=== PATIENT | male | born 1945 | race Caucasian/White ===

== ENCOUNTER 2017-09-18 13:28 | Emergency (ER) | payer BC ==
[2017-09-18] MEDS ORDERED: NS 0.9% 1000 ML* 1,000 ML IV ONE (13:30)
[2017-09-18] MEDS ORDERED: Propofol* 1,000 MG/100 ML BTL ONE (13:48)
[2017-09-18] MEDS ORDERED: Iodixanol* (CONTRAST) 320 MG/ML 100 ML SDV IV ONE (13:48)
[2017-09-18] MEDS ORDERED: Succinylcholine* 20 MG/ML 10 ML VIAL ONE (13:48)
[2017-09-18] MEDS ORDERED: Alteplase* 100 MG VIAL IV ONE ×2 (13:50)
[2017-09-18] MEDS ORDERED: Succinylcholine* 20 MG/ML 10 ML VIAL IV ONE (13:52)
[2017-09-18] MEDS ORDERED: Propofol* 10 MG/ML 20 ML BTL IV PUSH ONE (13:52)
[2017-09-18] MEDS ORDERED: niCARdipine 0.1MG/ML IVPREMIX* 20 MG/200 ML BAG IV ONE (13:53)
[2017-09-18] MEDS ORDERED: niCARdipine 0.1MG/ML IVPREMIX* 20 MG/200 ML BAG ONE (13:55)
--- NOTE | 2017-09-18 13:59 | RAD ---
INDICATION: Weakness, code ramos. COMPARISON: Comparison is made with a prior CT of the brain from October 15, 2015. TECHNIQUE: Contiguous axial sections of the brain were obtained from the skull base to the vertex without contrast. FINDINGS: The ventricles, cisterns and sulci are enlarged consistent with diffuse atrophy. There are multiple focal areas of decreased density in the subcortical and periventricular white matter suggestive of moderate chronic small vessel ischemic changes. No mass effect is seen. There is no evidence for hemorrhage. No significant focal osseous abnormality is seen. There is mucosal thickening within the ethmoid air cells. The paranasal sinuses and mastoid air cells otherwise appear clear. The results of this exam were called to Dr. Busby at 1351 hours. IMPRESSION: 1. NO EVIDENCE FOR GROSS ACUTE INFARCT, MASS EFFECT OR HEMORRHAGE. 2. ATROPHY AND MODERATE CHRONIC SMALL VESSEL ISCHEMIC CHANGES.
[2017-09-18] MEDS ORDERED: Propofol* 100 ML IV SCH (14:00)
[2017-09-18 14:06] LABS: ABS Basophils 0.1 10^3/ul (0-0.2); ABS Eosinophils 0.4 10^3/ul (0-0.6); ABS Lymphocytes 1.4 10^3/ul (1.0-4.8); ABS Monocytes 0.7 10^3/ul (0-0.8); ABS Neutrophils 4.8 10^3/ul (1.5-7.7); ABS Nucleated RBC 0 10^3/ul; Eosinophil % 5.7 % (0-6); Hematocrit 40 % (42-52); Hemoglobin 13.6 g/dl (14.0-18.0); Lymphocyte % 19.2 % (25-47); Mean Corpuscular HGB Conc 34 g/dl (31-36); Mean Corpuscular Hemoglobin 31 pg (27-31); Mean Corpuscular Volume 91 fL (80-94); Mean Platelet Volume 6.2 um3 (7.4-10.4); Nucleated Red Blood Cells % 0; Platelet Count 259 10^3/ul (150-450); Red Blood Count 4.39 10^6/ul (4.0-5.4); Red Cell Distribution Width 14 % (10.5-15); White Blood Count 7.4 10^3/ul (3.5-10.8)
[2017-09-18 14:17] LABS: Urine Appearance Clear; Urine Blood Negative (Negative); Urine Color Yellow; Urine Ketones Negative (Negative); Urine Protein Negative (Negative); Urine Specific Gravity 1.023 (1.010-1.030); Urine Urobilinogen Negative (Negative)
[2017-09-18 14:20] LABS: INR 0.99 (0.77-1.02)
[2017-09-18 14:24] LABS: EGFR Non-African American 81.1 (>60)
--- NOTE | 2017-09-18 14:25 | RAD ---
HISTORY: R/O MCA BLOCK VS CAROTID OCC, neurological changes COMPARISONS: Head CT dated October 31, 2017 TECHNIQUE: Multiple contiguous axial CT scans were obtained of the head and neck after the administration of nonionic intravenous contrast timed to the systemic arterial phase of contrast enhancement. Coronal and sagittal multiplanar reformations are submitted for review. Multiple 3-D maximum intensity projection reconstructions are also submitted for review. FINDINGS: CTA NECK: AORTIC ARCH: There is a normal three-vessel branching pattern of the aortic arch. There is no ostial or proximal stenosis of the cephalic great vessels. RIGHT VERTEBRAL ARTERY: The right vertebral artery is patent along its course, without stenosis. LEFT VERTEBRAL ARTERY: The left vertebral artery is patent along its course, without stenosis. DOMINANCE: The vertebral arteries are codominant. RIGHT COMMON CAROTID ARTERY: The right common carotid artery is patent. The right carotid bifurcation occurs at C2-C3 RIGHT INTERNAL CAROTID ARTERY: There is atheromatous disease of the right carotid bifurcation, without right internal carotid artery stenosis by NASCET criteria. RIGHT EXTERNAL CAROTID ARTERY: The right external carotid artery is unremarkable. LEFT COMMON CAROTID ARTERY: The left common carotid artery is patent. The left carotid bifurcation occurs at C3 LEFT INTERNAL CAROTID ARTERY: There is atheromatous disease of the left carotid bifurcation, without left internal carotid artery stenosis by NASCET criteria. LEFT EXTERNAL CAROTID ARTERY: The left external carotid artery is unremarkable. VENOUS CIRCULATION: The venous system is unremarkable. SALIVARY GLANDS: The parotid glands, submandibular glands, sublingual glands are normal. NASAL CAVITY/NASOPHARYNX: The nasal cavity and nasopharynx are normal. ORAL CAVITY/OROPHARYNX: The oral cavity and oropharynx are unremarkable. LARYNGEAL APPARATUS/HYPOPHARYNX: The laryngeal apparatus and hypopharynx are normal. UPPER AIRWAY/UPPER ESOPHAGUS: The visualized upper airway and esophagus are normal. LUNG APICES: The lung apices are clear. THYROID GLAND: The thyroid gland is normal. LYMPH NODES: There is no lymphadenopathy by size criteria. BONES AND SOFT TISSUES: Degenerative changes noted. 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 CTA HEAD: INTRACRANIAL CIRCULATION: There is occlusion of the left MCA at the level of the distal M1 segment just proximal to the trifurcation, best seen on axial image 219. There is density noted within an M2 branch on the noncontrast CT suggestive of a calcified thrombus. There is reconstitution of the M2 branches distally, with collateral flow symmetric to the contralateral side. (Collateral score 3) The anterior communicating artery complex is clear. There is a origin of the right posterior cerebral artery. VENOUS CIRCULATION: The venous system is unremarkable. PERFUSION: There is no obvious parenchymal perfusion deficit. HEMORRHAGE/INFARCT: There is no hemorrhage or acute infarct. MASSES/SHIFT: There is no mass or shift. EXTRA-AXIAL SPACES: There are no extra-axial fluid collections. SULCI AND VENTRICLES: The sulci and ventricles are normal in size and position for the patient's stated age. CEREBRUM: There is hypoattenuation of the periventricular and subcortical white matter. There is more focal and septal malacia of the left occipital lobe. There is loss of ramos-white differentiation along the insula. BRAINSTEM: There are no focal parenchymal abnormalities. CEREBELLUM: There are no focal parenchymal abnormalities. PARANASAL SINUSES: The paranasal sinuses are clear. ORBITS: The orbits are unremarkable. BONES AND SOFT TISSUE: Unremarkable OTHER: ASPECTS Score: Caudate: Normal -- 1 Lentiform Nuclei: Normal -- 1 Internal Capsule: Loss of lara-white definition -- 0 Insula: Normal -- 1 M1 -- Frontal Operculum: Normal -- 1 M2 -- Anterior Temporal Lobe: Normal -- 1 M3 -- Posterior Temporal Lobe: Normal -- 1 M4 -- Anterior MCA Territory: Normal -- 1 M5 -- Lateral MCA Territory: Normal -- 1 M6 -- Posterior MCA Territory: Normal -- 1 TOTAL: 9 IMPRESSION: 1. OCCLUSION OF LEFT MCA AT THE M1 SEGMENT WITH DISTAL RECONSTITUTION. THERE IS DENSITY ON NONCONTRAST CT SUGGESTIVE OF CALCIFIED THROMBOEMBOLIC CLOT. 2. CHRONIC SMALL VESSEL ISCHEMIC CHANGES. 3. 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 4. ASPECTS SCORE 9, COLLATERAL SCORE OF 3. PRELIMINARY FINDINGS WERE DISCUSSED WITH DR. RUGGIERO IN THE EMERGENCY DEPARTMENT AT APPROXIMATELY 2:14 PM ON SEPTEMBER 18, 2017. CPT II Codes: 3100F
--- NOTE | 2017-09-18 14:29 | RAD ---
HISTORY: post intubation COMPARISONS: November 13, 2014 VIEWS: 1: frontal portable view of the chest at 2:11 PM FINDINGS: LINES AND TUBES: An endotracheal tube is noted with the tip overlying the trachea between the clavicles and the rama. A gastric tube is noted. The tip is below the [id number] of the current examination, but is below the diaphragm. CARDIOMEDIASTINAL SILHOUETTE: The cardiomediastinal silhouette is normal for portable technique. PLEURA: The costophrenic angles are sharp. No pleural abnormalities are noted. LUNG PARENCHYMA: The lungs are clear. ABDOMEN: The upper abdomen is clear. There is no subphrenic gas. BONES AND SOFT TISSUES: No bone or soft tissue abnormalities are noted. IMPRESSION: LINES AND TUBES ABOVE. NO ACTIVE CARDIOPULMONARY DISEASE.
--- NOTE | 2017-09-18 14:56 | ED ---
Jimbo Reese Stephanie, scribed for Navin Del Valle MD on 09/18/17 at 1339 . Neurological HPI - HPI Summary HPI Summary: The pt is a 71 y/o M BIBA to the ED with c/o neurological deficit that began at approximately 13:00. Pt was found slumped over while in library, witnessed by bystanders. Pt unresponsive at arrival of EMS. Blood glucose of 103. EMS noted him to have paralysis of the right side. HPI otherwise limited due to the pts unresponsive state. No family present. Patient had no medications on his person. Arrival blood pressure is elevated to 190. Patient went directly to CT scanner where he was evaluated there by myself and the neurologist. - History of Current Complaint Stated Complaint: CODE DE LUNA Time Seen by Provider: 09/18/17 13:30 Hx Obtained From: EMS Onset/Duration: Started minutes ago, Still Present Timing: Constant Current Severity: Severe Character: Responsiveness Aggravating: Nothing Alleviating: Nothing TPA Considered: Yes - Allergy/Home Medications Allergies/Adverse Reactions: Allergies Allergy/AdvReac Type Severity Reaction Status Date / Time No Known Allergies Allergy Verified 10/15/15 10:48 Home Medications: Home Medications Alfuzosin ER (NF) [Uroxatral (NF)] 10 mg PO DAILY 09/18/17 [History Confirmed ] Ascorbic Acid TAB* [Vitamin C TAB*] 1,000 mg PO DAILY 09/18/17 [History Confirmed 09/18/17] Aspirin EC TAB* [Ecotrin EC Low Dose 81 MG*] 81 mg PO DAILY 09/18/17 [History Confirmed 09/18/17] Cholecalciferol (Vitamin D3) [Vitamin D3] 400 unit PO DAILY 09/18/17 [History Confirmed 09/18/17] Docusate Sodium [Dok] 250 mg PO DAILY 09/18/17 [History Confirmed 09/18/17] Escitalopram (NF) [Lexapro 10 mg (NF)] 15 mg PO DAILY 09/18/17 [History Confirmed 09/18/17] Esomeprazole(NF) [NexIUM(NF)] 40 mg PO DAILY 09/18/17 [History Confirmed ] Mirtazapine TAB* [Remeron TAB*] 30 mg PO BEDTIME 09/18/17 [History Confirmed 10/29] Opti-Zinc 1 tab PO DAILY 09/18/17 [History Confirmed 09/18/17] Pyridoxal 1 tab PO DAILY 09/18/17 [History Confirmed 09/18/17] Selenium 50 mcg PO DAILY 09/18/17 [History Confirmed 09/18/17] traZODone TAB* [Desyrel TAB*] 100 mg PO BEDTIME 09/18/17 [History Confirmed 10/29] PMH/Surg Hx/FS Hx/Imm Hx Endocrine/Hematology History: Denies: Hx Anticoagulant Therapy, Hx Diabetes, Hx Thyroid Disease Cardiovascular History: Reports: Hx Hypertension Denies: Hx Congestive Heart Failure, Hx Pacemaker/ICD Respiratory History: Denies: Hx Asthma, Hx Chronic Obstructive Pulmonary Disease (COPD) GI History: Denies: Hx Ulcer History: Reports: Other Problems/Disorders - enlarged prostrate Denies: Hx Renal Disease Musculoskeletal History: Denies: Hx Rheumatoid Arthritis, Hx Osteoporosis Sensory History: Denies: Hx Hearing Aid Neurological History: Reports: Other Neuro Impairments/Disorders - Hx COMPRESSION Fx'S 2009 Psychiatric History: Denies: Hx Panic Disorder - Surgical History Surgery Procedure, Year, and Place: HERNIA REPAIRS Infectious Disease History: Reports: Hx Shingles Denies: Hx Clostridium Difficile, Hx Hepatitis, Hx Human Immunodeficiency Virus (HIV), Hx of Known/Suspected MRSA, Hx Tuberculosis, Hx Known/Suspected VRE , Hx Known/Suspected VRSA, History Other Infectious Disease - Family History Known Family History: Positive: Unknown Negative: Renal Disease - Social History Occupation: Retired Lives: With Family Alcohol Use: Daily Alcohol Amount: 1 beer/day Hx Substance Use: No Substance Use Type: Reports: None Hx Tobacco Use: No Smoking Status (MU): Never Smoked Tobacco Have You Smoked in the Last Year: No Review of Systems - ROS Summary Review of Systems Summary: ROS limited due to the unresponsive state of the pt. Negative: Fever All Other Systems Reviewed And Are Negative: No Physical Exam - Summary Physical Exam Summary: Appearance: Well appearing, no pain distress Skin: warm, dry, reflects adequate perfusion Head/face: normal Eyes:Eyes forcibly deviated to the R ENT: normal Neck: supple, non-tender Respiratory: Course breath sounds on the L greater than R, gurgling respirations. Cardiovascular: RRR, pulses symmetrical Abdomen: non-tender, soft Bowel Sounds: present Musculoskeletal: normal, strength/ROM intact Neuro: non-verbal, mute, moves left side to stimuli, reaches for intubation tube , flaccid paralysis of R upper extremity. Reflexive movement only of R LE. Remainder limited by alteration of consciousness. GCS: 9 Triage Information Reviewed: Yes Vital Signs On Initial Exam: Initial Vitals Temp Pulse Resp BP Pulse Ox 0 F 88 22 196/116 91 09/18/17 13:38 09/18/17 13:38 09/18/17 13:38 09/18/17 13:38 09/18/17 13:38 Vital Signs Reviewed: Yes Procedures - Intubation Time of Intubation: 14:03 - 24 cm at the lip with Glidescope 4 Intubation Method: orotracheal - Orogastric tube placed Tube Size (cm): 8.0 Medications: Succinylcholine - and propofol Breath Sounds after Intubation: equal Intubation Complications: no complications Post Intubation Xray: Yes Progress/Xray Impression: postintubation chest x-ray shows appropriate placement of tubes. An [facility] - Vital Signs Vital Signs Temp Pulse Resp BP Pulse Ox 09/18/17 14:24 78 16 166/98 95 09/18/17 14:22 82 12 137/83 100 09/18/17 14:20 70 14 147/84 99 09/18/17 14:18 70 18 147/85 100 09/18/17 14:16 76 22 153/87 99 09/18/17 14:15 69 19 139/82 99 09/18/17 14:11 77 23 99 09/18/17 14:10 65 12 149/86 98 09/18/17 14:05 70 16 236/115 100 09/18/17 13:38 0 F 88 22 196/116 91 - Laboratory Lab Results: Lab Results 09/18/17 09/18/17 09/18/17 Range/Units 13:59 13:59 13:59 WBC 7.4 (3.5-10.8) 10^3/ul RBC 4.39 (4.0-5.4) 10^6/ul Hgb 13.6 L (14.0-18.0) g/dl Hct 40 L (42-52) % MCV 91 (80-94) fL MCH 31 (27-31) pg MCHC 34 (31-36) g/dl RDW 14 (10.5-15) % Plt Count 259 (150-450) 10^3/ul MPV 6.2 L (7.4-10.4) um3 Neut % (Auto) 65.4 (38-83) % Lymph % (Auto) 19.2 L (25-47) % Gilliam % (Auto) 9.0 H (0-7) % Eos % (Auto) 5.7 (0-6) % Baso % (Auto) 0.7 (0-2) % Absolute Neuts (auto) 4.8 (1.5-7.7) 10^3/ul Absolute Lymphs (auto) 1.4 (1.0-4.8) 10^3/ul Absolute Monos (auto) 0.7 (0-0.8) 10^3/ul Absolute Eos (auto) 0.4 (0-0.6) 10^3/ul Absolute Basos (auto) 0.1 (0-0.2) 10^3/ul Absolute Nucleated RBC 0 10^3/ul Nucleated RBC % 0 INR (Anticoag Therapy) 0.99 (0.77-1.02) APTT 33.2 (26.0-36.3) seconds Sodium (139-145) mmol/L Potassium (3.5-5.0) mmol/L Chloride (101-111) mmol/L Carbon Dioxide (22-32) mmol/L Anion Gap (2-11) mmol/L BUN (6-24) mg/dL Creatinine (0.67-1.17) mg/dL Est GFR ( Amer) (>60) Est GFR (Non-Af Amer) (>60) BUN/Creatinine Ratio (8-20) Glucose (70-100) mg/dL Lactic Acid (0.5-2.0) mmol/L Calcium (8.6-10.3) mg/dL Total Bilirubin (0.2-1.0) mg/dL AST (13-39) U/L ALT (7-52) U/L Alkaline Phosphatase (34-104) U/L Troponin I (<0.04) ng/mL Total Protein (6.4-8.9) g/dL Albumin (3.2-5.2) g/dL Globulin (2-4) g/dL Albumin/Globulin Ratio (1-3) Triglycerides mg/dL Cholesterol mg/dL LDL Cholesterol mg/dL HDL Cholesterol mg/dL Urine Color Yellow Urine Appearance Clear Urine pH 7.0 (5-9) Ur Specific Erskine 1.023 (1.010-1.030) Urine Protein Negative (Negative) Urine Ketones Negative (Negative) Urine Blood Negative (Negative) Urine Nitrate Negative (Negative) Urine Bilirubin Negative (Negative) Urine Urobilinogen Negative (Negative) Ur Leukocyte Esterase Negative (Negative) Urine Glucose Negative (Negative) Blood Type Antibody Screen 09/18/17 09/18/17 09/18/17 Range/Units 13:59 14:00 14:00 WBC (3.5-10.8) 10^3/ul RBC (4.0-5.4) 10^6/ul Hgb (14.0-18.0) g/dl Hct (42-52) % MCV (80-94) fL MCH (27-31) pg MCHC (31-36) g/dl RDW (10.5-15) % Plt Count (150-450) 10^3/ul MPV (7.4-10.4) um3 Neut % (Auto) (38-83) % Lymph % (Auto) (25-47) % Gilliam % (Auto) (0-7) % Eos % (Auto) (0-6) % Baso % (Auto) (0-2) % Absolute Neuts (auto) (1.5-7.7) 10^3/ul Absolute Lymphs (auto) (1.0-4.8) 10^3/ul Absolute Monos (auto) (0-0.8) 10^3/ul Absolute Eos (auto) (0-0.6) 10^3/ul Absolute Basos (auto) (0-0.2) 10^3/ul Absolute Nucleated RBC 10^3/ul Nucleated RBC % INR (Anticoag Therapy) (0.77-1.02) APTT (26.0-36.3) seconds Sodium 137 L (139-145) mmol/L Potassium 4.1 (3.5-5.0) mmol/L Chloride 104 (101-111) mmol/L Carbon Dioxide 27 (22-32) mmol/L Anion Gap 6 (2-11) mmol/L BUN 12 (6-24) mg/dL Creatinine 0.92 (0.67-1.17) mg/dL Est GFR ( Amer) 104.3 (>60) Est GFR (Non-Af Amer) 81.1 (>60) BUN/Creatinine Ratio 13.0 (8-20) Glucose 107 H (70-100) mg/dL Lactic Acid 1.1 (0.5-2.0) mmol/L Calcium 9.1 (8.6-10.3) mg/dL Total Bilirubin 0.50 (0.2-1.0) mg/dL AST 15 (13-39) U/L ALT 13 (7-52) U/L Alkaline Phosphatase 94 (34-104) U/L Troponin I 0.01 (<0.04) ng/mL Total Protein 6.5 (6.4-8.9) g/dL Albumin 3.7 (3.2-5.2) g/dL Globulin 2.8 (2-4) g/dL Albumin/Globulin Ratio 1.3 (1-3) Triglycerides 112 mg/dL Cholesterol 130 mg/dL LDL Cholesterol 62 mg/dL HDL Cholesterol 45.6 mg/dL Urine Color Urine Appearance Urine pH (5-9) Ur Specific Erskine (1.010-1.030) Urine Protein (Negative) Urine Ketones (Negative) Urine Blood (Negative) Urine Nitrate (Negative) Urine Bilirubin (Negative) Urine Urobilinogen (Negative) Ur Leukocyte Esterase (Negative) Urine Glucose (Negative) Blood Type O Positive Antibody Screen Pending Result Diagrams: 09/18/17 13:59 09/18/17 13:59 Lab Statement: Any lab studies that have been ordered have been reviewed, and results considered in the medical decision making process. - Radiology CXR Xray Interpretation: No Acute Changes Radiology Interpretation Completed By: Radiologist - LINES AND TUBES ABOVE. NO ACTIVE CARDIOPULMONARY DISEASE. ED physician has reviewed this report. - CT Brain CT Interpretation: No Acute Changes CT Interpretation Completed By: Radiologist - 1. NO EVIDENCE FOR GROSS ACUTE INFARCT, MASS EFFECT OR HEMORRHAGE. 2. ATROPHY AND MODERATE CHRONIC SMALL VESSEL ISCHEMIC CHANGES. ED physician has reviewed this report. CTA Head CT Interpretation: Positive (See Comments) CT Interpretation Completed By: Radiologist - 1. OCCLUSION OF LEFT MCA AT THE M1 SEGMENT WITH DISTAL RECONSTITUTION. THERE IS DENSITY ON NONCONTRAST CT SUGGESTIVE OF CALCIFIED THROMBOEMBOLIC CLOT. 2. CHRONIC SMALL VESSEL ISCHEMIC CHANGES. 3. 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 4. ASPECTS SCORE 9, COLLATERAL SCORE OF 3. PRELIMINARY FINDINGS WERE DISCUSSED WITH DR. DEL VALLE IN THE EMERGENCY DEPARTMENT AT APPROXIMATELY 2: 14 PM ON SEPTEMBER 18, 2017. CPT II Codes: 3100F ED physician has reviewed this report. 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 Cook Helper/Release Non-Paretic Hand: Neither Correctly Best Gaze (Only Horizontal Eye Movement): Forced Deviation Visual Field Testing: No Visual Loss Facial Paresis-Pt to Smile & Close Eyes or Grimace Symmetry: Normal/Symmetrical Motor Function - Right Arm: No Effort Against Erskine Motor Function - Left Arm: No Drift-Holds 10 Seconds Motor Function - Right Leg: Effort Against Erskine Motor Function - Left Leg: No Drift-Holds 10 Seconds Limb Ataxia-Must be out of Proportion to Weakness Present: Absent Sensory (Use Pinprick to Test Arms/Legs/Trunk/Face): Normal Best Language (Describe Picture, Name Items): Mute/Global Aphasia Dysarthria (Read Several Words): Unintelligible or Mute Extinction and Inattention: Inattention Total Score: 20 Re-Evaluation - Re-Evaluation First Eval Re-Evaluation Time: 14:20 Change: Unchanged - BP is 150 systolic. Second Eval Change: Improved - Patient reaching for the tube and trying to mouth words. Course/Dx - Course Course Of Treatment: Patient presents critically ill after abrupt onset of slumping over at the library at 1305. This will be uses the time of onset. He was noted by EMS to have flaccid paralysis of the right side. Blood sugar was within normal range. Patient went directly to CT scan where no hemorrhages found. The neurologist accompanied him. CTA was obtained which showed large vessel occlusion. His blood pressure was elevated so is managed with IV Cardene. He was not maintaining his airway with gargling respirations so he was intubated by RSI. Blood pressure was adequately managed and TPA was started. There is no contraindications found in the chart. No family was available for history. Given the large vessel occlusion transfer arrangements were entertained. The stroke neurologist at [facility] was contacted. They accept the patient for transfer for rescue intervention. [facility] was contacted and will transport the patient. He is maintained on propofol, IV Cardene, IV TPA is going. His NIH stroke score is 20+. Patient was accepted to [facility] ER. Blood pressure is within target range running [address] Barnes accepts the pt into the ED at [facility]. 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 - Differential Dx Differential Diagnoses Neuro: Positive: Other - Acute CVA hemorrhagic versus ischemic, hypoglycemia, acute respiratory failure, aspiration pneumonitis - Diagnoses Provider Diagnoses: Acute CVA (cerebrovascular accident), Aspiration into airway, Hypertensive emergency - Physician Notifications Discussed Care Of Patient With: uCrt Grigsby - present throughout the resuscitation Time Discussed With Above Provider: 13:50 Instructed by Provider To: MD Will See In ED - Critical Care Time Critical Care Time: 75-104 min - 75 min. care time is exclusive of separately billable procedures. Discharge - Sign-Out/Discharge Documenting (check all that apply): Discharge/Admit/Transfer - Transfer - Discharge Plan Condition: Critical Disposition: TRANS HIGHER LVL OF CARE FAC Referrals: Keke Chapman MD [Primary Care Provider] - - Billing Disposition and Condition Condition: CRITICAL Disposition: Trans Higher Lvl of Care Fac The documentation as recorded by the Jimbo solo Stephanie accurately reflects the service I personally performed and the decisions made by me, Navin Del Valle MD.
[2017-09-18] MEDS ORDERED: Propofol* 100 ML ONE (15:12)
[2017-09-18] MEDS ORDERED: Propofol* 500 MG/50 ML BTL IV SCH (16:00)
[2017-09-18 16:55] VITALS: BP 169/89
--- NOTE | 2017-09-19 00:29 | CONS ---
CC: Dr. Chapman.* NEUROLOGY CONSULTATION: DATE OF CONSULT: 09/18/17 LOCATION: He is in the emergency room. REFERRING PROVIDER: Dr. Del Valle. CHIEF COMPLAINT: Stroke. HISTORY OF PRESENT ILLNESS: Pino Chamorro is a 71-year-old man of unknown handedness who was in the [facility] today when he slumped and was unresponsive. The history is from the bag end sewer who brought him in. Bystanders confirmed that at 1305 he seemed to slump and the ambulance was summoned. He was brought in to the emergency room and had a flaccid right hemiparesis with left gaze deviation in the CT scanner room. CT scan was performed and was unremarkable. CT angiogram was performed and he has a left middle cerebral artery M1 occlusion. PAST MEDICAL HISTORY: From computer records as he is unaccompanied. He was in the emergency room in 2015, was been getting physical therapy and there is an office note from his primary care provider Dr. Chapman in June 2016 in the record. He has a history of depression, a possible parkinsonism, osteoarthritis , constipation, remote history of alcohol abuse, cataracts. He had a compression fracture of L1 in the past. MEDICATIONS: At that point in time consisted of: 1. Colace 100 mg p.o. q. day. 2. Nexium. 3. Pramipexole 0.25 mg 2 tablets q. day. 4. Pyridoxine 1 tablet q. day. 5. Aspirin 81 mg p.o. q. day. 6. Vitamin D3. 7. Venlafaxine 150 mg p.o. q. day. 8. Mirtazapine 30 mg p.o. q. day. 9. Trazodone 100 mg q.h.s. ALLERGIES: He is listed as being allergic to HALDOL. REVIEW OF SYSTEMS: Not currently possible. PHYSICAL EXAM: On examination, both in the CAT scanner room and then subsequently in the emergency room is notable for a flaccid right hemiparesis, which did not improve over serial assessments. He would move his left arm at times to reach up his face before he was sedated and paralyzed for intubation. He would grimace on the left side of his face to pain stimulation to his left arm and leg but not to pain stimulation to his right arm and leg. He did not show any facial movement on the right side. His gaze was deviated to the left with occasional traverse into the midline, but mainly off to the left. His pupils responded equally from about 2.5 to 2 mm. I could not get a response to visual threat. At times in the CT scanner before he was put into the gantry, I could get him to look at me and at one point he seemed to try to mouth a word, but other than that he was mute. His NIH Stroke Score by my estimate is 23. DIAGNOSTIC STUDIES/LAB DATA: Includes a CT of the brain, which I reviewed and which looks normal other than involutional changes. CT angiogram of the brain was performed as well. I do not see any significant carotid stenosis. His left middle cerebral artery seems cut off in the [id number] M1 segment. There is no evidence of hemorrhaging on his brain CT. His blood tests are not back yet. IMPRESSION: His blood pressure was elevated as high as 220/100 at various points. Prior to giving TPA, he was given some Cardene, propofol, and intubated. His blood pressure came down to 150 over 80 to 90 and TPA was administered. The bolus was instituted at 1420. I spoke with Dr. Barnes of the stroke service at the [facility]. He agreed and accepted Mr. Chamorro in transfer by air for possible endovascular therapy. TPA will be continued to be infused on the trip there. Until he was sedated and given propofol, his neurologic exam did not change, but of course became difficult to assess once that was carried out. Over 60 minutes of emergency room care was carried out continuously in the care of Mr. Chamorro. [id number]/[facility] #: [id number] RADHA
== END 2017-09-18 15:30 | disposition short-term general hospital (02) ==
LOC: ED 13:28
DX: I63.9 Cerebral infarction, unspecified (principal); R29.818 Other symptoms and signs involving the nervous system; J98.8 Other specified respiratory disorders; I10 Essential (primary) hypertension; Z79.82 Long term (current) use of aspirin; Z79.899 Other long term (current) drug therapy
CPT/HCPCS: 36415; 70450; 70496; 70498; 71045; 80053; 80061; 81003; 83605; 84484; 85025; 85610; 85730; 86850; 86900; 86901; 93005; 96374; 96375; 96376; 99285; J0330; J2704; J2997; Q9967

== ENCOUNTER 2017-09-23 08:03 | Inpatient (IN) | payer BC, MEDICARE ==
[2017-09-23] MEDS: Atorvastatin* 40 MG TAB PO SCH (17:27)
[2017-09-23] MEDS: Docusate CAP* 100 MG PO SCH (21:16)
[2017-09-23] MEDS: traZODone TAB* 100 MG PO SCH (21:16)
[2017-09-23] MEDS: Metoprolol Tartrate TAB* 50 mg PO SCH (21:16)
[2017-09-23] MEDS: Heparin VIAL(*) 5000 UNITS/ML VIAL (FIVE THOUSAND) SUBCUT SCH (21:17)
--- NOTE | 2017-09-24 03:45 | HP ---
ADMISSION HISTORY AND PHYSICAL: DATE OF ADMISSION: 09/23/17 CHIEF COMPLAINT: Pino is here for a left-sided stroke with right hemiplegia and dysarthria and aphasia. HISTORY OF PRESENT ILLNESS: Pino Chamorro is a 71-year-old male. He has a medical history significant for benign prostatic hypertrophy. He was at the [facility] on 09/18/17 when he slumped and was unresponsive. He was brought in by EMT technicians. A CAT scan of his brain was done in the emergency room. He had a flaccid right hemiparesis with a left gaze deviation on presentation. CAT scan was done of his brain, was unremarkable. CT angiogram was done and he had left middle cerebral artery M1 occlusion. He had a NIH stroke score of 23. He was felt to be a candidate for TPA. Prior to TPA, he was given some Cardene and propofol to lower his blood pressure as it was high. TPA was administered. The patient was sent up to the [facility] for possible endovascular therapy. TPA was continued on the trip up to [place]. He was intubated for the transfer. He had an left MCA embolectomy with a TICI 2b recanalization. Following that procedure, he extubated himself. Postprocedure CAT scan of his head showed an evolving infarct of the left pre and post central gyri of the left parietal lobe. MRI showed a large left hemispheric infarct. He had an echocardiogram which was negative. Telemetry did not show any atrial fibrillation. He had a brief run of SVT in the ICU which did not recur. Neurology recommended a loop recorder to be done as an outpatient. He was felt to have physical therapy, occupational therapy, and speech therapy needs. He is now being admitted for inpatient rehab, so that he might return to an independent living. PAST MEDICAL HISTORY: Significant for the aforementioned benign prostatic hypertrophy. He has a history of depression and was seeing a psychiatrist with us. He also has a history of osteoporosis and early dementia. CURRENT MEDICATIONS: Include: 1. Lopressor. 2. Aspirin. 3. Lipitor. 4. Lexapro. 5. Heparin for DVT prophylaxis. 6. Prilosec. 7. Trazodone. ALLERGIES: No known drug allergies. SOCIAL HISTORY: He is a nonsmoker. He has a beer every night. He lives with his in a two-rajiv house with a bed and bath on the second level. There are 4 steps to enter and then another 4 steps to get to the kitchen level. REVIEW OF SYSTEMS: The patient reports no current shortness of breath. Does report difficulty speaking. PHYSICAL EXAMINATION VITAL SIGNS: The patient's temperature is 98.8, blood pressure is 150/90, pulse is 80, respirations 16. HEENT: He appears to have a right facial droop. NECK: His neck was supple. LUNGS: Sounded clear to auscultation bilaterally. HEART: Sounds are regular. S1 and S2 are audible. ABDOMEN: Soft and nontender. EXTREMITIES: His extremities showed slightly increased muscle tone on the right side. Peripheral pulses were intact. NEUROLOGIC: The patient was alert and oriented. He had dysarthria and also what appeared to be an expressive aphasia, although given his memory difficulties, I was not sure. He did not show any voluntary movement on the right arm or in the right leg. FUNCTIONAL: He transfers with max assist. 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 PLAN: We are going to integrate him into a comprehensive and therapeutic rehab program with the following goals: 1. Physical Therapy will work with the patient. They are going to work on functional transfer training and ambulation training with a walker. 2. Occupational Therapy will see the patient and work on his activities of daily living including toileting and toilet transfers. 3. Speech Therapy will see the patient. They are going to examine his swallowing and also work on his speech. 4. For secondary stroke prevention, we are going to continue a baby aspirin every day. 5. Heparin for DVT prophylaxis. 6. He is already on SSRI, Celexa. 7. Consider stimulants if indicated. 8. For his blood pressure, we are going to continue Lopressor. 9. For benign prostatic hypertrophy, we will continue Uroxatral. 10. academic services professional will be closely involved to make sure that any services and equipment that the patient requires are in place prior to discharge. 11. Family training as appropriate. 12. Home with appropriate services. ESTIMATED LENGTH OF STAY: 21 to 24 days. [id number]/[facility] #: [id number] MTDD
[2017-09-24 05:05] LABS: ABS Basophils 0 10^3/ul (0-0.2); ABS Eosinophils 0.4 10^3/ul (0-0.6); ABS Lymphocytes 1.7 10^3/ul (1.0-4.8); ABS Neutrophils 6.7 10^3/ul (1.5-7.7); ABS Nucleated RBC 0 10^3/ul; Eosinophil % 3.7 % (0-6); Hematocrit 41 % (42-52); Hemoglobin 13.8 g/dl (14.0-18.0); Lymphocyte % 17.1 % (25-47); Mean Corpuscular HGB Conc 34 g/dl (31-36); Mean Corpuscular Hemoglobin 31 pg (27-31); Mean Corpuscular Volume 91 fL (80-94); Mean Platelet Volume 6.1 um3 (7.4-10.4); Nucleated Red Blood Cells % 0; Platelet Count 281 10^3/ul (150-450); Red Blood Count 4.45 10^6/ul (4.00-5.40); Red Cell Distribution Width 13 % (10.5-15); White Blood Count 9.8 10^3/ul (3.5-10.8)
[2017-09-24] MEDS: Omeprazole CAP* 20 MG PO SCH (05:19)
[2017-09-24] MEDS: Heparin VIAL(*) 5000 UNITS/ML VIAL (FIVE THOUSAND) SUBCUT SCH ×3 (05:19→21:33)
[2017-09-24 05:33] LABS: EGFR Non-African American 90.1 (>60)
[2017-09-24] MEDS: ALFUZOSIN 10 MG PO SCH (10:26)
[2017-09-24] MEDS: Aspirin EC TAB* 81 MG TAB.EC PO SCH (10:26)
[2017-09-24] MEDS: CMCS Escitalopram (NF) 5 MG TAB PO SCH (10:26)
[2017-09-24] MEDS: Metoprolol Tartrate TAB* 50 mg PO SCH ×2 (10:27→21:31)
[2017-09-24] MEDS: Docusate CAP* 100 MG PO SCH ×2 (10:27→21:31)
[2017-09-24] MEDS: Atorvastatin* 40 MG TAB PO SCH (17:07)
--- NOTE | 2017-09-24 18:24 | PN ---
Progress Note Date of Service: 09/24/17 Note: DANIELE HOWARD was visited. Therapy notes read and reviewed. He remains with an aphasia and a dysarthria and a right hemiplegia. Tired after therapy. Current Medications: Active Medications Generic Name Dose Route Start Last Admin Trade Name Fregutierrez PRN Reason Stop Dose Admin Acetaminophen 650 mg 09/23/17 16:29 Tylenol Tab* PO Q6H PRN HEADACHE/PAIN Alfuzosin HCl 10 mg 09/24/17 09:00 09/24/17 10:26 Uroxatral (Nf) PO 10 mg DAILY FLORESITA Administration Aspirin 81 mg 09/24/17 09:00 09/24/17 10:26 Aspirin Ec Tab* PO 81 mg DAILY FLORESITA Administration Atorvastatin Calcium 40 mg 09/23/17 17:00 09/24/17 17:07 Lipitor* PO 40 mg 1700 FLORESITA Administration Docusate Sodium 100 mg 09/23/17 21:00 09/24/17 10:27 Colace Cap* PO 100 mg BID FLORESITA Administration Escitalopram Oxalate 15 mg 09/24/17 09:00 09/24/17 10:26 Lexapro (Nf) PO 15 mg DAILY FLORESITA Administration Heparin Sodium (Porcine) 5,000 units 09/23/17 22:00 09/24/17 15:30 Heparin Vial(*) SUBCUT 5,000 units Q8HR FLORESITA Administration Metoprolol Tartrate 50 mg 09/23/17 21:00 09/24/17 10:27 Lopressor Tab* PO 50 mg Q12HR FLORESITA Administration Omeprazole 20 mg 09/24/17 06:00 09/24/17 05:19 Prilosec Cap* PO 20 mg 0600 FLORESITA Administration Senna 2 tab 09/23/17 16:29 Senokot Tab* PO BEDTIME PRN CONSTIPATION Trazodone HCl 100 mg 09/23/17 21:00 09/23/17 21:16 Desyrel Tab* PO 100 mg BEDTIME FLORESITA Administration Vital Signs: Vital Signs Temp Pulse Resp BP Pulse Ox 99.0 F 63 20 114/52 94 09/24/17 16:38 09/24/17 16:38 09/24/17 16:38 09/24/17 16:38 09/24/17 16:38 Lab Results: Laboratory Results - last 24 hr 09/24/17 09/24/17 04:48 04:48 WBC 9.8 RBC 4.45 Hgb 13.8 L Hct 41 L MCV 91 MCH 31 MCHC 34 RDW 13 Plt Count 281 MPV 6.1 L Neut % (Auto) 68.3 Lymph % (Auto) 17.1 L [place] % (Auto) 10.5 H Eos % (Auto) 3.7 Baso % (Auto) 0.4 Absolute Neuts (auto) 6.7 Absolute Lymphs (auto) 1.7 Absolute Monos (auto) 1.0 H Absolute Eos (auto) 0.4 Absolute Basos (auto) 0 Absolute Nucleated RBC 0 Nucleated RBC % 0 Sodium 139 Potassium 3.7 Chloride 107 Carbon Dioxide 26 Anion Gap 6 BUN 24 Creatinine 0.84 Est GFR ( Amer) 115.8 Est GFR (Non-Af Amer) 90.1 BUN/Creatinine Ratio 28.6 H Glucose 105 H Calcium 9.2 Total Bilirubin 1.30 H AST 23 ALT 28 Alkaline Phosphatase 86 Total Protein 6.6 Albumin 3.7 Globulin 2.9 Albumin/Globulin Ratio 1.3 Exam: HEENT: Mild right facial LUNGS: Clear HEART: Reg rhythm ABDOMEN: Soft, +BS EXTREMITIES: flaccid RUE NEUROLOGIC: Dysarthric and aphasic. No movement on right side Assessment/Plan: 1. Right MCA CVA with tPA administration and S/P embolectomy: PT/OT/JEWEL SAWYER. ASA/ Lipitor 2. Dysphagia: Pureed solids, nectar thickened liquids 3. Depression: Lexapro/Trazodone 4. BPH: Uroxatral 5. HTN: Lopressor 6. DVT Prophylaxis: Heparin S/Q 7. Advanced Directives: Full Code 09/24/17 18:25
[2017-09-24] MEDS: traZODone TAB* 100 MG PO SCH (21:31)
[2017-09-25] MEDS: Heparin VIAL(*) 5000 UNITS/ML VIAL (FIVE THOUSAND) SUBCUT SCH ×3 (05:38→21:37)
[2017-09-25] MEDS: Omeprazole CAP* 20 MG PO SCH (05:40)
[2017-09-25] MEDS: Docusate CAP* 100 MG PO SCH ×2 (09:36→21:38)
[2017-09-25] MEDS: Metoprolol Tartrate TAB* 50 mg PO SCH ×2 (09:36→21:38)
[2017-09-25] MEDS: ALFUZOSIN 10 MG PO SCH (09:36)
[2017-09-25] MEDS: Aspirin EC TAB* 81 MG TAB.EC PO SCH (09:36)
[2017-09-25] MEDS: CMCS Escitalopram (NF) 5 MG TAB PO SCH (09:36)
[2017-09-25] MEDS: Atorvastatin* 40 MG TAB PO SCH (17:15)
--- NOTE | 2017-09-25 19:09 | PN ---
Progress Note Date of Service: 09/25/17 Note: DANIELE HOWARD was visited. Therapy notes read and reviewed. Quite fatigued after therapies. Remains flaccid on right side. No voluntary movement on right seen by me. Current Medications: Active Medications Generic Name Dose Route Start Last Admin Trade Name Freq PRN Reason Stop Dose Admin Acetaminophen 650 mg 09/23/17 16:29 Tylenol Tab* PO Q6H PRN HEADACHE/PAIN Alfuzosin HCl 10 mg 09/24/17 09:00 09/25/17 09:36 Uroxatral (Nf) PO 10 mg DAILY FLORESITA Administration Aspirin 81 mg 09/24/17 09:00 09/25/17 09:36 Aspirin Ec Tab* PO 81 mg DAILY FLORESITA Administration Atorvastatin Calcium 40 mg 09/23/17 17:00 09/25/17 17:15 Lipitor* PO 40 mg 1700 FLORESITA Administration Docusate Sodium 100 mg 09/23/17 21:00 09/25/17 09:36 Colace Cap* PO 100 mg BID FLORESITA Administration Escitalopram Oxalate 15 mg 09/24/17 09:00 09/25/17 09:36 Lexapro (Nf) PO 15 mg DAILY FLORESITA Administration Heparin Sodium (Porcine) 5,000 units 09/23/17 22:00 09/25/17 14:05 Heparin Vial(*) SUBCUT 5,000 units Q8HR FLORESITA Administration Metoprolol Tartrate 50 mg 09/23/17 21:00 09/25/17 09:36 Lopressor Tab* PO 50 mg Q12HR FLORESITA Administration Omeprazole 20 mg 09/24/17 06:00 09/25/17 05:40 Prilosec Cap* PO 20 mg 0600 FLORESITA Administration Senna 2 tab 09/23/17 16:29 Senokot Tab* PO BEDTIME PRN CONSTIPATION Trazodone HCl 100 mg 09/23/17 21:00 09/24/17 21:31 Desyrel Tab* PO 100 mg BEDTIME FLORESITA Administration Vital Signs: Vital Signs Temp Pulse Resp BP Pulse Ox 98.5 F 62 18 113/55 97 09/25/17 16:20 09/25/17 16:20 09/25/17 16:20 09/25/17 16:20 09/25/17 16:20 Exam: HEENT: Mild right facial LUNGS: Clear HEART: Reg rhythm ABDOMEN: Soft, +BS EXTREMITIES: flaccid RUE and RLE NEUROLOGIC: Dysarthric and aphasic. No movement on right side Assessment/Plan: 1. 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 ASA/ Lipitor 2. Dysphagia: Pureed solids, nectar thickened liquids 3. Depression: Lexapro/Trazodone 4. BPH: Uroxatral 5. HTN: Lopressor 6. DVT Prophylaxis: Heparin S/Q 7. Advanced Directives: Full Code 09/25/17 19:09
[2017-09-25] MEDS: traZODone TAB* 100 MG PO SCH (21:38)
[2017-09-26] MEDS: Heparin VIAL(*) 5000 UNITS/ML VIAL (FIVE THOUSAND) SUBCUT SCH ×3 (05:20→21:13)
[2017-09-26] MEDS: Omeprazole CAP* 20 MG PO SCH (05:20)
[2017-09-26] MEDS: Docusate CAP* 100 MG PO SCH ×2 (09:25→20:30)
[2017-09-26] MEDS: Aspirin EC TAB* 81 MG TAB.EC PO SCH (09:25)
[2017-09-26] MEDS: Metoprolol Tartrate TAB* 50 mg PO SCH ×2 (09:25→20:30)
[2017-09-26] MEDS: CMCS Escitalopram (NF) 5 MG TAB PO SCH (09:25)
[2017-09-26] MEDS: ALFUZOSIN 10 MG PO SCH (09:25)
--- NOTE | 2017-09-26 11:24 | PN ---
Progress Note Date of Service: 09/26/17 Note: DANEILE HOWARD was visited. Nursing and therapy notes read and reviewed. No chest pain, shortness of breath or abdominal pain. He has no complaints. Current Medications: Active Medications Generic Name Dose Route Start Last Admin Trade Name Freq PRN Reason Stop Dose Admin Acetaminophen 650 mg 09/23/17 16:29 Tylenol Tab* PO Q6H PRN HEADACHE/PAIN Alfuzosin HCl 10 mg 09/24/17 09:00 09/26/17 09:25 Uroxatral (Nf) PO 10 mg DAILY FLORESITA Administration Aspirin 81 mg 09/24/17 09:00 09/26/17 09:25 Aspirin Ec Tab* PO 81 mg DAILY FLORESITA Administration Atorvastatin Calcium 40 mg 09/23/17 17:00 09/25/17 17:15 Lipitor* PO 40 mg 1700 FLORESITA Administration Docusate Sodium 100 mg 09/23/17 21:00 09/26/17 09:25 Colace Cap* PO 100 mg BID FLORESITA Administration Escitalopram Oxalate 15 mg 09/24/17 09:00 09/26/17 09:25 Lexapro (Nf) PO 15 mg DAILY FLORESITA Administration Heparin Sodium (Porcine) 5,000 units 09/23/17 22:00 09/26/17 05:20 Heparin Vial(*) SUBCUT 5,000 units Q8HR FLORESITA Administration Metoprolol Tartrate 50 mg 09/23/17 21:00 09/26/17 09:25 Lopressor Tab* PO 50 mg Q12HR FLORESITA Administration Omeprazole 20 mg 09/24/17 06:00 09/26/17 05:20 Prilosec Cap* PO 20 mg 0600 FLORESITA Administration Senna 2 tab 09/23/17 16:29 Senokot Tab* PO BEDTIME PRN CONSTIPATION Trazodone HCl 100 mg 09/23/17 21:00 09/25/17 21:38 Desyrel Tab* PO 100 mg BEDTIME FLORESITA Administration Vital Signs: Vital Signs Temp Pulse Resp BP Pulse Ox 98.3 F 73 16 143/78 95 09/26/17 05:22 09/26/17 05:22 09/26/17 05:22 09/26/17 05:22 09/26/17 05:22 Exam: GEN: no acute distress. alert and appropriate LUNGS: Clear to auscultation bilaterally HEART: Regular rate and rhythm ABDOMEN: Soft, +BS, non-tender, non-distended EXTREMITIES: no edema NEUROLOGIC: CN II-XII intact except for right CN VII palsy, but it seems mild. Dysarthria and aphasia. Right flaccid hemiplegia and sensation also impaired on right side. Has difficulty following commands for motor exam of left side, which is 5/5 strength and normal sensation. He may have some perseveration vs he does not understand due to receptive aphasia. Assessment/Plan: 71yo man 1. 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 ASA/ Lipitor 2. Dysphagia: Pureed solids, nectar thickened liquids 3. Depression: Lexapro/Trazodone 4. BPH: Uroxatral 5. HTN: Lopressor 6. DVT Prophylaxis: Heparin S/Q 7. Advanced Directives: Full Code 8. Estimated LOS: will discuss today with team at IPOC. 09/26/17 11:24
--- NOTE | 2017-09-26 12:37 | PMRUTEAM ---
PMRU: Team Meeting Current Status: Nursing: Current Status Skin Deviations [rt lower leg, Bruise torey UE] Skin Deviations [Bilateral Other Groin] Skin Deviations [Left Knee] Other Skin Deviations [Right Groin] Previous Access Point Skin Deviation Description [rt scattered lower leg, torey UE] Skin Deviation Description [ slightly pink Bilateral Groin] Skin Deviation Description [ scab,healing Left Knee] Skin Deviation Description [ PHILIPPE Right Groin] Physical Therapy: Current Status Bed Mobility Assistance Max Assist Transfer Moblility Assistance Max Assist,Total Assist Transfer/Bed Mobility EZ Stand or saba Recommended Devices Ambulation Assistance unable Wheelchair Distance (ft) 50 Objective Comments poor motor planning/ inconsistent command following (20% accurate), poor R sided awareness, easily fatiguable Occupational Therapy: Current Status Upper Body Dressing Max Asst Lower Body Dressing Total Assist Bathing Max Asst,2 Person Assist Toileting Total Assist Shower Transfer not tested Eating Supervision SPEECH THERAPY: assessment in progress. Pureed diet and nectar thick liquids. Rec Therapy: Current Status Summary of Assessment and Information above taken in combination from pt. Clinical Impression and his family members d/t his speech difficulties . Pt. was active in leisure interests prior to admission. Pt. has leisure activities in his room and was open to continued leisure visits. Treatment Goals Pt. will engage in leisure activities while on the unit. Treatment Plan Provide RT services and encourage involvement. Social Work: Current Status Discharge Plan return home with home care svs and family support Potential for Family Training pt's family are involved and supportive Anticipated Discharge Home Destination Discharge With home care svs and family support Goals: Physical Therapy: Initial Goals Bed Mobility Assistance Independent Transfer Mobility Assistance Independent Transfer/Bed Mobility Large Base Quad Cane Recommended Devices Wheelchair Propulsion Ability Independent Occupational Therapy: Initial Goals Goals to be Completed in (Days 4-6 weeks ) Upper Body Bathing Routine Modified Independent with Lower Body Bathing Routine Minimal Contact Assist Upper Body Dressing Routine Minimal Contact Assist Lower Body Dressing Routine Minimal Contact Assist Toilet Hygeine and Clothing Supervision/Set Up Management Routine Toilet Transfer Routine Supervision/Set Up Step-In Shower Transfer Minimal Contact Assist Routine Functional Transfers for ADL Supervision/Set Up Grooming Routine Independent Feeding Routine Independent SPEECH THERAPY: least restrictive diet. Effective communication. Social Work: Goals Discharge Plan return home with home care svs and family support Potential for Family Training pt's family are involved and supportive Anticipated Discharge Home Destination Discharge With home care svs and family support Care Plan: Care Plan Communication-Improve/Maintain Start: 09/23/17 17:33 Freq: QSHIFT Status: Active Target: Protocol: Activity Type Activity Date Activity User E-Sign Co-Sign Detail Recorded Client Recorded Date Recorded By Document 09/25/17 21:00 [id number] 09/25/17 21:04 [id number] 09/25/17 21:00 Outcome: Communication Outcome/Goals Demonstrate Knowledge and Use of Communication Tools/Devices Demonstrate Ability to Make Needs Known Progression Toward Outcome/Goals Progressing Discharge Planning Start: 09/23/17 17:33 Freq: QSHIFT Status: Active Target: Protocol: Activity Type Activity Date Activity User E-Sign Co-Sign Detail Recorded Client Recorded Date Recorded By Document 09/26/17 01:56 [id number] 09/26/17 01:56 [id number] 09/26/17 01:56 Outcome: Discharge Planning Outcome/Goals Demonstrates Understanding of Discharge Plan Progression Toward Outcome/Goals Progressing Education-Improve/Maintain Start: 09/25/17 00:33 Freq: QSHIFT Status: Active Target: Protocol: Activity Type Activity Date Activity User E-Sign Co-Sign Detail Recorded Client Recorded Date Recorded By Document 09/26/17 00:49 [id number] 09/26/17 00:52 [id number] 09/26/17 00:49 PMRU Outcome: Education Outcome/Goals Demonstrate/ Verbalize Understanding of Written Discharge Instructions Demonstrates Skills Encourage Questions Progression Toward Outcome/Goals Progressing Mobility-Improve/Maintain Start: 09/23/17 17:33 Freq: QSHIFT Status: Active Target: Protocol: Activity Type Activity Date Activity User E-Sign Co-Sign Detail Recorded Client Recorded Date Recorded By Document 09/25/17 21:00 [id number] 09/25/17 21:04 [id number] 09/25/17 21:00 Outcome: Mobility Outcome/Goals Maintain/ Achieve Baseline Mobility Status Progression Toward Outcome/Goals Progressing Neurological-Improve/Maintain Start: 09/23/17 17:33 Freq: QSHIFT Status: Active Target: Protocol: Activity Type Activity Date Activity User E-Sign Co-Sign Detail Recorded Client Recorded Date Recorded By Document 09/25/17 21:00 [id number] 09/25/17 21:04 [id number] 06/14/18 21:00 Outcome: Neurological Outcome/Goals Improve Neurological Status Maintain/ Improve Strength/ROM Progression Toward Outcome/Goals Progressing Pain/Comfort- Improve/Maintain Start: 09/25/17 00:33 Freq: QSHIFT Status: Complete Target: Protocol: Activity Type Activity Date Activity User E-Sign Co-Sign Detail Recorded Client Recorded Date Recorded By Document 09/25/17 20:00 [id number] 09/25/17 21:03 [id number] 09/25/17 20:00 PMRU Outcome: Pain/Comfort Outcome/Goals Demonstrates Knowledge and Use of Available Comfort Measures Achieves Acceptable Comfort/Pain Level as Determined by Patient/Condit Maintain Comfort Level Allowing Patient to Fully Participate in Rehab Outcome/Goals Met Demonstrates Knowledge and Use of Available Comfort Measures Achieves Acceptable Comfort/Pain Level as Determined by Patient/Condit Safety- Improve/Maintain Start: 09/25/17 00:33 Freq: QSHIFT Status: Active Target: Protocol: Activity Type Activity Date Activity User E-Sign Co-Sign Detail Recorded Client Recorded Date Recorded By Document 09/26/17 00:49 [id number] 09/26/17 00:52 [id number] 09/26/17 00:49 PMRU Outcome: Safety Outcome/Goals Remain Free of Injury or Harm Cooperates with Safety Measures for Least Restrictive Environment Prevent Falls/ Injury Progression Toward Outcome/Goals Progressing Medicine Note: Length of Stay: [6 week] Anticipated Discharge Destination: Home Tentative Discharge Date: [November 07, 2016] Discharged to: [home with family support]
[2017-09-26] MEDS: Atorvastatin* 40 MG TAB PO SCH (16:54)
[2017-09-26] MEDS: traZODone TAB* 100 MG PO SCH (20:30)
[2017-09-27] MEDS: Heparin VIAL(*) 5000 UNITS/ML VIAL (FIVE THOUSAND) SUBCUT SCH ×3 (05:23→21:09)
[2017-09-27] MEDS: Omeprazole CAP* 20 MG PO SCH (05:24)
[2017-09-27] MEDS: Aspirin EC TAB* 81 MG TAB.EC PO SCH (08:07)
[2017-09-27] MEDS: Docusate CAP* 100 MG PO SCH ×2 (08:07→21:01)
[2017-09-27] MEDS: CMCS Escitalopram (NF) 5 MG TAB PO SCH (08:08)
[2017-09-27] MEDS: ALFUZOSIN 10 MG PO SCH (08:08)
[2017-09-27] MEDS: Metoprolol Tartrate TAB* 50 mg PO SCH ×2 (08:08→21:00)
[2017-09-27 10:49] LABS: ABS Basophils 0 10^3/ul (0-0.2); ABS Eosinophils 0.3 10^3/ul (0-0.6); ABS Lymphocytes 1.4 10^3/ul (1.0-4.8); ABS Monocytes 0.8 10^3/ul (0-0.8); ABS Neutrophils 6.5 10^3/ul (1.5-7.7); ABS Nucleated RBC 0 10^3/ul; Eosinophil % 3.8 % (0-6); Hematocrit 39 % (42-52); Hemoglobin 13.3 g/dl (14.0-18.0); Lymphocyte % 15.4 % (25-47); Mean Corpuscular HGB Conc 34 g/dl (31-36); Mean Corpuscular Hemoglobin 31 pg (27-31); Mean Corpuscular Volume 91 fL (80-94); Mean Platelet Volume 6.2 um3 (7.4-10.4); Nucleated Red Blood Cells % 0.1; Platelet Count 307 10^3/ul (150-450); Red Cell Distribution Width 13 % (10.5-15)
--- NOTE | 2017-09-27 11:21 | PN ---
Progress Note Date of Service: 09/27/17 Note: DANIELE HOWARD was visited. Nursing and therapy notes read and reviewed. This morning he had a medium formed bowel movement with scant blood. He acknowledges having hemorrhoids for years but not bleeding. His last colonoscopy was about 3 -4 years ago. No chest pain, shortness of breath or abdominal pain. Current Medications: Active Medications Generic Name Dose Route Start Last Admin Trade Name Freq PRN Reason Stop Dose Admin Acetaminophen 650 mg 09/23/17 16:29 Tylenol Tab* PO Q6H PRN HEADACHE/PAIN Alfuzosin HCl 10 mg 09/24/17 09:00 09/27/17 08:08 Uroxatral (Nf) PO 10 mg DAILY FLORESITA Administration Aspirin 81 mg 09/24/17 09:00 09/27/17 08:07 Aspirin Ec Tab* PO 81 mg DAILY FLORESITA Administration Atorvastatin Calcium 40 mg 09/23/17 17:00 09/26/17 16:54 Lipitor* PO 40 mg 1700 FLORESITA Administration Docusate Sodium 100 mg 09/23/17 21:00 09/27/17 08:07 Colace Cap* PO 100 mg BID FLORESITA Administration Escitalopram Oxalate 15 mg 09/24/17 09:00 09/27/17 08:08 Lexapro (Nf) PO 15 mg DAILY FLORESITA Administration Heparin Sodium (Porcine) 5,000 units 09/23/17 22:00 09/27/17 05:23 Heparin Vial(*) SUBCUT 5,000 units Q8HR FLORESITA Administration Metoprolol Tartrate 50 mg 09/23/17 21:00 09/27/17 08:08 Lopressor Tab* PO 50 mg Q12HR FLORESITA Administration Omeprazole 20 mg 09/24/17 06:00 09/27/17 05:24 Prilosec Cap* PO 20 mg 0600 FLORESITA Administration Senna 2 tab 09/23/17 16:29 Senokot Tab* PO BEDTIME PRN CONSTIPATION Trazodone HCl 100 mg 09/23/17 21:00 09/26/17 20:30 Desyrel Tab* PO 100 mg BEDTIME FLORESITA Administration Vital Signs: Vital Signs Temp Pulse Resp BP Pulse Ox 99.4 F 59 18 117/60 97 09/27/17 05:22 09/27/17 05:22 09/27/17 08:00 09/27/17 05:22 09/27/17 08:00 Lab Results: Laboratory Results - last 24 hr 09/27/17 10:27 WBC 9.0 RBC 4.30 Hgb 13.3 L Hct 39 L MCV 91 MCH 31 MCHC 34 RDW 13 Plt Count 307 MPV 6.2 L Neut % (Auto) 72.1 Lymph % (Auto) 15.4 L [place] % (Auto) 8.5 H Eos % (Auto) 3.8 Baso % (Auto) 0.2 Absolute Neuts (auto) 6.5 Absolute Lymphs (auto) 1.4 Absolute Monos (auto) 0.8 Absolute Eos (auto) 0.3 Absolute Basos (auto) 0 Absolute Nucleated RBC 0 Nucleated RBC % 0.1 Exam: GEN: no acute distress. alert and appropriate LUNGS: Clear to auscultation bilaterally HEART: Regular rate and rhythm ABDOMEN: Soft, +BS, non-tender, non-distended EXTREMITIES: no edema NEUROLOGIC: CN II-XII intact except for right CN VII palsy, but it seems mild. Dysarthria and aphasia both lessning. Today while supine and arm on pillow able to demostrate 2/5 shoulder abduction, shoulder adduction, elbow flexion and hip flexion/extension. Sensation impaired right side. Assessment/Plan: 71yo man s/p right MCA CVA 1. Right MCA CVA with tPA administration and S/P embolectomy: Starting to show some motor recovery. 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 ASA/Lipitor 2. Dysphagia: Pureed solids, nectar thickened liquids 3. Depression: Lexapro/Trazodone 4. BPH: Uroxatral 5. HTN: Lopressor 6. DVT Prophylaxis: Heparin S/Q 7. Blood in stool: check hemeoccult with next bowel movement. H/H is stable. Likely from hemorrhoids, but if this is a persistent issue it may need more evaluation either as in or out patient. 8. Advanced Directives: Full Code 9. Estimated LOS: 6 weeks per IPOC on 09/26. 09/27/17 11:18
[2017-09-27] MEDS: Atorvastatin* 40 MG TAB PO SCH (17:27)
[2017-09-27] MEDS: Mirtazapine TAB* 15 MG PO SCH (21:01)
[2017-09-27] MEDS: traZODone TAB* 100 MG PO SCH (21:02)
[2017-09-28] MEDS: Omeprazole CAP* 20 MG PO SCH (05:08)
[2017-09-28] MEDS: Heparin VIAL(*) 5000 UNITS/ML VIAL (FIVE THOUSAND) SUBCUT SCH ×3 (05:08→21:29)
[2017-09-28] MEDS: Metoprolol Tartrate TAB* 50 mg PO SCH ×2 (08:08→21:15)
[2017-09-28] MEDS: CMCS Escitalopram (NF) 5 MG TAB PO SCH (08:08)
[2017-09-28] MEDS: Docusate CAP* 100 MG PO SCH ×2 (08:09→21:15)
[2017-09-28] MEDS: Aspirin EC TAB* 81 MG TAB.EC PO SCH (08:09)
[2017-09-28] MEDS: ALFUZOSIN 10 MG PO SCH (08:09)
--- NOTE | 2017-09-28 10:48 | PN ---
Progress Note Date of Service: 09/28/17 Note: DANIELE HOWARD was visited. Nursing and therapy notes read and reviewed. Yesterday evening while was here he was very depressed and saying he wanted to . He has a long history of depression and per also used mirtazepine 30mg qhs. Last night restarted at 15mg qhs. This morning he says he is feeling better. No chest pain, shortness of breath or abdominal pain. Current Medications: Active Medications Generic Name Dose Route Start Last Admin Trade Name Freq PRN Reason Stop Dose Admin Acetaminophen 650 mg 09/23/17 16:29 Tylenol Tab* PO Q6H PRN HEADACHE/PAIN Alfuzosin HCl 10 mg 09/24/17 09:00 09/28/17 08:09 Uroxatral (Nf) PO 10 mg DAILY FLORESITA Administration Aspirin 81 mg 09/24/17 09:00 09/28/17 08:09 Aspirin Ec Tab* PO 81 mg DAILY FLORESITA Administration Atorvastatin Calcium 40 mg 09/23/17 17:00 09/27/17 17:27 Lipitor* PO 40 mg 1700 FLORESITA Administration Docusate Sodium 100 mg 09/23/17 21:00 09/28/17 08:09 Colace Cap* PO 100 mg BID FLORESITA Administration Escitalopram Oxalate 15 mg 09/24/17 09:00 09/28/17 08:08 Lexapro (Nf) PO 15 mg DAILY FLORESITA Administration Heparin Sodium (Porcine) 5,000 units 09/23/17 22:00 09/28/17 05:08 Heparin Vial(*) SUBCUT 5,000 units Q8HR FLORESITA Administration Metoprolol Tartrate 50 mg 09/23/17 21:00 09/28/17 08:08 Lopressor Tab* PO 50 mg Q12HR FLORESITA Administration Mirtazapine 15 mg 09/27/17 21:00 09/27/17 21:01 Remeron Tab* PO 15 mg BEDTIME FLORESITA Administration Omeprazole 20 mg 09/24/17 06:00 09/28/17 05:08 Prilosec Cap* PO 20 mg 0600 FLORESITA Administration Senna 2 tab 09/23/17 16:29 Senokot Tab* PO BEDTIME PRN CONSTIPATION Trazodone HCl 100 mg 09/23/17 21:00 09/27/17 21:02 Desyrel Tab* PO 100 mg BEDTIME FLORESITA Administration Vital Signs: Vital Signs Temp Pulse Resp BP Pulse Ox 97.9 F 71 16 147/70 97 09/28/17 04:58 09/28/17 04:58 09/28/17 04:58 09/28/17 04:58 09/28/17 04:58 Lab Results: Laboratory Results - last 24 hr 09/27/17 10:27 WBC 9.0 RBC 4.30 Hgb 13.3 L Hct 39 L MCV 91 MCH 31 MCHC 34 RDW 13 Plt Count 307 MPV 6.2 L Neut % (Auto) 72.1 Lymph % (Auto) 15.4 L [place] % (Auto) 8.5 H Eos % (Auto) 3.8 Baso % (Auto) 0.2 Absolute Neuts (auto) 6.5 Absolute Lymphs (auto) 1.4 Absolute Monos (auto) 0.8 Absolute Eos (auto) 0.3 Absolute Basos (auto) 0 Absolute Nucleated RBC 0 Nucleated RBC % 0.1 Hemeoccult stool negative 09/27/17. Exam: GEN: no acute distress. alert and appropriate LUNGS: Clear to auscultation bilaterally HEART: Regular rate and rhythm ABDOMEN: Soft, +BS, non-tender, non-distended EXTREMITIES: no edema NEUROLOGIC: CN II-XII intact except for right CN VII palsy, but it seems mild. Dysarthria and aphasia. Today sitting in chair unable to do more than a right shoulder shrug. Sensation impaired right side. Assessment/Plan: 71yo man s/p right MCA CVA 1. Right MCA CVA with tPA administration and S/P embolectomy: Starting to show some motor recovery when supine. 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 ASA/Lipitor 2. Dysphagia: Pureed solids, nectar thickened liquids 3. Depression: I spoke to his . He sees a therapist, Mattie, at [facility] as well as Dr. Selby as psychiatrist, who has managed his medications. He has dealth with depression over 30yrs. Lexapro recently increased from 10mg to 15mg since in the 2 weeks leading up to this he had been more depressed and has had SI. His managed his medications at home and confirmed that he was taking Trazodone 100mg and Mirtazepine 30mg qhs. Since [facility] an [facility] I restarted mirtazepine at 15mg qhs on 09/27. Continue Lexapro/Trazodone/Mirtazepine. If depression becomes a consistent issue may need psychiatry consult during this stay. 4. BPH: Uroxatral 5. HTN: Lopressor 6. DVT Prophylaxis: Heparin S/Q 7. Blood in stool: hemeoccult negative 09/27. H/H is stable. Likely from hemorrhoids. 8. Advanced Directives: Full Code 9. Estimated LOS: 6 weeks per IPOC on 09/26. 09/28/17 10:55
[2017-09-28] MEDS: Atorvastatin* 40 MG TAB PO SCH (16:50)
[2017-09-28] MEDS: Mirtazapine TAB* 15 MG PO SCH (21:15)
[2017-09-28] MEDS: traZODone TAB* 100 MG PO SCH (21:15)
[2017-09-29] MEDS: Heparin VIAL(*) 5000 UNITS/ML VIAL (FIVE THOUSAND) SUBCUT SCH ×3 (05:39→21:38)
[2017-09-29] MEDS: Omeprazole CAP* 20 MG PO SCH (05:39)
[2017-09-29] MEDS: Aspirin EC TAB* 81 MG TAB.EC PO SCH (09:32)
[2017-09-29] MEDS: Metoprolol Tartrate TAB* 50 mg PO SCH ×2 (09:32→20:41)
[2017-09-29] MEDS: ALFUZOSIN 10 MG PO SCH (09:32)
[2017-09-29] MEDS: CMCS Escitalopram (NF) 5 MG TAB PO SCH (09:32)
[2017-09-29] MEDS: Docusate CAP* 100 MG PO SCH ×2 (09:32→20:42)
[2017-09-29] MEDS: Atorvastatin* 40 MG TAB PO SCH (16:32)
--- NOTE | 2017-09-29 19:45 | PN ---
Progress Note Date of Service: 09/29/17 Note: DANIELE HOWARD was visited. Therapy notes read and reviewed. Feels a little off tonight, but his voice is cole than last week. [facility]/ pureed veg Current Medications: Active Medications Generic Name Dose Route Start Last Admin Trade Name Freq PRN Reason Stop Dose Admin Acetaminophen 650 mg 09/23/17 16:29 Tylenol Tab* PO Q6H PRN HEADACHE/PAIN Alfuzosin HCl 10 mg 09/24/17 09:00 09/29/17 09:32 Uroxatral (Nf) PO 10 mg DAILY FLORESITA Administration Aspirin 81 mg 09/24/17 09:00 09/29/17 09:32 Aspirin Ec Tab* PO 81 mg DAILY FLORESITA Administration Atorvastatin Calcium 40 mg 09/23/17 17:00 09/29/17 16:32 Lipitor* PO 40 mg 1700 FLORESITA Administration Docusate Sodium 100 mg 09/23/17 21:00 09/29/17 09:32 Colace Cap* PO 100 mg BID FLORESITA Administration Escitalopram Oxalate 15 mg 09/24/17 09:00 09/29/17 09:32 Lexapro (Nf) PO 15 mg DAILY FLORESITA Administration Heparin Sodium (Porcine) 5,000 units 09/23/17 22:00 09/29/17 14:41 Heparin Vial(*) SUBCUT 5,000 units Q8HR FLORESITA Administration Metoprolol Tartrate 50 mg 09/23/17 21:00 09/29/17 09:32 Lopressor Tab* PO 50 mg Q12HR FLORESITA Administration Mirtazapine 15 mg 09/27/17 21:00 09/28/17 21:15 Remeron Tab* PO 15 mg BEDTIME FLORESITA Administration Omeprazole 20 mg 09/24/17 06:00 09/29/17 05:39 Prilosec Cap* PO 20 mg 0600 FLORESITA Administration Senna 2 tab 09/23/17 16:29 Senokot Tab* PO BEDTIME PRN CONSTIPATION Trazodone HCl 100 mg 09/23/17 21:00 09/28/17 21:15 Desyrel Tab* PO 100 mg BEDTIME FLORESITA Administration Vital Signs: Vital Signs Temp Pulse Resp BP Pulse Ox 98.3 F 72 20 104/73 97 09/29/17 17:13 09/29/17 17:13 09/29/17 17:13 09/29/17 17:13 09/29/17 17:13 Exam: GEN: no acute distress. alert and appropriate LUNGS: Clear to auscultation bilaterally HEART: Regular rate and rhythm ABDOMEN: Soft, +BS, non-tender, non-distended EXTREMITIES: no edema NEUROLOGIC: right CN VII palsy, but it seems mild. Dysarthria and aphasia. Little movement on right. Sensation impaired right side. Assessment/Plan: 71yo man s/p right MCA CVA 1. Right MCA CVA with tPA administration and S/P embolectomy: Starting to show some motor recovery when supine. 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 Dysphagia: Pureed solids, nectar thickened liquids 3. Depression: Continue Lexapro/Trazodone/Mirtazepine. If depression becomes a consistent issue may need psychiatry consult during this stay. 4. BPH: Uroxatral 5. HTN: Lopressor 6. DVT Prophylaxis: Heparin S/Q 7. Blood in stool: H/H is stable. Likely from hemorrhoids. 8. Advanced Directives: Full Code 9. Estimated LOS: 6 weeks per IPOC on 09/26. 09/29/17 19:46
[2017-09-29] MEDS: Mirtazapine TAB* 15 MG PO SCH (20:41)
[2017-09-29] MEDS: traZODone TAB* 100 MG PO SCH (20:41)
[2017-09-30] MEDS: Omeprazole CAP* 20 MG PO SCH (05:31)
[2017-09-30] MEDS: Heparin VIAL(*) 5000 UNITS/ML VIAL (FIVE THOUSAND) SUBCUT SCH ×3 (05:31→21:20)
[2017-09-30] MEDS: Aspirin EC TAB* 81 MG TAB.EC PO SCH (09:15)
[2017-09-30] MEDS: ALFUZOSIN 10 MG PO SCH (09:15)
[2017-09-30] MEDS: Metoprolol Tartrate TAB* 50 mg PO SCH ×2 (09:15→20:04)
[2017-09-30] MEDS: CMCS Escitalopram (NF) 5 MG TAB PO SCH (09:15)
[2017-09-30] MEDS: Docusate CAP* 100 MG PO SCH ×2 (09:15→20:05)
--- NOTE | 2017-09-30 12:45 | PMRUTEAM ---
PMRU: Team Meeting Current Status: Nursing: Current Status Skin Deviations [rt lower leg, Bruise torey UE] Skin Deviations [Bilateral Other Groin] Skin Deviations [Left Knee] Other Skin Deviations [Right Groin] Previous Access Point Skin Deviation Description [rt multiple bruises lower leg, torey UE] Skin Deviation Description [ pink Bilateral Groin] Skin Deviation Description [ scabbed area Left Knee] Skin Deviation Description [ PHILIPPE Right Groin] Bladder Current Status incontinent and also using urinal Bowel Current Status last bm 09/29 Nutrition Current Status appetite good Medication Current Status able to take meds whole with applesauce Physical Therapy: Current Status Bed Mobility Assistance Max Assist Transfer Moblility Assistance Total Assist Transfer/Bed Mobility Simeon Lift Recommended Devices Ambulation Assistance Independent Wheelchair Distance (ft) 50 Objective Comments sitting balance with mod A overall, poor corrective postural response Occupational Therapy: Current Status Upper Body Dressing Mod Assist Upper Body Dressing Progress while up in chair with cues Lower Body Dressing Total Assist,2 Person Assist Bathing Max Asst,2 Person Assist Toileting Total Assist,2 Person Assist Toilet Transfer Total Assist,2 Person Assist Toilet Transfer Progress SIMEON Shower Transfer Total Assist,2 Person Assist Shower Transfer Progress SIMEON Eating Supervision Rec Therapy: Current Status Summary of Assessment and RT assessment complete and pt. is aware of RT Clinical Impression services. Pt. has leisure material in his room and has been open and engaged in leisure visits. Treatment Goals Pt. will engage in leisure activities while on the unit. Treatment Plan Provide RT services and encourage involvement. Social Work: Current Status Discharge Plan return home with home care svs and family support Potential for Family Training pt's is invovled and supportive Anticipated Discharge Home Destination Discharge With home care svs and family support Nutrition: Current Status Monitoring po intake remains variable w/texture and liquid modifications. However, hope to see some improvement w/planned upgrade today (per TREE PRUNER) to [facility] soft textures, although pt will need to cont pureed fruits/vegetables only and nectar-thick liquids. Pt denies N/V/D and constipation (last BM 09/29). He does not like to wear his dentures, but claims he can chew fine without them. He is left hand dominant and able to feed self. Pt is newly on Lipitor; will educate pt on statin/ grapefruit interaction. Speech: Current Status Assessment Progressing nicely towards goals. Patient status / progress towards goals this date: Motor speech: Patient edentulous this date. Ending /s/ blends; models with imitation: 41/45 single words pronounced intelligibly; 25/28 phrases pronounced intelligibly; 17/20 sentences pronounced intelligibly. Patient utilizing self- repair strategies nicely, no cueing. Overall speech intelligibility at the conversational level with this unfamiliar listener throughout the session: 85%. Expression/Reasoning: *stating opposites: 100% accuracy, no cues. * general orientation, stating holidays associated with given month: 40% accuracy, no cues; improved to 100% accuracy with maximum verbal cues. Sequential Thought; unscrambling 3 word sentences: 60% accuracy, no cues. Recall of the words verbally presented appeared to be patient's greatest barrier to success. Auditory comprehension: *Body part i.d.: 100% accuracy, no cues. Speech Current Status Goal 1 Moderate impairment Speech Goal 2 Current Status Moderate impairment Speech Goal 3 Current Status Moderate impairment Speech Goal 4 Current Status Moderate impairment Goals: Physical Therapy: Initial Goals Bed Mobility Assistance Independent Transfer Mobility Assistance Independent Transfer/Bed Mobility Large Base Quad Cane Recommended Devices Wheelchair Propulsion Ability Independent Physical Therapy: Updated Goals Transfer/Bed Mobility Simeon Lift Recommended Devices Occupational Therapy: Initial Goals Goals to be Completed in (Days 4-6 weeks ) Upper Body Bathing Routine Modified Independent with Lower Body Bathing Routine Minimal Contact Assist Upper Body Dressing Routine Minimal Contact Assist Lower Body Dressing Routine Minimal Contact Assist Toilet Hygeine and Clothing Supervision/Set Up Management Routine Toilet Transfer Routine Supervision/Set Up Step-In Shower Transfer Minimal Contact Assist Routine Functional Transfers for ADL Supervision/Set Up Grooming Routine Independent Feeding Routine Independent Nursing: Goals Bladder Goal independent with urinal Bowel Goal independent Nutrition Goal 100% of all meals eaten Medication Goal supervision Nutrition: Goals Intervention Goals 1) Adequate po intake to support lean body mass and hydration w/o undesired wt loss/gain 2) Textures will be tolerated and progress as appropriate per TREE PRUNER eval 3) Achieve bowel regularity w/ adequate po intake w/o adverse diarrhea/constipation 4) Nutritionally pertinent labs will remain unremarkable 5) Statin/grapefruit interaction education will be provided prior to d/c Speech: Goals Speech Goal 1 Comprehension Speech Evaluation Status Goal Moderate impairment 1 Speech Current Status Goal 1 Moderate impairment Goal 1 Comments Comprehension Long-Term Goal: Pt will use compensatory strategies to demonstrate comprehension of verbal and written information of moderate complexity (3 parts or 3 steps), 100% accuracy, given minimal extra time, Independently. 1) Short-Term Goal: Pt will use compensatory strategies to demonstrate comprehension of verbal and written information of simple complexity (1 detail or direction), 80% accuracy, given moderate extra time, and Moderate skilled instruction and cueing. Status: Progressing as expected. 2) Short-Term Goal: Pt will use compensatory strategies to demonstrate comprehension of verbal and written information of moderate complexity (2 simultaneous parts or sequential 2-step directions ), 80% accuracy, given moderate extra time, and Moderate skilled instruction and cueing. Status: Progressing as expected. Speech Goal 2 Expression Speech Goal 2 Evaluation Moderate impairment Status Speech Goal 2 Current Status Moderate impairment Speech Goal 2 Comments Long-Term Goal: Pt will use conversational repair strategies to cooperatively find words in structured conversation, 90% accuracy, given extra time, Independently. 1) Short-Term Goal: Pt will use conversational repair strategies to cooperatively find words in structured language activities, 75% accuracy, given Maximum skilled instruction and cueing. Status: Progressing as expected. Speech Goal 3 Motor-speech Speech Goal 3 Evaluation Moderate impairment Status Speech Goal 3 Current Status Moderate impairment Speech Goal 3 Comments Long-Term Goal: Pt speak with 95% intelligibility I'ly Short-Term Goal 1: Pt will use compensatory articulation strategies to increase speech to intelligibility to 95% in spontaneous conversational speech, given minimal cueing. Status: Progressing as expected. Short-Term Goal 2: Pt will use compensatory articulation strategies to increase speech to intelligibility to 90% in structured speech activities, given moderate cueing. Status: Progressing as expected. Speech Goal 4 Problem Solving Speech Goal 4 Evaluation Moderate impairment Status Speech Goal 4 Current Status Moderate impairment Speech Goal 4 Comments Long-Term Goal: Pt will use compensatory strategies to solve moderately complex routine problems, with 100% accuracy, Independently, for ADLs such as shopping, time and money management. Short-Term Goal: Pt will use compensatory strategies to solve simple routine problems, with 80% accuracy, given Moderate skilled instruction and cueing. Status: Progressing as expected. Social Work: Goals Discharge Plan return home with home care svs and family support Potential for Family Training pt's is invovled and supportive Anticipated Discharge Home Destination Discharge With home care svs and family support Care Plan: Care Plan ADL's - Improve/Maintain Start: 09/25/17 00:33 Freq: DAILY Status: Active Target: Protocol: Activity Type Activity Date Activity User E-Sign Co-Sign Detail Recorded Client Recorded Date Recorded By Document 09/27/17 08:21 [id number] 09/27/17 08:21 [id number] 09/27/17 08:21 PMRU Outcome: ADL's/ADL Transfers Orders/Interventions Occupational Therapy Evaluation & Treatment Patient to receive OT 5x/wk for 60-120 Therex min/day Self Care Management Group Therapy UE/LE ADL's with Assist Yes: min A ADL Transfers with Assist Yes: S Toileting: Transfers,Clothing Management Yes: S ,Hygeine w/Assist Progression Toward Outcome/Goals Progressing Outcome/Goals Met Trunk control continues to improve daily. Pt rolls onto R side with slightly less assist today and was able to use his LUE effectively to assist. Pt also beginning to bridge in bed to assist with LB dressing. Pt shows better motor planning and follows commands more consistently with LUE this morning compared to the last few days. His positive attitude is making a good impact on his recovery. Communication-Improve/Maintain Start: 09/23/17 17:33 Freq: DAILY Status: Active Target: Protocol: Activity Type Activity Date Activity User E-Sign Co-Sign Detail Recorded Client Recorded Date Recorded By Document 09/29/17 23:46 [id number] 09/29/17 23:46 [id number] 09/29/17 23:46 Outcome: Communication Outcome/Goals Demonstrate Knowledge and Use of Communication Tools/Devices Demonstrate Ability to Make Needs Known Progression Toward Outcome/Goals Progressing Outcome/Goals Met Comment pt communicating better Discharge Planning Start: 09/23/17 17:33 Freq: DAILY Status: Active Target: Protocol: Activity Type Activity Date Activity User E-Sign Co-Sign Detail Recorded Client Recorded Date Recorded By Document 09/29/17 23:46 [id number] 09/29/17 23:46 [id number] 09/29/17 23:46 Outcome: Discharge Planning Outcome/Goals Demonstrates Understanding of Discharge Plan Progression Toward Outcome/Goals Progressing Education-Improve/Maintain Start: 09/25/17 00:33 Freq: DAILY Status: Active Target: Protocol: Activity Type Activity Date Activity User E-Sign Co-Sign Detail Recorded Client Recorded Date Recorded By Document 09/29/17 23:46 [id number] 09/29/17 23:46 [id number] 09/29/17 23:46 PMRU Outcome: Education Outcome/Goals Demonstrate/ Verbalize Understanding of Written Discharge Instructions Demonstrates Skills Encourage Questions Progression Toward Outcome/Goals Progressing Mobility- Improve/Maintain Start: 09/27/17 15:07 Freq: DAILY Status: Active Target: Protocol: Activity Type Activity Date Activity User E-Sign Co-Sign Detail Recorded Client Recorded Date Recorded By Document 09/24/17 18:00 [id number] 09/27/17 15:10 [id number] 09/24/17 18:00 PMRU Outcome: Mobility Physical Therapy Evaluation and Yes Treatment Activity OOB with Assistance Yes Device Yes Assistance Yes Patient to be seen 5x/wk for 60-120 min/ Therex day for: Mobility Training Gait Training W/C Mobility Balance Outcome/Goals Maintain/ Achieve Baseline Mobility Status Improve Mobility Status Demonstrates Proper Use of Assistive Devices Free from Complications of Immobility Bed Mobility Yes: independent Transfers Yes: independent with large based quad cane W/C Mobility x ft Yes: independent with STEPHANE/LE to 150' Mobility-Improve/Maintain Start: 09/23/17 17:33 Freq: DAILY Status: Active Target: Protocol: Activity Type Activity Date Activity User E-Sign Co-Sign Detail Recorded Client Recorded Date Recorded By Document 09/29/17 23:46 [id number] 09/29/17 23:46 [id number] 09/29/17 23:46 Outcome: Mobility Outcome/Goals Maintain/ Achieve Baseline Mobility Status Improve Mobility Status Demonstrates Proper Use of Assistive Devices Progression Toward Outcome/Goals Progressing Neurological-Improve/Maintain Start: 09/23/17 17:33 Freq: DAILY Status: Active Target: Protocol: Activity Type Activity Date Activity User E-Sign Co-Sign Detail Recorded Client Recorded Date Recorded By Document 09/30/17 10:23 [id number] 09/30/17 10:23 [id number] 09/30/17 10:23 Outcome: Neurological Outcome/Goals Improve Neurological Status Prevent Avoidable Neurological Decline Maintain/ Improve Strength/ROM Progression Toward Outcome/Goals Progressing Pain/Comfort- Improve/Maintain Start: 09/25/17 00:33 Freq: DAILY Status: Complete Target: Protocol: Activity Type Activity Date Activity User E-Sign Co-Sign Detail Recorded Client Recorded Date Recorded By Document 09/30/17 10:23 [id number] 09/30/17 10:23 [id number] 09/30/17 10:23 PMRU Outcome: Pain/Comfort Outcome/Goals Demonstrates Knowledge and Use of Available Comfort Measures Achieves Acceptable Comfort/Pain Level as Determined by Patient/Condit Maintain Comfort Level Allowing Patient to Fully Participate in Rehab Progression Toward Outcome/Goals Progressing Safety- Improve/Maintain Start: 09/25/17 00:33 Freq: DAILY Status: Active Target: Protocol: Activity Type Activity Date Activity User E-Sign Co-Sign Detail Recorded Client Recorded Date Recorded By Document 09/30/17 10:23 [id number] 09/30/17 10:23 [id number] 09/30/17 10:23 PMRU Outcome: Safety Outcome/Goals Remain Free of Injury or Harm Cooperates with Safety Measures for Least Restrictive Environment Prevent Falls/ Injury Progression Toward Outcome/Goals Progressing Outcome/Goals Met Comment PA in place. no attempts to transfer independently Medicine Note: Length of Stay: 5 1/2 weeks Anticipated Discharge Destination: Home Tentative Discharge Date: 11/07/17 Discharged to: Home
[2017-09-30] MEDS: Atorvastatin* 40 MG TAB PO SCH (17:26)
--- NOTE | 2017-09-30 18:21 | PN ---
Progress Note Date of Service: 09/30/17 Note: DANIELE HOWARD was visited. Therapy notes read and reviewed. He was discussed in interdisciplinary team rounds. His sitting balance remains poor but seems to be improving. In an attempt to promote neuronal recovery and treat depression, I will add Ritalin Current Medications: Active Medications Generic Name Dose Route Start Last Admin Trade Name Freq PRN Reason Stop Dose Admin Acetaminophen 650 mg 09/23/17 16:29 Tylenol Tab* PO Q6H PRN HEADACHE/PAIN Alfuzosin HCl 10 mg 09/24/17 09:00 09/30/17 09:15 Uroxatral (Nf) PO 10 mg DAILY FLORESITA Administration Aspirin 81 mg 09/24/17 09:00 09/30/17 09:15 Aspirin Ec Tab* PO 81 mg DAILY FLORESITA Administration Atorvastatin Calcium 40 mg 09/23/17 17:00 09/30/17 17:26 Lipitor* PO 40 mg 1700 FLORESITA Administration Docusate Sodium 100 mg 09/23/17 21:00 09/30/17 09:15 Colace Cap* PO 100 mg BID FLORESITA Administration Escitalopram Oxalate 15 mg 09/24/17 09:00 09/30/17 09:15 Lexapro (Nf) PO 15 mg DAILY FLORESITA Administration Heparin Sodium (Porcine) 5,000 units 09/23/17 22:00 09/30/17 13:58 Heparin Vial(*) SUBCUT 5,000 units Q8HR FLORESITA Administration Methylphenidate HCl 2.5 mg 10/01/17 07:00 Ritalin Tab* PO 0700 FLORESITA Metoprolol Tartrate 50 mg 09/23/17 21:00 09/30/17 09:15 Lopressor Tab* PO 50 mg Q12HR FLORESITA Administration Mirtazapine 15 mg 09/27/17 21:00 09/29/17 20:41 Remeron Tab* PO 15 mg BEDTIME FLORESTIA Administration Omeprazole 20 mg 09/24/17 06:00 09/30/17 05:31 Prilosec Cap* PO 20 mg 0600 FLORESITA Administration Senna 2 tab 09/23/17 16:29 Senokot Tab* PO BEDTIME PRN CONSTIPATION Trazodone HCl 100 mg 09/23/17 21:00 09/29/17 20:41 Desyrel Tab* PO 100 mg BEDTIME FLORESITA Administration Vital Signs: Vital Signs Temp Pulse Resp BP Pulse Ox 98.6 F 71 20 122/66 94 09/30/17 15:59 09/30/17 15:59 09/30/17 15:59 09/30/17 15:59 09/30/17 15:59 Exam: GEN: no acute distress. alert and appropriate LUNGS: Clear to auscultation bilaterally HEART: Regular rate and rhythm ABDOMEN: Soft, +BS, non-tender, non-distended EXTREMITIES: no edema NEUROLOGIC: right CN VII palsy, but it seems mild. Dysarthria and aphasia. Little movement on right. Sensation impaired right side. Assessment/Plan: 71yo man s/p right MCA CVA 1. 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 Voice is clearer. 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 Dysphagia: Mechanical soft solids with pureed vegetables, nectar thickened liquids 3. Depression: Continue Lexapro/Trazodone/Mirtazepine. Will add Ritalin. If depression becomes a consistent issue, may need psychiatry consult. 4. BPH: Uroxatral 5. HTN: Lopressor 6. DVT Prophylaxis: Heparin S/Q 7. Advanced Directives: Full Code 09/30/17 18:21
[2017-09-30] MEDS: Mirtazapine TAB* 15 MG PO SCH (20:04)
[2017-09-30] MEDS: traZODone TAB* 100 MG PO SCH (20:05)
[2017-10-01] MEDS: Acetaminophen TAB* 325 MG PO PRN (01:39)
[2017-10-01] MEDS: Omeprazole CAP* 20 MG PO SCH (05:38)
[2017-10-01] MEDS: Methylphenidate TAB* 5 MG PO SCH (05:38)
[2017-10-01] MEDS: Heparin VIAL(*) 5000 UNITS/ML VIAL (FIVE THOUSAND) SUBCUT SCH ×3 (05:40→21:49)
[2017-10-01 06:59] LABS: Hematocrit 41 % (42-52); Hemoglobin 14.6 g/dl (14.0-18.0); Mean Corpuscular HGB Conc 36 g/dl (31-36); Mean Corpuscular Hemoglobin 32 pg (27-31); Mean Corpuscular Volume 91 fL (80-94); Mean Platelet Volume 5.9 um3 (7.4-10.4); Platelet Count 335 10^3/ul (150-450); Red Blood Count 4.51 10^6/ul (4.00-5.40); Red Cell Distribution Width 13 % (10.5-15); White Blood Count 9.4 10^3/ul (3.5-10.8)
[2017-10-01 07:18] LABS: EGFR Non-African American 77.2 (>60)
[2017-10-01 07:26] LABS: ABS Basophils 0 10^3/ul (0-0.2); ABS Eosinophils 0.5 10^3/ul (0-0.6); ABS Lymphocytes 1.7 10^3/ul (1.0-4.8); ABS Monocytes 0.8 10^3/ul (0-0.8); ABS Neutrophils 6.3 10^3/ul (1.5-7.7); ABS Nucleated RBC 0 10^3/ul; Eosinophil % 5.7 % (0-6); Lymphocyte % 17.9 % (25-47); Nucleated Red Blood Cells % 0
[2017-10-01] MEDS: ALFUZOSIN 10 MG PO SCH (08:19)
[2017-10-01] MEDS: Docusate CAP* 100 MG PO SCH ×2 (08:20→20:44)
[2017-10-01] MEDS: CMCS Escitalopram (NF) 5 MG TAB PO SCH (08:20)
[2017-10-01] MEDS: Metoprolol Tartrate TAB* 50 mg PO SCH ×2 (08:20→20:44)
[2017-10-01] MEDS: Aspirin EC TAB* 81 MG TAB.EC PO SCH (08:20)
[2017-10-01] MEDS: Atorvastatin* 40 MG TAB PO SCH (17:37)
--- NOTE | 2017-10-01 19:38 | PN ---
Progress Note Date of Service: 10/01/17 Note: DANIELE HOWARD was visited. Therapy notes read and reviewed. Started Ritalin today. He seems in better spirits. He does note that he saw a psychiatrist on the outside, may need to see one here. Current Medications: Active Medications Generic Name Dose Route Start Last Admin Trade Name Freq PRN Reason Stop Dose Admin Acetaminophen 650 mg 09/23/17 16:29 10/01/17 01:39 Tylenol Tab* PO 650 mg Q6H PRN Administration HEADACHE/PAIN Alfuzosin HCl 10 mg 09/24/17 09:00 10/01/17 08:19 Uroxatral (Nf) PO 10 mg DAILY FLORESITA Administration Aspirin 81 mg 09/24/17 09:00 10/01/17 08:20 Aspirin Ec Tab* PO 81 mg DAILY FLORESITA Administration Atorvastatin Calcium 40 mg 09/23/17 17:00 10/01/17 17:37 Lipitor* PO 40 mg 1700 FLORESITA Administration Docusate Sodium 100 mg 09/23/17 21:00 10/01/17 08:20 Colace Cap* PO 100 mg BID FLORESITA Administration Escitalopram Oxalate 15 mg 09/24/17 09:00 10/01/17 08:20 Lexapro (Nf) PO 15 mg DAILY FLORESITA Administration Heparin Sodium (Porcine) 5,000 units 09/23/17 22:00 10/01/17 14:54 Heparin Vial(*) SUBCUT 5,000 units Q8HR FLORESITA Administration Methylphenidate HCl 2.5 mg 10/01/17 07:00 10/01/17 05:38 Ritalin Tab* PO 2.5 mg 0700 FLORESITA Administration Metoprolol Tartrate 50 mg 09/23/17 21:00 10/01/17 08:20 Lopressor Tab* PO 50 mg Q12HR FLORESITA Administration Mirtazapine 15 mg 09/27/17 21:00 09/30/17 20:04 Remeron Tab* PO 15 mg BEDTIME FLORESITA Administration Omeprazole 20 mg 09/24/17 06:00 10/01/17 05:38 Prilosec Cap* PO 20 mg 0600 FLORESITA Administration Senna 2 tab 09/23/17 16:29 Senokot Tab* PO BEDTIME PRN CONSTIPATION Trazodone HCl 100 mg 09/23/17 21:00 09/30/17 20:05 Desyrel Tab* PO 100 mg BEDTIME FLORESITA Administration Vital Signs: Vital Signs Temp Pulse Resp BP Pulse Ox 98.6 F 68 16 88/58 96 10/01/17 15:52 10/01/17 15:52 10/01/17 15:52 10/01/17 15:52 10/01/17 15:52 Lab Results: Laboratory Results - last 24 hr 10/01/17 10/01/17 06:47 06:47 WBC 9.4 RBC 4.51 Hgb 14.6 Hct 41 L MCV 91 MCH 32 H MCHC 36 RDW 13 Plt Count 335 MPV 5.9 L Neut % (Auto) 67.4 Lymph % (Auto) 17.9 L [place] % (Auto) 8.6 H Eos % (Auto) 5.7 Baso % (Auto) 0.4 Absolute Neuts (auto) 6.3 Absolute Lymphs (auto) 1.7 Absolute Monos (auto) 0.8 Absolute Eos (auto) 0.5 Absolute Basos (auto) 0 Absolute Nucleated RBC 0 Nucleated RBC % 0 Sodium 139 Potassium 4.0 Chloride 104 Carbon Dioxide 29 Anion Gap 6 BUN 14 Creatinine 0.96 Est GFR ( Amer) 99.3 Est GFR (Non-Af Amer) 77.2 BUN/Creatinine Ratio 14.6 Glucose 108 H Calcium 9.5 Total Bilirubin 0.70 AST 29 ALT 71 H Alkaline Phosphatase 98 Total Protein 6.5 Albumin 3.6 Globulin 2.9 Albumin/Globulin Ratio 1.2 Exam: GEN: no acute distress. alert and appropriate LUNGS: Clear to auscultation bilaterally HEART: Regular rate and rhythm ABDOMEN: Soft, +BS, non-tender, non-distended EXTREMITIES: no edema NEUROLOGIC: right CN VII palsy, but it seems mild. Dysarthria and aphasia. Little movement on right. Sensation impaired right side. Assessment/Plan: 1. 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 Voice is clearer. 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 Dysphagia: Mechanical soft solids with pureed vegetables, nectar thickened liquids 3. Depression: Continue Lexapro/Trazodone/Mirtazepine. Added Ritalin. If depression becomes a consistent issue, may need psychiatry consult. 4. BPH: Uroxatral 5. HTN: Lopressor 6. DVT Prophylaxis: Heparin S/Q 7. Advanced Directives: Full Code 10/01/17 19:38
[2017-10-01] MEDS: Mirtazapine TAB* 15 MG PO SCH (20:45)
[2017-10-01] MEDS: traZODone TAB* 100 MG PO SCH (22:38)
[2017-10-02] MEDS: Omeprazole CAP* 20 MG PO SCH (05:54)
[2017-10-02] MEDS: Methylphenidate TAB* 5 MG PO SCH (05:54)
[2017-10-02] MEDS: Heparin VIAL(*) 5000 UNITS/ML VIAL (FIVE THOUSAND) SUBCUT SCH ×3 (05:56→21:48)
[2017-10-02] MEDS: Metoprolol Tartrate TAB* 50 mg PO SCH ×2 (09:41→21:45)
[2017-10-02] MEDS: Acetaminophen TAB* 325 MG PO PRN (09:41)
[2017-10-02] MEDS: Aspirin EC TAB* 81 MG TAB.EC PO SCH (09:41)
[2017-10-02] MEDS: Docusate CAP* 100 MG PO SCH ×2 (09:41→21:48)
[2017-10-02] MEDS: ALFUZOSIN 10 MG PO SCH (09:41)
[2017-10-02] MEDS: CMCS Escitalopram (NF) 5 MG TAB PO SCH (09:41)
--- NOTE | 2017-10-02 16:36 | PN ---
Progress Note Date of Service: 10/02/17 Note: DANIELE HOWARD was visited. Therapy notes read and reviewed. He is tolerating Ritalin and tells me he was on it before for depression. Was able to get in [employer] today Current Medications: Active Medications Generic Name Dose Route Start Last Admin Trade Name Freq PRN Reason Stop Dose Admin Acetaminophen 650 mg 09/23/17 16:29 10/02/17 09:41 Tylenol Tab* PO 650 mg Q6H PRN Administration HEADACHE/PAIN Alfuzosin HCl 10 mg 09/24/17 09:00 10/02/17 09:41 Uroxatral (Nf) PO 10 mg DAILY FLORESITA Administration Aspirin 81 mg 09/24/17 09:00 10/02/17 09:41 Aspirin Ec Tab* PO 81 mg DAILY FLORESITA Administration Atorvastatin Calcium 40 mg 09/23/17 17:00 10/01/17 17:37 Lipitor* PO 40 mg 1700 FLORESITA Administration Docusate Sodium 100 mg 09/23/17 21:00 10/02/17 09:41 Colace Cap* PO 100 mg BID FLORESITA Administration Escitalopram Oxalate 15 mg 09/24/17 09:00 10/02/17 09:41 Lexapro (Nf) PO 15 mg DAILY FLORESITA Administration Heparin Sodium (Porcine) 5,000 units 09/23/17 22:00 10/02/17 13:18 Heparin Vial(*) SUBCUT 5,000 units Q8HR FLORESITA Administration Methylphenidate HCl 2.5 mg 10/03/17 07:00 Ritalin Tab* PO 0700,1100 FLORESITA Metoprolol Tartrate 50 mg 09/23/17 21:00 10/02/17 09:41 Lopressor Tab* PO 50 mg Q12HR FLORESITA Administration Mirtazapine 15 mg 09/27/17 21:00 10/01/17 20:45 Remeron Tab* PO 15 mg BEDTIME FLORESITA Administration Omeprazole 20 mg 09/24/17 06:00 10/02/17 05:54 Prilosec Cap* PO 20 mg 0600 FLORESITA Administration Senna 2 tab 09/23/17 16:29 Senokot Tab* PO BEDTIME PRN CONSTIPATION Trazodone HCl 100 mg 09/23/17 21:00 10/01/17 22:38 Desyrel Tab* PO 100 mg BEDTIME FLORESITA Administration Vital Signs: Vital Signs Temp Pulse Resp BP Pulse Ox 98.3 F 70 20 128/70 100 10/02/17 05:42 10/02/17 05:42 10/02/17 05:42 10/02/17 05:42 10/02/17 05:42 Exam: GEN: no acute distress. alert and appropriate LUNGS: Clear to auscultation bilaterally HEART: Regular rate and rhythm ABDOMEN: Soft, +BS, non-tender, non-distended EXTREMITIES: no edema. Tone in right arm NEUROLOGIC: right CN VII palsy, but it seems mild. Dysarthria and aphasia. Little movement on right. Sensation impaired right side. Assessment/Plan: 1. 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 Voice is clearer. 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 Dysphagia: Mechanical soft solids with pureed vegetables, nectar thickened liquids 3. Depression: Continue Lexapro/Trazodone/Mirtazepine. Added Ritalin. If depression becomes a consistent issue, may need psychiatry consult. 4. BPH: Uroxatral 5. HTN: Lopressor 6. DVT Prophylaxis: Heparin S/Q 7. Advanced Directives: Full Code 10/02/17 16:36
[2017-10-02] MEDS: Atorvastatin* 40 MG TAB PO SCH (16:54)
[2017-10-02] MEDS: traZODone TAB* 100 MG PO SCH (21:44)
[2017-10-02] MEDS: Mirtazapine TAB* 15 MG PO SCH (21:44)
[2017-10-03] MEDS: Heparin VIAL(*) 5000 UNITS/ML VIAL (FIVE THOUSAND) SUBCUT SCH ×3 (06:27→21:06)
[2017-10-03] MEDS: Omeprazole CAP* 20 MG PO SCH (06:28)
[2017-10-03] MEDS: Methylphenidate TAB* 5 MG PO SCH ×2 (06:29→10:43)
[2017-10-03] MEDS: Docusate CAP* 100 MG PO SCH ×2 (09:20→20:50)
[2017-10-03] MEDS: Metoprolol Tartrate TAB* 50 mg PO SCH ×2 (09:20→20:50)
[2017-10-03] MEDS: Aspirin EC TAB* 81 MG TAB.EC PO SCH (09:20)
[2017-10-03] MEDS: ALFUZOSIN 10 MG PO SCH (09:21)
[2017-10-03] MEDS: CMCS Escitalopram (NF) 5 MG TAB PO SCH (09:21)
[2017-10-03] MEDS: Acetaminophen TAB* 325 MG PO PRN ×2 (15:59→21:06)
--- NOTE | 2017-10-03 17:11 | PN ---
Progress Note Date of Service: 10/03/17 Note: DANIELE HOWARD was visited. Therapy notes read and reviewed. Some improvements noted. He has better balance sitting Current Medications: Active Medications Generic Name Dose Route Start Last Admin Trade Name Freq PRN Reason Stop Dose Admin Acetaminophen 650 mg 09/23/17 16:29 10/03/17 15:59 Tylenol Tab* PO 650 mg Q6H PRN Administration HEADACHE/PAIN Alfuzosin HCl 10 mg 09/24/17 09:00 10/03/17 09:21 Uroxatral (Nf) PO 10 mg DAILY FLORESITA Administration Aspirin 81 mg 09/24/17 09:00 10/03/17 09:20 Aspirin Ec Tab* PO 81 mg DAILY FLORESITA Administration Atorvastatin Calcium 40 mg 09/23/17 17:00 10/02/17 16:54 Lipitor* PO 40 mg 1700 FLORESITA Administration Docusate Sodium 100 mg 09/23/17 21:00 10/03/17 09:20 Colace Cap* PO 100 mg BID FLORESITA Administration Escitalopram Oxalate 15 mg 09/24/17 09:00 10/03/17 09:21 Lexapro (Nf) PO 15 mg DAILY FLORESITA Administration Heparin Sodium (Porcine) 5,000 units 09/23/17 22:00 10/03/17 14:38 Heparin Vial(*) SUBCUT 5,000 units Q8HR FLORESITA Administration Methylphenidate HCl 2.5 mg 10/03/17 07:00 10/03/17 10:43 Ritalin Tab* PO 2.5 mg 0700,1100 FLORESITA Administration Metoprolol Tartrate 50 mg 09/23/17 21:00 10/03/17 09:20 Lopressor Tab* PO 50 mg Q12HR FLORESITA Administration Mirtazapine 15 mg 09/27/17 21:00 10/02/17 21:44 Remeron Tab* PO 15 mg BEDTIME FLORESITA Administration Omeprazole 20 mg 09/24/17 06:00 10/03/17 06:28 Prilosec Cap* PO 20 mg 0600 FLORESITA Administration Senna 2 tab 09/23/17 16:29 Senokot Tab* PO BEDTIME PRN CONSTIPATION Trazodone HCl 100 mg 09/23/17 21:00 10/02/17 21:44 Desyrel Tab* PO 100 mg BEDTIME FLORESITA Administration Vital Signs: Vital Signs Temp Pulse Resp BP Pulse Ox 98.5 F 69 18 132/64 98 10/03/17 16:07 10/03/17 16:07 10/03/17 16:07 10/03/17 16:07 10/03/17 16:07 Exam: GEN: no acute distress. alert and appropriate LUNGS: Clear to auscultation bilaterally HEART: Regular rate and rhythm ABDOMEN: Soft, +BS, non-tender, non-distended EXTREMITIES: no edema. Tone in right arm NEUROLOGIC: right CN VII palsy, but it seems mild. Dysarthria and aphasia. Little movement on right. Sensation impaired right side. Assessment/Plan: 1. 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 Voice is clearer. 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 Dysphagia: Mechanical soft solids with pureed vegetables, nectar thickened liquids 3. Depression: Continue Lexapro/Trazodone/Mirtazepine. Added Ritalin. If depression becomes a consistent issue, may need psychiatry consult. 4. BPH: Uroxatral 5. HTN: Lopressor 6. DVT Prophylaxis: Heparin S/Q 7. Advanced Directives: Full Code 10/03/17 17:12
[2017-10-03] MEDS: Atorvastatin* 40 MG TAB PO SCH (17:41)
[2017-10-03] MEDS: traZODone TAB* 100 MG PO SCH (20:50)
[2017-10-03] MEDS: Mirtazapine TAB* 15 MG PO SCH (20:50)
[2017-10-04] MEDS: Omeprazole CAP* 20 MG PO SCH (05:18)
[2017-10-04] MEDS: Heparin VIAL(*) 5000 UNITS/ML VIAL (FIVE THOUSAND) SUBCUT SCH ×3 (05:18→22:50)
[2017-10-04] MEDS: Methylphenidate TAB* 5 MG PO SCH ×2 (10:42→10:43)
[2017-10-04] MEDS: ALFUZOSIN 10 MG PO SCH (10:44)
[2017-10-04] MEDS: Aspirin EC TAB* 81 MG TAB.EC PO SCH (10:44)
[2017-10-04] MEDS: Docusate CAP* 100 MG PO SCH ×2 (10:44→22:48)
[2017-10-04] MEDS: CMCS Escitalopram (NF) 5 MG TAB PO SCH (10:44)
[2017-10-04] MEDS: Metoprolol Tartrate TAB* 50 mg PO SCH ×2 (10:45→22:48)
--- NOTE | 2017-10-04 16:22 | PN ---
Progress Note Date of Service: 10/04/17 Note: DANIELE HOWARD was visited. Therapy notes read and reviewed. He feels okay overall. Tolerating Ritalin. Otherwise, no complaints Current Medications: Active Medications Generic Name Dose Route Start Last Admin Trade Name Freq PRN Reason Stop Dose Admin Acetaminophen 650 mg 09/23/17 16:29 10/03/17 21:06 Tylenol Tab* PO 650 mg Q6H PRN Administration HEADACHE/PAIN Alfuzosin HCl 10 mg 09/24/17 09:00 10/04/17 10:44 Uroxatral (Nf) PO 10 mg DAILY FLORESITA Administration Aspirin 81 mg 09/24/17 09:00 10/04/17 10:44 Aspirin Ec Tab* PO 81 mg DAILY FLORESITA Administration Atorvastatin Calcium 40 mg 09/23/17 17:00 10/03/17 17:41 Lipitor* PO 40 mg 1700 FLORESITA Administration Docusate Sodium 100 mg 09/23/17 21:00 10/04/17 10:44 Colace Cap* PO 100 mg BID FLORESITA Administration Escitalopram Oxalate 15 mg 09/24/17 09:00 10/04/17 10:44 Lexapro (Nf) PO 15 mg DAILY FLORESITA Administration Heparin Sodium (Porcine) 5,000 units 09/23/17 22:00 10/04/17 15:37 Heparin Vial(*) SUBCUT 5,000 units Q8HR FLORESITA Administration Methylphenidate HCl 2.5 mg 10/03/17 07:00 10/04/17 10:43 Ritalin Tab* PO 2.5 mg 0700,1100 FLORESITA Administration Metoprolol Tartrate 50 mg 09/23/17 21:00 10/04/17 10:45 Lopressor Tab* PO 50 mg Q12HR FLORESITA Administration Mirtazapine 15 mg 09/27/17 21:00 10/03/17 20:50 Remeron Tab* PO 15 mg BEDTIME FLORESITA Administration Omeprazole 20 mg 09/24/17 06:00 10/04/17 05:18 Prilosec Cap* PO 20 mg 0600 FLORESITA Administration Senna 2 tab 09/23/17 16:29 Senokot Tab* PO BEDTIME PRN CONSTIPATION Trazodone HCl 100 mg 09/23/17 21:00 10/03/17 20:50 Desyrel Tab* PO 100 mg BEDTIME FLORESITA Administration Vital Signs: Vital Signs Temp Pulse Resp BP Pulse Ox 98.1 F 61 16 106/61 96 10/04/17 15:31 10/04/17 15:31 10/04/17 15:31 10/04/17 15:31 10/04/17 15:31 Exam: GEN: no acute distress. alert and appropriate LUNGS: Clear to auscultation bilaterally HEART: Regular rate and rhythm ABDOMEN: Soft, +BS, non-tender, non-distended EXTREMITIES: no edema. Tone in right arm NEUROLOGIC: right CN VII palsy, but it seems mild. Speech clearer with aphasia. Little movement on right. Sensation impaired right side. Assessment/Plan: 1. 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 Voice is clearer. 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 Dysphagia: Mechanical soft solids with pureed vegetables, nectar thickened liquids 3. Depression: Continue Lexapro/Trazodone/Mirtazepine. Added Ritalin. If depression becomes a consistent issue, may need psychiatry consult. 4. BPH: Uroxatral 5. HTN: Lopressor 6. DVT Prophylaxis: Heparin S/Q 7. Advanced Directives: Full Code 10/04/17 16:23
[2017-10-04] MEDS: Atorvastatin* 40 MG TAB PO SCH (17:12)
[2017-10-04] MEDS: Senna TAB PO PRN (22:45)
[2017-10-04] MEDS: traZODone TAB* 100 MG PO SCH (22:48)
[2017-10-04] MEDS: Mirtazapine TAB* 15 MG PO SCH (22:48)
[2017-10-05] MEDS: Omeprazole CAP* 20 MG PO SCH (05:47)
[2017-10-05] MEDS: Methylphenidate TAB* 5 MG PO SCH ×2 (05:47→14:22)
[2017-10-05] MEDS: Heparin VIAL(*) 5000 UNITS/ML VIAL (FIVE THOUSAND) SUBCUT SCH ×3 (05:49→22:48)
[2017-10-05] MEDS: CMCS Escitalopram (NF) 5 MG TAB PO SCH (08:45)
[2017-10-05] MEDS: Metoprolol Tartrate TAB* 50 mg PO SCH ×2 (08:45→20:21)
[2017-10-05] MEDS: Aspirin EC TAB* 81 MG TAB.EC PO SCH (08:45)
[2017-10-05] MEDS: Docusate CAP* 100 MG PO SCH ×2 (08:45→20:22)
[2017-10-05] MEDS: ALFUZOSIN 10 MG PO SCH (08:45)
[2017-10-05] MEDS ORDERED: Polyethylene Glycol 3350* 17 GM PACKET PO PRN (14:09)
--- NOTE | 2017-10-05 17:14 | PN ---
Progress Note Date of Service: 10/05/17 Note: DANIELE OHWARD was visited. Nursing notes read and reviewed. He has complaints of constipation. Was given Miralax. Current Medications: Active Medications Generic Name Dose Route Start Last Admin Trade Name Freq PRN Reason Stop Dose Admin Acetaminophen 650 mg 09/23/17 16:29 10/03/17 21:06 Tylenol Tab* PO 650 mg Q6H PRN Administration HEADACHE/PAIN Alfuzosin HCl 10 mg 09/24/17 09:00 10/05/17 08:45 Uroxatral (Nf) PO 10 mg DAILY FLORESITA Administration Aspirin 81 mg 09/24/17 09:00 10/05/17 08:45 Aspirin Ec Tab* PO 81 mg DAILY FLORESITA Administration Atorvastatin Calcium 40 mg 09/23/17 17:00 10/04/17 17:12 Lipitor* PO 40 mg 1700 FLORESITA Administration Docusate Sodium 100 mg 09/23/17 21:00 10/05/17 08:45 Colace Cap* PO 100 mg BID FLORESITA Administration Escitalopram Oxalate 15 mg 09/24/17 09:00 10/05/17 08:45 Lexapro (Nf) PO 15 mg DAILY FLORESITA Administration Heparin Sodium (Porcine) 5,000 units 09/23/17 22:00 10/05/17 14:56 Heparin Vial(*) SUBCUT 5,000 units Q8HR FLORESITA Administration Methylphenidate HCl 2.5 mg 10/03/17 07:00 10/05/17 14:22 Ritalin Tab* PO Not Given 0700,1100 FLORESITA Metoprolol Tartrate 50 mg 09/23/17 21:00 10/05/17 08:45 Lopressor Tab* PO 50 mg Q12HR FLORESITA Administration Mirtazapine 15 mg 09/27/17 21:00 10/04/17 22:48 Remeron Tab* PO 15 mg BEDTIME FLORESITA Administration Omeprazole 20 mg 09/24/17 06:00 10/05/17 05:47 Prilosec Cap* PO 20 mg 0600 FLORESITA Administration Polyethylene Glycol/Electrolytes 17 gm 10/05/17 14:09 10/05/17 14:56 Miralax* PO 17 gm DAILY PRN Administration CONSTIPATION Senna 2 tab 09/23/17 16:29 10/04/17 22:45 Senokot Tab* PO 2 tab BEDTIME PRN Administration CONSTIPATION Trazodone HCl 100 mg 09/23/17 21:00 10/04/17 22:48 Desyrel Tab* PO 100 mg BEDTIME FLORESITA Administration Vital Signs: Vital Signs Temp Pulse Resp BP Pulse Ox 98.6 F 65 16 108/50 95 10/05/17 15:56 10/05/17 15:56 10/05/17 15:56 10/05/17 15:56 10/05/17 15:56 Exam: GEN: no acute distress. alert and appropriate LUNGS: Clear to auscultation bilaterally HEART: Regular rate and rhythm ABDOMEN: Soft, +BS, non-tender, non-distended EXTREMITIES: no edema. Tone in right arm NEUROLOGIC: right CN VII palsy. Speech clearer with aphasia. Little movement on right. Sensation impaired right side. Assessment/Plan: 1. 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 Voice is clearer. 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 Dysphagia: Mechanical soft solids with pureed vegetables, nectar thickened liquids 3. Depression: Continue Lexapro/Trazodone/Mirtazepine. Added Ritalin. If depression becomes a consistent issue, may need psychiatry consult. 4. BPH: Uroxatral 5. HTN: Lopressor 6. DVT Prophylaxis: Heparin S/Q 7. Advanced Directives: Full Code 10/05/17 17:14
[2017-10-05] MEDS: Atorvastatin* 40 MG TAB PO SCH (17:21)
[2017-10-05] MEDS: Senna TAB PO PRN (20:21)
[2017-10-05] MEDS: Mirtazapine TAB* 15 MG PO SCH (20:22)
[2017-10-05] MEDS: traZODone TAB* 100 MG PO SCH (22:46)
[2017-10-06] MEDS: Methylphenidate TAB* 5 MG PO SCH ×2 (05:54→10:57)
[2017-10-06] MEDS: Omeprazole CAP* 20 MG PO SCH (05:54)
[2017-10-06] MEDS: Heparin VIAL(*) 5000 UNITS/ML VIAL (FIVE THOUSAND) SUBCUT SCH ×3 (05:56→21:34)
[2017-10-06] MEDS: Metoprolol Tartrate TAB* 50 mg PO SCH ×2 (07:58→21:34)
[2017-10-06] MEDS: CMCS Escitalopram (NF) 5 MG TAB PO SCH (07:58)
[2017-10-06] MEDS: ALFUZOSIN 10 MG PO SCH (07:58)
[2017-10-06] MEDS: Aspirin EC TAB* 81 MG TAB.EC PO SCH (07:58)
[2017-10-06] MEDS: Docusate CAP* 100 MG PO SCH ×2 (07:58→21:34)
[2017-10-06] MEDS: Atorvastatin* 40 MG TAB PO SCH (17:14)
--- NOTE | 2017-10-06 17:27 | PN ---
Progress Note Date of Service: 10/06/17 Note: DANIELE HOWARD was visited. Therapy notes read and reviewed. Doing ok. Spirits are good. He still has little movement on right Current Medications: Active Medications Generic Name Dose Route Start Last Admin Trade Name Freq PRN Reason Stop Dose Admin Acetaminophen 650 mg 09/23/17 16:29 10/03/17 21:06 Tylenol Tab* PO 650 mg Q6H PRN Administration HEADACHE/PAIN Alfuzosin HCl 10 mg 09/24/17 09:00 10/06/17 07:58 Uroxatral (Nf) PO 10 mg DAILY FLORESITA Administration Aspirin 81 mg 09/24/17 09:00 10/06/17 07:58 Aspirin Ec Tab* PO 81 mg DAILY FLORESITA Administration Atorvastatin Calcium 40 mg 09/23/17 17:00 10/06/17 17:14 Lipitor* PO 40 mg 1700 FLORESITA Administration Docusate Sodium 100 mg 09/23/17 21:00 10/06/17 07:58 Colace Cap* PO 100 mg BID FLORESITA Administration Escitalopram Oxalate 15 mg 09/24/17 09:00 10/06/17 07:58 Lexapro (Nf) PO 15 mg DAILY FLORESITA Administration Heparin Sodium (Porcine) 5,000 units 09/23/17 22:00 10/06/17 13:21 Heparin Vial(*) SUBCUT 5,000 units Q8HR FLORESITA Administration Methylphenidate HCl 2.5 mg 10/03/17 07:00 10/06/17 10:57 Ritalin Tab* PO 2.5 mg 0700,1100 FLORESITA Administration Metoprolol Tartrate 50 mg 09/23/17 21:00 10/06/17 07:58 Lopressor Tab* PO 50 mg Q12HR FLORESITA Administration Mirtazapine 15 mg 09/27/17 21:00 10/05/17 20:22 Remeron Tab* PO 15 mg BEDTIME FLORESITA Administration Omeprazole 20 mg 09/24/17 06:00 10/06/17 05:54 Prilosec Cap* PO 20 mg 0600 FLORESITA Administration Polyethylene Glycol/Electrolytes 17 gm 10/05/17 14:09 10/05/17 14:56 Miralax* PO 17 gm DAILY PRN Administration CONSTIPATION Senna 2 tab 09/23/17 16:29 10/05/17 20:21 Senokot Tab* PO 2 tab BEDTIME PRN Administration CONSTIPATION Trazodone HCl 100 mg 09/23/17 21:00 10/05/17 22:46 Desyrel Tab* PO 100 mg BEDTIME FLORESITA Administration Vital Signs: Vital Signs Temp Pulse Resp BP Pulse Ox 99.5 F 67 20 126/62 99 10/06/17 05:54 10/06/17 05:54 10/06/17 15:58 10/06/17 05:54 10/06/17 05:54 Exam: GEN: no acute distress. alert and appropriate LUNGS: Clear to auscultation bilaterally HEART: Regular rate and rhythm ABDOMEN: Soft, +BS, non-tender, non-distended EXTREMITIES: no edema. Tone in right arm NEUROLOGIC: right CN VII palsy. Speech clearer with aphasia. Little movement on right. Sensation impaired right side. Assessment/Plan: 1. 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 Voice is clearer. 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 Dysphagia: Mechanical soft solids with pureed vegetables, nectar thickened liquids 3. Depression: Continue Lexapro/Trazodone/Mirtazepine. Added Ritalin. If depression becomes a consistent issue, may need psychiatry consult. 4. BPH: Uroxatral 5. HTN: Lopressor 6. DVT Prophylaxis: Heparin S/Q 7. Advanced Directives: Full Code 10/06/17 17:28
[2017-10-06] MEDS: traZODone TAB* 100 MG PO SCH (21:34)
[2017-10-06] MEDS: Mirtazapine TAB* 15 MG PO SCH (21:34)
[2017-10-07] MEDS: Heparin VIAL(*) 5000 UNITS/ML VIAL (FIVE THOUSAND) SUBCUT SCH ×3 (05:42→22:52)
[2017-10-07] MEDS: Omeprazole CAP* 20 MG PO SCH (05:42)
[2017-10-07] MEDS: Aspirin EC TAB* 81 MG TAB.EC PO SCH (08:16)
[2017-10-07] MEDS: Metoprolol Tartrate TAB* 50 mg PO SCH ×2 (08:16→19:53)
[2017-10-07] MEDS: ALFUZOSIN 10 MG PO SCH (08:16)
[2017-10-07] MEDS: Methylphenidate TAB* 5 MG PO SCH ×2 (08:17→12:19)
[2017-10-07] MEDS: Docusate CAP* 100 MG PO SCH ×2 (08:17→19:53)
[2017-10-07] MEDS: CMCS Escitalopram (NF) 5 MG TAB PO SCH (08:17)
[2017-10-07] MEDS: Acetaminophen TAB* 325 MG PO PRN ×2 (09:12→19:52)
--- NOTE | 2017-10-07 12:43 | PMRUTEAM ---
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] Bladder Current Status incontinent and also using urinal Bowel Current Status last bm 10/06/17 Nutrition Current Status appetite good Medication Current Status able to take meds whole with applesauce or pudding Physical Therapy: Current Status Bed Mobility Assistance Mod Assist Transfer Moblility Assistance Max Assist Transfer/Bed Mobility Simeon Lift Recommended Devices Ambulation Assistance Total Assist,2 or More Person Assist Number of Feet Patient 20 Ambulated Wheelchair Distance (ft) 50 Objective Comments sit to stand and stand pivot max A with decreased LE awareness noted and limited ability to extend at hips/ knees despite maximal cues and practice throughout session in body-weight support system Occupational Therapy: Current Status Upper Body Dressing Mod Assist Upper Body Dressing Progress while up in chair with cues Lower Body Dressing Total Assist,2 Person Assist Bathing Max Asst Toileting Total Assist Toilet Transfer Total Assist,2 Person Assist Toilet Transfer Progress swap out at bedrail Shower Transfer Total Assist,2 Person Assist Shower Transfer Progress simeon Eating Supervision Rec Therapy: Current Status Summary of Assessment and RT assessment complete and pt. is aware of RT Clinical Impression services. Pt. has leisure material in his room and has been open and engaged in leisure visits. Treatment Goals Pt. will engage in leisure activities while on the unit. Treatment Plan Provide RT services and encourage involvement. Social Work: Current Status Discharge Plan return home with home care svs and family support Potential for Family Training pt's is invovled and supportive Anticipated Discharge Home Destination Discharge With home care svs and family support Nutrition: Current Status Monitoring po intake remains variable w/texture and liquid modifications. However, hope to see some improvement w/[facility] (need to cont pureed fruits/vegetables only + nectar-thick liquids). Taking pills in applesauce without coughing. Pt denies N/V/D and constipation (last BM 09/29). He does not like to wear his dentures, but still claims he can chew fine without them. He is left hand dominant and able to feed self. Pt is newly on Lipitor, so received education today re: statin/grapefruit interaction. He does not like grapefruit anyway. Will cont to follow. Speech: Current Status Assessment Progressing as expected Speech Current Status Goal 1 Moderate impairment Speech Goal 2 Current Status Moderate impairment Speech Goal 3 Current Status Moderate impairment Speech Goal 4 Current Status Moderate impairment Goals: Physical Therapy: Initial Goals Bed Mobility Assistance Independent Transfer Mobility Assistance Independent Transfer/Bed Mobility Large Base Quad Cane Recommended Devices Wheelchair Propulsion Ability Independent Physical Therapy: Updated Goals Transfer/Bed Mobility Simeon Lift Recommended Devices Occupational Therapy: Initial Goals Goals to be Completed in (Days 4-6 weeks ) Upper Body Bathing Routine Modified Independent with Lower Body Bathing Routine Minimal Contact Assist Upper Body Dressing Routine Minimal Contact Assist Lower Body Dressing Routine Minimal Contact Assist Toilet Hygeine and Clothing Supervision/Set Up Management Routine Toilet Transfer Routine Supervision/Set Up Step-In Shower Transfer Minimal Contact Assist Routine Functional Transfers for ADL Supervision/Set Up Grooming Routine Independent Feeding Routine Independent Nursing: Goals Bladder Goal independent with urinal Bowel Goal independent Nutrition Goal 100% of all meals eaten Medication Goal supervision Nutrition: Goals Intervention Goals 1) Adequate po intake to support lean body mass and hydration w/o undesired wt loss/gain 2) Textures will be tolerated and progress as appropriate per ARCHITECTURAL INSPECTOR eval 3) Achieve bowel regularity w/ adequate po intake w/o adverse diarrhea/constipation 4) Nutritionally pertinent labs will remain unremarkable 5) Statin/grapefruit interaction education will be provided prior to d/c Speech: Goals Speech Goal 1 Comprehension Speech Evaluation Status Goal Moderate impairment 1 Speech Current Status Goal 1 Moderate impairment Goal 1 Comments Comprehension Long-Term Goal: Pt will use compensatory strategies to demonstrate comprehension of verbal and written information of moderate complexity (3 parts or 3 steps), 100% accuracy, given minimal extra time, Independently. 1) Short-Term Goal: Pt will use compensatory strategies to demonstrate comprehension of verbal and written information of simple complexity (1 detail or direction), 80% accuracy, given moderate extra time, and Moderate skilled instruction and cueing. Status: Progressing as expected. 2) Short-Term Goal: Pt will use compensatory strategies to demonstrate comprehension of verbal and written information of moderate complexity (2 simultaneous parts or sequential 2-step directions ), 80% accuracy, given moderate extra time, and Moderate skilled instruction and cueing. Status: Progressing as expected. ARCHITECTURAL INSPECTOR presented printed pictures and text to match describe. For previously instructed naming and matching, patient demonstrated 95% accuracy. For description of spatial relations, patient was 85% accurate for Above and Below, but 60% accurate for Left and Right. Patient appeared to neglect the word Right and most often said Left. Speech Goal 2 Expression Speech Goal 2 Evaluation Moderate impairment Status Speech Goal 2 Current Status Moderate impairment Speech Goal 2 Comments Long-Term Goal: Pt will use conversational repair strategies to cooperatively find words in structured conversation, 90% accuracy, given extra time, Independently. 1) Short-Term Goal: Pt will use conversational repair strategies to cooperatively find words in structured language activities, 75% accuracy, given Maximum skilled instruction and cueing. Status: Progressing as expected. For decription of [id number] pictures, patient described one as to the left of the other with 605 accuracy. ARCHITECTURAL INSPECTOR modified activity to simplify expresion to "(one) on the Right (or Left)" but patient continued to favor the word Left. Speech Goal 3 Motor-speech Speech Goal 3 Evaluation Moderate impairment Status Speech Goal 3 Current Status Moderate impairment Speech Goal 3 Comments Long-Term Goal: Pt speak with 95% intelligibility I'ly Short-Term Goal 1: Pt will use compensatory articulation strategies to increase speech to intelligibility to 95% in spontaneous conversational speech, given minimal cueing. Status: Progressing as expected. Short-Term Goal 2: Pt will use compensatory articulation strategies to increase speech to intelligibility to 90% in structured speech activities, given moderate cueing. Status: Progressing as expected ARCHITECTURAL INSPECTOR instructed patient to increase speaking loudness and clarity when reading aloud; patient was 90% intelligible at moderate conversational loudness. Speech Goal 4 Problem Solving Speech Goal 4 Evaluation Moderate impairment Status Speech Goal 4 Current Status Moderate impairment Speech Goal 4 Comments Long-Term Goal: Pt will use compensatory strategies to solve moderately complex routine problems, with 100% accuracy, Independently, for ADLs such as shopping, time and money management. Short-Term Goal: Pt will use compensatory strategies to solve simple routine problems, with 80% accuracy, given Moderate skilled instruction and cueing. Status: Progressing as expected. Givne maximum skilled instruction, patient used Ada's ARCS method to read and summarize a short news article. Social Work: Goals Discharge Plan return home with home care svs and family support Potential for Family Training pt's is invovled and supportive Anticipated Discharge Home Destination Discharge With home care svs and family support Care Plan: Care Plan ADL's - Improve/Maintain Start: 09/25/17 00:33 Freq: DAILY Status: Active Target: Protocol: Activity Type Activity Date Activity User E-Sign Co-Sign Detail Recorded Client Recorded Date Recorded By Document 10/02/17 13:00 [id number] [id number] 10/02/17 13:00 [id number] 10/02/17 13:00 PMRU Outcome: ADL's/ADL Transfers Orders/Interventions Occupational Therapy Evaluation & Treatment Patient to receive OT 5x/wk for 60-120 Therex min/day Self Care Management Group Therapy UE/LE ADL's with Assist Yes: min A ADL Transfers with Assist Yes: S Toileting: Transfers,Clothing Management Yes: S ,Hygeine w/Assist Progression Toward Outcome/Goals Progressing Outcome/Goals Met Pt has progressed to being able to complete swap out transfers at the bedrail with the staff for toileting and switching from recliner to w/c. STS and static standing improvements noted. Communication-Improve/Maintain Start: 09/23/17 17:33 Freq: Q12HR Status: Active Target: Protocol: Activity Type Activity Date Activity User E-Sign Co-Sign Detail Recorded Client Recorded Date Recorded By Document 10/06/17 00:25 [id number] [id number] 10/06/17 00:25 [id number] 00:25 Outcome: Communication Outcome/Goals Demonstrate Knowledge and Use of Communication Tools/Devices Demonstrate Ability to Make Needs Known Progression Toward Outcome/Goals Progressing Outcome/Goals Met Comment more understandable Discharge Planning Start: 09/23/17 17:33 Freq: DAILY@1200 Status: Active Target: Protocol: Activity Type Activity Date Activity User E-Sign Co-Sign Detail Recorded Client Recorded Date Recorded By Document 10/06/17 00:25 [id number] [id number] 10/06/17 00:25 [id number] 10/06/17 00:25 Outcome: Discharge Planning Outcome/Goals Demonstrates Understanding of Discharge Plan Necessary Services Arranged for Post Discharge Care Progression Toward Outcome/Goals Progressing Education-Improve/Maintain Start: 09/25/17 00:33 Freq: QSHIFT Status: Active Target: Protocol: Activity Type Activity Date Activity User E-Sign Co-Sign Detail Recorded Client Recorded Date Recorded By Document 10/07/17 11:48 [id number] [email or web address] 10/07/17 11:48 [id number] 10/07/17 11:48 PMRU Outcome: Education Outcome/Goals Encourage Questions Progression Toward Outcome/Goals Progressing Mobility- Improve/Maintain Start: 09/27/17 15:07 Freq: DAILY Status: Active Target: Protocol: Activity Type Activity Date Activity User E-Sign Co-Sign Detail Recorded Client Recorded Date Recorded By Document 09/24/17 18:00 [id number] [id number] 09/27/17 15:10 [id number] 09/24/17 18:00 PMRU Outcome: Mobility Physical Therapy Evaluation and Yes Treatment Activity OOB with Assistance Yes Device Yes Assistance Yes Patient to be seen 5x/wk for 60-120 min/ Therex day for: Mobility Training Gait Training W/C Mobility Balance Outcome/Goals Maintain/ Achieve Baseline Mobility Status Improve Mobility Status Demonstrates Proper Use of Assistive Devices Free from Complications of Immobility Bed Mobility Yes: independent Transfers Yes: independent with large based quad cane W/C Mobility x ft Yes: independent with STEPHANE/LE to 150' Mobility-Improve/Maintain Start: 09/23/17 17:33 Freq: Q12HR Status: Active Target: Protocol: Activity Type Activity Date Activity User E-Sign Co-Sign Detail Recorded Client Recorded Date Recorded By Document 10/06/17 00:25 [id number] 10/06/17 00:25 [id number] 10/06/17 00:25 Outcome: Mobility Outcome/Goals Maintain/ Achieve Baseline Mobility Status Demonstrates Proper Use of Assistive Devices Progression Toward Outcome/Goals Progressing Neurological-Improve/Maintain Start: 09/23/17 17:33 Freq: Q12HR Status: Active Target: Protocol: Activity Type Activity Date Activity User E-Sign Co-Sign Detail Recorded Client Recorded Date Recorded By Document 10/07/17 11:48 [id number] [id number] 10/07/17 11:48 [id number] 10/07/17 11:48 Outcome: Neurological Outcome/Goals Improve Neurological Status Prevent Avoidable Neurological Decline Maintain/ Improve Strength/ROM Progression Toward Outcome/Goals Progressing Pain/Comfort- Improve/Maintain Start: 09/25/17 00:33 Freq: QSHIFT Status: Complete Target: Protocol: Activity Type Activity Date Activity User E-Sign Co-Sign Detail Recorded Client Recorded Date Recorded By Document 10/07/17 11:48 [id number] [id number] 10/07/17 11:48 [id number] 10/07/17 11:48 PMRU Outcome: Pain/Comfort Outcome/Goals Demonstrates Knowledge and Use of Available Comfort Measures Achieves Acceptable Comfort/Pain Level as Determined by Patient/Condit Maintain Comfort Level Allowing Patient to Fully Participate in Rehab Progression Toward Outcome/Goals Progressing Safety- Improve/Maintain Start: 09/25/17 00:33 Freq: QSHIFT Status: Active Target: Protocol: Activity Type Activity Date Activity User E-Sign Co-Sign Detail Recorded Client Recorded Date Recorded By Document 10/07/17 11:48 [id number] 10/07/17 11:48 [id number] 10/07/17 11:48 PMRU Outcome: Safety Outcome/Goals Remain Free of Injury or Harm Cooperates with Safety Measures for Least Restrictive Environment Prevent Falls/ Injury Progression Toward Outcome/Goals Progressing Outcome/Goals Met Comment PA in place Medicine Note: Length of Stay: 4 1/2 weeks Anticipated Discharge Destination: Home Tentative Discharge Date: 11/07/17 Discharged to: Home vs SNF
[2017-10-07] MEDS: Atorvastatin* 40 MG TAB PO SCH (16:02)
--- NOTE | 2017-10-07 18:43 | PN ---
Progress Note Date of Service: 10/07/17 Note: DANIELE HOWARD was visited. Therapy notes read and reviewed. Discussed in interdisciplinary team rounds. Not making a lot of progress and it is anticipated he will need a lot of care when he leaves. Will discuss with about BLANK Current Medications: Active Medications Generic Name Dose Route Start Last Admin Trade Name Freq PRN Reason Stop Dose Admin Acetaminophen 650 mg 09/23/17 16:29 10/07/17 09:12 Tylenol Tab* PO 650 mg Q6H PRN Administration HEADACHE/PAIN Alfuzosin HCl 10 mg 09/24/17 09:00 10/07/17 08:16 Uroxatral (Nf) PO 10 mg DAILY FLORESITA Administration Aspirin 81 mg 09/24/17 09:00 10/07/17 08:16 Aspirin Ec Tab* PO 81 mg DAILY FLORESITA Administration Atorvastatin Calcium 40 mg 09/23/17 17:00 10/07/17 16:02 Lipitor* PO 40 mg 1700 FLORESITA Administration Docusate Sodium 100 mg 09/23/17 21:00 10/07/17 08:17 Colace Cap* PO 100 mg BID FLORESITA Administration Escitalopram Oxalate 15 mg 09/24/17 09:00 10/07/17 08:17 Lexapro (Nf) PO 15 mg DAILY FLORESITA Administration Heparin Sodium (Porcine) 5,000 units 09/23/17 22:00 10/07/17 14:43 Heparin Vial(*) SUBCUT 5,000 units Q8HR FLORESITA Administration Methylphenidate HCl 2.5 mg 10/03/17 07:00 10/07/17 12:19 Ritalin Tab* PO 2.5 mg 0700,1100 FLORESITA Administration Metoprolol Tartrate 50 mg 09/23/17 21:00 10/07/17 08:16 Lopressor Tab* PO 50 mg Q12HR FLORESITA Administration Mirtazapine 15 mg 09/27/17 21:00 10/06/17 21:34 Remeron Tab* PO 15 mg BEDTIME FLORESITA Administration Omeprazole 20 mg 09/24/17 06:00 10/07/17 05:42 Prilosec Cap* PO 20 mg 0600 FLORESITA Administration Polyethylene Glycol/Electrolytes 17 gm 10/05/17 14:09 10/05/17 14:56 Miralax* PO 17 gm DAILY PRN Administration CONSTIPATION Senna 2 tab 09/23/17 16:29 10/05/17 20:21 Senokot Tab* PO 2 tab BEDTIME PRN Administration CONSTIPATION Trazodone HCl 100 mg 09/23/17 21:00 10/06/17 21:34 Desyrel Tab* PO 100 mg BEDTIME FLORESITA Administration Vital Signs: Vital Signs Temp Pulse Resp BP Pulse Ox 98.1 F 68 16 123/68 97 10/07/17 05:48 10/07/17 05:48 10/07/17 18:36 10/07/17 05:48 10/07/17 05:48 Exam: GEN: no acute distress. alert and appropriate LUNGS: Clear to auscultation bilaterally HEART: Regular rate and rhythm ABDOMEN: Soft, +BS, non-tender, non-distended EXTREMITIES: no edema. Tone in right arm NEUROLOGIC: right CN VII palsy. Speech clearer with aphasia. Little movement on right. Sensation impaired right side. Assessment/Plan: 1. 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 Voice is clearer. 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 Dysphagia: Mechanical soft solids with pureed vegetables, nectar thickened liquids 3. Depression: Continue Lexapro/Trazodone/Mirtazepine. Added Ritalin. If depression becomes a consistent issue, may need psychiatry consult. 4. BPH: Uroxatral 5. HTN: Lopressor 6. DVT Prophylaxis: Heparin S/Q 7. Advanced Directives: Full Code 10/07/17 18:43
[2017-10-07] MEDS: traZODone TAB* 100 MG PO SCH (19:53)
[2017-10-07] MEDS: Mirtazapine TAB* 15 MG PO SCH (19:53)
[2017-10-08] MEDS: Omeprazole CAP* 20 MG PO SCH (05:23)
[2017-10-08] MEDS: Heparin VIAL(*) 5000 UNITS/ML VIAL (FIVE THOUSAND) SUBCUT SCH ×3 (05:23→21:54)
[2017-10-08 05:46] LABS: ABS Basophils 0 10^3/ul (0-0.2); ABS Eosinophils 0.4 10^3/ul (0-0.6); ABS Lymphocytes 1.7 10^3/ul (1.0-4.8); ABS Monocytes 0.9 10^3/ul (0-0.8); ABS Neutrophils 4.7 10^3/ul (1.5-7.7); ABS Nucleated RBC 0 10^3/ul; Hematocrit 39 % (42-52); Hemoglobin 13.6 g/dl (14.0-18.0); Lymphocyte % 21.9 % (25-47); Mean Corpuscular HGB Conc 35 g/dl (31-36); Mean Corpuscular Hemoglobin 32 pg (27-31); Mean Corpuscular Volume 92 fL (80-94); Mean Platelet Volume 6.5 um3 (7.4-10.4); Nucleated Red Blood Cells % 0.1; Platelet Count 251 10^3/ul (150-450); Red Blood Count 4.25 10^6/ul (4.00-5.40); Red Cell Distribution Width 14 % (10.5-15); White Blood Count 7.7 10^3/ul (3.5-10.8)
[2017-10-08 05:56] LABS: EGFR Non-African American 77.2 (>60)
[2017-10-08] MEDS: Methylphenidate TAB* 5 MG PO SCH ×2 (06:30→11:20)
[2017-10-08] MEDS: Docusate CAP* 100 MG PO SCH ×2 (08:00→21:54)
[2017-10-08] MEDS: Aspirin EC TAB* 81 MG TAB.EC PO SCH (08:00)
[2017-10-08] MEDS: Metoprolol Tartrate TAB* 50 mg PO SCH ×2 (08:00→21:54)
[2017-10-08] MEDS: ALFUZOSIN 10 MG PO SCH (08:01)
[2017-10-08] MEDS: CMCS Escitalopram (NF) 5 MG TAB PO SCH (08:01)
[2017-10-08] MEDS: Atorvastatin* 40 MG TAB PO SCH (16:47)
--- NOTE | 2017-10-08 18:15 | PN ---
Progress Note Date of Service: 10/08/17 Note: DANIELE HOWARD was visited. Therapy notes read and reviewed. I met with Daniele and his sister. He will likely need placement in a [facility] for extended rehab. He dealt with the news ok. Current Medications: Active Medications Generic Name Dose Route Start Last Admin Trade Name Freq PRN Reason Stop Dose Admin Acetaminophen 650 mg 09/23/17 16:29 10/07/17 19:52 Tylenol Tab* PO 650 mg Q6H PRN Administration HEADACHE/PAIN Alfuzosin HCl 10 mg 09/24/17 09:00 10/08/17 08:01 Uroxatral (Nf) PO 10 mg DAILY FLORESITA Administration Aspirin 81 mg 09/24/17 09:00 10/08/17 08:00 Aspirin Ec Tab* PO 81 mg DAILY FLORESITA Administration Atorvastatin Calcium 40 mg 09/23/17 17:00 10/08/17 16:47 Lipitor* PO 40 mg 1700 FLORESITA Administration Docusate Sodium 100 mg 09/23/17 21:00 10/08/17 08:00 Colace Cap* PO 100 mg BID FLORESITA Administration Escitalopram Oxalate 15 mg 09/24/17 09:00 10/08/17 08:01 Lexapro (Nf) PO 15 mg DAILY FLORESITA Administration Heparin Sodium (Porcine) 5,000 units 09/23/17 22:00 10/08/17 15:41 Heparin Vial(*) SUBCUT 5,000 units Q8HR FLORESITA Administration Methylphenidate HCl 5 mg 10/08/17 07:00 10/08/17 11:20 Ritalin Tab* PO 5 mg 0700,1100 FLORESITA Administration Metoprolol Tartrate 50 mg 09/23/17 21:00 10/08/17 08:00 Lopressor Tab* PO 50 mg Q12HR FLORESITA Administration Mirtazapine 15 mg 09/27/17 21:00 10/07/17 19:53 Remeron Tab* PO 15 mg BEDTIME FLORESITA Administration Omeprazole 20 mg 09/24/17 06:00 10/08/17 05:23 Prilosec Cap* PO 20 mg 0600 FLORESITA Administration Polyethylene Glycol/Electrolytes 17 gm 10/05/17 14:09 10/05/17 14:56 Miralax* PO 17 gm DAILY PRN Administration CONSTIPATION Senna 2 tab 09/23/17 16:29 10/05/17 20:21 Senokot Tab* PO 2 tab BEDTIME PRN Administration CONSTIPATION Trazodone HCl 100 mg 09/23/17 21:00 10/07/17 19:53 Desyrel Tab* PO 100 mg BEDTIME FLORESITA Administration Vital Signs: Vital Signs Temp Pulse Resp BP Pulse Ox 98.3 F 64 22 109/61 97 10/08/17 15:56 10/08/17 15:56 10/08/17 15:56 10/08/17 15:56 10/08/17 16:15 Lab Results: Laboratory Results - last 24 hr 10/08/17 10/08/17 05:12 05:12 WBC 7.7 RBC 4.25 Hgb 13.6 L Hct 39 L MCV 92 MCH 32 H MCHC 35 RDW 14 Plt Count 251 MPV 6.5 L Neut % (Auto) 61.6 Lymph % (Auto) 21.9 L [place] % (Auto) 11.1 H Eos % (Auto) 5.0 Baso % (Auto) 0.4 Absolute Neuts (auto) 4.7 Absolute Lymphs (auto) 1.7 Absolute Monos (auto) 0.9 H Absolute Eos (auto) 0.4 Absolute Basos (auto) 0 Absolute Nucleated RBC 0 Nucleated RBC % 0.1 Sodium 139 Potassium 3.9 Chloride 105 Carbon Dioxide 28 Anion Gap 6 BUN 13 Creatinine 0.96 Est GFR ( Amer) 93.4 Est GFR (Non-Af Amer) 77.2 BUN/Creatinine Ratio 13.5 Glucose 105 H Calcium 9.5 Total Bilirubin 0.90 AST 17 ALT 39 Alkaline Phosphatase 94 Total Protein 6.6 Albumin 3.5 Globulin 3.1 Albumin/Globulin Ratio 1.1 Exam: GEN: no acute distress. alert and appropriate LUNGS: Clear to auscultation bilaterally HEART: Regular rate and rhythm ABDOMEN: Soft, +BS, non-tender, non-distended EXTREMITIES: no edema. Tone in right arm NEUROLOGIC: right CN VII palsy. Speech clearer with aphasia. Little movement on right. Sensation impaired right side. Assessment/Plan: 1. 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 Voice is clearer. 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 Dysphagia: Mechanical soft solids with pureed vegetables, nectar thickened liquids 3. Depression: Continue Lexapro/Trazodone/Mirtazepine. Added Ritalin. If depression becomes a consistent issue, may need psychiatry consult. 4. BPH: Uroxatral 5. HTN: Lopressor 6. DVT Prophylaxis: Heparin S/Q 7. Advanced Directives: Full Code 10/08/17 18:15
[2017-10-08] MEDS: Mirtazapine TAB* 15 MG PO SCH (21:54)
[2017-10-08] MEDS: traZODone TAB* 100 MG PO SCH (21:54)
[2017-10-09] MEDS: Omeprazole CAP* 20 MG PO SCH (04:54)
[2017-10-09] MEDS: Heparin VIAL(*) 5000 UNITS/ML VIAL (FIVE THOUSAND) SUBCUT SCH ×3 (04:56→20:12)
[2017-10-09] MEDS: Methylphenidate TAB* 5 MG PO SCH ×2 (05:03→11:02)
[2017-10-09] MEDS: Docusate CAP* 100 MG PO SCH ×2 (08:46→20:10)
[2017-10-09] MEDS: ALFUZOSIN 10 MG PO SCH (08:46)
[2017-10-09] MEDS: Metoprolol Tartrate TAB* 50 mg PO SCH ×2 (08:46→20:10)
[2017-10-09] MEDS: Aspirin EC TAB* 81 MG TAB.EC PO SCH (08:46)
[2017-10-09] MEDS ORDERED: Ondansetron ODT TAB* 4 MG PO ONE (09:00)
[2017-10-09] MEDS: CMCS Escitalopram (NF) 5 MG TAB PO SCH (09:49)
[2017-10-09] MEDS: Calcium Carbonate CHEW TAB* 500 MG (TUMS) PO PRN ×2 (14:50→18:51)
[2017-10-09] MEDS: Atorvastatin* 40 MG TAB PO SCH (17:07)
[2017-10-09] MEDS: Mirtazapine TAB* 15 MG PO SCH (20:10)
[2017-10-09] MEDS: traZODone TAB* 100 MG PO SCH (20:12)
--- NOTE | 2017-10-09 21:37 | PN ---
Progress Note Date of Service: 10/09/17 Note: DANIELE HOWARD was visited. Therapy notes read and reviewed. Some stomach upset. Will order TUMS. He will go to [facility] tomorrow for BLANK Current Medications: Active Medications Generic Name Dose Route Start Last Admin Trade Name Freq PRN Reason Stop Dose Admin Acetaminophen 650 mg 09/23/17 16:29 10/07/17 19:52 Tylenol Tab* PO 650 mg Q6H PRN Administration HEADACHE/PAIN Alfuzosin HCl 10 mg 09/24/17 09:00 10/09/17 08:46 Uroxatral (Nf) PO 10 mg DAILY FLORESITA Administration Aspirin 81 mg 09/24/17 09:00 10/09/17 08:46 Aspirin Ec Tab* PO 81 mg DAILY FLORESITA Administration Atorvastatin Calcium 40 mg 09/23/17 17:00 10/09/17 17:07 Lipitor* PO 40 mg 1700 FLORESITA Administration Calcium Carbonate 500 mg 10/09/17 13:36 10/09/17 18:51 Tums* PO 500 mg Q4H PRN Administration DYSPEPSIA Docusate Sodium 100 mg 09/23/17 21:00 10/09/17 20:10 Colace Cap* PO 100 mg BID FLORESITA Administration Escitalopram Oxalate 15 mg 09/24/17 09:00 10/09/17 09:49 Lexapro (Nf) PO 15 mg DAILY FLORESITA Administration Heparin Sodium (Porcine) 5,000 units 09/23/17 22:00 10/09/17 20:12 Heparin Vial(*) SUBCUT 5,000 units Q8HR FLORESITA Administration Methylphenidate HCl 5 mg 10/08/17 07:00 10/09/17 11:02 Ritalin Tab* PO 5 mg 0700,1100 FLORESITA Administration Metoprolol Tartrate 50 mg 09/23/17 21:00 10/09/17 20:10 Lopressor Tab* PO 50 mg Q12HR FLORESITA Administration Mirtazapine 15 mg 09/27/17 21:00 10/09/17 20:10 Remeron Tab* PO 15 mg BEDTIME FLORESITA Administration Omeprazole 20 mg 09/24/17 06:00 10/09/17 04:54 Prilosec Cap* PO 20 mg 0600 FLORESITA Administration Polyethylene Glycol/Electrolytes 17 gm 10/05/17 14:09 10/05/17 14:56 Miralax* PO 17 gm DAILY PRN Administration CONSTIPATION Senna 2 tab 09/23/17 16:29 10/05/17 20:21 Senokot Tab* PO 2 tab BEDTIME PRN Administration CONSTIPATION Trazodone HCl 100 mg 09/23/17 21:00 10/09/17 20:12 Desyrel Tab* PO 100 mg BEDTIME FLORESITA Administration Vital Signs: Vital Signs Temp Pulse Resp BP Pulse Ox 98.6 F 61 24 115/58 97 10/09/17 15:42 10/09/17 15:42 10/09/17 15:42 10/09/17 15:42 10/09/17 16:33 Exam: GEN: no acute distress. alert and appropriate LUNGS: Clear to auscultation bilaterally HEART: Regular rate and rhythm ABDOMEN: Soft, +BS, non-tender, non-distended EXTREMITIES: no edema. Tone in right arm NEUROLOGIC: right CN VII palsy. Speech clearer with aphasia. Little movement on right. Sensation impaired right side. Assessment/Plan: 1. 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 Voice is clearer. 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 Dysphagia: Mechanical soft solids with pureed vegetables, nectar thickened liquids 3. Depression: Continue Lexapro/Trazodone/Mirtazepine. Added Ritalin. If depression becomes a consistent issue, may need psychiatry consult. 4. BPH: Uroxatral 5. HTN: Lopressor 6. DVT Prophylaxis: Heparin S/Q 7. Advanced Directives: Full Code 8. Disposition: To [facility] tomorrow 10/09/17 21:38
[2017-10-10] MEDS: Omeprazole CAP* 20 MG PO SCH (05:03)
[2017-10-10] MEDS: Methylphenidate TAB* 5 MG PO SCH (05:04)
[2017-10-10] MEDS: Acetaminophen TAB* 325 MG PO PRN (05:05)
[2017-10-10 05:06] VITALS: BP 123/65
[2017-10-10] MEDS: Heparin VIAL(*) 5000 UNITS/ML VIAL (FIVE THOUSAND) SUBCUT SCH (05:06)
[2017-10-10] MEDS: Docusate CAP* 100 MG PO SCH (08:55)
[2017-10-10] MEDS: CMCS Escitalopram (NF) 5 MG TAB PO SCH (08:55)
[2017-10-10] MEDS: ALFUZOSIN 10 MG PO SCH (08:55)
[2017-10-10] MEDS: Aspirin EC TAB* 81 MG TAB.EC PO SCH (08:55)
[2017-10-10] MEDS: Metoprolol Tartrate TAB* 50 mg PO SCH (08:57)
--- NOTE | 2017-10-10 10:48 | TRS ---
CC: [facility] * TRANSFER SUMMARY: DATE OF ADMISSION: 09/23/17 DATE OF DISCHARGE: 10/10/17 DISCHARGE DIAGNOSES: 1. 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 2. Depression. 3. Benign prosthetic hypertrophy. 4. Status post TPA administration and embolectomy. HISTORY OF ILLNESS AND HOSPITAL COURSE: For complete history of the events leading up to his rehab stay, please see the history and physical dictated by me on 09/23/17. While on the rehab unit, the patient remained medically stable for the most part. His diet was upgraded to mechanical ground with nectar- thick liquids. He was maintained on aspirin and Lipitor for secondary stroke prevention. For his depression, he was treated with his usual Lexapro and Remeron and trazodone. He was maintained on heparin for DVT prophylaxis. He was seen by both physical and occupational therapy, and made some gains with both disciplines. With physical therapy at the time of admission, the patient was dependant for transfers and unable to ambulate. With occupational therapy, he was dependant for toilet transfers and total assistance for upper and lower body dressing. By the time of discharge, the patient was mod assist for upper body dressing, total assist for lower body dressing, max assist for bathing, max assist for toilet transfers. He was mod to max assist for transfers depending on fatigue, and unable to ambulate. The patient's was unable to provide any assistance upon discharge. It was recommended the patient go to subacute rehab to get continued rehab so that he might return to independent living. He is going to be transferred to [facility] in order to undergo continued rehabilitation so that he might return to independent living. DISCHARGE DIET: Mechanical ground with nectar-thick liquids. DISCHARGE MEDICATIONS: 1. Uroxatral 10 mg daily. 2. Aspirin 81 mg daily. 3. Lipitor 40 mg daily. 4. Tums 500 mg every 4 hours as needed. 5. Lexapro 15 mg daily. 6. Heparin 5000 units subcutaneously every 8 hours. 7. He is also on Tylenol 650 mg every 6 hours as needed. SERVICES AFTER DISCHARGE: He should have restorative physical therapy, occupational therapy, and speech therapy. Followup with neurologist in 6 weeks. He will also followup with Neurosurgery at the [facility]. [id number]/[facility] #: [id number] [facility]
== END 2017-10-10 11:30 | DRG 58 ==
LOC: SSU 15:59 → PMRU 16:08
PROVIDERS: ADMIT Physical Medicine & Rehabilitation; ATTEND Physical Medicine & Rehabilitation
PROC: F07Z5ZZ Bed Mobility Treatment (ICD-10-PCS; principal; 2017-09-23)
PROC: F07Z9ZZ Gait Training/Functional Ambulation Treatment (ICD-10-PCS; 2017-09-23)
PROC: F07Z8ZZ Transfer Training Treatment (ICD-10-PCS; 2017-09-23)
PROC: F07Z4ZZ Wheelchair Mobility Treatment (ICD-10-PCS; 2017-09-23)
PROC: F08Z0ZZ Bathing/Showering Techniques Treatment (ICD-10-PCS; 2017-09-23)
PROC: F08Z1ZZ Dressing Techniques Treatment (ICD-10-PCS; 2017-09-23)
PROC: F08Z3ZZ Feeding/Eating Treatment (ICD-10-PCS; 2017-09-23)
PROC: F06Z3ZZ Aphasia Treatment (ICD-10-PCS; 2017-09-23)
PROC: F06Z8ZZ Motor Speech Treatment (ICD-10-PCS; 2017-09-23)
DX: 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 following cerebral infarction affecting right dominant side (principal); I69.320 Aphasia following cerebral infarction; I69.322 Dysarthria following cerebral infarction; I69.391 Dysphagia following cerebral infarction; R13.10 Dysphagia, unspecified; I10 Essential (primary) hypertension; F03.90 Unspecified dementia, unspecified severity, without behavioral disturbance, psychotic disturbance, mood disturbance, and anxiety; K59.00 Constipation, unspecified; F32.9 Major depressive disorder, single episode, unspecified; M81.0 Age-related osteoporosis without current pathological fracture; N40.0 Benign prostatic hyperplasia without lower urinary tract symptoms; Z79.82 Long term (current) use of aspirin; Z79.899 Other long term (current) drug therapy
CPT/HCPCS: 36415; 80053; 82272; 85025; A9270-GY; G0515-GO; J1644

== ENCOUNTER 2017-10-16 16:33 | Emergency (ER) | payer BC, MEDICARE ==
[2017-10-16 17:30] LABS: ABS Basophils 0 10^3/ul (0-0.2); ABS Eosinophils 0.4 10^3/ul (0-0.6); ABS Lymphocytes 1.6 10^3/ul (1.0-4.8); ABS Monocytes 0.8 10^3/ul (0-0.8); ABS Neutrophils 5.2 10^3/ul (1.5-7.7); ABS Nucleated RBC 0 10^3/ul; Eosinophil % 4.7 % (0-6); Hematocrit 42 % (42-52); Hemoglobin 14.2 g/dl (14.0-18.0); Lymphocyte % 19.8 % (25-47); Mean Corpuscular HGB Conc 34 g/dl (31-36); Mean Corpuscular Hemoglobin 31 pg (27-31); Mean Corpuscular Volume 92 fL (80-94); Mean Platelet Volume 6.2 um3 (7.4-10.4); Nucleated Red Blood Cells % 0; Platelet Count 250 10^3/ul (150-450); Red Blood Count 4.52 10^6/ul (4.00-5.40); Red Cell Distribution Width 14 % (10.5-15)
[2017-10-16 17:38] LABS: INR 1.17 (0.77-1.02)
[2017-10-16 17:52] LABS: EGFR Non-African American 81.1 (>60)
[2017-10-16 18:47] LABS: Urine Appearance Clear; Urine Blood Negative (Negative); Urine Color Yellow; Urine Ketones Negative (Negative); Urine Protein Negative (Negative); Urine Specific Gravity 1.012 (1.010-1.030); Urine Urobilinogen Negative (Negative)
--- NOTE | 2017-10-16 21:50 | ED ---
Joceline Reese Edward, scribed for Salvador Zavaleta MD on 10/16/17 at 1644 . Psychiatric Complaint - HPI Summary HPI Summary: 71 y/o male presents to the ED c/o acute on chronic depression for the past month. Pt had been "doing well", but depression recently aggravated after recent CVA. PMHx CVA 09/18/17 - R side weak. PMHx depression (over 30 years ago) . Pt is on antidepressants. Pt lives with his . - History Of Current Complaint Time Seen by Provider: 10/16/17 16:38 Hx Obtained From: Patient Onset/Duration: Lasting Weeks, Still Present Timing: Intermittent Episode Lasting Aggravating Factor(s): Other - recent CVA Alleviating Factor(s): Nothing Associated Signs And Symptoms: Positive: Negative - Allergies/Home Medications Allergies/Adverse Reactions: Allergies Allergy/AdvReac Type Severity Reaction Status Date / Time No Known Allergies Allergy Verified 10/15/15 10:48 Home Medications: Home Medications Ketoconazole 2 % CREAM (NF) [Nizoral 2% CREAM (NF)] 1 applic TOPICAL DAILY 10/16 [History Confirmed 10/16/17] Omeprazole CAP* [Prilosec CAP* 20 MG] 20 mg PO QAM 10/16/17 [History Confirmed 10/16/17] PMH/Surg Hx/FS Hx/Imm Hx Previously Healthy: No Endocrine/Hematology History: Denies: Hx Anticoagulant Therapy, Hx Diabetes, Hx Thyroid Disease Cardiovascular History: Reports: Hx Hypertension Denies: Hx Congestive Heart Failure, Hx Pacemaker/ICD Respiratory History: Denies: Hx Asthma, Hx Chronic Obstructive Pulmonary Disease (COPD) GI History: Denies: Hx Ulcer History: Reports: Other Problems/Disorders - enlarged prostrate Denies: Hx Renal Disease Musculoskeletal History: Denies: Hx Rheumatoid Arthritis, Hx Osteoporosis Sensory History: Reports: Hx Contacts or Glasses Denies: Hx Hearing Aid Opthamlomology History: Reports: Hx Contacts or Glasses Neurological History: Reports: Hx CVA - 09/18/17, Hx Dementia, Other Neuro Impairments/Disorders - Hx COMPRESSION Fx'S 2009 Psychiatric History: Reports: Hx Depression Denies: Hx Panic Disorder - Surgical History Surgery Procedure, Year, and Place: HERNIA REPAIRS Infectious Disease History: Reports: Hx Shingles Denies: Hx Clostridium Difficile, Hx Hepatitis, Hx Human Immunodeficiency Virus (HIV), Hx of Known/Suspected MRSA, Hx Tuberculosis, Hx Known/Suspected VRE , Hx Known/Suspected VRSA, History Other Infectious Disease - Family History Known Family History: Positive: Unknown Negative: Renal Disease - Social History Alcohol Use: Daily Alcohol Amount: 1 beer/day Hx Substance Use: No Substance Use Type: Reports: None Hx Tobacco Use: No Smoking Status (MU): Never Smoked Tobacco Have You Smoked in the Last Year: No Review of Systems Constitutional: Negative Eyes: Negative ENT: Negative Cardiovascular: Negative Respiratory: Negative Gastrointestinal: Negative Genitourinary: Negative Musculoskeletal: Negative Skin: Negative Positive: Weakness - R side s/p CVA, chronic Positive: Depressed All Other Systems Reviewed And Are Negative: Yes Physical Exam Triage Information Reviewed: Yes Vital Signs On Initial Exam: Initial Vitals Temp Pulse Resp BP Pulse Ox 98.8 F 70 14 136/83 98 10/16/17 16:35 10/16/17 16:35 10/16/17 16:35 10/16/17 16:35 10/16/17 16:35 Vital Signs Reviewed: Yes Appearance: Positive: Well-Appearing, No Pain Distress Skin: Positive: Warm, Skin Color Reflects Adequate Perfusion, Dry Head/Face: Positive: Normal Head/Face Inspection Eyes: Positive: EOMI, DOLORES ENT: Positive: Normal ENT inspection Neck: Positive: Supple, Nontender Respiratory/Lung Sounds: Positive: Clear to Auscultation, Breath Sounds Present Cardiovascular: Positive: RRR Abdomen Description: Positive: Nontender, Soft Bowel Sounds: Positive: Present Musculoskeletal: Positive: Normal, Strength/ROM Intact Neurological: Positive: Sensory/Motor Intact, Alert, Oriented to Person Place, Time Psychiatric: Positive: Affect/Mood Appropriate Diagnostics - Vital Signs Vital Signs Temp Pulse Resp BP Pulse Ox 10/16/17 19:44 99.7 F 80 16 95/73 97 10/16/17 16:35 98.8 F 70 14 136/83 98 - Laboratory Lab Results: Lab Results 10/16/17 10/16/17 10/16/17 Range/Units 17:19 17:19 17:19 WBC 8.0 (3.5-10.8) 10^3/ul RBC 4.52 (4.00-5.40) 10^6/ul Hgb 14.2 (14.0-18.0) g/dl Hct 42 (42-52) % MCV 92 (80-94) fL MCH 31 (27-31) pg MCHC 34 (31-36) g/dl RDW 14 (10.5-15) % Plt Count 250 (150-450) 10^3/ul MPV 6.2 L (7.4-10.4) um3 Neut % (Auto) 65.2 (38-83) % Lymph % (Auto) 19.8 L (25-47) % Chaves % (Auto) 9.9 H (0-7) % Eos % (Auto) 4.7 (0-6) % Baso % (Auto) 0.4 (0-2) % Absolute Neuts (auto) 5.2 (1.5-7.7) 10^3/ul Absolute Lymphs (auto) 1.6 (1.0-4.8) 10^3/ul Absolute Monos (auto) 0.8 (0-0.8) 10^3/ul Absolute Eos (auto) 0.4 (0-0.6) 10^3/ul Absolute Basos (auto) 0 (0-0.2) 10^3/ul Absolute Nucleated RBC 0 10^3/ul Nucleated RBC % 0 INR (Anticoag Therapy) 1.17 H (0.77-1.02) APTT 32.4 (26.0-36.3) seconds Sodium 134 L (135-145) mmol/L Potassium 4.2 (3.5-5.0) mmol/L Chloride 98 L (101-111) mmol/L Carbon Dioxide 29 (22-32) mmol/L Anion Gap 7 (2-11) mmol/L BUN 15 (6-24) mg/dL Creatinine 0.92 (0.67-1.17) mg/dL Est GFR ( Amer) 98.1 (>60) Est GFR (Non-Af Amer) 81.1 (>60) BUN/Creatinine Ratio 16.3 (8-20) Glucose 104 H (70-100) mg/dL Calcium 9.4 (8.6-10.3) mg/dL Total Bilirubin 1.20 H (0.2-1.0) mg/dL AST 13 (13-39) U/L ALT 19 (7-52) U/L Alkaline Phosphatase 98 (34-104) U/L Total Protein 6.8 (6.4-8.9) g/dL Albumin 3.7 (3.2-5.2) g/dL Globulin 3.1 (2-4) g/dL Albumin/Globulin Ratio 1.2 (1-3) TSH 1.58 (0.34-5.60) mcIU/mL Urine Color Urine Appearance Urine pH (5-9) Ur Specific Basin (1.010-1.030) Urine Protein (Negative) Urine Ketones (Negative) Urine Blood (Negative) Urine Nitrate (Negative) Urine Bilirubin (Negative) Urine Urobilinogen (Negative) Ur Leukocyte Esterase (Negative) Urine Glucose (Negative) Salicylates < 2.50 (<30) mg/dL Urine Opiates Screen (None Detect) Acetaminophen < 15 mcg/mL Ur Barbiturates Screen (None Detect) Ur Phencyclidine Scrn (None Detect) Ur Amphetamines Screen (None Detect) U Benzodiazepines Scrn (None Detect) Urine Cocaine Screen (None Detect) U Cannabinoids Screen (None Detect) Serum Alcohol < 10 (<10) mg/dL 10/16/17 10/16/17 Range/Units 18:16 18:16 WBC (3.5-10.8) 10^3/ul RBC (4.00-5.40) 10^6/ul Hgb (14.0-18.0) g/dl Hct (42-52) % MCV (80-94) fL MCH (27-31) pg MCHC (31-36) g/dl RDW (10.5-15) % Plt Count (150-450) 10^3/ul MPV (7.4-10.4) um3 Neut % (Auto) (38-83) % Lymph % (Auto) (25-47) % Chaves % (Auto) (0-7) % Eos % (Auto) (0-6) % Baso % (Auto) (0-2) % Absolute Neuts (auto) (1.5-7.7) 10^3/ul Absolute Lymphs (auto) (1.0-4.8) 10^3/ul Absolute Monos (auto) (0-0.8) 10^3/ul Absolute Eos (auto) (0-0.6) 10^3/ul Absolute Basos (auto) (0-0.2) 10^3/ul Absolute Nucleated RBC 10^3/ul Nucleated RBC % INR (Anticoag Therapy) (0.77-1.02) APTT (26.0-36.3) seconds Sodium (135-145) mmol/L Potassium (3.5-5.0) mmol/L Chloride (101-111) mmol/L Carbon Dioxide (22-32) mmol/L Anion Gap (2-11) mmol/L BUN (6-24) mg/dL Creatinine (0.67-1.17) mg/dL Est GFR ( Amer) (>60) Est GFR (Non-Af Amer) (>60) BUN/Creatinine Ratio (8-20) Glucose (70-100) mg/dL Calcium (8.6-10.3) mg/dL Total Bilirubin (0.2-1.0) mg/dL AST (13-39) U/L ALT (7-52) U/L Alkaline Phosphatase (34-104) U/L Total Protein (6.4-8.9) g/dL Albumin (3.2-5.2) g/dL Globulin (2-4) g/dL Albumin/Globulin Ratio (1-3) TSH (0.34-5.60) mcIU/mL Urine Color Yellow Urine Appearance Clear Urine pH 6.0 (5-9) Ur Specific Basin 1.012 (1.010-1.030) Urine Protein Negative (Negative) Urine Ketones Negative (Negative) Urine Blood Negative (Negative) Urine Nitrate Negative (Negative) Urine Bilirubin Negative (Negative) Urine Urobilinogen Negative (Negative) Ur Leukocyte Esterase Negative (Negative) Urine Glucose Negative (Negative) Salicylates (<30) mg/dL Urine Opiates Screen None detected (None Detect) Acetaminophen mcg/mL Ur Barbiturates Screen None detected (None Detect) Ur Phencyclidine Scrn None detected (None Detect) Ur Amphetamines Screen None detected (None Detect) U Benzodiazepines Scrn None detected (None Detect) Urine Cocaine Screen None detected (None Detect) U Cannabinoids Screen None detected (None Detect) Serum Alcohol (<10) mg/dL Result Diagrams: 10/16/17 17:19 10/16/17 17:19 Lab Statement: Any lab studies that have been ordered have been reviewed, and results considered in the medical decision making process. Course/Dx - Course Course Of Treatment: MHE clear @ 17:48. Discharge home stable after MHE. - Differential Dx/Clinical Impression Provider Diagnosis: Mental health problem Discharge - Sign-Out/Discharge Documenting (check all that apply): Discharge/Admit/Transfer - Discharge Plan Condition: Stable Disposition: HOME Referrals: Keke Chapman MD [Primary Care Provider] - - Billing Disposition and Condition Condition: STABLE Disposition: Home The documentation as recorded by the Joceline solo Edward accurately reflects the service I personally performed and the decisions made by me, Salvador Zavaleta MD.
[2017-10-16 22:10] VITALS: BP 116/78
== END 2017-10-17 00:30 | disposition home or self-care (01) ==
LOC: ED 16:33
DX: F48.9 Nonpsychotic mental disorder, unspecified (principal); 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 following cerebral infarction affecting right dominant side; I10 Essential (primary) hypertension
CPT/HCPCS: 36415; 80053; 80307; 80320; 80329; 81003; 84443; 85025; 85610; 85730; 99285; G0480

== ENCOUNTER 2017-11-04 19:36 | Emergency (ER) | payer BC, MEDICARE ==
--- NOTE | 2017-11-04 21:12 | ED ---
Head Injury - HPI Summary HPI Summary: 71-year-old male presents with head injury today. He states he was reaching for something and fell out of bed. He struck his head on the floor. He denies any loss consciousness. He states fall was mechanical. He denies any chest pain or shortness of breath. Denies any headache. He denies any new neuro deficit. He had Previous stroke a month ago on the left side with occlusion of MCA. He has a residual deficit on the right of his right arm and leg. No difficulties with speech. No difficulty swallowing. He believes his immunizations are up-to-date. He is on a daily aspirin. No active bleeding from laceration. no other injury. - History Of Current Complaint Chief Complaint: EDHeadInjury Stated Complaint: FALL/HEADA LAC Time Seen by Provider: 11/04/17 19:51 Pain Intensity: 0 - Allergies/Home Medications Allergies/Adverse Reactions: Allergies Allergy/AdvReac Type Severity Reaction Status Date / Time No Known Allergies Allergy Verified 10/15/15 10:48 PMH/Surg Hx/FS Hx/Imm Hx Endocrine/Hematology History: Denies: Hx Anticoagulant Therapy, Hx Diabetes, Hx Thyroid Disease Cardiovascular History: Reports: Hx Hypertension Denies: Hx Congestive Heart Failure, Hx Pacemaker/ICD Respiratory History: Denies: Hx Asthma, Hx Chronic Obstructive Pulmonary Disease (COPD) GI History: Denies: Hx Ulcer History: Reports: Other Problems/Disorders - enlarged prostrate Denies: Hx Renal Disease Musculoskeletal History: Denies: Hx Rheumatoid Arthritis, Hx Osteoporosis Sensory History: Reports: Hx Contacts or Glasses Denies: Hx Hearing Aid Opthamlomology History: Reports: Hx Contacts or Glasses Neurological History: Reports: Hx CVA - 09/18/17, Hx Dementia, Other Neuro Impairments/Disorders - Hx COMPRESSION Fx'S 2009 Psychiatric History: Reports: Hx Depression Denies: Hx Eating Disorder, Hx Panic Disorder, Hx of Violent Episodes Against Others - Surgical History Surgery Procedure, Year, and Place: HERNIA REPAIRS Infectious Disease History: No Infectious Disease History: Reports: Hx Shingles Denies: Hx Clostridium Difficile, Hx Hepatitis, Hx Human Immunodeficiency Virus (HIV), Hx of Known/Suspected MRSA, Hx Tuberculosis, Hx Known/Suspected VRE , Hx Known/Suspected VRSA, History Other Infectious Disease, Traveled Outside the [place] in Last 30 Days - Family History Known Family History: Positive: Unknown Negative: Renal Disease - Social History Alcohol Use: Daily Alcohol Amount: 1 beer/day Hx Substance Use: No Substance Use Type: Reports: None Hx Tobacco Use: No Smoking Status (MU): Never Smoked Tobacco Have You Smoked in the Last Year: No Review of Systems Negative: Fever Negative: Chest Pain Negative: Shortness Of Breath Negative: Vomiting Positive: Other - facial laceration Negative: Headache All Other Systems Reviewed And Are Negative: Yes Physical Exam Triage Information Reviewed: Yes Vital Signs On Initial Exam: Initial Vitals Temp Pulse Resp BP Pulse Ox 98.2 F 76 16 114/65 94 11/04/17 19:38 11/04/17 19:38 11/04/17 19:38 11/04/17 19:38 11/04/17 19:38 Vital Signs Reviewed: Yes Appearance: Positive: Well-Appearing Skin: Positive: Warm, Dry, Other - 2cm supeficial laceration right side head Head/Face: Positive: Normal Head/Face Inspection, Other - No step off, raccoon eyes, grant sign Eyes: Positive: Normal, EOMI, DOLORES, Conjunctiva Clear ENT: Positive: Pharynx normal Neck: Positive: Other: - Nontender neck, full range of motion neck Respiratory/Lung Sounds: Positive: Clear to Auscultation, Breath Sounds Present Cardiovascular: Positive: Normal, RRR Musculoskeletal: Positive: Limited @ - right arm and leg can not hold up for long period of time which is baseline, Other - good pulses Neurological: Positive: Sensory/Motor Intact, Alert, Oriented to Person Place, Time, CN Intact II-III Psychiatric: Positive: Normal Procedures - Laceration/Wound Repair 1 Location: head Description: Linear Length, Depth and Shape: 2cm superficial Irrigated w/ Saline (ccs): 100 Closure: Skin Adhesive, SteriStrips Diagnostics - Vital Signs Vital Signs Temp Pulse Resp BP Pulse Ox 11/04/17 19:38 98.2 F 76 16 114/65 94 - Laboratory Lab Statement: Any lab studies that have been ordered have been reviewed, and results considered in the medical decision making process. - CT brain CT Interpretation: Positive (See Comments) - No acute intracranial abnormality. 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 chronic small vessel ischemic changes CT Interpretation Completed By: Radiologist Head Injury Course/Dx Course Of Treatment: 71-year-old male presents with head injury today. He states he was reaching for something and fell out of bed. He struck his head on the floor. He denies any loss consciousness. He states fall was mechanical. He denies any chest pain or shortness of breath. Denies any headache. He denies any new neuro deficit. He had Previous stroke a month ago on the left side with occlusion of MCA. He has a residual deficit on the right of his right arm and leg. No difficulties with speech. No difficulty swallowing. He believes his immunizations are up-to-date. He is on a daily aspirin. No active bleeding from laceration. On exam normal neuro exam. Has residual deficit on right side is unchanged from baseline per patient. Has 2 cm superficial laceration clean and Place glue. 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 spoke with Dr frederick as has not new deficit can go home as likely from old CVA. patient understand and agrees with plan. - Diagnoses Differential Diagnosis/HQI/PQRI: Concussion Without LOC, Contusion, Laceration Provider Diagnoses: Head injury, Facial laceration - Physician Notifications Time Discussed With Above Provider: 21:22 Discharge - Sign-Out/Discharge Documenting (check all that apply): Patient Departure - Discharge Plan Condition: Good Disposition: HOME Patient Education Materials: Head Injury (ED), Skin Adhesive Care (ED) Referrals: Keke Chapman MD [Primary Care Provider] - Additional Instructions: Place ice on area Take Tylenol for pain as needed every 6 hours Keep dry for 24 hours Glue will fall off on own Avoid scrubbing area Follow up with primary about head injury Return to ED if develop any signs of infection or any new or worsening symptoms - Billing Disposition and Condition Condition: GOOD Disposition: Home
[2017-11-04 22:00] VITALS: BP 130/77
--- NOTE | 2017-11-05 07:57 | RAD ---
HISTORY: head injury COMPARISONS: September 18, 2017 TECHNIQUE: Multiple contiguous axial CT scans were obtained of the head without intravenous contrast. FINDINGS: HEMORRHAGE/INFARCT: There is no hemorrhage or acute infarct. MASSES/SHIFT: There is no mass or shift. EXTRA-AXIAL SPACES: There are no extra-axial fluid collections. SULCI AND VENTRICLES: The sulci and ventricles are normal in size and position for the patient's stated age. CEREBRUM: There is been interval development of hypoattenuation involving the left posterior frontal lobe consistent with subacute chronic left MCA infarct. There is mild hypoattenuation of the periventricular and subcortical white matter consistent with chronic small vessel ischemic change. BRAINSTEM: There are no focal parenchymal abnormalities. CEREBELLUM: There are no focal parenchymal abnormalities. VESSELS: The vessels are grossly normal. PARANASAL SINUSES: The paranasal sinuses are clear. ORBITS: The orbits are unremarkable. BONES AND SOFT TISSUE: No bone or soft tissue abnormalities are noted. OTHER: None IMPRESSION: SUBACUTE TO CHRONIC LEFT MCA INFARCT. NO ACUTE INTRACRANIAL PATHOLOGY. R0
== END 2017-11-04 21:59 | disposition home or self-care (01) ==
LOC: ED 19:36
DX: S09.90XA Unspecified injury of head, initial encounter (principal); S01.81XA Laceration without foreign body of other part of head, initial encounter; W06.XXXA Fall from bed, initial encounter; Y93.89 Activity, other specified; Y92.003 Bedroom of unspecified non-institutional (private) residence as the place of occurrence of the external cause; I63.519 Cerebral infarction due to unspecified occlusion or stenosis of unspecified middle cerebral artery; I10 Essential (primary) hypertension; Z79.82 Long term (current) use of aspirin
CPT/HCPCS: 12011; 70450; 99282

== ENCOUNTER 2018-04-03 13:04 | Observation (INO) | payer BC ==
[2018-04-03 13:47] LABS: ABS Basophils 0 10^3/ul (0-0.2); ABS Eosinophils 0.3 10^3/ul (0-0.6); ABS Lymphocytes 1.4 10^3/ul (1.0-4.8); ABS Monocytes 1.1 10^3/ul (0-0.8); ABS Neutrophils 4.2 10^3/ul (1.5-7.7); ABS Nucleated RBC 0 10^3/ul; Eosinophil % 4.2 %; Hematocrit 40 % (42-52); Hemoglobin 13.5 g/dl (14.0-18.0); Lymphocyte % 19.6 %; Mean Corpuscular HGB Conc 34 g/dl (31-36); Mean Corpuscular Hemoglobin 31 pg (27-31); Mean Corpuscular Volume 93 fL (80-94); Mean Platelet Volume 6.4 fL (7.4-10.4); Nucleated Red Blood Cells % 0; Platelet Count 227 10^3/ul (150-450); Red Blood Count 4.28 10^6/ul (4.00-5.40); Red Cell Distribution Width 14 % (10.5-15); White Blood Count 6.9 10^3/ul (3.5-10.8)
--- NOTE | 2018-04-03 13:48 | ED ---
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 Patient has Hx of stroke and resulting right-sided weakness. The patient is non-ambulatory and uses a wheel chair but has been working on walking. Per EMS, he went to his speech therapist yesterday and the therapist noted worsening speech, as well as right-sided facial droop and confusion. These symptoms resolved yesterday then returned this morning along with a headache but resolved again upon arrival. Pt denies any symptoms at this time. - History Of Current Complaint Chief Complaint: EDAltMentalStatus Stated Complaint: STROKE LIKE SYMPTOMS Time Seen by Provider: 04/03/18 13:07 Hx Obtained From: Patient, EMS Onset/Duration: Resolved Severity Initially: Mild Severity Currently: Mild Character: Confusion Associated Signs And Symptoms: Positive: Headache, Weakness - Right-sided from previous stroke. Related History: Other: - Previous stroke - Allergies/Home Medications Allergies/Adverse Reactions: Allergies Allergy/AdvReac Type Severity Reaction Status Date / Time No Known Allergies Allergy Verified 10/15/15 10:48 Home Medications: Home Medications Acetaminophen TAB* [Tylenol TAB*] 650 mg PO Q4HR PRN 04/03/18 [History Confirmed 04/03/18] Atorvastatin* [Lipitor 40 MG*] 40 mg PO BEDTIME 04/03/18 [History Confirmed ] Docusate CAP* [Colace Cap*] 100 mg PO BID 04/03/18 [History Confirmed 04/03/18] Escitalopram (NF) [Lexapro 20 mg (NF)] 20 mg PO QAM 04/03/18 [History Confirmed 04/03/18] Magnesium Hydroxide LIQ* [Milk of Magnesia LIQ*] 30 ml PO Q72H PRN 04/03/18 [ History Confirmed 04/03/18] Methylphenidate TAB* [Ritalin TAB*] 5 mg PO DAILY 04/03/18 [History Confirmed ] Metoprolol Tartrate TAB* [Lopressor TAB*] 50 mg PO BID 04/03/18 [History Confirmed 04/03/18] Multivitamins/Minerals TAB* [Theragran/minerals TAB*] 1 tab PO DAILY 04/03/18 [ History Confirmed 04/03/18] Polyethylene Glycol 3350* [Miralax*] 17 gm PO DAILY 04/03/18 [History Confirmed 04/03/18] Sodium Phosphate,Jefferson-Dibasic [Enema Ready To Use] 133 ml [place] DAILY PRN 04/03/18 [History Confirmed 04/03/18] PMH/Surg Hx/FS Hx/Imm Hx Endocrine/Hematology History: Denies: Hx Anticoagulant Therapy, Hx Diabetes, Hx Thyroid Disease Cardiovascular History: Reports: Hx Hypertension Denies: Hx Congestive Heart Failure, Hx Pacemaker/ICD Respiratory History: Denies: Hx Asthma, Hx Chronic Obstructive Pulmonary Disease (COPD) GI History: Denies: Hx Ulcer History: Reports: Other Problems/Disorders - enlarged prostrate Denies: Hx Renal Disease Musculoskeletal History: Denies: Hx Rheumatoid Arthritis, Hx Osteoporosis Sensory History: Reports: Hx Contacts or Glasses Denies: Hx Hearing Aid Opthamlomology History: Reports: Hx Contacts or Glasses Neurological History: Reports: Hx CVA - 09/18/17, Hx Dementia, Other Neuro Impairments/Disorders - Hx COMPRESSION Fx'S 2009 Psychiatric History: Reports: Hx Depression Denies: Hx Eating Disorder, Hx Panic Disorder, Hx of Violent Episodes Against Others - Surgical History Surgery Procedure, Year, and Place: HERNIA REPAIRS Infectious Disease History: No Infectious Disease History: Reports: Hx Shingles Denies: Hx Clostridium Difficile, Hx Hepatitis, Hx Human Immunodeficiency Virus (HIV), Hx of Known/Suspected MRSA, Hx Tuberculosis, Hx Known/Suspected VRE , Hx Known/Suspected VRSA, History Other Infectious Disease, Traveled Outside the [place] in Last 30 Days - Family History Known Family History: Negative: Renal Disease - Social History Alcohol Use: Daily Alcohol Amount: 1 beer/day Hx Substance Use: No Substance Use Type: Reports: None Hx Tobacco Use: No Smoking Status (MU): Never Smoked Tobacco Have You Smoked in the Last Year: No Review of Systems Negative: Fever, Chills Negative: Erythema Negative: Sore Throat Negative: Chest Pain Negative: Shortness Of Breath, Cough Negative: Abdominal Pain, Vomiting Negative: dysuria, hematuria Negative: Myalgia, Edema Negative: Rash Neurological: Other - Neg: Dizziness Pos: Facial droop which has resolved. Confusion which has resolved. Positive: Headache - Has resolved, Slurred Speech - Has resolved All Other Systems Reviewed And Are Negative: No Physical Exam - Summary Physical Exam Summary: Constitutional: Well-developed, Well-nourished, Alert. (-) Distressed Skin: Warm, Dry HENT: Normocephalic; Atraumatic Eyes: Conjunctiva normal Neck: Musculoskeletal ROM normal neck. (-) JVD, (-) Stridor, (-) Tracheal deviation Cardio: Rhythm regular, rate normal, Heart sounds normal; Intact distal pulses; The pedal pulses are 2+ and symmetric. Radial pulses are 2+ and symmetric. (-) Murmur Pulmonary/Chest wall: Effort normal. (-) Respiratory distress, (-) Wheezes, (-) Rales Abd: Soft. (-) Tenderness, (-) Distension, (-) Guarding, (-) Rebound Musculoskeletal: (-) Edema Lymph: (-) Cervical adenopathy Neuro: Alert, Oriented x3, Strength normal, Cranial nerves II-XII are grossly intact. (-) Dysmetria, (-) Nystagmus, (-) Ataxia by finger to nose testing. Right-sided hemiparesis. Speech is clear and fluent. Psych: Mood and affect Normal Triage Information Reviewed: Yes Vital Signs On Initial Exam: Initial Vitals Pulse Resp Pulse Ox 62 18 97 04/03/18 13:08 04/03/18 13:08 04/03/18 13:08 Vital Signs Reviewed: Yes Diagnostics - Vital Signs Vital Signs Temp Pulse Resp BP Pulse Ox 04/03/18 13:10 97.6 F 67 23 129/60 97 04/03/18 13:08 62 18 97 - Laboratory Result Diagrams: 04/03/18 13:30 04/03/18 13:30 Lab Statement: Any lab studies that have been ordered have been reviewed, and results considered in the medical decision making process. - CT Brain CT CT Interpretation Completed By: Radiologist Summary of CT Findings: No acute intracranial pathology. Chronic small vessel ischemic change with chronic left MCA infarct. ED Provider has reviewed this report. Head CTA CT Interpretation Completed By: Radiologist Summary of CT Findings: 1. No internal carotid artery stenosis by nascet criteria. 2. No aneurysm, vascular malformation, occlusion, or stenosis of the visualized intracranial circulation. ED Provider has reviewed this report. 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 Brain CT showed chronic small vessel ischemic change with chronic left MCA infarct. Spoke with Dr. Grigsby and he recommended aspirin and plavix as well as a TIA Dx. He accepted the patient to be admitted. This plan was discussed with the patient and he was agreeable with this plan. - Diagnoses Provider Diagnoses: TIA (transient ischemic attack) - Provider Notifications Discussed Care Of Patient With: Curt Grigsby - Neurology Time Discussed With Above Provider: 17:13 Instructed by Provider To: Admit As Inpatient Discharge - Sign-Out/Discharge Documenting (check all that apply): Patient Departure - Admit - Discharge Plan Condition: Stable Disposition: ADMITTED TO [facility] Referrals: Keke Chapman MD [Primary Care Provider] - - Attestation Statements Document Initiated by Scribe: Yes Documenting Scribe: Michele Barraza Provider For Whom Scribe is Documenting (Include Credential): Ariel Allen MD Scribe Attestation: Michele Reese, scribed for Ariel Allen MD on 04/03/18 at 1712. Status of Scribe Document: Ready
[2018-04-03 14:08] LABS: Albumin 3.8 g/dL (3.2-5.2); Albumin/Globulin Ratio 1.5 (1-3); Calcium 9.2 mg/dL (8.6-10.3); EGFR Non-African American 85.1 (>60); Globulin 2.6 g/dL (2-4); Potassium 4.1 mmol/L (3.5-5.0); Total Bilirubin 0.8 mg/dL (0.2-1.0); Total Protein 6.4 g/dL (6.4-8.9)
[2018-04-03] MEDS ORDERED: Iohexol 350* (CONTRAST) 500 ML MDV IV ONE (14:31)
[2018-04-03 14:58] LABS: Urine Appearance Clear; Urine Bilirubin Negative (Negative); Urine Blood Negative (Negative); Urine Color Yellow; Urine Glucose Negative (Negative); Urine Ketones Negative (Negative); Urine Nitrite Negative (Negative); Urine Protein Negative (Negative); Urine Specific Gravity 1.015 (1.010-1.030); Urine Urobilinogen Negative (Negative)
[2018-04-03] MEDS ORDERED: Clopidogrel TAB* 300 MG PO ONE (16:33)
[2018-04-03] MEDS ORDERED: Aspirin TAB* 325 MG PO ONE (16:33)
[2018-04-03] MEDS ORDERED: Ondansetron INJ* 2 MG/ML VIAL IV PRN (17:58)
[2018-04-03] MEDS ORDERED: Acetaminophen TAB* 325 MG PO PRN (17:58)
[2018-04-03] MEDS ORDERED: Calcium Carbonate CHEW TAB* 500 MG (TUMS) PO PRN (18:01)
--- NOTE | 2018-04-03 21:02 | CONS ---
NEUROLOGY CONSULTATION: DATE OF CONSULTATION: 04/03/18 LOCATION: He is in the emergency room, to be admitted. REFERRING PROVIDER: Dr. Allen. CHIEF COMPLAINT: Transient worsening of dysarthria and right-sided weakness. HISTORY OF PRESENT ILLNESS: Pino Chamorro is a 72-year-old left-handed man, known to me from initial evaluation here in the emergency room on 09/18/17, when he presented with a dense right hemiparesis and mutism. He was found to have a left middle cerebral artery M1 occlusion and was given IV TPA. He was air-evaced to [place] where he had a thrombectomy performed. He ended up with a left middle cerebral artery stroke, but was able to go to rehab here in the hospital and then onto [facility] and ultimately to [place]. He is still getting rehabilitation. He is recovered to where he can ambulate with the assist of one with a walker and a gait belt. He was having the speech therapy earlier today. His daughter, Keila, called and spoke with the [facility] the [facility]. His speech suddenly became much worse. He was assessed by the nursing staff and it was found that his right hand was much weaker than it had been. He was brought in to the emergency room. On the way in, his symptoms resolved. When I examined him, he felt that his speech was back to what it was and that his right-sided weakness was back to what it was. His agreed. He does not remember the details of what happened earlier today. He does not know if he lost consciousness or not. He has not had any falls. There is no history of seizures. He was apparently discharged from [facility] on aspirin therapy. Sometimes along the course of his rehab stay, his aspirin was stopped. He had an echocardiogram in [place], which did not reveal any abnormalities and telemetry here and there did not reveal atrial fibrillation. PAST MEDICAL HISTORY: Notable for depression and the prior stroke. MEDICATIONS: Currently seem to be: 1. Mirtazapine 15 mg p.o. nightly. 2. Lexapro 20 mg p.o. q.a.m. 3. Atorvastatin 40 mg p.o. daily. 4. Multivitamins. 5. Lopressor 50 mg p.o. b.i.d. 6. Trazodone 100 mg p.o. nightly. 7. Colace. ALLERGIES: According to the computer records, he does not have any drug allergies. REVIEW OF SYSTEMS: Notable for headache that the patient noted this morning after the symptoms started. Currently, he states he has a dull mild bifrontal headache. He has not noticed any change in the vision. No history of heart disease or diabetes. No history of seizures. PHYSICAL EXAMINATION: He is well-nourished and well-hydrated. Temperature 97.6 temporally, blood pressure 126/73, heart rate in the 60s and regular. Respiratory rate is 14 and oxygen saturations 95% on room air. Heart is in a regular rhythm without murmurs. There are no cervical bruits. Oral mucosa is moist and head is atraumatic. Neck is supple. Neurological Exam: Pupils react equally from 3.5 down to 2 mm. Eye movements and visual orellana are normal. Funduscopic exam is normal bilaterally. Facial musculature is notable for central pattern right facial weakness. Facial sensation is diminished to pin and light touch in the right face relative to the left. Tongue protrudes in the midline and palate rises symmetrically. He has a [id number] buccal dysarthria. Motor exam reveals a spastic right hemiparesis affecting the arm more than the leg. He has antigravity and some resistive strength in the right leg. The right arm is not fully antigravity and there is flexion posturing in the elbow and wrist. He has good strength in the left arm and leg. Sensory exam is notable for diminished light touch and pin in the right arm and leg relative to the left. He is alert and oriented, and able to give a pretty good history, but does not recall details of earlier today and also tends to repeat himself. DIAGNOSTIC STUDIES/LAB DATA: Includes a CT of the brain, which I reviewed and shows a old left middle cerebral artery infarction. CT angiogram of the head and neck today did not show any significant stenosis. The left middle cerebral artery is open. Other laboratory data notable for normal CBC other than a hemoglobin of 13.5, platelet count 220,000. Chemistries today are unremarkable other than alkaline phosphatase 152. Urinalysis is negative. IMPRESSION AND PLAN: Possible left hemispheric transient ischemic attack. A focal seizure is another possibility. I think he should be admitted and put on Plavix plus aspirin. He should be admitted to telemetry and have an MRI scan of his brain without contrast. I will load him with Plavix 300 mg and aspirin 325 and would recommend 75 mg of Plavix and aspirin 81 mg for the next several weeks barring complications. EEG has been ordered. He should have fasting lipids checked in the morning. I do not think he needs a repeat echocardiogram. His blood pressure currently is adequately controlled and I would keep him well hydrated. Dr. Noland will be coming on service tomorrow and I will ask him to follow up. [id number]/[facility] #: [id number] RADHA
--- NOTE | 2018-04-03 21:20 | HP ---
AMENDED REPORT NOW INCLUDES DESIGNATED COSIGNER CC: Dr. Keke Chapman; [facility]; Dr. Grigsby * HISTORY AND PHYSICAL: DATE OF ADMISSION: 04/03/18 PRIMARY CARE PROVIDER: Dr. Keke Chapman. ATTENDING PHYSICIAN: Dr. Jennifer Ochoa * (dictated by Indy Tierney NP). CHIEF COMPLAINT: 1. Slurred speech. 2. Confusion. HISTORY OF PRESENT ILLNESS: Mr. Chamorro is a 72-year-old male with past medical history of a left MCA infarct in September of 2017 where he received tPA and had an embolectomy at [place]; depression; hypertension; BPH; who presents to the emergency room today after an episode of slurred speech and confusion at the assisted. Reportedly the patient was working with Speech Therapy around 11 or 12 a.m. when his speech became suddenly slurred and he had an episode of confusion. The patient remembers this episode and does feel as though he was confused. He reports having a headache early this morning and feeling like he was "losing thoughts." The patient's visited him on Friday, she noted at that point that he had general malaise and appeared to be more forgetful than usual. I will note that since his CVA in September, the patient has had right hemiplegia and dysarthria. He was admitted to [facility] here at [facility] after his stroke and then was transferred to [facility] for rehab. Within the last month, he was transferred from [facility] to [facility] for rehab. He and his report that he has been doing well at [place] and has been receiving daily physical therapy. He has been able to ambulate with 2 assists and has been working regularly with Speech Therapy. The patient denies any difficulty chewing or swallowing. He does state that he occasionally coughs after eating or drinking. He denies any neuro deficits different from his baseline other than the episode today. The patient was brought in by EMS who reportedly noted a right facial droop though his symptoms were resolved when he arrived here at the emergency room. In the emergency room, the patient was seen by Dr. Grigsby. He had a brain CT, which did not show any acute pathology and a head CTA, which was unremarkable for carotid artery stenosis or any vascular malformations. There was concern for a TIA given the history of present illness and the history of CVA, and the hospitalist service was asked to evaluate for admission. PAST MEDICAL HISTORY: 1. CVA, left MCA infarct in September 2017, status post tPA and embolectomy with residual right hemiplegia and dysarthria. 2. Depression. 3. Hypertension. 4. BPH. PAST SURGICAL HISTORY: 1. Embolectomy. 2. Hernia repair. 3. Cataract removal. HOME MEDICATIONS: 1. Acetaminophen 650 mg p.o. q.4 hours p.r.n. 2. Alfuzosin 10 mg p.o. daily. 3. Aspirin 81 mg p.o. daily. 4. Atorvastatin 40 mg p.o. at bedtime. 5. Calcium carbonate chew 500 mg p.o. q.4 hours p.r.n. 6. Docusate 100 mg p.o. b.i.d. 7. Escitalopram 20 mg p.o. daily. 8. Milk of magnesia 30 mL p.o. q.72 hours p.r.n. 9. Methylphenidate 5 mg p.o. daily. 10. Metoprolol tartrate 50 mg p.o. b.i.d. 11. Mirtazapine 15 mg p.o. bedtime. 12. Multivitamin 1 tab p.o. daily. 13. Omeprazole 20 mg p.o. daily. 14. MiraLAX 17 g p.o. daily. 14. Sodium phosphate enema 133 mL p.r. daily p.r.n. 15. Trazodone 100 mg p.o. at bedtime. ALLERGIES: No known drug allergies. FAMILY HISTORY: The patient reports that his father had an CT and his mother had osteoporosis. SOCIAL HISTORY: The patient denies any tobacco or recreational drug use. He reports drinking 1 beer per day. He is retired, currently living at [facility] for subacute rehab. The patient's , Gini, will be his surrogate decision maker in the event he is unable to make his own decisions. REVIEW OF SYSTEMS: An 11-point review of systems was performed and all the pertinent positive and negative findings are in the HPI. All other systems are negative. PHYSICAL EXAMINATION GENERAL: Mr. Chamorro is a well-developed, well-nourished, elderly white male sitting up in bed in no acute distress. He appears his stated age. VITAL SIGNS: Temp 97.6, heart rate 67, respiratory rate 22, oxygen saturation 96% on room air, blood pressure 128/71. HEENT: Head is atraumatic, normocephalic. Visual orellana are grossly intact. Pupils equal, round, and reactive to light and accommodation. Hearing is grossly intact. Mucous membranes are moist and without lesions. NECK: Full range of motion. Thyroid not palpable. Trachea at midline. No lymphadenopathy. RESPIRATORY: Symmetrical chest expansion. No chest wall deformities. Lungs clear to auscultation throughout. No rhonchi, wheezes, or rubs. CARDIOVASCULAR: Regular rate and rhythm. S1, S2 present. No murmurs, rubs, or gallops. No JVD. ABDOMEN: Soft, nontender to palpation. Bowel sounds normoactive throughout. No bruits appreciated. EXTREMITIES: Skin warm and smooth bilaterally. No edema. No clubbing or cyanosis. Pedal pulses are 1+ bilaterally. MUSCULOSKELETAL: Full range of motion. No pain or deformities. NEUROLOGIC: Awake, alert, and oriented x4. Cranial nerves II through XII are grossly intact. Moves all extremities. Motor strength is 5/5 in left upper extremity and left lower extremity and 3/5 in right upper extremity and right lower extremity. He has mild dysarthria without expressive aphasia. SKIN: Grossly intact without lesions. DIAGNOSTIC STUDIES/LAB DATA: WBC 6.9, RBC 4.28, hemoglobin 13.5, hematocrit 40 , platelets 227. Sodium 136, potassium 4.1, chloride 103, carbon dioxide 27, BUN 15, creatinine 0.88, glucose 99, lactic acid 1.2. Alk phos 152. Troponin 0.01. Urinalysis unremarkable. Brain CT reads as no acute intracranial pathology, chronic small vessel ischemic changes with chronic left MCA infarct. Head CTA reads as no internal carotid artery stenosis by NASCET criteria. No aneurysm, vascular malformation, occlusion, or stenosis of the visualized intracranial circulation. EKG shows sinus bradycardia with a rate of 55, QTc 422. No ischemic changes. ASSESSMENT AND PLAN: Mr. Chamorro is a 72-year-old male with past medical history of left middle cerebral artery infarct in September of this year, depression , hypertension, and benign prostatic hyperplasia, who presented to the ED today after an episode of slurred speech and confusion, which was resolved upon arrival to the emergency room. The patient will be admitted observation for: 1. Transient ischemic attack. It is likely that these symptoms represented a transient ischemic attack, cerebrovascular accident remains in the differential though it is unlikely. I did speak with Dr. Grigsby, who saw the patient in the emergency room. The patient was loaded on aspirin and Plavix. He will be continued on aspirin 81 mg daily and Plavix 75 mg daily starting tomorrow. He will be monitored on telemetry. I will recheck an EKG in the morning. He will also have an EEG per Dr. Grigsby's recommendation and an MRI of the brain. I will check a lipid profile in the morning. I have ordered physical therapy and occupational therapy. We will also order a swallow evaluation by Speech Therapy as the patient notes that he occasionally coughs after eating. 2. Hypertension. The patient is normotensive in the emergency room. At this point, I will hold his metoprolol to allow for permissive hypertension because of the concern for transient ischemic attack/cerebrovascular accident. 3. Depression. I will continue escitalopram and mirtazapine. 4. Benign prostatic hyperplasia. I will continue alfuzosin. 5. Fluids, electrolytes, and nutrition. The patient does not require any fluid resuscitation or electrolyte replacement at this point. I have ordered a heart healthy diet. 6. Code status. The patient will be a full code. 7. DVT prophylaxis. According to the DVT Risk Assessment, the patient scores a 2 putting him at moderate risk. I have placed him on heparin subcu. TIME SPENT: Approximately 60 minutes was spent on this admission, greater than half of that time was spent [id number] with the patient and his family obtaining my history, performing my physical exam, and reviewing the plan of care. The case has been reviewed with my attending, Dr. Ochoa, who is in agreement with the plan of care. INDY TIERNEY, PROPERTY ECONOMIST [id number]/[facility] #: [id number] RADHA
[2018-04-03] MEDS: Atorvastatin* 40 MG TAB PO SCH (21:43)
[2018-04-03] MEDS: Docusate CAP* 100 MG PO SCH (21:43)
[2018-04-03] MEDS: Mirtazapine TAB* 15 MG PO SCH (21:43)
[2018-04-03] MEDS: traZODone TAB* 50 MG TAB PO SCH (21:43)
[2018-04-03] MEDS: Heparin VIAL(*) 5000 UNITS/ML VIAL (FIVE THOUSAND) SUBCUT SCH (21:44)
[2018-04-04] MEDS: Heparin VIAL(*) 5000 UNITS/ML VIAL (FIVE THOUSAND) SUBCUT SCH ×3 (05:44→22:27)
[2018-04-04 06:03] LABS: HDL Cholesterol 42.3 mg/dL
[2018-04-04 09:00] LABS: ABS Basophils 0 10^3/ul (0-0.2); ABS Eosinophils 0.5 10^3/ul (0-0.6); ABS Lymphocytes 1.4 10^3/ul (1.0-4.8); ABS Monocytes 1.1 10^3/ul (0-0.8); ABS Neutrophils 4.4 10^3/ul (1.5-7.7); ABS Nucleated RBC 0 10^3/ul; Eosinophil % 7.3 %; Hematocrit 39 % (42-52); Hemoglobin 12.9 g/dl (14.0-18.0); Lymphocyte % 18.7 %; Mean Corpuscular HGB Conc 33 g/dl (31-36); Mean Corpuscular Hemoglobin 31 pg (27-31); Mean Corpuscular Volume 93 fL (80-94); Mean Platelet Volume 6.9 fL (7.4-10.4); Nucleated Red Blood Cells % 0; Platelet Count 217 10^3/ul (150-450); Red Blood Count 4.15 10^6/ul (4.00-5.40); Red Cell Distribution Width 14 % (10.5-15); White Blood Count 7.4 10^3/ul (3.5-10.8)
[2018-04-04] MEDS ORDERED: Aspirin 81 mg CHEW TAB* 81 MG TAB.CHEW PO SCH (09:00)
[2018-04-04] MEDS: CMCS:Escitalopram (NF) 10 MG TAB PO SCH (09:01)
[2018-04-04] MEDS: Methylphenidate TAB* 5 MG PO SCH (09:01)
[2018-04-04] MEDS: Aspirin EC TAB* 81 MG TAB.EC PO SCH (09:01)
[2018-04-04] MEDS: CMCS:Pantoprazole TAB (NF) 40 MG TAB PO SCH (09:01)
[2018-04-04] MEDS: Multivitamins/Minerals TAB PO SCH (09:01)
[2018-04-04] MEDS: Docusate CAP* 100 MG PO SCH ×2 (09:01→20:06)
[2018-04-04] MEDS: Polyethylene Glycol 3350* 17 GM PACKET PO SCH (09:01)
[2018-04-04] MEDS: CMCS: Alfuzosin ER (NF) 10 MG TAB.ER PO SCH (09:01)
[2018-04-04] MEDS: Clopidogrel TAB* 75 MG PO SCH (09:01)
[2018-04-04 11:34] LABS: Albumin 3.5 g/dL (3.2-5.2); Calcium 8.7 mg/dL (8.6-10.3); Potassium 3.9 mmol/L (3.5-5.0); Total Bilirubin 0.6 mg/dL (0.2-1.0)
[2018-04-04 11:40] LABS: Albumin/Globulin Ratio 1.6 (1-3); BUN/Creatinine Ratio 17.2 (8-20); EGFR Non-African American 74.3 (>60); Globulin 2.2 g/dL (2-4); Total Protein 5.7 g/dL (6.4-8.9)
--- NOTE | 2018-04-04 16:47 | PN ---
Subjective Date of Service: 04/04/18 Interval History: Mr. Chamorro is feeling good today. He slept well overnight. No further episodes of slurred speech or confusion. He is sitting in the chair on my exam. Ate breakfast without difficulty. Denies CP, SOB, N/V. Family History: Unchanged from Admission Social History: Unchanged from Admission Past Medical History: Unchanged from Admission Objective Active Medications: Acetaminophen (Tylenol Tab*) 650 mg PO Q4H PRN FEVER/PAIN Al Hydrox/Mg Hydrox/Simethicone (Maalox Plus*) 30 ml PO Q6H PRN INDIGESTION Alfuzosin HCl (Uroxatral (Nf)) 10 mg PO DAILY [facility] Aspirin (Aspirin Ec Tab*) 81 mg PO DAILY [facility] Atorvastatin Calcium (Lipitor*) 40 mg PO BEDTIME [facility] Calcium Carbonate (Tums*) 500 mg PO Q4H PRN DYSPEPSIA Clopidogrel Bisulfate (Plavix Tab*) 75 mg PO DAILY [facility] Docusate Sodium (Colace Cap*) 100 mg PO BID [facility] Escitalopram Oxalate (Lexapro (Nf)) 20 mg PO QAM [facility] Heparin Sodium (Porcine) (Heparin Vial(*)) 5,000 units SUBCUT Q8HR [facility] Methylphenidate HCl (Ritalin Tab*) 5 mg PO DAILY [facility] Mirtazapine (Remeron Tab*) 15 mg PO BEDTIME [facility] Multivitamins/Minerals (Theragran/Minerals Tab*) 1 tab PO DAILY [facility] Ondansetron HCl (Zofran Inj*) 4 mg IV Q4H PRN NAUSEA/VOMITING Pantoprazole Sodium (Protonix Tab (Nf)) 40 mg PO DAILY [facility] Polyethylene Glycol/Electrolytes (Miralax*) 17 gm PO DAILY [facility] Trazodone HCl (Desyrel Tab*) 100 mg PO BEDTIME [facility] Vital Signs - 8 hr 04/04/18 04/04/18 11:40 15:26 Temperature 98.7 F 98.0 F Pulse Rate 83 76 Respiratory 20 17 Rate Blood Pressure 115/70 121/65 (mmHg) O2 Sat by Pulse 95 97 Oximetry Oxygen Devices in Use Now: None Appearance: Elderly male sitting in chair in NAD Eyes: No Scleral Icterus Ears/Nose/Mouth/Throat: Mucous Membranes Moist Neck: NL Appearance and Movements; NL JVP, Trachea Midline Respiratory: Symmetrical Chest Expansion and Respiratory Effort, Clear to Auscultation Cardiovascular: NL Sounds; No Murmurs; No JVD, RRR Abdominal: NL Sounds; No Tenderness; No Distention Extremities: No Edema Skin: No Rash or Ulcers Neurological: Alert and Oriented x 3, - - Dysarthria Lines/Tubes/Other Access: Clean, Dry and Intact Peripheral IV Nutrition: Taking PO's Result Diagrams: 04/04/18 05:28 04/04/18 05:24 Assess/Plan/Problems-Billing Assessment: Mr. 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 - Patient Problems (1) TIA (transient ischemic attack) Code(s): G45.9 - TRANSIENT CEREBRAL ISCHEMIC ATTACK, UNSPECIFIED Comment: - With worsened dysarthria and confusion, resolved once arriving to the ED - Brain CT shows chronic left MCA infarct, but no acute findings - Head CTA unremarkable for carotid stenosis, aneurysm, vascular malformation, or occlusion - Brain MRI shows old left MCA infacrt with encephalomalacia and chronic small vessel ischemic changes, but no acute findings - Appreciate neurology consult; recommends continuing aspirin and Plavix, f/u in 3 months as an outpt - Continue aspirin and Plavix (2) History of CVA with residual deficit Code(s): I69.30 - UNSPECIFIED SEQUELAE OF CEREBRAL INFARCTION Comment: - Residual right hemipalegia and dysarthria; deficits at baseline - Continue aspirin, Plavix, atorvastatin (3) Hypertension Code(s): I10 - ESSENTIAL (PRIMARY) HYPERTENSION Comment: - Normotensive - Holding metoprolol for permissive hypertension, but will restart at d/c (4) BPH (benign prostatic hyperplasia) Code(s): N40.0 - BENIGN PROSTATIC HYPERPLASIA WITHOUT LOWER URINRY TRACT SYMP Comment: - Continue alfuzosin (5) Depression Code(s): F32.9 - MAJOR DEPRESSIVE DISORDER, SINGLE EPISODE, UNSPECIFIED Comment: - Continue escitalopram and mirtazapine (6) DVT prophylaxis Code(s): PGB0041 - Comment: - Heparin SQ (7) Full code status Code(s): Z78.9 - OTHER SPECIFIED HEALTH STATUS Status and Disposition: Observation. Cleared for d/c by neurology. [facility] will not accept patient until tomorrow morning, so plan for d/c early tomorrow. Attending: Jennifer Ochoa
[2018-04-04] MEDS: Mirtazapine TAB* 15 MG PO SCH (20:06)
[2018-04-04] MEDS: Atorvastatin* 40 MG TAB PO SCH (20:06)
[2018-04-04] MEDS: Al Hydrox/Mg Hydrox/Simet LIQ* 30 ML UDC PO PRN (20:06)
[2018-04-04] MEDS: traZODone TAB* 50 MG TAB PO SCH (20:06)
--- NOTE | 2018-04-04 21:21 | PN ---
NEUROLOGICAL FOLLOWUP NOTE: DATE OF SERVICE: 04/04/18 PATIENT OF: Indy Tierney NP HISTORY: This is a neurological followup on this 72-year-old right-handed man who presented yesterday with transient episode of right-sided weakness and dysarthria. He feels he is back to normal now and feels most likely this is similar to his stroke-like symptoms before but were mild and now back to his baseline. Dr. Grigsby noted he had an M1 occlusion. He received IV tPA and ultimately had a thrombectomy, but has had residual including spastic hemiparesis, using a walker and a gait belt and having some underlying aphasia. MEDICATIONS: His medicines continue to be: 1. Mirtazapine 15 mg nightly. 2. Lexapro 20 mg q.a.m. 3. Atorvastatin 40 mg daily. 4. Lopressor 50 mg b.i.d. 5. Trazodone 100 mg daily. He has now been started on aspirin and Plavix as per Dr. Grigsby and this is reasonable. REVIEW OF SYSTEMS: Negative in all 14 spheres other than HPI. PHYSICAL EXAMINATION: Temperature is 98, pulse 76, respirations 17, blood pressure 121/65. He is alert and oriented. He has dysarthric speech with an aphasic component. He has right facial weakness. Cranial nerves otherwise intact. He has a spastic weak right arm with less weakness in his leg with brisk reflexes on the right and upgoing toe there, but not on the left. Chest: Clear. Cardiovascular: Regular rate. DIAGNOSTIC STUDIES/LAB DATA: His LDL is 30. I reviewed his MRI scan that showed evidence of his old stroke, but no acute stroke and evidence of some mild white matter disease in addition. Dr. Grigsby informed me that his EEG showed some nonspecific slowing. IMPRESSION AND PLAN: Pino most likely had a transient ischemic attack in the distribution of his old stroke and he is now on dual antiplatelet therapy. He should be on this for the next [address] Grigsby will see back in 3 months' time and then make whatever adjustments need be. He is going to remain on his statin as well. Thank you for sharing his case. [id number]/[facility] #: [id number] RADHA
[2018-04-05] MEDS: Heparin VIAL(*) 5000 UNITS/ML VIAL (FIVE THOUSAND) SUBCUT SCH (05:10)
[2018-04-05] MEDS: CMCS:Escitalopram (NF) 10 MG TAB PO SCH (08:23)
[2018-04-05] MEDS: Multivitamins/Minerals TAB PO SCH (08:23)
[2018-04-05] MEDS: Polyethylene Glycol 3350* 17 GM PACKET PO SCH (08:23)
[2018-04-05] MEDS: Clopidogrel TAB* 75 MG PO SCH (08:23)
[2018-04-05] MEDS: CMCS:Pantoprazole TAB (NF) 40 MG TAB PO SCH (08:23)
[2018-04-05] MEDS: Methylphenidate TAB* 5 MG PO SCH (08:23)
[2018-04-05] MEDS: CMCS: Alfuzosin ER (NF) 10 MG TAB.ER PO SCH (08:23)
[2018-04-05] MEDS: Docusate CAP* 100 MG PO SCH (08:23)
[2018-04-05] MEDS: Aspirin EC TAB* 81 MG TAB.EC PO SCH (08:23)
[2018-04-05 08:36] VITALS: BP 125/68
[2018-04-05] MEDS: Al Hydrox/Mg Hydrox/Simet LIQ* 30 ML UDC PO PRN (09:36)
--- NOTE | 2018-04-05 10:22 | DS ---
AMENDED REPORT NOW INCLUDES DESIGNATED COSIGNER CC: Dr. Keke Chapman; Dr. Curt Grigsby * DISCHARGE SUMMARY: DATE OF ADMISSION: 04/03/18. DATE OF DISCHARGE: 04/05/18. PRIMARY CARE PROVIDER: Dr. Keke Chapman. NEUROLOGIST: Dr. Curt Grigsby. ATTENDING PHYSICIAN: Dr. Jennifer Ochoa * (dictated by Indy Tierney NP). PRIMARY DIAGNOSIS: Transient ischemic attack. SECONDARY DIAGNOSES: 1. History of cerebrovascular accident, left middle cerebral artery infarct in September 2017, status post tPA and embolectomy with residual right hemiplegia and dysarthria. 2. Depression. 3. Benign prostatic hyperplasia. STUDIES WHILE IN THE HOSPITAL: 1. Brain CT on 04/03/18, reads as no acute intracranial pathology. 2. Chronic small vessel ischemic change with chronic left middle cerebral artery infarct. 3. EKG on 04/03/18, shows sinus bradycardia with a rate of 55, QTC 422. Q waves in lateral leads, unchanged from previous EKGs dating back to 2007. 4. Head CTA on 04/03/18, reads as no internal carotid artery stenosis by NASCET criteria. No aneurysms, vascular malformation, occlusion, or stenosis of the visualized intracranial circulation. 5. Brain MRI on 04/03/18, reads as old left MCA infarction with encephalomalacia. No hemorrhage, mass, or mass effect. Chronic small vessel ischemic change elsewhere without abnormally restricted diffusion to suggest acute ischemic event. 6. EKG on 04/04/18, shows normal sinus rhythm with a rate of 65, QTC 459. Q waves in lateral leads, unchanged. CONSULTATIONS WHILE IN THE HOSPITAL: 1. The patient was seen in consultation by Dr. Grigsby from Neurology on , for transient worsening of dysarthria and right- sided weakness. HISTORY OF PRESENT ILLNESS AND HOSPITAL COURSE: Mr. Chamorro is a 72-year-old male with past medical history of left MCA infarct in September 2017, depression, hypertension, and BPH, who presented to the emergency room on 04/03/18, after a transient episode of slurred speech and confusion. Please see the history and physical by myself for a complete summary of the events leading up to this hospitalization. In short, the patient has been in subacute rehab and was working with speech therapy when he was noted to have acute worsening of his dysarthria. The patient reported that morning that he had a headache and felt as though feeling like he was "losing thoughts." He was brought to the emergency room by EMS, and en route EMS reportedly noted a right facial droop, though symptoms were resolved when he arrived at the emergency room here at [facility]. In the emergency room, he was seen by Dr. Grigsby from Neurology. He had imaging as noted above, which did not show any acute process or any acute changes. Because of the concern for TIA, the patient was admitted by the hospitalist service. In the emergency room, he was loaded on aspirin and Plavix and he was continued on maintenance dosing of aspirin and Plavix. The following day, he was monitored on telemetry and there were no noted arrhythmias. He did have an EEG. The formal report is not back yet, though per Dr. Noland, there was no seizure activity noted. The patient did have an MRI as noted above, which showed the old infarct and encephalomalacia. A lipid panel was checked, which showed excellent lipid control: triglycerides 55, total cholesterol 83, LDL 30, and HDL 42. The patient did have an echocardiogram earlier this year, and Dr. Grigsby advised that a repeat echocardiogram was not necessary at this point. On his last echocardiogram, he reportedly had a negative bubble study according to his daughter. The patient was evaluated by physical therapy, who noted that he continues to have skilled physical therapy needs. His metoprolol was held for permissive hypertension, though the patient has been normotensive off his metoprolol. The patient has had no further symptoms of slurred speech or confusion. He reports feeling well. He was seen by Dr. Noland from Neurology yesterday evening, who advised that the patient was stable for discharge from a neurology standpoint and then he should continue on daily aspirin and Plavix. He will need to follow up with Dr. Grigsby in 3 months. At which time, he will likely be transitioned to mono antiplatelet therapy. As of today, the patient has continued dysarthria and right-sided hemiplegia, which are at his baseline. He has no other focal neurological deficits. He is anxious to return back to [place] for rehab. His family is aware of the findings and is agreeable for transfer back to rehab. Mr. Chamorro is stable for discharge today. Vital signs are as follows: Temp 98.7, heart rate 91, respiratory rate 16, oxygen saturation 94% on room air, blood pressure 123/72. DISCHARGE MEDICATIONS: New medication: 1. Clopidogrel 75 mg p.o. daily. Change medication: 1. Metoprolol tartrate 12.5 mg p.o. b.i.d. (previously was 25 mg b.i.d.) Continued medications: 1. Alfuzosin 10 mg p.o. daily. 2. Aspirin 81 mg p.o. daily. 3. Atorvastatin 80 mg p.o. at bedtime. 4. Calcium carbonate chew 500 mg p.o. q.4 hours p.r.n. dyspepsia. 5. Docusate 100 mg p.o. b.i.d. 6. Escitalopram 20 mg p.o. daily. 7. Methylphenidate 5 mg p.o. daily. 8. Mirtazapine 15 mg p.o. at bedtime. 9. Multivitamin 1 tab p.o. daily. 10. Omeprazole 20 mg p.o. daily. 11. MiraLAX 17 g p.o. daily. 12. Trazodone 100 mg p.o. at bedtime. 13. Acetaminophen 650 mg p.o. q.4 hours p.r.n. pain. 14. Milk of magnesia 30 mL p.o. q.72 hours p.r.n. constipation. 15. Sodium phosphate enema 133 mL p.r. daily p.r.n. constipation. DISCHARGE PLAN: Mr. Chamorro will be discharged back to subacute rehab at [facility]. ACTIVITY: Activity will be as tolerated. DIET: Diet will be regular as tolerated. DISCHARGE INSTRUCTIONS: Medications are noted above. The patient should be on daily dual antiplatelet therapy of aspirin and Plavix. Additionally, I have changed his metoprolol dosing as he has been normotensive here in the hospital off the medication and it appears that it was making him slightly bradycardic as he had some heart rates in the 50s when he arrived in the emergency room. Otherwise, he can continue his usual home medications. FOLLOW UP: As noted above, he will need to follow up with Dr. Grigsby in 3 months. He will need to follow up with his PCP in 4-7 days. The patient should return to the emergency room or nearest hospital for any worsening of symptoms, shortness of breath, lightheadedness, dizziness, chest discomfort, high fevers, chills, night sweats, loss of consciousness or any other worrisome signs or symptoms. This is a summarized report of a complex medical history and hospital stay. For further details, please see the entire medical record. TIME SPENT: Approximately, 40 minutes was spent on this discharge. About half of that time spent with the patient and his family, discussing discharge plans and instructions. INDY TIERNEY, FACILITY SPECIALIST [id number]/[facility] #: [id number] RADHA
--- NOTE | 2018-04-09 11:59 | EEG ---
ELECTROENCEPHALOGRAPHY: DATE OF STUDY: 04/03/18 He is an inpatient. REFERRING PHYSICIAN: Dr. Grigsby. CLINICAL PROBLEM: Episodes of aphasia in a patient with a history of prior stroke. REPORT: This 16-channel EEG is remarkable for background rhythms consisting of posterior rhythms in the theta range at 67 cycles per second. There is diffuse slowing in the delta range, more prominent from the left hemisphere, but also to a lesser extent from the right frontal hemisphere. The patient is clinically awake. Occasional eye movement artifact is noted. Activation procedure is not attempted. The patient is not clearly drowsy or asleep during the recording. There are no clinical events. CLINICAL IMPRESSION: Abnormal EEG due to diffuse slowing of background rhythms , most prominently from the left hemisphere. There are no epileptiform discharges. This tracing is compatible with diffuse cerebral dysfunction, most prominently from the left hemisphere. [id number]/[facility] #: [id number] MTDD
== END 2018-04-05 11:30 ==
LOC: ED 13:04 → MEDTELE 17:58 → UNDODISOB 04-05 11:40
PROVIDERS: ADMIT Hospitalist; ATTEND Hospitalist
DX: G45.9 Transient cerebral ischemic attack, unspecified (principal); 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 following cerebral infarction affecting right dominant side; I69.322 Dysarthria following cerebral infarction; F32.9 Major depressive disorder, single episode, unspecified; N40.0 Benign prostatic hyperplasia without lower urinary tract symptoms; I10 Essential (primary) hypertension; Z79.82 Long term (current) use of aspirin; Z79.899 Other long term (current) drug therapy
CPT/HCPCS: 36415; 70450; 70496; 70498; 70551; 80053; 80061; 81003; 83605; 84484; 85025; 87641; 93005; 95819; 96372; 96374; 96375; 99283; A9270-GY; G0378; G8978-GP-CM; G8979-GP-CK; J1644; Q9967

== ENCOUNTER 2018-10-19 22:59 | Emergency (ER) | payer MEDICARE, BC, OTHER ==
--- NOTE | 2018-10-19 23:55 | ED ---
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 He states that he is a pt at [facility] due to a previous stroke. He states that he tied to shrimp picker a call durant to call an aid when the durant slipped out of his hand and fell out of bed trying to reach for it. His states that he has had head pain since 10/16/18 and is rated a 2/10 in severity. He denies any LOC or head injury from the fall as well as fevers, CP, SOB, abdominal pain, and diaphoresis. He ambulates with a wheel chair. He has no alleviating or aggravating factors. He has R sided hemiparesis from the stroke. - History Of Current Complaint Chief Complaint: EDFall Stated Complaint: HEAD PAIN PER EMS Time Seen by Provider: 10/19/18 23:18 Hx Obtained From: Patient, Family/[place] Regulator - Mechanism Of Injury: Other - fell out of bed Onset/Duration: Started Days Ago - 10/16/18, Still Present Onset of Pain: Days - 3 Severity Currently: Mild Severity Initially: Mild Pain Intensity: 2 Pain Scale Used: 0-10 Numeric Location of Head Injury: Parietal, Other: - stated that he had been complaining of head pain before the fall Aggravating Factor(s): Other: - none Alleviating Factor(s): Other: - none Associated Signs And Symptoms: Negative - LOC or head injury from the fall as well as fevers, CP, SOB, abdominal pain, and diaphoresis. - Allergies/Home Medications Allergies/Adverse Reactions: Allergies Allergy/AdvReac Type Severity Reaction Status Date / Time No Known Allergies Allergy Verified 10/15/15 10:48 PMH/Surg Hx/FS Hx/Imm Hx Previously Healthy: Yes Endocrine/Hematology History: Denies: Hx Anticoagulant Therapy, Hx Diabetes, Hx Thyroid Disease Cardiovascular History: Reports: Hx Hypertension Denies: Hx Congestive Heart Failure, Hx Pacemaker/ICD Respiratory History: Denies: Hx Asthma, Hx Chronic Obstructive Pulmonary Disease (COPD) GI History: Reports: Hx Gastroesophageal Reflux Disease Denies: Hx Ulcer History: Reports: Other Problems/Disorders - enlarged prostrate Denies: Hx Renal Disease Musculoskeletal History: Reports: Hx Osteoporosis Denies: Hx Rheumatoid Arthritis Sensory History: Reports: Hx Contacts or Glasses Denies: Hx Hearing Aid Opthamlomology History: Reports: Hx Contacts or Glasses Neurological History: Reports: Hx CVA - 09/18/17, Hx Dementia, Other Neuro Impairments/Disorders - Hx COMPRESSION Fx'S 2009 Psychiatric History: Reports: Hx Depression Denies: Hx Eating Disorder, Hx Panic Disorder, Hx of Violent Episodes Against Others - Surgical History Surgery Procedure, Year, and Place: HERNIA REPAIRS; toe amputations; tonsils, appendix, cataracts, loop recorder implanted then removed Hx Anesthesia Reactions: No Infectious Disease History: No Infectious Disease History: Reports: Hx Shingles Denies: Hx Clostridium Difficile, Hx Hepatitis, Hx Human Immunodeficiency Virus (HIV), Hx of Known/Suspected MRSA, Hx Tuberculosis, Hx Known/Suspected VRE , Hx Known/Suspected VRSA, History Other Infectious Disease, Traveled Outside the [place] in Last 30 Days - Family History Known Family History: Negative: Renal Disease - Social History Alcohol Use: None Alcohol Amount: 1 beer/day Hx Substance Use: No Substance Use Type: Reports: None Hx Tobacco Use: No Smoking Status (MU): Never Smoked Tobacco Have You Smoked in the Last Year: No Review of Systems Negative: Fever, Skin Diaphoresis Negative: Chest Pain Negative: Shortness Of Breath Negative: Abdominal Pain Positive: Other - c/o head pain All Other Systems Reviewed And Are Negative: Yes Physical Exam - Summary Physical Exam Summary: Appearance: Appears older than stated age, Well-nourished, lying in bed comfortably Skin: Warm, dry, no obvious rash Eyes: sclera anicteric, no conjunctival pallor ENT: mucous membranes moist, pharynx appears normal Neck: Supple, nontender Respiratory: Clear to auscultation, no signs of respiratory distress Cardiovascular: Normal S1, S2. No murmurs. Normal distal pulses in tibial and radial bilaterally. Abdomen: Soft, nontender, normal active bowel sounds present Musculoskeletal: Normal, Strength/ROM Intact Neurological: A&Ox3, awake and alert, mentation is normal, speech is fluent and appropriate, r sided hemiparesis that is old Psychiatric: affect is normal, does not appear anxious or depressed Triage Information Reviewed: Yes Vital Signs On Initial Exam: Initial Vitals Temp Pulse Resp BP Pulse Ox 98 F 78 18 149/86 97 10/19/18 23:08 10/19/18 23:08 10/19/18 23:08 10/19/18 23:08 10/19/18 23:08 Vital Signs Reviewed: Yes Diagnostics - Vital Signs Vital Signs Temp Pulse Resp BP Pulse Ox 10/19/18 23:08 98 F 78 18 149/86 97 - Laboratory Lab Statement: Any lab studies that have been ordered have been reviewed, and results considered in the medical decision making process. - CT brain CT Interpretation Completed By: Radiologist Summary of CT Findings: 1. Old left parietal infarct. 2. Cerebral atrophy. 3. Mild ethmoid sinusitis. ED physician has reviewed this report Re-Evaluation - Re-Evaluation First Eval Re-Evaluation Time: 01:34 Change: Improved Comment: Pt was informed of the discharge plan and he is agreeable. Head Injury Course/Dx Course Of Treatment: The pt is a 72 y/o M that was brought in by EMS from [facility] to [facility] with his for falling out of his bed tonight. He stated that he was reaching for his call durant when he fell, but denies any LOC. His stated that he has had head pain since Friday10/16/18. His PE found that he Appears older than stated age, Well-nourished, lying in bed comfortably. His brain CT found 1. Old left parietal infarct. 2. Cerebral atrophy. 3. Mild ethmoid sinusitis. Since he had no acute infarct with his brain CT he will be discharged back to [place] with a Dx of a tension headache. - Diagnoses Provider Diagnoses: Tension headache Discharge - Sign-Out/Discharge Documenting (check all that apply): Patient Departure - discharge Patient Received Moderate/Deep Sedation with Procedure: No - Discharge Plan Condition: Good Disposition: HOME Patient Education Materials: Tension Headache (ED), Fall Prevention for Older Adults (ED) Referrals: Henry Patrick MD [Primary Care Provider] - If Needed - Billing Disposition and Condition Condition: GOOD Disposition: Home - Attestation Statements Document Initiated by Lev: Yes Documenting Scribe: Amol Tineo Provider For Whom Lev is Documenting (Include Credential): Reece Giang MD Scribe Attestation: Amol Reese scribed for Reece Giang MD on 10/20/18 at 0209. Scribe Documentation Reviewed: Yes Provider Attestation: The documentation as recorded by the Amol solo accurately reflects the service I personally performed and the decisions made by me, Reece Giang MD Status of Scribe Document: Viewed
[2018-10-20 01:34] VITALS: BP 141/78
== END 2018-10-20 01:33 | disposition home or self-care (01) ==
LOC: ED 22:59
DX: G44.209 Tension-type headache, unspecified, not intractable (principal); I10 Essential (primary) hypertension; K21.9 Gastro-esophageal reflux disease without esophagitis; W06.XXXA Fall from bed, initial encounter; Y92.193 Bedroom in other specified residential institution as the place of occurrence of the external cause; G31.9 Degenerative disease of nervous system, unspecified; J32.2 Chronic ethmoidal sinusitis
CPT/HCPCS: 70450; 99283

== ENCOUNTER 2018-10-23 12:43 | Observation (INO) | payer MEDICARE, BC, OTHER ==
--- NOTE | 2018-10-23 13:06 | ED ---
Headache - HPI Summary HPI Summary: A 72 y/o male brought in by ambulance presents to [facility] with a chief complaint of a headache today. He says that 12-13 years ago he fell down a flight of stairs and had a severe headache afterwards. He says that his headaches went away but for the past 2-3 months he has occasionally had headaches, last time being 10/17/18. He said that he was here 10/19/18 and had a brain CT. He rated his pain as an 8/10 in severity. He claims that his headache is more frontal. He denies any fevers but reports some neck pain that have been intermittent for the past couple months. He has a Hx of CVA that left him with weakness in his right hand. - History Of Current Complaint Chief Complaint: EDHeadache Stated Complaint: HEADACHE PER EMS Time Seen by Provider: 10/23/18 12:53 Hx Obtained From: Patient Onset/Duration: Sudden Onset, Started weeks ago, Still Present Initially Headache Was: Initial Pain Scale(0-10)= - 8 Currently Pain Is: Current Pain Scale(0-10)= - 8 Timing: Intermittent, Lasting: - headaches have been going on intermittently for months Character: Unable To Describe Location of Headache: Frontal Aggravating Factor: Nothing Allevating Factors: Nothing Associated Signs And Symptoms: Neck Pain - Allergies/Home Medications Allergies/Adverse Reactions: Allergies Allergy/AdvReac Type Severity Reaction Status Date / Time No Known Allergies Allergy Verified 10/15/15 10:48 Home Medications: Home Medications Glycerin ADULT SUPP* 1 supp NV Q72HR PRN 10/23/18 [History Confirmed 10/23/18] Pantoprazole TAB (NF) [Protonix TAB (NF)] 20 mg PO DAILY 10/23/18 [History Confirmed 10/23/18] PMH/Surg Hx/FS Hx/Imm Hx Endocrine/Hematology History: Denies: Hx Anticoagulant Therapy, Hx Diabetes, Hx Thyroid Disease Cardiovascular History: Reports: Hx Hypertension Denies: Hx Congestive Heart Failure, Hx Pacemaker/ICD Respiratory History: Denies: Hx Asthma, Hx Chronic Obstructive Pulmonary Disease (COPD) GI History: Reports: Hx Gastroesophageal Reflux Disease Denies: Hx Ulcer History: Reports: Other Problems/Disorders - enlarged prostrate Denies: Hx Renal Disease Musculoskeletal History: Reports: Hx Osteoporosis Denies: Hx Rheumatoid Arthritis Sensory History: Reports: Hx Contacts or Glasses Denies: Hx Hearing Aid Opthamlomology History: Reports: Hx Contacts or Glasses Neurological History: Reports: Hx CVA - 09/18/17, Hx Dementia, Other Neuro Impairments/Disorders - Hx COMPRESSION Fx'S 2009 Psychiatric History: Reports: Hx Depression Denies: Hx Eating Disorder, Hx Panic Disorder, Hx of Violent Episodes Against Others - Surgical History Surgery Procedure, Year, and Place: HERNIA REPAIRS; toe amputations; tonsils, appendix, cataracts, loop recorder implanted then removed Hx Anesthesia Reactions: No Infectious Disease History: No Infectious Disease History: Reports: Hx Shingles Denies: Hx Clostridium Difficile, Hx Hepatitis, Hx Human Immunodeficiency Virus (HIV), Hx of Known/Suspected MRSA, Hx Tuberculosis, Hx Known/Suspected VRE , Hx Known/Suspected VRSA, History Other Infectious Disease, Traveled Outside the [place] in Last 30 Days - Family History Known Family History: Negative: Renal Disease - Social History Alcohol Use: None Alcohol Amount: 1 beer/day Hx Substance Use: No Substance Use Type: Reports: None Hx Tobacco Use: No Smoking Status (MU): Never Smoked Tobacco Have You Smoked in the Last Year: No Review of Systems Negative: Fever Positive: Other - positive: neck pain Positive: Headache, Weakness - right hand from CVA All Other Systems Reviewed And Are Negative: Yes Physical Exam - Summary Physical Exam Summary: VITAL SIGNS: Reviewed. GENERAL: Patient is a well-developed and nourished MALE who is lying comfortable in the stretcher. Patient is not in any acute respiratory distress. HEAD AND FACE: No signs of trauma. No ecchymosis, hematomas or skull depressions. No sinus tenderness. EYES: PERRLA, EOMI x 2, No injected conjunctiva, no nystagmus. EARS: Hearing grossly intact. Ear canals and tympanic membranes are within normal limits. MOUTH: Oropharynx within normal limits. NECK: Supple, trachea is midline, no adenopathy, no JVD, no carotid bruit, no c- spine tenderness, neck with full ROM. CHEST: Symmetric, no tenderness at palpation. LUNGS: Clear to auscultation bilaterally. No wheezing or crackles. CVS: Regular rate and rhythm, S1 and S2 present, no murmurs or gallops appreciated. ABDOMEN: Soft, non-tender. No signs of distention. No rebound, no guarding, and no masses palpated. Bowel sounds are normal. EXTREMITIES: FROM in all major joints, no edema, no cyanosis or clubbing. NEURO: Alert and oriented x 3. No acute neurological deficits. Speech is normal and follows commands. Right hand weakness secondary to stroke. SKIN: Dry and warm. Triage Information Reviewed: Yes Vital Signs On Initial Exam: Initial Vitals Temp Pulse Resp BP Pulse Ox 97.0 F 77 16 127/74 96 10/23/18 12:50 10/23/18 12:50 10/23/18 12:50 10/23/18 12:50 10/23/18 12:50 Vital Signs Reviewed: Yes Diagnostics - Vital Signs Vital Signs Temp Pulse Resp BP Pulse Ox 10/23/18 12:50 97.0 F 77 16 127/74 96 - Laboratory Result Diagrams: 10/23/18 13:53 10/23/18 13:53 Lab Statement: Any lab studies that have been ordered have been reviewed, and results considered in the medical decision making process. - CT Cervical spine CT Interpretation Completed By: Radiologist Summary of CT Findings: C1, C2, and T2 fractures as described. The fractures are new compared with the 2017 exam. ED physician has reviewed this imaging report. thoracic spine CT Interpretation Completed By: Radiologist Summary of CT Findings: There is compression fracture of T2 which appears to BE relatively recent with. surrounding edema. This is new since April 03, 2018. Minimal retropulsion of a small. fragment into the thecal sac is noted however no spinal stenosis is noted. ED physician has reviewed this imaging report. lumbar spine CT Interpretation Completed By: Radiologist Summary of CT Findings: Compression fractures of L1 and L2 with vertebral plana at L2 with a inferior. retropulsed fragment resulting in a moderate spinal stenosis at this level. Approximately. 50% compression of L1 is noted with ankylosis of T12 on L1. Overall appearance appears to. be similar to that identified on July 11, 2015 radiographs. ED physician has reviewed this imaging report. Cervical spine MRI CT Interpretation Completed By: Radiologist Summary of CT Findings: Bone marrow edema in the C2 vertebra. This is consistent with recent fracture. C1 fracture difficult to visualize. No spinal stenosis is noted at C1-C2. Compression fracture of C2 with mild edema. Minimal retropulsion is noted flattening the. thecal sac and abutting the spinal cord without spinal stenosis. Soft tissue edema is noted superficial to the spinous processes of T2 and T3. ED physician has reviewed this imaging report. Lumbar spine MRI CT Interpretation Completed By: Radiologist Summary of CT Findings: Compression fracture of L1 of 50%. Vertebral plana of L2. At L2 there is. retropulsion of the posterior fragment with moderate degree of spinal stenosis at this. level. Minimal retropulsion is noted at the superior aspect of L1. No evidence of bone. marrow edema is noted. ED physician has reviewed this imaging report. Re-Evaluation - Re-Evaluation First Eval Re-Evaluation Time: 15:10 Change: Improved Comment: Pt is comfortably sleeping Second Eval Re-Evaluation Time: 18:53 Change: Improved Comment: Pt is feeling good but is hungry so we'll get him something to eat. Headache Course/Dx - Course Assessment/Plan: A 72 y/o male brought in by ambulance presents to [facility] with a chief complaint of a headache today. He says that 12-13 years ago he fell down a flight of stairs and had a severe headache afterwards. He says that his headaches went away but for the past 2-3 months he has occasionally had headaches, last time being 10/17/18. He said that he was here 10/19/18 and had a brain CT. He rated his pain as an 8/10 in severity. He claims that his headache is more frontal. He denies any fevers but reports some neck pain that have been intermittent for the past couple months. He has a Hx of CVA that left him with weakness in his right hand. In the ED course the patient was given IV fluids, Reglan, Benadryl, fentanyl for the pain. C Spine CT IMPRESSION: #. C1 , C2, and T2 fractures as described. The fractures are new compared with the April 03, 2018 exam. I immediately placed the patient in a [place] J collar. At this point I discussed the case with Dr. Naranjo from neurosurgery and he recommends a T-spine CT, and aspirin CT, MRI of the C-spine, and he agrees with a [place] J collar. He also recommends admission to the hospitalist. CT T spine IMPRESSION: There is a compression fracture of T2 which appears to BE relatively recent with surrounding edema. This is new since April 03, 2018. Minimal retropulsion of a small fragment into the thecal sac is noted however no spinal stenosis is noted. CT L spine IMPRESSION: Compression fractures of L1 and L2 with vertebral plana at L2 with an inferior retropulsed fragment resulting in a moderate spinal stenosis at this level. Approximately 50% compression of L1 is noted with ankylosis of T12 on L1. Overall appearance appears to be similar to that identified on July 11, 2015 radiographs. MRI L spine IMPRESSION: Compression fracture of L1 of 50%. Vertebral plana of L2. At L2 there is retropulsion of the posterior fragment with moderate degree of spinal stenosis at this level. Minimal retropulsion is noted at the superior aspect of L1. No evidence of bone marrow edema is noted. MRI C spine IMPRESSION: Bone marrow edema in the C2 vertebra. This is consistent with recent fracture. C1 fracture difficult to visualize. No spinal stenosis is noted at C1-C2. Compression fracture of C2 with mild edema. Minimal retropulsion is noted flattening the thecal sac and abutting the spinal cord without spinal stenosis. Soft tissue edema is noted superficial to the spinous processes of T2 and T3. After Dr. Naranjo reviewed MRIs he recommends for the patient to be admitted to the hospital for further workup and management. I discussed the case with Dr. Sifuentes from the hospital services who accepted the patient for admission. - Diagnoses Provider Diagnoses: Vertebral fracture, Cervical spine fracture, Fracture of lumbar spine - Physician Notifications Discussed Care Of Patient With: Luis Felipe Naranjo Time Discussed With Above Provider: 15:25 Instructed by Provider To: Other - recommends T-spine and L-spine CT and and MRI of C-spine Discharge - Sign-Out/Discharge Documenting (check all that apply): Patient Departure - admit Patient Received Moderate/Deep Sedation with Procedure: No - Discharge Plan Condition: Fair Disposition: ADMITTED TO [facility] - Billing Disposition and Condition Condition: FAIR Disposition: Admitted to [facility] - Attestation Statements Document Initiated by Scribe: Yes Documenting Scribe: Madhu Jaramillo Provider For Whom Lev is Documenting (Include Credential): Matthieu Busby MD Scribe Attestation: Madhu Reese, scribed for Matthieu Busby MD on 10/24/18 at 1051. Scribe Documentation Reviewed: Yes Provider Attestation: The documentation as recorded by the Madhu solo accurately reflects the service I personally performed and the decisions made by me, Matthieu Busby MD Status of Scribe Document: Viewed Consult Consult: At 15:[address] Vigil, hospitalist, who wanted MRIs first before admission. At 18:[address] Sifuentes, hospitalist, who accepted the patient for admission.
[2018-10-23] MEDS ORDERED: Morphine 4 MG/ML VIAL (1 ml) 4 MG/ML VIAL IV ONE (13:12)
[2018-10-23] MEDS ORDERED: NS 0.9% 1000 ML** 1,000 ML IV ONE (13:12)
[2018-10-23] MEDS ORDERED: Metoclopramide IV* 5 MG/ML 2 ML VIAL IV ONE (13:12)
[2018-10-23 14:22] LABS: ABS Eosinophils 0.4 10^3/ul (0-0.6); ABS Lymphocytes 1.5 10^3/ul (1.0-4.8); ABS Neutrophils 5.1 10^3/ul (1.5-7.7); Eosinophil % 5.3 %; Hematocrit 38 % (42-52); Mean Corpuscular HGB Conc 34 g/dL (31-36); Mean Corpuscular Hemoglobin 31 pg (27-31); Mean Corpuscular Volume 91 fL (80-94); Mean Platelet Volume 6.3 fL (7.4-10.4); Nucleated Red Blood Cells % 0.1; Platelet Count 223 10^3/uL (150-450); Red Blood Count 4.17 10^6 /uL (4.18-5.48); Red Cell Distribution Width 14 % (10-15); White Blood Count 8.1 10^3/uL (3.5-10.8)
[2018-10-23 14:37] LABS: Albumin 3.7 g/dL (3.2-5.2); Albumin/Globulin Ratio 1.2 (1-3); BUN/Creatinine Ratio 19.4 (8-20); Calcium 9.3 mg/dL (8.6-10.3); EGFR African American 129.8 (>60); EGFR Non-African American 107.3 (>60); Potassium 3.8 mmol/L (3.5-5.0); Total Bilirubin 1.6 mg/dL (0.2-1.0); Total Protein 6.7 g/dL (6.4-8.9)
[2018-10-23 17:06] LABS: Erythrocyte Sed Rate 28 mm/Hr (0-19)
[2018-10-23] MEDS ORDERED: Magnesium Hydroxide LIQ* 30 ML UDC PO PRN (19:30)
[2018-10-23] MEDS ORDERED: Acetaminophen TAB* 325 MG PO PRN (19:30)
[2018-10-23] MEDS ORDERED: Calcium Carbonate CHEW TAB* 500 MG (TUMS) PO PRN (19:30)
[2018-10-23] MEDS ORDERED: Morphine INJ* 2 MG/ML 1 ML SYRINGE (TWO MG - NEW SYRINGE VERSION) IV PRN (20:18)
[2018-10-23] MEDS ORDERED: Mirtazapine TAB* 15 MG PO SCH (21:00)
[2018-10-23] MEDS ORDERED: Atorvastatin* 40 MG TAB PO SCH (21:00)
[2018-10-23] MEDS: Metoprolol Tartrate TAB* 25 MG PO SCH (22:19)
--- NOTE | 2018-10-23 22:52 | HP ---
CC: Dr. Chapman * HISTORY AND PHYSICAL: DATE OF ADMISSION: 10/23/18. TIME OF ADMISSION: 8:00 p.m. CHIEF COMPLAINT: "Head pain." HISTORY OF PRESENT ILLNESS: This is a 72-year-old male with a history of CVA, who presents to the emergency department 5 days after a fall at [facility]. He was evaluated in the emergency department on 10/19/18 following the fall and had a CT head which was unremarkable, so he was discharged back to [facility]. He has complained of head pain since that time and so he was sent back to the emergency department for further evaluation today and further imaging including a CT C-spine, L-spine and T-spine; showed C1, C2, and T2 fractures. Dr. Naranjo was consulted and recommended admission for an observation stay. Mr. Chamorro himself has difficulty recalling the events of the past week. His , Gini is in the room and helps him explain the fall. She explains that he was sitting in a chair and had his call durant at his left hand; however, he also had a call durant across the room and he reached across the room and was trying to use the call durant across the room and fell onto the floor from the chair. He does not recall what he fell on or hit his head on. He currently has no pain either in his head or his neck. His reports that this is somewhat unusual for him to not be able to explain the events from 5 days ago and even for him to have tried to reach the call durant across the room when he had one with him was a little unusual for him and she wonders if he is disoriented for another reason. PAST MEDICAL HISTORY: Depression requiring ECT in the past, left MCA infarct in September 2017, status post tPA and embolectomy, tardive dyskinesia, history of spine fractures in 2012, GERD, headache, hypertension, and BPH. HOME MEDICATIONS: 1. Tylenol 650 q.4 p.r.n. pain. 2. Alfuzosin 10 mg daily. 3. Aspirin 81 mg daily. 4. Atorvastatin 40 mg q.h.s. 5. Tums 500 mg q.4 p.r.n. indigestion. 6. Lexapro 40 mg daily. 7. Milk of magnesia 30 mg daily p.r.n. constipation. 8. Ritalin 5 mg daily. 9. Lopressor 12.5 mg b.i.d. 10. Mirtazapine 30 mg q.h.s. 11. Protonix 20 mg daily. 12. MiraLAX 17 g daily. 13. Glycerin suppository q.72 hours p.r.n. constipation. 14. Sodium phosphate enema daily p.r.n. constipation. FAMILY HISTORY: Noncontributory. SOCIAL HISTORY: He currently lives at [facility]. 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 His healthcare proxy is his , Gini. REVIEW OF SYSTEMS: He denies chest pain, shortness of breath, cough, sore throat, runny nose, abdominal pain, nausea, vomiting or diarrhea. He does endorse some constipation. PHYSICAL EXAMINATION GENERAL: Alert, well-appearing elderly man in no distress, visiting with his at the bedside. VITAL SIGNS: Temperature 97.4, heart rate 85, respiratory rate 16, pulse ox 95 % on room air, blood pressure 137/85. HEENT: Pupils are 2 mm bilaterally and reactive to light. No nystagmus. Oral mucosa is moist. No pharyngeal exudates or erythema. NECK: [place] J-collar is in place. CHEST: He is in a regular rate and rhythm. He has an event monitor palpable on the left chest wall. LUNGS: His lungs are clear bilaterally. ABDOMEN: Soft, nontender, and nondistended. No guarding or rebound. Garcia sign is negative. Bowel sounds are normoactive. EXTREMITIES: No edema or rashes. He has a 2 cm superficial healing ulcer on the right posterior heel. NEUROLOGIC: He is oriented to person and place, but not to situation. He cannot remember why he is in the hospital. His strength is 5/5 on his left side and 4/5 on his right side, 3/5 in his right wrist. His sensation is intact. He is able to name objects appropriately. He has an occasional tremor that he is able to resolve when he relaxes. DIAGNOSTIC STUDIES/LAB DATA: White blood cell 8.1, hemoglobin 13.0, platelets 223,000. Sodium 135, potassium 3.8, chloride 102, bicarb 25, creatinine 0.72, glucose 100, calcium 9.3, total bilirubin 1.6, alk phos 150. Imaging: A lumbar spine MRI shows compression fracture at L1 of 50%, vertebral plane of L2; at L2, there is retropulsion of the posterior fragment with moderate degree of spinal stenosis at this level, minimal retropulsion is noted at the superior aspect of L1, no evidence of bone marrow edema is noted. Cervical spine MRI: Bone marrow edema in C2 vertebra. This was consistent with recent fracture, C1 fracture difficult to visualize. No spinal stenosis at C1 and C2. Compression fracture of C2 with mild edema, minimal retropulsion is noted, flattening of the thecal sac and abutting the spinal cord without spinal stenosis, soft tissue edema is noted superficial to the spinous process of T2 and T3. Thoracic spine CT: There is compression fracture of T2 which appears to be relatively recent with surrounding edema. This is new since March 2018. Minimal retropulsion of the small fragment into the thecal sac is noted; however , no spinal stenosis is noted. Lumbar spine CT: Compression fracture of L1 and L2 with vertebral plane at L2 with inferior retropulsed fragments resulting in moderate spinal stenosis at this level, approximately 50% compression of L1 is noted with ankylosis of T12 on L1. Overall appearance appeared to be similar to [address] , C1, C2, and T2 fracture as the fractures are new compared with 04/03/18 exam. ASSESSMENT AND PLAN: This is a 72-year-old man with a history of cerebrovascular accident and right hemiparesis who presents to the emergency department 5 days after a fall and was found to have a C1, C2, and T2 fractures. 1. Acute C1, C2, T2 fractures. Dr. Naranjo was consulted and recommended a [place] J-collar. This has been achieved. I will keep him on bedrest for now, order PT for tomorrow and I suspect Dr. Naranjo will want repeat films in the morning with standing. Dr. Naranjo is recommending standing x-rays in the morning. He received morphine IV in the emergency department with good effect. I will make this available to him for pain control. 2. L1 and L2 compression fractures. These are chronic in appearance on the imaging. He has no pain there at this time. These recurrent fractures do raise the question of an underlying osteoporosis and his PCP may consider bone density imaging at some point. 3. Elevated alkaline phosphatase. I note that his alk phos has been mildly elevated since March 2018. The etiology of this is unclear at this time and again in the setting of repeat fractures, this may be significant. I will check a GGT to further work this up. 4. History of cerebrovascular accident. He is still undergoing PT at [facility] and has demonstrated significant improvement. Continue aspirin and statin. 5. History of benign prostatic hypertrophy. Continue Alfuzosin. 6. Depression. Continue mirtazapine and Lexapro. 7. DVT prophylaxis: Lovenox. 8. Disposition: OBV admission with the neurosurgery consult. 9. Code status: Full code. [id number]/[facility] #: [id number] MTDD
[2018-10-24 00:55] LABS: Urine Appearance Clear; Urine Bilirubin Negative (Negative); Urine Blood Negative (Negative); Urine Color Yellow; Urine Glucose Negative (Negative); Urine Ketones Negative (Negative); Urine Nitrite Negative (Negative); Urine Protein Negative (Negative); Urine Specific Gravity 1.013 (1.010-1.030); Urine Urobilinogen Negative (Negative)
--- NOTE | 2018-10-24 05:00 | CONS ---
CONSULTATION NOTE: DATE OF CONSULT: 10/23/18 HISTORY OF PRESENT ILLNESS: The patient is a very pleasant 72-year-old gentleman with a history of previous left parietal stroke with left hemiparesis , who was reported to have sustained a fall. The patient is a [facility] resident, as his mental status and his ability to ambulate has declined since his cerebrovascular accident. The patient was evaluated in the emergency room a few days ago and a CT scan of the brain did not reveal any acute abnormalities. Because of onset of severe headache and neck pain, the patient was brought to the emergency room and CT scan of the cervical spine revealed C1 anterior ring fracture with C2 type 2 fracture with left lateral mass fracture, as well as a T2 fracture. I was requested to see the patient by Dr. Busby in the emergency room because of the above findings. The patient's mental status does not allow for accurate history. History was obtained from his at the bedside and the patient's chart. The patient was reported to have sustained a fall in the correction. The patient had several episodes of falling from sitting position as his reported. The patient is not ambulatory. The patient has baseline right hemiparesis. Unknown if the patient has a history of incontinence. PAST MEDICAL HISTORY: Hypertension, GERD, enlarged prostate, osteoporosis, CVA , depression. The patient reports he has a history a previous lumbar fracture from 2009. PAST SURGICAL HISTORY: Hernia repair, toe amputations, tonsillectomy, appendectomy, cataract surgery, loop recorder implanted and then removed. HOME MEDICATIONS: The patient was on beta-blockers and glycerin suppositories. ALLERGIES: No known drug allergies. FAMILY HISTORY: Noncontributory. SOCIAL HISTORY: Tobacco: Negative. Alcohol: Negative. Recreational drug use : Negative. The patient is . The patient has been in the correction and his daughter, Halina, is one of the hospitalist PAs. PHYSICAL EXAM: The patient is not in any acute distress. He is awake, alert, oriented x1 to 2. His pupils are equal and reactive. Cranial nerves II through XII are grossly intact. Motor 4 to 5/5 on the left upper and left lower extremity, 4 to 4-/5 on the right upper and right lower extremity. The patient has significant spasticity with decreased range of motion possibly related to his previous CVA. Sensory grossly intact to light touch. Deep tendon reflexes +1 on the left side, +2 on the right side. Babinski positive bilaterally. Clonus positive on the right. The patient has no tenderness to palpation of thoracic or lumbar spine. He is in a [place] J collar. DIAGNOSTIC STUDIES: The patient had a CT scan of the brain that reveals chronic findings of a left parietal CVA that was present on previous imaging. The patient had a CT scan of the cervical spine that revealed a left anterior ring C1 fracture with C2 type 2 odontoid fracture as well as a fracture of of the left lateral mass of C2. The patient has also a T2 anterior compression fracture, chronic in appearance. CT of the thoracic spine reveals the T2 anterior compression fracture. CT of the lumbar spine reveals some possible chronic L1 and L2 compression fractures with bulge in the canal. MRI of the cervical spine reveals again diffuse fractures of C1 and C2. While the T2 fracture has no significant vertebral body edema, but there is some increased diffuse signal change between the spinous process of T2 and T3. MRI of the lumbar spine reveals degenerative disk disease with significant level of spinal stenosis, but without evidence of increased diffuse signal changes. ASSESSMENT: The patient is a very pleasant 72-year-old male reported to have sustained a fall with a diagnosis of C1 anterior ring fracture, C2 odontoid type 2 fracture and lateral mass fracture and T2 chronic burst fracture and chronic L1 and L2 fractures. PLAN: The patient at this point is doing quite well. He has tolerated [place] J quite well. Based on his imaging and his age and his comorbidities, I think conservative treatment would be the best option. Discussed with him and with the patient's and patient's daughter regarding the imaging findings. At this point, we would prefer to proceed with conservative treatment with a [place] J collar for at least 3 months. I will be happy to see the patient in approximately 2 weeks with a new x-ray of his cervical spine, as follow up of his recent C1 and C2 fractures. We will be happy to observe the patient in the hospital, slowly mobilize him out of bed with the [place] J collar and obtain upright standing/siting AP and lateral cervical spine x-rays, to confirm that the fracture is nondisplaced in the upright position. Thank you for allowing us to participate in the care of this patient. Please do not hesitate to contact our office in case you have any further questions or concerns regarding the care of this patient. [id number]/[facility] #: [id number] [facility] CENTERMelinda
[2018-10-24] MEDS ORDERED: Aspirin EC TAB* 81 MG TAB.EC PO SCH (09:00)
[2018-10-24] MEDS ORDERED: Methylphenidate TAB* 5 MG PO SCH (09:00)
[2018-10-24] MEDS ORDERED: Escitalopram * 20 MG TABLET PO SCH (09:00)
[2018-10-24] MEDS ORDERED: CMCS:Alfuzosin ER (NF) 10 MG TAB.ER PO SCH (09:00)
[2018-10-24] MEDS ORDERED: Enoxaparin(*) 40 MG/0.4 ML SYR SUBCUT SCH (09:00)
[2018-10-24] MEDS ORDERED: Polyethylene Glycol 3350* 17 GM PACKET PO SCH (09:00)
[2018-10-24] MEDS ORDERED: Pantoprazole TAB * 40 MG TAB PO SCH (09:00)
[2018-10-24] MEDS: Metoprolol Tartrate TAB* 25 MG PO SCH (09:26)
[2018-10-24 12:13] VITALS: BP 137/61
--- NOTE | 2018-10-24 12:22 | PN ---
Progress Note - Progress Note Date of Service: 10/24/18 Note: Patient is feeling better this morning after getting [place] J collar. Neurosurgery recommends sitting up right cervical X rays in collar AP/ Lateral view include T3. Patient should work with PT/OT, will follow up imaging, if stable patient will be cleared from neurosurgery standpoint.
--- NOTE | 2018-10-24 14:32 | DS ---
CC: Dr. Henry Patrick; Dr. Keke Chapman * DISCHARGE SUMMARY: DATE OF ADMISSION: 10/23/18 DATE OF DISCHARGE: 10/24/18 PRIMARY CARE PROVIDER: Reportedly, Dr. Henry Patrick (formerly had been Dr. Keke Chapman). ADMITTING PROVIDER: Nadia Covarrubias DO. ATTENDING PHYSICIAN ON DAY OF DISCHARGE: Frederick Sifuentes MD. CONSULTING NEUROSURGEON: Dr. Luis Felipe Naranjo. CHIEF COMPLAINT: Neck pain and recent fall. PRINCIPAL DIAGNOSES: 1. Acute C1 and C2 fractures. 2. T2 fracture that seems older, but more recent than March 2018. HISTORY OF PRESENT ILLNESS AND HOSPITAL COURSE: Pino Chamorro is a 72-year-old male with past medical history of left MCA infarct (September 2018, status post tPA and embolectomy), tardive dyskinesia, depression, requiring ECT, spine fractures in 2012, GERD, hypertension, BPH, headache. Please see H and P of Dr. Nadia Covarrubias for full details, but briefly, the patient, who is a poor historian in terms of times and memory and additional history was provided to admitting provider by his , had a fall at [facility] about 5 days prior to admission. He was evaluated in the emergency room on 10/19/18, had a CT of his head which was unremarkable, was discharged back, but later complained of head pain. On admission, he had CT of his thoracic, lumbar, and cervical spines, which showed new C1 and C2 fractures, and a T2 fracture, which Dr. Naranjo describes as likely older, but still was not present on last imaging. Dr. Naranjo talked to the patient and recommended nonsurgical management with a [place] J-collar, 24 hours, 7 days a week, for at least 3 months and to follow up with him as an outpatient. He was admitted to confirm stability of the fracture with standing x-ray, posterior and lateral. Notably, while usually walking with a walker, for the last 3 to 4 weeks he says he has been essentially a Simeon lift due to increased weakness. On the day of discharge he did get upright sitting x-rays, which showed stable alignment of the cervical region. He was otherwise without complaint. Denied any signs of urinary or bowel incontinence or numbness or tingling. IMAGING: Lumbar spine MRI showed compression fracture at L1 of 50%; vertebral plane of L2 at L2, there is a retropulsion of the posterior fragment with moderate degree of spinal stenosis at this level, minimal retropulsion is noted at the superior aspect of L1, no evidence of bone marrow edema is noted. Cervical spine MRI: Bone marrow edema at C2 vertebra. This was consistent with recent fracture, C1 fracture difficult to visualize. No spinal stenosis at C1 and C2. Compression fracture of C2 with mild edema, minimal retropulsion is noted, flattening of the thecal sac and abutting of the spinal cord without spinal stenosis, soft tissue edema is noted superficially to the spinous process of T2 and T3. Thoracic spine CT: There is compression fracture of T2, which appears to be relatively recent with surrounding edema. This is new since March 2018. Minimal retropulsion of the small fragment into the thecal sac is noted; however , no spinal stenosis is noted. Lumbar spine CT: Compression fracture of L1 and L2 with vertebral plane at L2 with inferior retropulsed fragments resulting in moderate spinal stenosis at this level, approximately 50% compression of L1 is noted with ankylosis of T12 on L1. Overall appearance is similar to the [address] The C1, C2 , and T2 all fractures are new compared to 04/03/18 exam. His cervical spine x-ray impression was stable alignment of type II Dens fracture. The known C1 fracture from the CT of one day prior is radiographically occult. Thoracic spine x-ray showed T2 fracture, documentation on CT one day prior is not well visualized due to superimposed shoulders. Mild chronic appearing anterior column compression fracture at T9 noted. Normal thoracic spine alignment, diffuse degenerative spondylosis, unremarkable paraspinal soft tissue contours. DISCHARGE MEDICATIONS: (No change). 1. Acetaminophen 650 mg p.o. q.4 hours p.r.n. 2. Alfuzosin extended release 10 mg p.o. daily. 3. Aspirin 81 mg daily. 4. Atorvastatin 40 mg daily. 5. Calcium carbonate 500 mg p.o. q.4 hours p.r.n. 6. Lexapro 40 mg p.o. q.a.m. 7. Milk of magnesia 30 mL p.r.n. daily. 8. Ritalin 5 mg p.o. daily. 9. Metoprolol tartrate 12.5 mg p.o. b.i.d. 10. Remeron 30 mg p.o. daily. 11. Protonix 20 mg p.o. daily. 12. MiraLAX 17 g p.o. daily. 13. Glycerin suppository every 72 hours p.r.n. 14. Sodium phosphate enema 133 mL per rectum daily p.r.n. FOLLOWUP: The patient should follow up with his primary care provider or whoever the provider at [facility] is (?Dr. Henry Patrick). He should see Dr. Luis Felipe Naranjo within 2 weeks. He needs to keep his [place] J-collar on for at least 3 months. It is recommended that he get repeat, either standing or sitting, PA and lateral cervical x-rays prior to Dr. Naranjo' reevaluation. CONDITION: Guarded. DISPOSITION: [facility]. DIET: Heart healthy. TIME SPENT ON DISCHARGE: Thirty-five minutes. [id number]/CPS #: [id number] MTDD
== END 2018-10-24 18:15 ==
LOC: ED 12:43 → MED 19:22
PROVIDERS: ADMIT Internal Medicine; ATTEND Internal Medicine
DX: S12.090A Other displaced fracture of first cervical vertebra, initial encounter for closed fracture (principal); S12.100A Unspecified displaced fracture of second cervical vertebra, initial encounter for closed fracture; S22.028A Other fracture of second thoracic vertebra, initial encounter for closed fracture; M54.2 Cervicalgia; W10.9XXA Fall (on) (from) unspecified stairs and steps, initial encounter; Y92.129 Unspecified place in nursing home as the place of occurrence of the external cause; Z86.73 Personal history of transient ischemic attack (TIA), and cerebral infarction without residual deficits; Z79.82 Long term (current) use of aspirin; F32.9 Major depressive disorder, single episode, unspecified; K21.9 Gastro-esophageal reflux disease without esophagitis; R51 Headache; I10 Essential (primary) hypertension; N40.0 Benign prostatic hyperplasia without lower urinary tract symptoms; Z86.718 Personal history of other venous thrombosis and embolism; Z92.89 Personal history of other medical treatment; G24.01 Drug induced subacute dyskinesia; Z87.81 Personal history of (healed) traumatic fracture; Z79.899 Other long term (current) drug therapy; Z86.19 Personal history of other infectious and parasitic diseases
CPT/HCPCS: 36415; 72040; 72070; 72125; 72128; 72131; 72141; 72148; 80053; 81003; 82375; 82977; 85025; 85652; 96361; 96372; 96374; 96375; 99284; A9270-GY; G0378; G8978-GP-CM; G8979-GP-CL; J1650; J2270; J2765

== ENCOUNTER 2018-11-10 23:21 | Emergency (ER) | payer MEDICARE, BC, OTHER ==
--- OUTSIDE RECORDS SUMMARY | 2018-11-10 23:27 | XMS REPORT | Continuity of Care Document ---
:1945 External Reference #:[id number] Author Name Tara Heard Care Team Providers Name Role Phone Keke Chapman MD Primary Care Physician Unavailable Payers Date Identification Numbers Payment Provider Subscriber Effective: 2011 Policy Number: [id number] [employer] Gini Chamorro PayID: [id number] [address] [address] [place] [address] Policy Number: [id number] Medicare Pino Chamorro PayID: [id number] [address] [place] [address] Problems Active Problems Provider Date Mild cognitive disorder Kimberly Auguste M.D. Onset: 08/09/2015 Note: MoCA 07/28: , 06/28: Tardive dyskinesia Kimberly Auguste M.D. Onset: 08/09/2015 Note: attributed to previous antipsychotic medication Cervical disc disorder Kimberly Auguste M.D. Onset: 02/20/2017 Note: impingement C4-5, with no intrinsic cord signal change (MRI 2010) H/O: depression Kimberly Auguste M.D. Onset: 02/20/2017 Note: requiring ECT H/O: anxiety state Kimberly Auguste M.D. Onset: 02/20/2017 Magnetic resonance imaging of brain abnormal Kimberly Auguste M.D. Onset: 02/20 Note: Periventricular and subcortical SVID (and questioned frontal lobe atrophy in direct review) - Document: 10/12/12 - MRI Brain W/O Ischemic stroke Kimberly Auguste M.D. Onset: 09/18/2017 Note: 05/18/18 - Rec.Release-[facility] - reviewed - 09/18/17 MCA embolectomy after TPA with T1C1 2B recanalization. No cardioembolic source on Echo or telemetry. Brief SVT run in ICU. Loop recorder as outpatient recommended. Large Left MCA ischemic infarct involving temporal, frontal, parieta, insula and basal ganglion (as well as chronic small vessel ischemic disease and volume loss on MRI) Transient cerebral ischemia Kimberly Auguste M.D. Onset: 04/03/2018 Note: dysarthria and left sided weakness (MRI negative for new ischemia. EEG with left > right hemispheric slowing) Family History Date Family Member(s) Observation Comments General Heart Disease Social History Type Date Description Comments Sex Unknown Lives With Spouse Occupation Retired Hand Dominance Left-handed Tobacco Use Start: Unknown Never Smoked Cigarettes Smoking Status Reviewed: 11/04/18 Never Smoked Cigarettes ETOH Use Drinks 1 Alcoholic Beverage Per Day Tobacco Use Start: Unknown Patient has never smoked Recreational Drug Use Denies Drug Use Exercise Type/Frequency Exercises regularly Allergies, Adverse Reactions, Alerts Active Allergies Reaction Severity Comments Date Milk 11/14/2017 Tomato Allergenic Extract 11/14/2017 Inactive Allergies NKDA 10/07/2012 Medications Active Medications SIG Qnty Indications Ordering Date Provider Milk Of Magnesia as needed Kimberly Auguste, 06/05/2018 M.DZara 1200mg/15ML Suspension Glycerin Adult as needed for Unknown 2gm constipation if no Suppository BM after taking Mom Enema Disposable as needed for Unknown Enema constipation Multi Vitamin And Unknown Minerals Tablets Mirtazapine 1 tab by mouth at Unknown 30mg Tablets bedtime Escitalopram Oxalate 1 by mouth every Unknown 20mg day Tablets Acetaminophen 2 tablets by mouth Unknown 325mg every 4 hours as Tablets needed for pain/fever Miralax 1 by mouth every Unknown [id number] Powder day friday, fri, and friday Metoprolol Tartrate 1/2 by mouth twice Unknown 25mg a day Tablets Pantoprazole Sodium 1 by mouth every 90tabs Unknown 20mg day Tablets DR Tums 1 or 2 chewtabs by Unknown 500mg Chewtabs mouth as needed, indigestion Docusate Sodium 1 tab every 12 Unknown 100mg hours as needed for Capsules constipation Atorvastatin Calcium 1 by mouth every Unknown 40mg day Tablets Methylphenidate HCL 1 tablet by mouth Unknown 5mg twice a day as Tablets needed Aspir-Low 1 by mouth every Unknown 81mg Tablets DR day Alfuzosin HCL ER 1 po q day am Unknown 10mg Tablets ER 24HR Trazodone HCL 2 tablet at bedtime Unknown 50mg as needed Tablets Stool Softener 1 po bid Unknown 100mg Capsules History Medications Medrol Dosepak follow package 1tanolan Irving 07/02/2010 - 4mg Tablets directions Giselle Troncoso 10/07/2012 take with food Neurontin 1 po tid 90caps Axel Irving 05/28/2010 - 300mg Capsules Giselle Troncoso 10/07/2012 Escitalopram Oxalate 1 by mouth every Unknown - 10mg Tablets day 08/13/2018 Clopidogrel Bisulfate 1 by mouth every Unknown - 75mg Tablets day 08/12/2018 Lexapro 1 by mouth every Unknown - 15mg Tablets day 05/05/2018 Ketoconazole apply topically to Unknown - 2% Shampoo scalp, behind ears 05/05/2018 and neck daily, rinse well and pat dry Ativan take 1 pill every Unknown - 0.5mg Tablets 12 hours as needed 05/05/2018 for seizures Omeprazole 1 by mouth every Unknown - 20mg Capsules DR day 05/05/2018 Reclast every year Unknown - 5mg/100ML Solution 11/13/2017 Ibuprofen as needed Unknown - 200mg Tablets 05/05/2018 Mirtazapine take 1 tablet by Unknown - 15mg Tablets mouth before 08/13/2018 bedtime for depression Esomeprazole Sodium 1 by mouth every Unknown - 40mg Solution day 11/18/2017 Rec Venlafaxine HCL 1 by mouth every Unknown - 75mg Tablets day 02/19/2017 Cortef 1 tab po bid Unknown - 10mg Tablets 08/08/2015 Hydrochlorothiazide 1 po qd Unknown - 12.5mg Tablets 08/08/2015 HCTZ/Triamterene 1 po qd Unknown - 37.5-25mg Tablets 11/26/2012 Nortriptyline HCL 5 po qday Unknown - 25mg Capsules 08/08/[address] 1 po qd Unknown - 0 04/26/2013 Avodart 1 po qd Unknown - 0.5mg Capsules 08/08/2015 Calcium 1200 1 po qd Unknown - [id number] 06/17/2016 Chewtabs Fish Oil Burp-Less po qday Unknown - 1000mg Capsules 08/08/2015 Medications Administered in Office Medication SIG Qnty Indications Ordering Provider Date Depomedrol 40MG JOSE LUIS Edmondson 11/19/2017 Injection Depomedrol 80MG Kimberly Liao M.D. 03/25/2013 Injection Vital Signs Date Vital Result Comment 11/04/2018 1:36pm Height 66 inches 5'6" Weight 172.00 lb Heart Rate 64 /min BP Systolic Sitting 126 mmHg BP Diastolic Sitting 86 mmHg Pain Level 5 BMI (Body Mass Index) 27.8 kg/m2 09/11/2018 3:33pm Height 66 inches 5'6" Weight 172.00 lb Heart Rate 76 /min BP Systolic Sitting 110 mmHg BP Diastolic Sitting 70 mmHg Respiratory Rate 16 /min BMI (Body Mass Index) 27.8 kg/m2 09/02/2018 11:10am Height 66 inches 5'6" Weight 172.00 lb with shoes Heart Rate 62 /min BP Systolic Sitting 120 mmHg lue reg cuff BP Diastolic Sitting 68 mmHg lue reg cuff BMI (Body Mass Index) 27.8 kg/m2 08/13/2018 2:36pm Height 66 inches 5'6" Weight 159.38 lb Heart Rate 68 /min BP Systolic 134 mmHg from facility BP Diastolic 74 mmHg from facility BP Systolic Sitting 118 mmHg reg cuff left upper ext BP Diastolic Sitting 67 mmHg reg cuff left upper ext Respiratory Rate 12 /min Pain Level 0 BMI (Body Mass Index) 25.7 kg/m2 06/05/2018 3:17pm Height 66 inches 5'6" Heart Rate 70 /min BP Systolic Sitting 120 mmHg BP Diastolic Sitting 80 mmHg Respiratory Rate 16 /min 12/24/2017 1:44pm Weight 152.06 lb Heart Rate 76 /min BP Systolic 110 mmHg BP Diastolic 76 mmHg Respiratory Rate 20 /min Body Temperature 98.0 F 12/03/2017 11:28am Heart Rate 60 /min BP Systolic 116 mmHg BP Diastolic 78 mmHg Respiratory Rate 12 /min Pain Level 0 11/20/2017 2:23pm Weight 151.38 lb Heart Rate 73 /min BP Systolic 130 mmHg BP Diastolic 74 mmHg Respiratory Rate 18 /min O2 % BldC Oximetry 97 % 11/19/2017 11:07am Height 66 inches 5'6" Weight 175.00 lb Heart Rate 100 /min BP Systolic Sitting 108 mmHg BP Diastolic Sitting 80 mmHg Body Temperature 98.4 F Pain Level 2 BMI (Body Mass Index) 28.2 kg/m2 11/14/2017 9:02am Height 66 inches 5'6" Weight 175.00 lb Heart Rate 76 /min BP Systolic 120 mmHg BP Diastolic 86 mmHg BMI (Body Mass Index) 28.2 kg/m2 08/20/2017 10:37am Height 66 inches 5'6" Weight 176.12 lb Heart Rate 80 /min BP Systolic Sitting 132 mmHg BP Diastolic Sitting 80 mmHg Respiratory Rate 17 /min BMI (Body Mass Index) 28.4 kg/m2 02/20/2017 3:19pm Height 66 inches 5'6" Weight 175.50 lb Heart Rate 60 /min BP Systolic Sitting 130 mmHg BP Diastolic Sitting 74 mmHg Respiratory Rate 16 /min BMI (Body Mass Index) 28.3 kg/m2 06/17/2016 11:04am Height 66 inches 5'6" Weight 176.00 lb Heart Rate 80 /min BP Systolic Sitting 138 mmHg BP Diastolic Sitting 80 mmHg Respiratory Rate 14 /min BMI (Body Mass Index) 28.4 kg/m2 08/09/2015 9:17am Height 66 inches 5'6" Weight 166.00 lb Heart Rate 68 /min BP Systolic Sitting 120 mmHg BP Diastolic Sitting 82 mmHg Respiratory Rate 14 /min BMI (Body Mass Index) 26.8 kg/m2 11/26/2012 2:07pm Height 66 inches 5'6" Weight 182.00 lb Heart Rate 86 /min BP Systolic Sitting 124 mmHg BP Diastolic Sitting 76 mmHg Respiratory Rate 20 /min BMI (Body Mass Index) 29.4 kg/m2 10/07/2012 11:22am Height 66 inches 5'6" Weight 175.00 lb Heart Rate 112 /min BP Systolic Sitting 132 mmHg BP Diastolic Sitting 84 mmHg Respiratory Rate 16 /min BMI (Body Mass Index) 28.2 kg/m2 07/26/2010 3:26pm Height 69 inches 5'9" Weight 162.00 lb Heart Rate 109 /min BP Systolic 143 mmHg BP Diastolic 88 mmHg BMI (Body Mass Index) 23.9 kg/m2 Results Test Date Facility Test Result H/L Range Note Laboratory test 07/27/2012 [facility] [place] 0.5 mmol/L 0.5- 1.5 finding [address] [place] [address] [phone] Basic Metabolic 07/27/2012 [facility] Sodium 137 mmol/L 133- 145 Panel [address] [place] [address] [phone] Potassium 4.7 mmol/L 3.5-5.0 Chloride 103 mmol/L 101-111 Co2 Carbon Dioxide 28.0 mmol/L 22-32 Anion Gap 6.0 mmol/L 2-11 Glucose 104 mg/dL High 70-100 Blood Urea Nitrogen 11 mg/dL 6-24 Creatinine 1.00 mg/dL 0.50-1.40 BUN/Creatinine Ratio 11.0 8-20 Calcium 9.8 mg/dL 8.1-9.9 Egfr Non- 74.8 >60 Egfr 96.1 >60 1 Laboratory test 07/27/2012 [facility] Creatine Kinase 38 U/L 0-200 finding [address] [place] [address] [phone] Vitamin B12 324 pg/mL 180-914 1 Because ethnic data is not always readily available, this report includes an eGFR for both -Americans and non- Americans. The National Kidney Disease Education Program (NKDEP) does not endorse the use of the MDRD equation for patients that are not between the ages of 18 and 70, are , have extremes of body size, muscle mass, or nutritional status, or are non- or non-. According to the National Kidney Foundation, irrespective of diagnosis, the stage of the disease is based on the level of kidney function: Stage Description GFR(mL/min/1.73 m(2)) 1 Kidney damage with normal or decreased GFR 90 2 Kidney damage with mild decrease in GFR 60-89 3 Moderate decrease in GFR 30-59 4 Severe decrease in GFR 15-29 5 Kidney failure <15 (or dialysis) Procedures Date Code Description Status 08/26/2018 82597 Insertion, Subcutaneous Cardiac Rhythm Monitor Completed 08/13/2018 32611 EKG Tracing & Interpretation Completed 04/04/2018 79518 EKG, Interpretation Only Completed 04/03/2018 18112 EEG Recording Awake & Drowsy Completed 11/19/2017 76512 Inject/Drain Joint/Bursa Intermediate W/O US Completed 10/25/2014 38012 EKG, Interpretation Only Completed 09/07/2014 45620 EKG, Interpretation Only Completed 12/20/2013 46645 EKG, Interpretation Only Completed 03/25/2013 73675 Rad Exam; Hip Unilat Comp Completed 03/25/2013 81766 Rad Exam; Hip Unilat Completed 03/25/2013 95086 Rad Exam; Pelvis Completed 03/25/201343944 Inject/Drain Joint/Bursa Major W/O US Completed 03/25/201362975 Injection Single Tendon Origin/Insertion Completed 07/23/2010 17051 ECHO Transthoracic, Real-Time 2D With Doppler And Color Completed Flow 07/05/2010 33200 Holter Monitoring 24 HR New Completed Encounters Type Date Location Provider Dx Diagnosis Office Visit 11/04/2018 Neurosurgery Dede Apodaca, S12.9xxA Fracture of 2:00p Services Of Krupa CARRANZA neck, unspecified, initial encounter Office Visit 09/11/2018 [place] [facility] Kimberly Auguste I69.353 Hemiplga 3:30p Services Of Krupa Desai following cerebral infrc aff right nondom side M54.2 Cervicalgia M54.5 Low back pain Office Visit 09/02/2018 11:30a [facility] Reuben SZara I63.9 Cerebral Of Krupa Cesarno, DO infarction, FACC unspecified Office Visit 08/13/2018 3:00p [facility] Reuben Naik I69.353 Hemiplga Of [employer] [employer] Coach Burgess, DO following FACC cerebral infrc aff right nondom side Office Visit 06/05/2018 3:30p [place] [facility] Kimberly I69.353 Hemiplga Services Of Krupa Auguste M.D. following cerebral infrc aff right nondom side G31.84 Mild cognitive impairment, so stated Office Visit 04/05/2018 8:09a [facility] Indy Kelsy, G45.9 Transient Assoc,pc MIX CHEMIST cerebral ischemic Hospitalists attack, unspecified I69.351 Hemiplga following cerebral infrc aff right dominant side I69.322 Dysarthria following cerebral infarction Office Visit 04/04/2018 Neurohospitalist Honorio G45.9 Transient 7:00a Clinic MD Ludin cerebral ischemic attack, unspecified I69.322 Dysarthria following cerebral infarction I69.351 Hemiplga following cerebral infrc aff right dominant side Office Visit 04/03/2018 [facility] Indy Kelsy, R41.0 Disorientation, 8:03a Assoc,pc MIX CHEMIST unspecified Hospitalists R47.81 Slurred speech G45.9 Transient cerebral ischemic attack, unspecified I10 Essential (primary) hypertension Office Visit 04/03/2018 Neurohospitalist Curt Naik G45.9 Transient 7:00a Clinic Giselle Grigsby cerebral ischemic attack, unspecified I69.322 Dysarthria following cerebral infarction I69.351 Hemiplga following cerebral infrc aff right dominant side Office Visit 01/30/2018 10:30a [facility] Alyssa I69.353 Hemiplga MD Aga following cerebral infrc aff right nondom side F33.9 Major depressive disorder, recurrent, unspecified R25.1 Tremor, unspecified N40.0 Benign prostatic hyperplasia without lower urinry tract symp Office Visit 01/19/2018 8:45a [facility] Suzette Stewart F33.9 Major depressive MIX CHEMIST disorder, recurrent, unspecified M25.571 Pain in right ankle and joints of right foot Office Visit 12/24/2017 9:30a [facility] Jennifer Ochoa R25.1 Tremor, unspecified D.O. 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 wrist 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 F33.9 Major depressive disorder, recurrent, unspecified I69.322 Dysarthria following cerebral infarction N40.0 Benign prostatic hyperplasia without lower urinry tract symp Office Visit 11/19/2017 11:15a Orthopedic Smita Alejandraquinten, M25.531 Pain in Services Of C.M.A. 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 following cerebral infrc aff right nondom side G31.84 Mild cognitive impairment, so stated Office Visit 10/17/2017 8:00a [facility] Suzette Stewart, R45.851 Suicidal MIX CHEMIST ideations F33.9 Major depressive disorder, recurrent, unspecified I69.351 Hemiplga following cerebral infrc aff right dominant side I69.322 Dysarthria following cerebral infarction Office Visit 10/14/2017 9:15a [facility] Alyssa I69.351 Hemiplga MD Aga following cerebral infrc aff right dominant side I69.322 Dysarthria following cerebral infarction F33.9 Major depressive disorder, recurrent, unspecified N40.0 Benign prostatic hyperplasia without lower urinry tract symp Office Visit 09/18/2017 Neurohospitalist Curt Reese63.512 Cereb infrc 7:00a Letty Grigsby M.D. d/t unsp occls or stenos of left mid cereb art R29.723 Nihss score 23 I16.1 Hypertensive emergency Office Visit 08/20/2017 10:30a [facility] Kimberly Shepherdebenezer, G31.84 Mild cognitive Services Of Strength And Conditioning Coach M.D. impairment, so stated G24.01 Drug induced subacute dyskinesia F33.9 Major depressive disorder, recurrent, unspecified Office Visit 02/20/2017 2:45p [place] [facility] Kimberly De Pazethelebenezer, G31.84 Mild cognitive Services [facility] [employer]ing Coach M.D. impairment, so stated G24.01 Drug induced subacute dyskinesia I67.82 Cerebral ischemia Office Visit 06/17/2016 10:30a [place] [facility] Kimberly De Paznatalie, G31.84 Mild cognitive Services Of [facility] Conditioning Coach M.D. impairment, so stated Office Visit 08/09/2015 9:00a [place] [facility] Kimberly De Pazethelebenezer, G31.84 Mild cognitive Services Of St[facility] And Conditioning Coach M.D. impairment, so stated G24.01 Drug induced subacute dyskinesia I67.82 Cerebral ischemia Office Visit 04/26/2013 1:15p Orthopedic Kimberly Liao, 726.5 Enthesopathy Of Services Of M.DZara Hip Region C.M.A. Office Visit 03/25/2013 9:15a Orthopedic Kimberly Liao 726.5 Enthesopathy Of Services Of M.DZara Hip Region C.M.A. Office Visit 11/26/2012 2:00p [place] Marcio Harris 331.83 Mild Cognitive Services Of Krupa Giselle Auguste Impairment So Stated 437.1 Cerebrovascular Disease Ischemic Generalized Other Office Visit 10/07/2012 [place] Marcio Harris 799.59 Other Signs And 11:15a Services Of Krupa Auguste M.D. Symptoms Involving Cognition Office Visit 08/06/2012 Neurosurgery Zan Marquez 805.02 FX Second Cervical 3:00p Services Of Krupa Mehta M.D. Vertebra Closed W/O Spinal Cord Injury Office Visit 07/26/2010 Orthopedic Deyvi 722.10 Intervertebral Disc 3:30p Services Of Miah Sanchez M.D. Displacement Lumbar W/O Myelopathy Office Visit 07/11/2010 Neurosurgery Axel Irving 805.4 FX Lumbar Closed 3:00p Services Of Krupa Troncoso M.D. W/O Spinal Cord Injury Office Visit 07/02/2010 Neurosurgery Axel Irving 805.4 FX Lumbar Closed 3:00p Services Of Krupa Troncoso M.D. W/O Spinal Cord Injury Office Visit 05/28/2010 Neurosurgery Axel RivkaZara 805.4 FX Lumbar Closed 3:30p Services Of Krupa Troncoso M.D. W/O Spinal Cord Injury Office Visit 04/26/2010 Neurosurgery Axel RivkaZara 805.4 FX Lumbar Closed 2:30p Services Of Krupa Troncoso M.D. W/O Spinal Cord Injury Plan of Treatment Future Appointment(s):12/09/2018 9:30 am - TERE Nickerson at [facility]12/18/2018 2:30 pm - Kimberly Auguste M.D. at [place] [facility]11/04/2018 - PRACHI Nickerson12.9xxA Fracture of neck, unspecified, initial encounterFollow up:RTC 1 month with X rays
--- NOTE | 2018-11-10 23:46 | ED ---
Neurological HPI - HPI Summary HPI Summary: This patient is a 72 year old M presenting to [facility] by EMS accompanied by with a chief complaint of impaired speech since three days ago. Pts reported the he had a stroke last September. He has impaired speech after stoke, however it had improved. Pt fell out of bed a week ago and broke his neck. His saw him this morning and brought him to a [facility] and reports that he was very confused and was struggling to find words. The nurses at care home sent him to the ED. Patient reports tiredness and chest pain. Per triage, the patient rates the pain 2/10 in severity. Pt has taken a few falls at the care home. - History of Current Complaint Chief Complaint: EDAltMentalStatus Stated Complaint: AMS PER EMS Time Seen by Provider: 11/10/18 23:29 Hx Obtained From: Patient, Family/Financial Sales Manager Onset/Duration: Started days ago, Still Present Timing: Constant Pain Intensity: 2 Pain Scale Used: 0-10 Numeric Character: Impaired Speech Aggravating: Nothing Alleviating: Nothing Associated Signs and Symptoms: Positive: Impaired Speech, Chest Pain - Additional Pertinent History Primary Care Physician: LEOBARDO - Allergy/Home Medications Allergies/Adverse Reactions: Allergies Allergy/AdvReac Type Severity Reaction Status Date / Time No Known Allergies Allergy Verified 11/10/18 23:31 PMH/Surg Hx/FS Hx/Imm Hx Endocrine/Hematology History: Denies: Hx Anticoagulant Therapy, Hx Diabetes, Hx Thyroid Disease Cardiovascular History: Reports: Hx Hypertension Denies: Hx Congestive Heart Failure, Hx Pacemaker/ICD Respiratory History: Denies: Hx Asthma, Hx Chronic Obstructive Pulmonary Disease (COPD) GI History: Reports: Hx Gastroesophageal Reflux Disease Denies: Hx Ulcer History: Reports: Other Problems/Disorders - enlarged prostrate Denies: Hx Renal Disease Musculoskeletal History: Reports: Hx Osteoporosis Denies: Hx Rheumatoid Arthritis Sensory History: Reports: Hx Contacts or Glasses Denies: Hx Hearing Aid Opthamlomology History: Reports: Hx Contacts or Glasses Neurological History: Reports: Hx CVA - 09/18/17, Hx Dementia, Other Neuro Impairments/Disorders - Hx COMPRESSION Fx'S 2009 Psychiatric History: Reports: Hx Depression Denies: Hx Eating Disorder, Hx Panic Disorder, Hx of Violent Episodes Against Others - Surgical History Surgery Procedure, Year, and Place: HERNIA REPAIRS; toe amputations; tonsils, appendix, cataracts, loop recorder implanted then removed Hx Anesthesia Reactions: No Infectious Disease History: No Infectious Disease History: Reports: Hx Shingles Denies: Hx Clostridium Difficile, Hx Hepatitis, Hx Human Immunodeficiency Virus (HIV), Hx of Known/Suspected MRSA, Hx Tuberculosis, Hx Known/Suspected VRE , Hx Known/Suspected VRSA, History Other Infectious Disease, Traveled Outside the [place] in Last 30 Days - Family History Known Family History: Negative: Renal Disease - Social History Lives: At [facility] Alcohol Use: None Alcohol Amount: 1 beer/day Hx Substance Use: No Substance Use Type: Reports: None Hx Tobacco Use: No Smoking Status (MU): Never Smoked Tobacco Have You Smoked in the Last Year: No Review of Systems Positive: Fatigue Positive: Chest Pain Positive: Slurred Speech All Other Systems Reviewed And Are Negative: Yes Physical Exam - Summary Physical Exam Summary: VITAL SIGNS: Reviewed. GENERAL: Patient is a sleepy, well-developed and nourished male who is lying comfortable in the stretcher. Patient is not in any acute respiratory distress. HEAD AND FACE: No signs of trauma. No ecchymosis, hematomas or skull depressions. No sinus tenderness. EYES: PERRLA, EOMI x 2, No injected conjunctiva, no nystagmus. EARS: Hearing grossly intact. Ear canals and tympanic membranes are within normal limits. MOUTH: Oropharynx within normal limits. NECK: Groveton j collar on neck CHEST: Symmetric, no tenderness at palpation LUNGS: Decreased breath sounds bilateral. No wheezing or crackles. CVS: Regular rate and rhythm, S1 and S2 present, no murmurs or gallops appreciated. ABDOMEN: Soft, non-tender. No signs of distention. No rebound no guarding, and no masses palpated. Bowel sounds are normal. EXTREMITIES: FROM in all major joints, no edema, no cyanosis or clubbing. NEURO: Alert and oriented x 3. Right hemiplegia which is old. SKIN: Dry and warm Triage Information Reviewed: Yes Vital Signs On Initial Exam: Initial Vitals Temp Pulse Resp BP Pulse Ox 99.8 F 75 20 122/76 95 11/10/18 23:27 11/10/18 23:27 11/10/18 23:27 11/10/18 23:27 11/10/18 23:27 Vital Signs Reviewed: Yes Diagnostics - Vital Signs Vital Signs Temp Pulse Resp BP Pulse Ox 07/30/19 23:27 99.8 F 75 20 122/76 95 - Laboratory Result Diagrams: 11/11/18 00:06 11/11/18 00:06 Lab Statement: Any lab studies that have been ordered have been reviewed, and results considered in the medical decision making process. - Radiology CXR Radiology Interpretation Completed By: ED Physician Summary of Radiographic Findings: CXR reveals bilateral increased markings no different then filtrate. ED physician has reviewed this radiology report. Pending official radiology report. - CT Brain CT CT Interpretation Completed By: Radiologist Summary of CT Findings: Brain CT reveals, per radiologist, IMPRESSION: 1. There is stable age-related diffuse cerebral volume loss and chronic. microvascular ischemic disease. Stable encephalomalacia of the left parietal. lobe consistent with chronic infarct. 2. No acute intracranial pathology. ED physician has reviewed this radiology report. Chest/Thorax CTA CT Interpretation Completed By: Radiologist Summary of CT Findings: Chest/Thorax CTA reveals, per radiologist, IMPRESSION: No visible acute pulmonary embolism. ED physician has reviewed this radiology report. - EKG 0555 Cardiac Rate: NL EKG Rhythm: Sinus Rhythm Summary of EKG Findings: EKG at 0555 reveals sinus rhythm 76 bpm, Normal axis. Normal interval. No ischemic changes Re-Evaluation - Re-Evaluation Second Eval Re-Evaluation Time: 03:43 Comment: Discussed labs and imaging with patient's , who believes these changes are due to changing the dosage of lexapro from 20mg to 40 mg. Course/Dx - Course Course Of Treatment: This patient is a 72 year old M presenting to [facility] by EMS accompanied by with a chief complaint of impaired speech since three days ago. Pts reported the he had a stroke last September. He has impaired speech after stoke, however it had improved. Pt fell out of bed a week ago and broke his neck. His saw him this morning and brought him to a [facility] and reports that he was very confused and was struggling to find words. The nurses at care home sent him to the ED. Patient reports tiredness and chest pain. Per triage, the patient rates the pain 2/10 in severity. Pt has a loop recorder. Pt has taken a few falls at the care home. Physical Exam Findings are an old right hemiplegia, Groveton j collar on neck. Pt is sleepy and alert oriented x3, and has decreased breath sounds bilateral. Blood work obtained. Hgb is 13.9, MPV is 6.3, INR is 1.15, APTT is 39.2, Glucose is 107, Total Bilirubin is 1.10, AST is 46, ALT is 119, Alkaline Phosphatase is 188. UA obtained. EKG at 0555 reveals sinus rhythm 76 bpm, Normal axis. Normal interval. No ischemic changes. Brain CT reveals, per radiologist, IMPRESSION: 1. There is stable age- related diffuse cerebral volume loss and chronic. microvascular ischemic disease. Stable encephalomalacia of the left parietal. lobe consistent with chronic infarct. 2. No acute intracranial pathology. CXR reveals, per radiologist, bilateral increased markings no different then filtrate. Chest/ Thorax CTA reveals, per radiologist, IMPRESSION: No visible acute pulmonary embolism. In the ED course the patient was given morphine and fluids. We recommend to decrease the dose of Lexapro from 40 mg to 20 mg. Patient will be discharged with follow up from PCP. The patient is agreeable with this plan. - Diagnoses Provider Diagnoses: Weakness Discharge - Sign-Out/Discharge Documenting (check all that apply): Patient Departure - Discharge Patient Received Moderate/Deep Sedation with Procedure: No - Discharge Plan Condition: Stable Disposition: HOME Patient Education Materials: Weakness (ED) Referrals: Henry Patrick MD [Primary Care Provider] - 3 Days Additional Instructions: We recommend decreasing the dose of lexapro from 40 mg back down to 20 mg. PLEASE RETURN TO THE ED IMMEDIATELY FOR WORSENING OR CONCERNING SYMPTOMS. FOLLOW UP WITH PRIMARY CARE PHYSICIAN WITHIN 3 DAYS. - Attestation Statements Document Initiated by Griseldae: Yes Documenting Scribe: Priyanka Osuna Provider For Whom Lev is Documenting (Include Credential): Dr. Betsy Khan MD Scribe Attestation: Priyanka Reese scribed for Dr. Betsy Khan MD on 11/11/18 at 0358. Status of Scribe Document: Ready
[2018-11-10] MEDS ORDERED: NS 0.9% 1000 ML** 1,000 ML IV ONE (23:54)
[2018-11-11] MEDS ORDERED: Morphine 4 MG/ML VIAL (1 ml) 4 MG/ML VIAL IV ONE (00:06)
[2018-11-11 00:25] LABS: ABS Eosinophils 0.5 10^3/ul (0-0.6); ABS Lymphocytes 2.1 10^3/ul (1.0-4.8); ABS Neutrophils 5.7 10^3/ul (1.5-7.7); Eosinophil % 4.9 %; Hematocrit 41 % (42-52); Hemoglobin 13.9 g/dL (14.0-18.0); Lymphocyte % 22.3 %; Mean Corpuscular HGB Conc 34 g/dL (31-36); Mean Corpuscular Hemoglobin 31 pg (27-31); Mean Corpuscular Volume 91 fL (80-94); Mean Platelet Volume 6.3 fL (7.4-10.4); Platelet Count 261 10^3/uL (150-450); Red Blood Count 4.48 10^6 /uL (4.18-5.48); Red Cell Distribution Width 14 % (10-15); White Blood Count 9.2 10^3/uL (3.5-10.8)
[2018-11-11 00:29] LABS: Activated Partial Thrombo Time 39.2 seconds (26.0-38.0); INR 1.15 (0.82-1.09)
[2018-11-11 00:39] LABS: Urine Appearance Clear; Urine Bilirubin Negative (Negative); Urine Blood Negative (Negative); Urine Color Yellow; Urine Glucose Negative (Negative); Urine Ketones Negative (Negative); Urine Nitrite Negative (Negative); Urine Protein Negative (Negative); Urine Specific Gravity 1.011 (1.010-1.030); Urine Urobilinogen Negative (Negative)
[2018-11-11 00:47] LABS: Albumin/Globulin Ratio 1.3 (1-3); BUN/Creatinine Ratio 15.3 (8-20); Calcium 9.7 mg/dL (8.6-10.3); EGFR African American 107.2 (>60); EGFR Non-African American 88.6 (>60); Globulin 3.1 g/dL (2-4); Potassium 3.9 mmol/L (3.5-5.0); Total Bilirubin 1.1 mg/dL (0.2-1.0); Total Protein 7.1 g/dL (6.4-8.9)
[2018-11-11] MEDS ORDERED: Iohexol 350* (CONTRAST) 500 ML MDV IV ONE (01:36)
[2018-11-11 06:29] VITALS: BP 139/85
== END 2018-11-11 06:27 | disposition home or self-care (01) ==
LOC: ED 23:21
DX: R53.1 Weakness (principal); R07.9 Chest pain, unspecified; I10 Essential (primary) hypertension; K21.9 Gastro-esophageal reflux disease without esophagitis; Z86.73 Personal history of transient ischemic attack (TIA), and cerebral infarction without residual deficits; R47.81 Slurred speech
CPT/HCPCS: 36415; 70450; 71045; 71275; 80053; 81003; 82803; 83605; 84484; 85025; 85610; 85730; 86140; 87040; 93005; 96361; 96374; 99284; J2270; Q9967

== ENCOUNTER 2019-02-25 13:29 | Inpatient (IN) | payer MEDICARE, BC ==
--- OUTSIDE RECORDS SUMMARY | 2019-02-25 13:40 | XMS REPORT | Continuity of Care Document ---
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 Onset: 09/18/2017 Note: 05/18/18 - Rec.Release-[facility] - reviewed - 09/18/17 MCA embolectomy after [...] EEG with left > right hemispheric slowing) Social History Type Date Description Comments Sex Unknown Tobacco Use Start: Unknown Never Smoked Cigarettes Smoking Status Reviewed: 01/14/19 Never Smoked Cigarettes ETOH Use Drinks 1 Alcoholic Beverage Per Day Tobacco Use Start: Unknown Patient has never smoked Recreational Drug Use Denies Drug Use Exercise Type/Frequency Exercises regularly Allergies, Adverse Reactions, Alerts Active Allergies Reaction Severity Comments Date Milk 11/14/2017 Tomato Allergenic Extract 11/14/2017 Inactive Allergies NKDA 10/07/2012 Medications Active Medications SIG Qnty Indications Ordering Date Provider Jasmyn 1 by mouth twice a 60tabs Reuben Naik 01/07/2019 5mg Tablets day Burgess, DO FACC MJ Collar At all time S12.090A Vassilios 01/01/2019 MD Marcella Baclofen take 1/2 by mouth 90tabs R25.2 Kimberly Auguste, 12/18/2018 10mg Tablets three times a day x M.D. 2 weeks then 1 by mouth three times a day Milk Of Magnesia 30 mL as needed Kimberly Auguste, 06/05/2018 M.DZara 1200mg/15ML Suspension Metoprolol Succinate 1 by mouth every Unknown ER day 50mg Tablets ER 24HR Natural Balance Tears 1 drop each both Unknown eyes as needed for 0.1-0.3% Solution dry eyes, three times a day Calcium Carbonate take 1 tablet every Unknown 500mg 4 hours as needed Chewtabs for heartburn/indigesti on Glycerin Suppository insert 1 Unknown suppository rectally every 72 hours as needed for constipation if no BM after Mom Glycerin Adult as needed for Unknown 2gm constipation if no Suppository BM after taking Mom Enema Disposable as needed for Unknown Enema constipation Mirtazapine 1 tab by mouth at Unknown 30mg Tablets bedtime Escitalopram Oxalate 2 by mouth every Unknown 20mg day Tablets Acetaminophen 2 tablets by mouth Unknown 325mg every 4 hours as Tablets needed for pain/fever Miralax 17 g by mouth every Unknown 3350NF Powder day for constipation Pantoprazole Sodium 1 by mouth every 90tabs Unknown 20mg day Tablets DR Tums 1 tab by mouth Unknown 500mg Chewtabs every six as needed, indigestion Atorvastatin Calcium 1 by mouth every Unknown 40mg day Tablets Methylphenidate HCL 1 tablet by mouth Unknown 5mg once a day Tablets Alfuzosin HCL ER 1 po q day am Unknown 10mg Tablets ER 24HR History Medications Metoprolol Succinate ER 1 by mouth every Reuben Burgess DO 01/12/2019 - Unknown day FACC 25mg Tablets ER 24HR Medications Administered in Office Medication SIG Qnty Indications Ordering Provider Date Depomedrol 40MG JOSE LUIS Edmondson 11/19/2017 Injection Depomedrol 80MG Kimberly Liao M.D. 03/25/2013 Injection Immunizations Description No Information Available Vital Signs Date Vital Result Comment 01/27/2019 11:02am Heart Rate 81 /min Respiratory Rate 16 /min Pain Level 8 01/14/2019 2:00pm Height 66 inches 5'6" Weight 164.00 lb 01/06/19, as per [facility] Heart Rate 66 /min BP Systolic Sitting 119 mmHg only pt. is in a wheelchair BP Diastolic Sitting 70 mmHg only pt. is in a wheelchair BMI (Body Mass Index) 26.5 kg/m2 Ejection Fraction 60-65% Echo 07/23/10 Results Description No Information Available Procedures Date Code Description Status 01/14/2019 89700 EKG Tracing & Interpretation Completed 11/27/2018 59461 Implantable Cardio System Loop Recorder Sys Remota Data Completed [facility] 11/27/2018 33065 Interrogation Dev Loop Recorder Incl Physician Completed Analysis,Rev,Repor 10/27/2018 49693 Implantable Cardio System Loop Recorder Sys Remota Data Completed [facility] 10/27/2018 74542 Interrogation Dev Loop Recorder Incl Physician Completed Analysis,Rev,Repor 09/27/2018 77724 Implantable Cardio System Loop Recorder Sys Remota Data Completed [facility] 09/27/2018 71674 Interrogation Dev Loop Recorder Incl Physician Completed Analysis,Rev,Repor 08/26/2018 92137 Insertion, Subcutaneous Cardiac Rhythm Monitor Completed 08/13/2018 34843 EKG Tracing & Interpretation Completed Medical Devices Description No Information Available Encounters Type Date Location Provider Dx Diagnosis Office Visit 01/14/2019 [facility] Reuben RajinderZara Burgess, I48.0 Paroxysmal atrial 2:00p Of [facility] DO FACC fibrillation I63.9 Cerebral infarction, unspecified Office Visit 01/01/2019 [facility] S12.090D Oth disp fx 10:00a [facility] Naranjo MD of first cervcal vert, subs for fx w routn heal 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 S22.028D Oth fx second thor vertebra, subs for fx w routn heal S12.100D Unsp disp fx of 2nd cervcal vert, subs for fx w routn heal Office Visit 12/18/2018 2:30p [facility] Kimberly Auguste, S12.090A Oth disp fx of [facility] Desai first cervical vertebra, init for clos fx 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 R25.2 Cramp and spasm Office Visit 12/09/2018 Neurosurgery Dede Apodaca, S12.100D Unsp disp fx 9:30a [facility] CARRANZA of 2nd cervcal vert, subs for fx w routn heal Office Visit 11/04/2018 [facility]surgery Dede Apodaca, S22.028D Oth fx second 2:00p [facility] CARRANZA thor vertebra, subs for fx w routn heal Office Visit 10/24/2018 [facility] S12.090A Oth disp fx of 7:00a [facility] Naranjo MD first cervical vertebra, init for clos fx S22.028A Oth fracture of second thoracic vertebra, init for clos fx Office Visit 10/24/2018 11:12a [facility] Frederick Sifuentes, S12.000A Unsp disp fx of jassi Harmon MD first cervical Hospitalists vertebra, init for clos fx S12.100A Unsp disp fx of second cervical vertebra, init for clos fx Office Visit 10/23/2018 [facility] S12.090A Oth disp fx of 7:00a [facility]a Naranjo MD first cervical vertebra, init for clos fx S22.028A Oth fracture of second thoracic vertebra, init for clos fx Office Visit 10/23/2018 11:12a [facility] Nadia S12.000A Unsp disp fx of jassi Harmon DO first cervical Hospitalists vertebra, init for clos fx S12.100A Unsp disp fx of second cervical vertebra, init for clos fx Office Visit 09/11/2018 3:30p [facility] Kimberly Auguste, I69.353 Hemiplga [facility] Giselle following cerebral infrc aff right nondom side M54.2 Cervicalgia M54.5 Low back pain Office Visit 09/02/2018 11:30a [facility] Reuben Naik I63.9 Cerebral Of [employer] DO Aditya infarction, FACC unspecified Office Visit 08/13/2018 3:00p [facility] Reuben Naik I69.353 Hemiplga Of [facility] DO Aditya following FACC cerebral infrc aff right nondom side Assessments Date Code Description Provider 01/27/2019 S12.090D Other displaced fracture of first Luis Felipe Naranjo MD cervical vertebra, subsequent encounter for fracture with routine healing 01/27/2019 S22.028D Other fracture of second thoracic Luis Felipe Naranjo MD vertebra, subsequent encounter for fracture with routine healing 01/27/2019 S12.100D Unspecified displaced fracture of second Luis Felipe Naranjo MD cervical vertebra, subsequent encounter for fracture with routine healing 01/14/2019 I48.0 Paroxysmal atrial fibrillation Reuben Burgess DO FACC 01/14/2019 I63.9 Cerebral infarction, unspecified Reuben Burgess DO FACC 01/01/2019 S12.090D Other displaced fracture of first Luis Felipe Naranjo MD cervical vertebra, subsequent encounter for fracture with routine healing 01/01/2019 I69.353 Hemiplegia and hemiparesis following Luis Felipe Naranjo MD cerebral infarction aff 01/01/2019 S22.028D Other fracture of second thoracic Luis Felipe Naranjo MD vertebra, subsequent encounter for fracture with routine healing 01/01/2019 S12.100D Unspecified displaced fracture of second Luis Felipe Naranjo MD cervical vertebra, subsequent encounter for fracture with routine healing 12/18/2018 S12.090A Other displaced fracture of first Kimberly Auguste M.D. cervical vertebra, initial encounter for closed fracture 12/18/2018 I69.353 Hemiplegia and hemiparesis following Kimberly Auguste M.D. cerebral infarction aff 12/18/2018 R25.2 Cramp and spasm Kimberly Auguste M.D. 12/09/2018 S12.100D Unspecified displaced fracture of second Dede Apodaca, PA cervical vertebra, subsequent encounter for fracture with routine healing 11/27/2018 Z86.73 Personal history of transient ischemic Reuben Burgess, DO FACC attack (TIA), and cer 11/27/2018 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 and Reuben S. Burgess, DO FACC grafts 11/04/2018 S22.028D Other fracture of second thoracic Dede Apodaca, TERE vertebra, subsequent encounter for fracture with routine healing 10/27/2018 Z86.73 Personal history of transient ischemic Reuben Burgess, DO FACC attack (TIA), and cer 10/27/2018 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 and Reuben SZara Cesarno, DO FACC grafts 10/24/2018 S12.090A Other displaced fracture of first Luis Felipe Naranjo MD cervical vertebra, initial encounter for closed fracture 10/24/2018 S12.000A Unspecified displaced fracture of first Frederick Sifuentes MD cervical vertebra, initial encounter for closed fracture 10/24/2018 S22.028A Other fracture of second thoracic Luis Felipe Naranjo MD vertebra, initial encounter for closed fracture 10/24/2018 S12.100A Unspecified displaced fracture of second Frederick Sifuentes MD cervical vertebra, initial encounter for closed fracture 10/23/2018 S12.090A Other displaced fracture of first Luis Felipe Naranjo MD cervical vertebra, initial encounter for closed fracture 10/23/2018 S12.000A Unspecified displaced fracture of first Nadia Covarrubias DO cervical vertebra, initial encounter for closed fracture 10/23/2018 S22.028A Other fracture of second thoracic Luis Felipe Naranjo MD vertebra, initial encounter for closed fracture 10/23/2018 S12.100A Unspecified displaced fracture of second Nadia Covarrubias , DO cervical vertebra, initial encounter for closed fracture 09/27/2018 Z86.73 Personal history of transient ischemic Reuben Burgess, DO FAC attack (TIA), and cer 09/27/2018 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 and Reuben Burgess, DO FACC grafts 09/11/2018 I69.353 Hemiplegia and hemiparesis following Kimbrely Auguste M.D. cerebral infarction aff 09/11/2018 M54.2 Cervicalgia Kimberly Auguste M.D. 09/11/2018 M54.5 Low back pain Kimberly Auguste M.D. 09/02/2018 I63.9 Cerebral infarction, unspecified Reuben Burgess, DO FAC 08/26/2018 Z86.73 Personal history of transient ischemic Sandra Jurado M.D. attack (TIA), and cer 08/13/2018 I69.353 Hemiplegia and hemiparesis following Reuben Burgess, DO [facility] cerebral infarction aff Plan of Treatment Future Appointment(s):03/01/2019 2:00 pm - Luis Felipe Naranjo MD at [facility]03/19/2019 10:00 am - Kimberly Auguste M.D. at [place] [facility]01/27/2019 - Luis Felipe Naranjo, MDS12.090D Oth disp fx of first cervcal vert, subs for fx w routn healFollow up:RV in 1 fwgrtN98.028D Oth fx second thor vertebra, subs for fx w routn healS12.100D Unsp disp fx of 2nd cervcal vert, subs for fx w routn heal Functional Status Description No Information Available Mental Status Description No Information Available Referrals Description No Information Available
--- OUTSIDE RECORDS SUMMARY | 2019-02-25 13:40 | XMS REPORT | Continuity of Care Document ---
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 Onset: 09/18/2017 Note: 05/18/18 - Rec[facility]Release-[facility] - reviewed - 09/18/17 MCA embolectomy after [...] Unknown Never Smoked Cigarettes Smoking Status Reviewed: 01/01/19 Never Smoked Cigarettes ETOH Use Drinks 1 Alcoholic Beverage Per Day Tobacco Use Start: Unknown Patient has never smoked Recreational Drug Use Denies Drug Use Exercise Type/Frequency Exercises regularly Allergies, Adverse Reactions, Alerts Active Allergies Reaction Severity Comments Date Milk 11/14/2017 Tomato Allergenic Extract 11/14/2017 Inactive Allergies NKDA 10/07/2012 Medications Active Medications SIG Qnty Indications Ordering Date Provider MJ Collar At all time S12.090A Vassilios 01/01/2019 MD Marcella Baclofen take 1/2 by mouth 90tabs R25.2 Kimberly Auguste, 12/18/2018 10mg Tablets three times a day x M.D. 2 weeks then 1 by mouth three times a day Milk Of Magnesia 30 mL as needed Kimberly Auguste, 06/05/2018 M.D. 1200mg/15ML Suspension Natural Balance Tears 1 drop each both [...] every Unknown 3350NF Powder day for constipation Metoprolol Tartrate 1 tab by mouth Unknown 25mg daily Tablets Pantoprazole Sodium 1 by mouth every 90tabs Unknown 20mg day Tablets DR Byers 1 tab by mouth Unknown 500mg Chewtabs every six as needed, indigestion Atorvastatin Calcium 1 by mouth every Unknown 40mg day Tablets Methylphenidate HCL 1 tablet by mouth Unknown 5mg once a day Tablets Aspir-Low 1 by mouth every Unknown 81mg Tablets DR day Alfuzosin HCL ER 1 po q day am Unknown 10mg Tablets ER 24HR Medications Administered in Office Medication SIG Qnty Indications Ordering Provider Date Depomedrol 40MG JOSE LUIS Edmondson 11/19/2017 Injection Depomedrol 80MG Kimberly Liao M.D. 03/25/2013 Injection Immunizations Description No Information Available Vital Signs Date Vital Result Comment 01/01/2019 10:01am Height 66 inches 5'6" Heart Rate 64 /min BP Systolic Sitting 122 mmHg BP Diastolic Sitting 70 mmHg 12/18/2018 2:25pm Height 66 inches 5'6" Weight 175.00 lb Heart Rate 62 /min BP Systolic 120 mmHg BP Diastolic 68 mmHg BMI (Body Mass Index) 28.2 kg/m2 Results Description No Information Available Procedures Date Code Description Status 08/26/2018 88176 Insertion, Subcutaneous Cardiac Rhythm Monitor Completed 08/13/2018 29584 EKG Tracing & Interpretation Completed Medical Devices Description No Information Available Encounters Type Date Location Provider Dx Diagnosis Office Visit 12/18/2018 [facility] Kimberly Auguste, S12.090A Oth disp fx of 2:30p [facility] first cervical vertebra, init for clos fx 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 R25.2 Cramp and spasm Office Visit 11/04/2018 [facility] Dede Apodaca, S22.028D Oth fx second 2:00p [facility] vertebra, subs for fx w routn heal Office Visit 10/24/2018 [facility] Vassilios S12.090A Oth disp fx of 7:00a [facility] Naranjo MD first cervical vertebra, init for clos fx S22.028A Oth fracture of second thoracic vertebra, init for clos fx Office Visit 10/24/2018 11:12a [facility] Frederick Sifuentes, S12.000A Unsp disp fx of jasis Harmon MD first cervical Hospitalists vertebra, init for clos fx S12.100A Unsp disp fx of second cervical vertebra, init for clos fx Office Visit 10/23/2018 [facility] Vassilios S12.090A Oth disp fx of 7:00a [facility] Naranjo MD first cervical vertebra, init for clos fx S22.028A Oth fracture of second thoracic vertebra, init for clos fx Office Visit 10/23/2018 11:12a [facility] Nadia S12.000A Unsp disp fx of jassi Harmon DO first cervical Hospitalists vertebra, init for clos fx S12.100A Unsp disp fx of second cervical vertebra, init for clos fx Office Visit 09/11/2018 3:30p [facility] Kimberly Auguste, I69.353 Hemiplga [facility] following cerebral infrc aff right nondom side M54.2 Cervicalgia M54.5 Low back pain Office Visit 09/02/2018 11:30a [facility] Reuben S. I63.9 [facility] Aditya infarction, FACC unspecified Office Visit 08/13/2018 3:00p [facility] Reuben S. I69.353 Hemiplga [facility] Aditya following FACC cerebral infrc aff right nondom side Assessments Date Code Description Provider 01/01/2019 S12.090A Other displaced fracture of first Luis Felipe Naranjo MD cervical vertebra, initial encounter for closed fracture 01/01/2019 I69.353 Hemiplegia and hemiparesis following Luis Felipe Naranjo MD cerebral infarction aff 01/01/2019 S22.028A Other fracture of second thoracic Luis Felipe Naranjo MD vertebra, initial encounter for closed fracture 01/01/2019 S12.100A Unspecified displaced fracture of second Luis Felipe Naranjo MD cervical vertebra, initial encounter for closed fracture 12/18/2018 S12.090A Other displaced fracture of first Kimberly Auguste M.D. cervical vertebra, initial encounter for closed fracture 12/18/2018 I69.353 Hemiplegia and hemiparesis following Kimbrely Auguste M.D. cerebral infarction aff 12/18/2018 R25.2 Cramp and spasm Kimberly Auguste M.D. 12/09/2018 S12.090A Other displaced fracture of first Sharmez Paulie, PA cervical vertebra, initial encounter for closed fracture 12/09/2018 S12.000A Unspecified displaced fracture of first Sharmez Baldwin, [place] cervical vertebra, initial encounter for closed fracture 12/09/2018 S22.028A Other fracture of second thoracic Sharmez Baldwin, [place] vertebra, initial encounter for closed fracture 12/09/2018 S12.100A Unspecified displaced fracture of second Sharmez Paulie, [place] cervical vertebra, initial encounter for closed fracture 11/04/2018 S22.028D Other fracture of second thoracic Sharmez Paulie, [place] vertebra, subsequent encounter for fracture with routine healing 10/24/2018 S12.090A Other displaced fracture of first Luis Felipe Naranjo MD cervical vertebra, initial encounter for closed fracture 10/24/2018 S12.000A Unspecified displaced fracture of first Frederick Sifuentes MD cervical vertebra, initial encounter for closed fracture 10/24/2018 S22.028A Other fracture of second thoracic Juan Jsilnicole Naranjo MD vertebra, initial encounter for closed fracture 10/24/2018 S12.100A Unspecified displaced fracture of second Frederick Sifuentes MD cervical vertebra, initial encounter for closed fracture 10/23/2018 S12.090A Other displaced fracture of first Luis Felipe Naranjo MD cervical vertebra, initial encounter for closed fracture 10/23/2018 S12.000A Unspecified displaced fracture of first Nadia Covarrubias, DO cervical vertebra, initial encounter for closed fracture 10/23/2018 S22.028A Other fracture of second thoracic Luis Felipe Naranjo MD vertebra, initial encounter for closed fracture 10/23/2018 S12.100A Unspecified displaced fracture of second Nadia Senkaron , DO cervical vertebra, initial encounter for closed fracture 09/11/2018 I69.353 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 09/11/2018 M54.5 Low back pain Kimberly Auguste M.D. 09/02/2018 I63.9 Cerebral infarction, unspecified Reuben Burgess, DO [facility] 08/26/2018 Z86.73 Personal history of transient ischemic Sandra Jurado M.D. attack (TIA), and cer 08/13/2018 I69.353 Hemiplegia and hemiparesis following Reuben Burgess DO [facility] cerebral infarction aff Plan of Treatment Future Appointment(s):01/25/2019 1:30 pm - Luis Felipe Naranjo MD at [facility]03/19/2019 10:00 am - Kimberly Auguste M.D. at [facility]01/01/2019 - Luis Felipe Naranjo, MDS12.090A Oth disp fx of first cervical vertebra, init for clos fxNew Medication:MJ Collar - At all timeNew Xrays:CT Spine Cervical W/O, Scheduled: 01/18/19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S22.028A Oth fracture of second thoracic vertebra, init for clos fxS12.100A Unsp disp fx of second cervical vertebra, init for clos fx Functional Status Description No Information Available Mental Status Description No Information Available Referrals Description No Information Available
--- OUTSIDE RECORDS SUMMARY | 2019-02-25 13:40 | XMS REPORT | Continuity of Care Document ---
:1945 External Reference #:[id number] Author Name Reuben Burgess DO FAC (transmitted by agent of provider Cristina Wren) Address 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 Onset: 09/18/2017 Note: 05/18/18 - Rec.Release-[facility] - reviewed - 09/18/17 MCA embolectomy [...] needed Kimberly Auguste, 06/05/2018 M.DZara 1200mg/15ML Suspension Natural Balance Tears 1 drop [...] Available Procedures Date Code Description Status 08/26/2018 51340 Insertion, Subcutaneous Cardiac Rhythm Monitor Completed 08/13/2018 12115 EKG Tracing & Interpretation Completed Medical Devices Description No Information Available Encounters Type Date Location Provider Dx Diagnosis Office Visit 01/01/2019 [facility] Vassilios S12.090D Oth disp fx of 10:00a [facility] N[facility] MD first cervcal vert, subs for fx w routn heal 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 S22.028D Oth fx second thor vertebra, subs for fx w routn heal S12.100D Unsp disp fx of 2nd cervcal vert, subs for fx w routn heal Office Visit 12/18/2018 2:30p [facility] Kimberly Auguste, S12.090A Oth disp fx of [facility] first cervical vertebra, init for clos fx 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 R25.2 Cramp and spasm Office Visit 12/09/2018 Neurosurgery Dede Apodaca, S12.100D Unsp disp fx 9:30a [facility] [place] of 2nd cervcal vert, subs for fx w routn heal Office Visit 11/04/2018 Neurosurgery Dede Apodaca, S22.028D Oth fx second 2:00p [facility] TERE thor vertebra, subs for fx w routn heal Office Visit 10/24/2018 Neurosurgery Vassilios S12.090A Oth disp fx of 7:00a [facility] Naranjo MD first cervical vertebra, init for clos fx S22.028A Oth fracture of second thoracic vertebra, init for clos fx Office Visit 10/24/2018 11:12a [facility] Frederick Sifuentes, S12.000A Unsp disp fx of [...] for clos fx Office Visit 10/23/2018 11:12a [facility] Nadia S12.000A Unsp disp fx of jassi Harmon DO first cervical Hospitalists vertebra, init for clos fx S12.100A Unsp disp fx of second cervical vertebra, init for clos fx Office Visit 09/11/2018 3:30p [facility] Kimberly Auguste, I69.353 Hemiplga [facility] following cerebral infrc aff right nondom side M54.2 Cervicalgia M54.5 Low back pain Office Visit 09/02/2018 11:30a [facility] Reuben S. I63.9 [facility] DO Aditya infarction, FACC unspecified Office Visit 08/13/2018 3:00p [facility] Reuben S. I69.353 Hemiplga [facility] DO Aditya following FACC cerebral infrc aff right nondom side Assessments Date Code Description Provider 01/01/2019 S12.090D Other displaced fracture of first Vassilnicole Naranjo MD cervical vertebra, subsequent encounter for [...] S12.100D Unspecified displaced fracture of second Dede MerinoTERE mayberry cervical vertebra, subsequent encounter for fracture with routine healing 11/04/2018 S22.028D Other fracture of second thoracic IsisTERE Gutierrez vertebra, subsequent encounter for fracture with routine [...] Unspecified displaced fracture of second Nadia Covarrubias DO cervical vertebra, initial encounter for closed fracture 09/11/2018 I69.353 Hemiplegia and hemiparesis following Kimberly Cowdery, M.D. cerebral infarction aff 09/11/2018 M54.2 Cervicalgia Kimberly Auguste M.D. 09/11/2018 M54.5 Low back pain Kimberly Auguste M.D. 09/02/2018 I63.9 Cerebral infarction, unspecified Reuben Burgess DO [facility] 08/26/2018 Z86.73 Personal history of transient ischemic Sandra Jurado M.D. attack (TIA), and cer 08/13/2018 I69.353 Hemiplegia and hemiparesis following Reuben Burgess DO [facility] cerebral infarction aff Plan of Treatment Future Appointment(s):01/14/2019 2:00 pm - Reuben Burgess DO [facility] at [facility]03/19/2019 10:00 am - Kimberly Auguste M.D. at [facility]12/09/2018 - Dede Apodaca, PAS12.100D Unsp disp fx of [address] [place], [place] [address]cal vert, subs for fx w olaf dickson Functional Status Description No Information Available Mental Status Description No Information Available Referrals Description No Information Available
--- NOTE | 2019-02-25 13:41 | ED ---
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 [facility] Patient states he has increased chest pain today but is a poor historian. Due to this an adequate history is unable to be obtained. is at the bedside and states he began having chest pain yesterday which is new for him. She also states he has no swelling in his legs which she noticed this morning. She states she has not been febrile or complaining of any recent issues. 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 - Additional Pertinent History Primary Care Physician: LEOBARDO - Allergy/Home Medications Allergies/Adverse Reactions: Allergies Allergy/AdvReac Type Severity Reaction Status Date / Time No Known Allergies Allergy Verified 02/25/19 13:38 Home Medications: Home Medications Apixaban* [Eliquis*] 5 mg PO BID 02/25/19 [History Confirmed 02/25/19] Baclofen TAB* [Lioresal TAB*] 5 mg PO TID 02/25/19 [History Confirmed 02/25/19] Calcium Carbonate CHEW TAB* [Tums*] 500 mg PO Q6HR PRN 02/25/19 [History Confirmed 02/25/19] Dextran 70/Hypromellose Tears [Natural Balance Tears 70.01-0.3 %] 1 drop BOTH EYES DAILY PRN 02/25/19 [History Confirmed 02/25/19] Metoprolol Succinate XL TAB* [Toprol XL TAB*] 50 mg PO DAILY 02/25/19 [History Confirmed 02/25/19] PMH/Surg Hx/FS Hx/Imm Hx Endocrine/Hematology History: Denies: Hx Anticoagulant Therapy, Hx Diabetes, Hx Thyroid Disease Cardiovascular History: Reports: Hx Hypertension Denies: Hx Congestive Heart Failure, Hx Pacemaker/ICD Respiratory History: Denies: Hx Asthma, Hx Chronic Obstructive Pulmonary Disease (COPD) GI History: Reports: Hx Gastroesophageal Reflux Disease Denies: Hx Ulcer History: Reports: Other Problems/Disorders - enlarged prostrate Denies: Hx Renal Disease Musculoskeletal History: Reports: Hx Osteoporosis Denies: Hx Rheumatoid Arthritis Sensory History: Reports: Hx Contacts or Glasses Denies: Hx Hearing Aid Opthamlomology History: Reports: Hx Contacts or Glasses Neurological History: Reports: Hx CVA - 09/18/17, Hx Dementia, Other Neuro Impairments/Disorders - Hx COMPRESSION Fx'S 2009 Psychiatric History: Reports: Hx Depression Denies: Hx Eating Disorder, Hx Panic Disorder, Hx of Violent Episodes Against Others - Surgical History Surgery Procedure, Year, and Place: HERNIA REPAIRS; toe amputations; tonsils, appendix, cataracts, loop recorder implanted then removed Hx Anesthesia Reactions: No Infectious Disease History: No Infectious Disease History: Reports: Hx Shingles Denies: Hx Clostridium Difficile, Hx Hepatitis, Hx Human Immunodeficiency Virus (HIV), Hx of Known/Suspected MRSA, Hx Tuberculosis, Hx Known/Suspected VRE , Hx Known/Suspected VRSA, History Other Infectious Disease, Traveled Outside the [place] in Last 30 Days - Family History Known Family History: Negative: Renal Disease - Social History Alcohol Use: None Alcohol Amount: 1 beer/day Hx Substance Use: No Substance Use Type: Reports: None Hx Tobacco Use: No Smoking Status (MU): Never Smoked Tobacco Have You Smoked in the Last Year: No Review of Systems Constitutional: Negative Positive: Chest Pain Negative: Shortness Of Breath Negative: Abdominal Pain Negative: Rash Negative: Headache Psychological: Normal All Other Systems Reviewed And Are Negative: Yes - Comments Additional Review of Systems Comments: Difficult to obtain proper review of systems due to patient being a poor historian. Physical Exam Triage Information Reviewed: Yes Vital Signs On Initial Exam: Initial Vitals Temp Pulse Resp BP Pulse Ox 98.4 F 86 14 107/74 98 02/25/19 13:32 02/25/19 13:32 02/25/19 13:32 02/25/19 13:32 02/25/19 13:32 Vital Signs Reviewed: Yes Completion Of Physical Exam Limited Due To: Dementia Appearance: Positive: Well-Appearing, No Pain Distress, Thin Skin: Positive: Warm, Skin Color Reflects Adequate Perfusion Head/Face: Positive: Normal Head/Face Inspection Eyes: Positive: EOMI ENT: Positive: Hearing grossly normal Respiratory/Lung Sounds: Positive: Clear to Auscultation, Breath Sounds Present , Other - Diminished breath sounds throughout the precordium Cardiovascular: Positive: RRR, S1, S2 Abdomen Description: Positive: No Organomegaly, Soft. Negative: CVA Tenderness (R), CVA Tenderness (L), Distended, Guarding, McBurney's Point Tenderness, Peritoneal Signs, Pulsatile Mass Bowel Sounds: Positive: Present - Normoactive Neurological: Positive: Sensory/Motor Intact, Alert, Oriented to Person Place, Time Psychiatric: Positive: Normal AVPU Assessment: Alert Procedures - Sedation Patient Received Moderate/Deep Sedation with Procedure: No Diagnostics - Vital Signs Vital Signs Temp Pulse Resp BP Pulse Ox 02/25/19 13:32 98.4 F 86 14 107/74 98 - Laboratory Result Diagrams: 02/25/19 14:16 02/25/19 14:16 Lab Statement: Any lab studies that have been ordered have been reviewed, and results considered in the medical decision making process. Chest Pain Course/Dx - Course Course Of Treatment: Patient was evaluated in emergency department today after experiencing chest pain this afternoon. He was brought in by ambulance an EKG. He was seen and examined promptly after arrival. An EKG was performed showing normal sinus rhythm at a rate of 82 bpm. Normal axis with no prolongation of the CO interval. There is no signs of ST elevation or ST depression however there is flattening of the T waves throughout all leads. This is a new finding when compared to an EKG done in 11/11/2018. These findings are suggestive of ischemia. A chest x-ray was done which revealed no acute cardiopulmonary pathology including pulmonary edema. CBC shows evidence of anemia with an H&H of 11.7 and 36. he has chronic anemia however prior hematocrit taken on 11/11/2018 was 41, showing worsening of anemia. Platelet count of 96. There is no evidence of leukocytosis. There are no electrolyte modalities. Initial troponin resulted as 0.01. BNP of 163 which is not impressive for evidence of heart failure. INR 3.01 which is therapeutic. Heart score of 6. Hospitalist, Dr. Vigil was called at 1545 and agreed to admit the patient for observation and futher evaluation of his symptoms. This desicion was largley due to his EKG changes as compared to prior and his worsening anemia. Pt agrees with this plan. - Chest Pain Differential Diagnosis/HQI/PQRI: Acute [place], ACS, Angina, CHF, Chest Wall, GI Disease, Pulmonary Edema, Pulmonary Embolism - Diagnoses Provider Diagnoses: Weakness, Chest pain - Provider Notifications Discussed Care Of Patient With: Joanne Vigil - 1545 Discharge ED - Sign-Out/Discharge Documenting (check all that apply): Patient Departure - Discharge Plan Condition: Stable Disposition: ADMITTED TO [facility] Referrals: Henry Patrick MD [Primary Care Provider] - - Billing Disposition and Condition Condition: STABLE Disposition: Admitted to [facility]
[2019-02-25 14:33] LABS: INR 3.1 (0.82-1.09)
[2019-02-25 14:45] LABS: Albumin 3.3 g/dL (3.2-5.2); Albumin/Globulin Ratio 0.9 (1-3); BUN/Creatinine Ratio 18.3 (8-20); Calcium 8.8 mg/dL (8.6-10.3); EGFR African American 111.4 (>60); EGFR Non-African American 92.1 (>60); Globulin 3.7 g/dL (2-4); Magnesium 2.4 mg/dL (1.9-2.7); Potassium 4.3 mmol/L (3.5-5.0); Total Bilirubin 1.5 mg/dL (0.2-1.0)
[2019-02-25 14:46] LABS: Troponin I 0.01 ng/mL (<0.04)
[2019-02-25 14:47] LABS: ABS Eosinophils 0.1 10^3/ul (0-0.6); ABS Lymphocytes 0.9 10^3/ul (1.0-4.8); ABS Monocytes 0.6 10^3/ul (0-0.8); ABS Neutrophils 5.8 10^3/ul (1.5-7.7); Eosinophil % 1.8 %; Hematocrit 36 % (42-52); Hemoglobin 11.7 g/dL (14.0-18.0); Lymphocyte % 11.5 %; Mean Corpuscular HGB Conc 33 g/dL (31-36); Mean Corpuscular Hemoglobin 29 pg (27-31); Mean Corpuscular Volume 88 fL (80-94); Nucleated Red Blood Cells % 0.1; Platelet Count 96 10^3/uL (150-450); Red Blood Count 4.05 10^6 /uL (4.18-5.48); Red Cell Distribution Width 14 % (10-15); White Blood Count 7.4 10^3/uL (3.5-10.8)
[2019-02-25] MEDS ORDERED: Al Hydrox/Mg Hydrox/Simet LIQ* 30 ML UDC PO PRN (18:51)
[2019-02-25] MEDS: Acetaminophen TAB* 325 MG PO PRN (19:27)
[2019-02-25] MEDS ORDERED: Apixaban* 5 MG TAB PO SCH (21:00)
[2019-02-25] MEDS ORDERED: Atorvastatin* 40 MG TAB PO SCH (21:00)
--- NOTE | 2019-02-25 21:37 | HP ---
CC: Dr. Chapman; [facility]; Dr. Patrick * HISTORY AND PHYSICAL: DATE OF ADMISSION: 02/25/19 PROVIDER: Diana Corbett NP ATTENDING PROVIDER: Dr. Jennifer Ochoa * (DICTATED BY DIANA CORBETT NP) CHIEF COMPLAINT: Chest pain, upper gastric pain, right upper quadrant pain. HISTORY OF PRESENT ILLNESS: Mr. Chamorro is a 73-year-old male who is a poor historian with a history of a CVA, recent history of C1, C2 fractures, depression, GERD, hypertension, and BPH, who presented to the emergency room with complaints of chest pain. When the patient was asked about his chest pain , the patient denied any chest pain. During the interview, the patient did complain of some intermittent pain. When asked to point to his area of pain, he pointed to his upper abdomen and epigastric region. He does report that the pain is sharp, but it comes and goes lasting a few seconds. Per the when she visited the patient on Friday, she noticed that he had increased swelling in his legs and this has progressively gotten worse over the past 3 days. She also reports that the patient has had progressively increasing weakness. The patient was usually able to sit and pivot to the wheelchair. The patient has recently been a Simeon lift to the wheelchair due to his lower extremity weakness. reports that patient has had intermittent difficulty with words finding, difficulty remembering things and mumbling speech on and off for 1 week. The patient does complain of upper epigastric pain. He does report it is a sharp pain. He does report that it is worse with eating food. He denies any nausea or vomiting. Denies any cough, hemoptysis, or shortness of breath. He denies any fever or chills. No gross hematuria or dysuria. He does have chronic weakness on the right side. He denies any change in vision, trouble swallowing, arthralgias, myalgias, rashes, lesions, open sores, psychosis or anxiety. While in the emergency room, the patient had routine lab work drawn. His troponin was within normal limits. He was found to have mild anemia with an H and H of 11.7 and 36. His 2 initial troponins were within normal limits. Chest x-ray was completed and showed no active cardiopulmonary disease. Due to the patient's complain of upper epigastric chest pain, Hospital Medicine was asked to see and evaluate the patient for admission. PAST MEDICAL HISTORY: Significant for: 1. Depression requiring ECT in the past. 2. Left MCA infarct in September 2017. 3. Status post tPA and embolectomy. 4. Tardive dyskinesia. 5. History of spine fracture in 2012. 6. GERD. 7. Headache. 8. Hypertension. 9. BPH. 10. C1, C2 fracture and T2 fracture. 11. Atrial fibrillation on Eliquis for anticoagulation. PAST SURGICAL HISTORY: 1. Loop recorder placement. 2. Tonsillectomy. 3. Left toe amputation. HOME MEDICATIONS: Include: 1. Tylenol 650 mg p.o. q.4 hours as needed for pain. 2. Alfuzosin 10 mg p.o. daily. 3. Atorvastatin 40 mg p.o. daily. 4. Tums 500 mg p.o. q.4 hours as needed for indigestion. 5. Lexapro 40 mg p.o. daily. 6. Milk of magnesia 30 mg daily p.r.n. constipation. 7. Ritalin 5 mg p.o. daily. 8. Metoprolol succinate 50 mg p.o. daily. 9. Mirtazapine 30 mg at bedtime. 10. Baclofen 5 mg p.o. t.i.d. 11. Eliquis 5 mg p.o. b.i.d. 12. Protonix 20 mg p.o. daily. 13. MiraLAX 17 g p.o. daily. 14. Glycerin suppository every 72 hours as needed for constipation. 15. Sodium phosphate enema daily p.r.n. constipation. FAMILY HISTORY: Father with a history of an [place], in his 70s. SOCIAL HISTORY: The patient currently lives in [facility]. 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 No tobacco, alcohol or illicit drug use. He is . Surrogate decision maker in the event he is unable to make his own decisions is his Gini. He is a full code. MOLST form was reviewed and updated. REVIEW OF SYSTEMS: A 14 point review of systems was completed all pertinent positives that was mentioned in the HPI. PHYSICAL EXAMINATION GENERAL: Mr. Chamorro is alert, well-appearing elderly man. He is in no acute distress. VITAL SIGNS: Blood pressure 95/67, heart rate 87, respirations are 22, O2 saturation 93%, temperature was 98.4. HEENT: Head is atraumatic, normocephalic. Eyes: EOMs are intact. Sclerae anicteric and not pale. Oral mucosa appeared to be dry. NECK: He does have an MJ collar in place. LUNGS: Clear to auscultation bilaterally, diminished in the bases. CARDIAC: S1, S2. Regular rate and rhythm. No murmurs, rubs, or gallops. ABDOMEN: Soft. He does have upper epigastric and right upper quadrant tenderness with palpation. Bowel sounds are active x4. EXTREMITIES: He has hemiparesis on the right side from a previous CVA. Bilateral lower extremities have +3 pitting edema. Pedal pulses are +2 bilaterally. There is no clubbing or cyanosis. NEUROLOGIC: He is awake, alert, oriented x3. He is a poor historian. He does have chronic right side that is hand is contracted, hemiparesis. SKIN: Intact. DIAGNOSTIC STUDIES/LAB DATA: WBCs are 7.4, RBCs are 4.05, hemoglobin 11.7, hematocrit 36, platelet count 96. INR is 3.10. Sodium 136, potassium 4.3, chloride 104, carbon dioxide was 24, anion gap was 8, BUN was 15, creatinine 0.82, glucose was 98, calcium 8.8, magnesium 2.4. T bili was 1.50, ASTs were 37 , ALTs were 51, alkaline phosphatase was 252. Troponin was 0.01 x2. BNP was 163. Albumin was 3.3, amylase was 35, lipase was 11. He had a chest x-ray, radiologist's impression: No active cardiopulmonary disease. He had an electrocardiogram that showed sinus rhythm at a rate of 82. He does have T-wave inversion in lead III and T-wave inversion in V1. He has no ST elevations or depressions. ASSESSMENT AND PLAN: Mr. Chamorro is a 73-year-old male with a past medical history significant for cerebrovascular accident, hypertension, BPH, headache, gastroesophageal reflux disease, history of C-spine fractures with MJ collar in place, depression, who presented to the emergency room with complaints of upper epigastric pain and chest pain. He will be admitted under observation for: 1. Chest pain. The patient is a poor historian, unable to give clear details related to his chest pain. He does rate it as sharp, but it comes and goes. He has limited movement due to his history of cerebrovascular accident and right -sided weakness. The patient had 2 troponins in the emergency room, 2 initial troponins were within normal limits. He did have an EKG; it does show new T- wave inversions in leads III and V1. We will continue to monitor around him on telemetry. I will get a transthoracic echocardiogram. I will get a nuclear stress test. We will get a third troponin. 2. Lower extremity edema. The patient and his report lower extremity edema that is started on Friday. He does have 3+ pitting edema to his bilateral lower extremities. I will get a transthoracic echocardiogram to evaluate his heart and valvular function as for his lower extremity edema. 3. Upper epigastric pain. The patient does complain of upper epigastric pain with palpation as well as right upper quadrant pain. Within the differential diagnosis, this could be peptic ulcer versus gallbladder disease versus pain related to chest pain. I will get a gallbladder ultrasound for further evaluation of his upper epigastric pain. I will also give him some Maalox to see if that helps with his upper epigastric pain. The patient does report that the pain is worse by eating, but denies any hematemesis, nausea or vomiting. 4. Thrombocytopenia. The patient does have thrombocytopenia with a platelet count of 96. We will continue to monitor this. This could be caused by eliquis , may need to consider changing or stopping this medications if thrombocytopenia becomes worse. 5. Atrial fibrillation. The patient does have a history of atrial fibrillation. I am going to decrease his metoprolol to 25 mg daily as the patient's blood pressure is in the 80s to 90s. We will continue him on his Eliquis 5 mg p.o. b.i.d. 6. History of cerebrovascular accident. Patient with difficulty with word finding and mumbling speech and difficulty with memory on and off for 1 week per the . Will get CT of the brain to rule out any acute pathology. The patient will continue on atorvastatin and Eliquis. 7. Depression. The patient should continue on Lexapro as previously prescribed. 8. Gastroesophageal reflux disease. The patient should continue on Protonix 20 mg p.o. daily. 9. DVT prophylaxis. The patient is on Eliquis. 10. FEN. He can have a regular diet. 11. Code Status. He is a full code. TIME SPENT: Time spent on this admission was 60 minutes, greater than half the time was spent at the bedside reviewing the events leading thus far to his hospitalization, performing physical exam and reviewing my plan of care. I have discussed this with my attending, Dr. Jennifer Ochoa; she is in agreement with my plan. DIANA CORBETT, RICARDO [id number]/CPS #: [id number] RADHA
[2019-02-25] MEDS: Baclofen TAB* 10 MG PO SCH (22:15)
[2019-02-25] MEDS: Mirtazapine TAB* 15 MG PO SCH (22:16)
[2019-02-25] MEDS ORDERED: NS 0.9% 500 ML* 500 ML IV SCH (23:00)
[2019-02-25 23:15] LABS: Hematocrit 32 % (42-52); Hemoglobin 10.9 g/dL (14.0-18.0); Mean Corpuscular HGB Conc 34 g/dL (31-36); Mean Corpuscular Hemoglobin 29 pg (27-31); Mean Corpuscular Volume 86 fL (80-94); Mean Platelet Volume 8.4 fL (7.4-10.4); Platelet Count 93 10^3/uL (150-450); Red Blood Count 3.76 10^6 /uL (4.18-5.48); Red Cell Distribution Width 14 % (10-15); White Blood Count 7.5 10^3/uL (3.5-10.8)
[2019-02-26 05:11] LABS: ABS Eosinophils 0.2 10^3/ul (0-0.6); ABS Monocytes 0.8 10^3/ul (0-0.8); ABS Neutrophils 5.7 10^3/ul (1.5-7.7); Eosinophil % 2.4 %; Hematocrit 35 % (42-52); Hemoglobin 11.6 g/dL (14.0-18.0); Lymphocyte % 13.1 %; Mean Corpuscular HGB Conc 33 g/dL (31-36); Mean Corpuscular Hemoglobin 29 pg (27-31); Mean Corpuscular Volume 88 fL (80-94); Mean Platelet Volume 8.4 fL (7.4-10.4); Nucleated Red Blood Cells % 0.1; Platelet Count 91 10^3/uL (150-450); Red Cell Distribution Width 14 % (10-15); White Blood Count 7.7 10^3/uL (3.5-10.8)
[2019-02-26 05:16] LABS: INR 3.53 (0.82-1.09)
[2019-02-26 05:32] LABS: CO2 Carbon Dioxide 21 mmol/L (22-32); Calcium 8.6 mg/dL (8.6-10.3); Chloride 104 mmol/L (101-111); Sodium 134 mmol/L (135-145)
[2019-02-26 05:38] LABS: Anion Gap 9 mmol/L (2-11); BUN/Creatinine Ratio 16.8 (8-20); Blood Urea Nitrogen 16 mg/dL (6-24); Cholesterol 45 mg/dL; EGFR Non-African American 77.7 (>60); Glucose 99 mg/dL (70-100); HDL Cholesterol 20.5 mg/dL; LDL Cholesterol 15 mg/dL; Triglycerides 46 mg/dL
[2019-02-26 07:56] LABS: Potassium Redraw 3.9 mmol/L (3.5-5.0)
[2019-02-26] MEDS ORDERED: Metoprolol Succinate XL TAB* 50 MG PO SCH (09:00)
[2019-02-26] MEDS ORDERED: Escitalopram * 20 MG TABLET PO SCH (09:00)
[2019-02-26 09:03] LABS: Albumin 3.4 g/dL (3.2-5.2)
[2019-02-26 09:09] LABS: ALT 46 U/L (7-52); Alkaline Phosphatase 255 U/L (34-104); Globulin 3.4 g/dL (2-4); Total Protein 6.8 g/dL (6.4-8.9)
[2019-02-26] MEDS: CMCS: Alfuzosin ER (NF) 10 MG TAB.ER PO SCH (09:53)
[2019-02-26] MEDS: Methylphenidate TAB* 5 MG PO SCH (09:53)
[2019-02-26] MEDS: Baclofen TAB* 10 MG PO SCH ×3 (09:53→20:30)
[2019-02-26] MEDS: NFT: Pantoprazole TAB (NF) 20 MG TAB PO SCH (11:28)
--- NOTE | 2019-02-26 11:38 | ECHO ---
*[facility]* [place] [address] Fax #: [phone] Transthoracic Echocardiogram Patient: Pino Chamorro : 1945 Study Date: 02/26/2019 Age: 73 Gender: M HR: 90 bpm Height: 69 in /175.3 cm BSA: 1.95 m^2 Weight: 173.6 lb /78.9 kg BMI: 25.7 kg/m^2 *Glue Bone Crusher: * Balbina Young [facility] *Referring Physician: * Diana Corbett *Reading Physician: * Harriett Malcolm MD Indications: Chest Pain, unspecified. Edema. History: Atrial fibrillation. Recent C1 and C2 fractures. Cerebrovascular accident. Risk factors: Hypertension. Conclusions Summary: - Left ventricle: Systolic function is at the lower limits of normal. The estimated ejection fraction is 50-55%. - Left atrium: The atrium is mildly dilated. - Mitral valve: There is trace regurgitation. - Tricuspid valve: There is trace regurgitation. - Aortic root: The aortic root is mildly dilated. - Ascending aorta: The ascending aorta is mildly dilated. - Pericardium, extracardiac: A small , partially loculated pericardial effusion is identified along the right ventricular free wall. There is no evidence of hemodynamic compromise. No obvious hemodynamic compromise. - No previous echocardiogram available. Study data: Transthoracic echocardiogram. Procedure: Transthoracic echocardiography was performed. Image quality was fair. The study was technically limited due to restricted patient mobility. Patient was wearing a C-spine collar. Complete 2D, spectral Doppler, and color flow Doppler. Location: Bedside. Patient status: Inpatient. Patient room number: 435. Rhythm: Normal sinus rhythm. Findings Left ventricle: The cavity size is below normal. Wall thickness is mildly increased. Systolic function is at the lower limits of normal. The estimated ejection fraction is 50-55%. Wall motion is normal; there are no regional wall motion abnormalities. There is no consistent Doppler evidence of clinically significant diastolic dysfunction. Right ventricle: The cavity size is normal. Wall thickness is mildly increased. Systolic function is normal. Left atrium: The atrium is mildly dilated. Right atrium: The atrium is normal in size. Mitral valve: The leaflets are mildly thickened. There is no evidence of stenosis. There is trace regurgitation. Aortic valve: The annulus is mildly calcified. The valve is trileaflet. The leaflets are mildly thickened. There is no evidence of stenosis. Regurgitation is difficult to evaluate due to jet eccentricity. Tricuspid valve: The leaflets are normal thickness. There is no evidence of stenosis. There is trace regurgitation. Pulmonic valve: Poorly visualized. There is no evidence of stenosis. Aorta: Aortic root: The aortic root is mildly dilated. Ascending aorta: The ascending aorta is mildly dilated. Aortic arch: The aortic arch is not visualized. Pericardium: A small , partially loculated pericardial effusion is identified along the right ventricular free wall. There is no evidence of hemodynamic compromise. There is an anechoic rim adjacent to right ventricle free wall in parasternal long axis measuring 0.8 cm. In apical four chamber view 0.4 cm at the apex. In paraternal short axis at aortic valve level 0.7 cm adjacent to right ventricle. In subcostal four chamber 1.3 cm adjacent to right ventricle free wall. The respiratory variation for mitral valve inflow is 14% and 7% for the left ventricular outflow tract. Unable to accurately measure tricuspid valve inflow respiration variation. Pulmonary arteries: The main pulmonary artery is normal-sized. Systolic pressure can not be accurately estimated. Systemic veins: Inferior vena cava: The vessel is dilated. There is (< 50%) respiratory change in the IVC dimension. Measurements Left ventricle Value Ref Right atrium Value Ref WILLIAM, LAX (L) 4.0 cm 4.2 - 5.8 SI dim, ES 4.6 cm 3.4 - 5.3 ESD, LAX 3.4 cm 2.5 - 4.0 ML dim, ES, A4C 3.7 cm 2.6 - 4.4 FS, LAX (L) 15 % 25 - 43 SI dim, ES, A4C 4.6 cm 3.4 - 5.3 PW, ED, LAX (H) 1.2 cm 0.6 - 1.0 Estimated RAP 15 mm Hg --------- FS (L) 15 % 25 - 43 PW, ED (H) 1.2 cm 0.6 - 1.0 Aortic valve Value Ref PW/ID, ED 0.29 Tye diam, ED 2.5 cm --------- E', lat tye, TDI (L) 5.9 cm/sec >=10.0 Peak v, S 1.25 m/sec --- ------ E/e', lat tye, 16 VTI, S 24.3 cm ------ --- TDI Mean grad, S 5.0 mm Hg --------- E', med tye, TDI 7.2 cm/sec >=7.0 Peak grad, S 6.0 mm Hg --- ------ E/e', med tye, 13 LVOT/AV, VTI ratio 0.91 ------ --- TDI ALTHEA, VTI 3.13 cm^2 --------- E', avg, TDI 6.6 cm/sec ALTHEA, Vmax 3.16 cm^2 ------ --- E/e', avg, TDI (H) 15 <=14 Mitral valve Value Ref LVOT Value Ref Peak E 0.96 m/sec --------- Diam, S 2.10 cm Peak A 0.7 m/sec --------- Area 3.5 cm^2 Decel time 148 ms --------- Peak abundio, S 1.14 m/sec Peak grad, D 3.7 mm Hg --------- VTI, S 22.0 cm Peak E/A ratio 1.4 --------- Peak grad, S 5 mm Hg Mean grad, S 3 mm Hg Pulmonic valve Value Ref SV 76 ml Peak v, S 0.81 m/sec --------- SV/bsa 39 ml/m^2 Peak grad, S 3.0 mm Hg --------- Ventricular septum Value Ref Aortic root Value Ref IVS, ED (H) 1.1 cm 0.6 - 1.0 Root diam 4.0 cm <4.1 Root max diam, ED 4.0 cm <4.1 Right ventricle Value Ref AW thickness, ED (H) 0.9 cm 0.1 - 0.5 Ascending aorta Value Ref WILLIAM, LAX 3.4 cm AAo AP diam, S 4.1 cm --------- WILLIAM minor ax, 3.1 cm 1.9 - 3.5 A4C mid Inferior vena cava Value Ref Diam 2.9 cm --------- Left atrium Value Ref AP dim, ES (L) 2.90 cm 3.00 - 4.00 ML dim, A4C 3.8 cm SI dim, A4C 4.4 cm Vol/bsa, ES, 1-p 28 ml/m^2 12 - 37 A4C Vol/bsa, ES, A/L (H) 35 ml/m^2 16 - 34 Legend: (L) and (H) erika values outside specified reference range. Prepared and electronically signed by Harriett Malcolm MD 02/26/2019 11:38
[2019-02-26] MEDS ORDERED: Aminophylline IV* 25 MG/ML 10 ML VIAL ONE (13:32)
[2019-02-26] MEDS ORDERED: Regadenoson* 0.4 MG/5 ML SYRINGE ONE (13:32)
[2019-02-26] MEDS: Polyethylene Glycol 3350* 17 GM PACKET PO SCH (15:25)
[2019-02-26] MEDS: Metoprolol Succinate XL TAB* 25 MG PO SCH (15:27)
[2019-02-26] MEDS ORDERED: Phytonadione Oral Solution* 5 MG/25 ML UDC PO ONE (15:53)
[2019-02-26 16:29] LABS: Hepatitis B Surface Antigen Nonreactive (Nonreactive)
[2019-02-26 16:33] LABS: % Iron Saturation 11 % (15-55); Iron 23 ug/dL (50-212); Total Iron Binding Capacity 211 mcg/dL (250-450); Transferrin 151 mg/dL (203-362)
[2019-02-26 16:46] LABS: Hepatitis C Antibody Negative (Negative)
[2019-02-26 16:54] LABS: Ferritin 386.5 ng/mL (24-336)
[2019-02-26 16:57] LABS: Folate 15.13 ng/mL (>3.99)
--- NOTE | 2019-02-26 17:44 | PN ---
Subjective Date of Service: 02/26/19 Interval History: Patient is feeling well today. Patient has minimal abdominal cramping which is inconsistent between examinations. Patient denies CP, SOB, Dizziness, N/V, F/C, diarrhea, hematochezia, or other pain. Family History: Unchanged from Admission Social History: Unchanged from Admission Past Medical History: Unchanged from Admission Objective Active Medications: Acetaminophen (Tylenol Tab*) 650 mg PO Q4H PRN PRN Reason: MILD PAIN or TEMP > 100.4 Last Admin: 02/25/19 19:27 Dose: 650 mg Al Hydrox/Mg Hydrox/Simethicone (Maalox Plus*) 30 ml PO Q6H PRN PRN Reason: INDIGESTION Alfuzosin HCl (Uroxatral (Nf)) 10 mg PO DAILY [facility] Last Admin: 02/26/19 09:53 Dose: 10 mg Atorvastatin Calcium (Lipitor*) 20 mg PO BEDTIME [facility] Baclofen (Lioresal Tab*) 5 mg PO TID [facility] Last Admin: 02/26/19 15:26 Dose: 5 mg Escitalopram Oxalate (Lexapro *) 20 mg PO QAM [facility] Methylphenidate HCl (Ritalin Tab*) 5 mg PO DAILY [facility] Last Admin: 02/26/19 09:53 Dose: 5 mg Metoprolol Succinate (Toprol Xl Tab*) 12.5 mg PO DAILY [facility] Last Admin: 02/26/19 15:27 Dose: 12.5 mg Mirtazapine (Remeron Tab*) 30 mg PO BEDTIME [facility] Last Admin: 02/25/19 22:16 Dose: 30 mg Pantoprazole Sodium (Protonix Tab (Nf)) 20 mg PO DAILY [facility] Last Admin: 02/26/19 11:28 Dose: Not Given Polyethylene Glycol/Electrolytes (Miralax*) 17 gm PO DAILY [facility] Last Admin: 02/26/19 15:25 Dose: 17 gm Vitamin E (Vitamin E Cap*) 400 unit PO DAILY [facility] Vital Signs - 8 hr 02/26/19 02/26/19 11:15 15:15 Temperature 97.3 F 97.1 F Pulse Rate 88 93 Respiratory 20 20 Rate Blood Pressure 104/70 110/73 (mmHg) O2 Sat by Pulse 100 98 Oximetry Oxygen Devices in Use Now: None Appearance: Patient is a 73yo male who appears stated age, is in a [place] J Collar, and is sitting in the bed in NAD. Eyes: No Scleral Icterus, PERRLA Ears/Nose/Mouth/Throat: NL Teeth, Lips, Gums, Clear Oropharnyx, Mucous Membranes Moist Neck: NL Appearance and Movements; NL JVP, Trachea Midline Respiratory: Symmetrical Chest Expansion and Respiratory Effort, Clear to Auscultation Cardiovascular: NL Sounds; No Murmurs; No JVD, RRR, - - 2+ B/L LE edema. No Calf Tenderness. Abdominal: NL Sounds; No Tenderness; No Distention, No Hepatosplenomegaly Lymphatic: No Cervical Adenopathy Extremities: No Clubbing, Cyanosis Skin: No Rash or Ulcers, No Nodules or Sclerosis Neurological: - - Left Sided Hemiparesis, Alert and oriented to place and self. Result Diagrams: 02/26/19 04:35 02/26/19 07:23 Assess/Plan/Problems-Billing Assessment: Patient is a 73yo male with a PMH for CVA, HTN, Afib, here with weakness, LE swelling, and chest pain who has been ruled out for MO but has evidence of liver dysfunction. - Patient Problems (1) Chest pain Current Visit: Yes Status: Acute Code(s): R07.9 - CHEST PAIN, UNSPECIFIED SNOMED Code(s): 05980626 Comment: - Unclear time course due to patient being poor historian. - Echo Normal, Stress poor quality study, discussed with interventional cardiology and results are generally uninterpretable and non-diagnostic. (2) Leg edema Current Visit: Yes Status: Acute Code(s): R60.0 - LOCALIZED EDEMA SNOMED Code(s): 648114737 Comment: - Unclear cause, acute onset. - LE dopplers pending - Was on Eliquis, Blood Clot unlikely - No signs of RV strain - Unable to diurese due to BP - Possibly due to liver fibrosis. (3) Prolonged INR Current Visit: Yes Status: Acute Code(s): R79.1 - ABNORMAL COAGULATION PROFILE SNOMED Code(s): 329774200 Comment: - INR to 3.5 while on Eliquis - Concern for synthetic liver dysfunction, Give Vitamin K and repeat in AM - FIB 4 score indicating likely advanced fibrosis, likely due to MERRILL - Associated with low platelets and intermittent increases in LFTS. - ? If statin heptotoxicity contributed give time course compared to starting statin. - Check Prealbumin, Albumin Normal - Hepatomegaly on US. - Recheck levels in AM, Possible outpatient F/U with GI. (4) Atrial fibrillation Current Visit: Yes Status: Acute Code(s): I48.91 - UNSPECIFIED ATRIAL FIBRILLATION SNOMED Code(s): 64852604 Comment: - Paroxysmal, Eliquis on Hold - Continue Metoprolol (5) Hematochezia Current Visit: Yes Status: Acute Code(s): K92.1 - MELENA SNOMED Code(s): 158127854 Comment: - Small amount of BRBPR over night, no recurrence. - Hold Eliquis, Resume in AM if no further bleeding or drop in H/H. (6) Depression Current Visit: No Status: Acute Code(s): F32.9 - MAJOR DEPRESSIVE DISORDER, SINGLE EPISODE, UNSPECIFIED SNOMED Code(s): 52769655 Comment: - Continue escitalopram and mirtazapine (7) History of CVA with residual deficit Current Visit: No Status: Acute Code(s): I69.30 - UNSPECIFIED SEQUELAE OF CEREBRAL INFARCTION SNOMED Code(s): 238103463 Comment: - Residual right hemipalegia and dysarthria; deficits at baseline - Eliquis on hold, not in Afib, Decrease Statin - Likely embolic. (8) Hypertension Current Visit: No Status: Acute Code(s): I10 - ESSENTIAL (PRIMARY) HYPERTENSION SNOMED Code(s): 69179021 Comment: - [place] Hypotensive - Decrease Metoprolol dose. (9) Anemia Current Visit: Yes Status: Acute Code(s): D64.9 - ANEMIA, UNSPECIFIED SNOMED Code(s): 283967358 Comment: - Iron panel consistent with AOCD - CRP elevated, trend. - Unclear source of inflammation. (10) DVT prophylaxis Current Visit: No Status: Acute Code(s): XNU7328 - SNOMED Code(s): 122363209 Comment: - Eliquis on hold, resume tomorrow likely. (11) Full code status Current Visit: No Status: Acute Code(s): Z78.9 - OTHER SPECIFIED HEALTH STATUS SNOMED Code(s): 946360941 Status and Disposition: Observation, Back to [place] at D/C.
[2019-02-26] MEDS: Ondansetron INJ* 2 MG/ML VIAL IV PRN (19:33)
[2019-02-26] MEDS: Vitamin E CAP* 400 UNIT PO SCH (19:33)
[2019-02-26] MEDS: Acetaminophen TAB* 325 MG PO PRN (20:30)
[2019-02-26] MEDS: Mirtazapine TAB* 15 MG PO SCH (20:31)
[2019-02-26] MEDS ORDERED: Atorvastatin* 20 MG TAB PO SCH (21:00)
[2019-02-26 23:01] LABS: Urine Appearance Clear; Urine Bacteria Absent (Absent); Urine Bilirubin Negative (Negative); Urine Blood Negative (Negative); Urine Color Amber; Urine Glucose Negative (Negative); Urine Ketones Negative (Negative); Urine Nitrite Negative (Negative); Urine Protein 1+(30 mg/dL) (Negative); Urine Red Blood Cell Absent (Absent); Urine Specific Gravity 1.025 (1.010-1.030); Urine Urobilinogen Positive (Negative); Urine White Blood Cell Trace(0-5/hpf) (Absent)
[2019-02-27 06:52] LABS: ABS Eosinophils 0.2 10^3/ul (0-0.6); ABS Lymphocytes 0.8 10^3/ul (1.0-4.8); ABS Monocytes 0.7 10^3/ul (0-0.8); ABS Neutrophils 6.4 10^3/ul (1.5-7.7); Eosinophil % 2.4 %; Hematocrit 33 % (42-52); Hemoglobin 11.3 g/dL (14.0-18.0); Lymphocyte % 9.4 %; Mean Corpuscular HGB Conc 34 g/dL (31-36); Mean Corpuscular Hemoglobin 29 pg (27-31); Mean Corpuscular Volume 86 fL (80-94); Mean Platelet Volume 8.1 fL (7.4-10.4); Platelet Count 89 10^3/uL (150-450); Red Blood Count 3.85 10^6 /uL (4.18-5.48); Red Cell Distribution Width 14 % (10-15)
[2019-02-27 07:07] LABS: Albumin/Globulin Ratio 0.9 (1-3); BUN/Creatinine Ratio 16.3 (8-20); C Reactive Protein 120.02 mg/L (<8.01); Calcium 8.5 mg/dL (8.6-10.3); EGFR African American 105.5 (>60); EGFR Non-African American 87.2 (>60); Globulin 3.4 g/dL (2-4); Indirect Bilirubin 0.9 mg/dL (0.3-1.0); Potassium 4.1 mmol/L (3.5-5.0); Total Bilirubin 1.7 mg/dL (0.2-1.0); Total Protein 6.4 g/dL (6.4-8.9)
[2019-02-27 08:13] LABS: Erythrocyte Sed Rate 40 mm/Hr (0-19)
[2019-02-27 08:31] LABS: INR 2.32 (0.82-1.09)
[2019-02-27] MEDS ORDERED: Zinc Sulfate CAP* 220 MG PO SCH (09:00)
[2019-02-27] MEDS: Polyethylene Glycol 3350* 17 GM PACKET PO SCH (09:05)
[2019-02-27] MEDS: Baclofen TAB* 10 MG PO SCH ×3 (09:07→20:58)
[2019-02-27] MEDS: Metoprolol Succinate XL TAB* 25 MG PO SCH (09:07)
[2019-02-27] MEDS: Escitalopram * 20 MG TABLET PO SCH (09:08)
[2019-02-27] MEDS: Vitamin E CAP* 400 UNIT PO SCH (09:08)
[2019-02-27] MEDS: Methylphenidate TAB* 5 MG PO SCH (09:08)
[2019-02-27] MEDS: CMCS: Alfuzosin ER (NF) 10 MG TAB.ER PO SCH (09:09)
[2019-02-27] MEDS: NFT: Pantoprazole TAB (NF) 20 MG TAB PO SCH (09:12)
[2019-02-27] MEDS: Pantoprazole TAB * 40 MG TAB PO SCH (10:43)
[2019-02-27] MEDS: Apixaban* 5 MG TAB PO SCH ×2 (10:43→20:58)
--- NOTE | 2019-02-27 17:25 | PN ---
Subjective Date of Service: 02/27/19 Interval History: Patient is feeling well today. Patient does not remember this, but nursing reports he felt nauseated with dinner last night. Patient denies any CP, SOB, calf pain, dizziness, F/C, abdominal pain, or diarrhea. Patient states his appetite has been good. Family History: Unchanged from Admission Social History: Unchanged from Admission Past Medical History: Unchanged from Admission Objective Active Medications: Acetaminophen (Tylenol Tab*) 650 mg PO Q4H PRN PRN Reason: MILD PAIN or TEMP > 100.4 Last Admin: 02/26/19 20:30 Dose: 650 mg Al Hydrox/Mg Hydrox/Simethicone (Maalox Plus*) 30 ml PO Q6H PRN PRN Reason: INDIGESTION Alfuzosin HCl (Uroxatral (Nf)) 10 mg PO DAILY [facility] Last Admin: 02/27/19 09:09 Dose: 10 mg Apixaban (Eliquis*) 5 mg PO BID [facility] Last Admin: 02/27/19 10:43 Dose: 5 mg Baclofen (Lioresal Tab*) 5 mg PO TID [facility] Last Admin: 02/27/19 13:57 Dose: 5 mg Escitalopram Oxalate (Lexapro *) 20 mg PO QAM [facility] Last Admin: 02/27/19 09:08 Dose: 20 mg Methylphenidate HCl (Ritalin Tab*) 5 mg PO DAILY [facility] Last Admin: 02/27/19 09:08 Dose: 5 mg Metoprolol Succinate (Toprol Xl Tab*) 12.5 mg PO DAILY [facility] Last Admin: 02/27/19 09:07 Dose: 12.5 mg Mirtazapine (Remeron Tab*) 30 mg PO BEDTIME [facility] Last Admin: 02/26/19 20:31 Dose: 30 mg Ondansetron HCl (Zofran Inj*) 4 mg IV Q6H PRN PRN Reason: NAUSEA Last Admin: 02/26/19 19:33 Dose: 4 mg Pantoprazole Sodium (Protonix Tab*) 40 mg PO DAILY [facility] Last Admin: 02/27/19 10:43 Dose: 40 mg Polyethylene Glycol/Electrolytes (Miralax*) 17 gm PO DAILY [facility] Last Admin: 02/27/19 09:05 Dose: 17 gm Vitamin E (Vitamin E Cap*) 400 unit PO DAILY [facility] Last Admin: 02/27/19 09:08 Dose: 400 unit Vital Signs - 8 hr 02/27/19 02/27/19 11:15 15:15 Temperature 97.7 F 98.5 F Pulse Rate 86 93 Respiratory 18 24 Rate Blood Pressure 104/66 116/78 (mmHg) O2 Sat by Pulse 93 96 Oximetry Oxygen Devices in Use Now: None Appearance: Patient is a 73yo male who appears stated age, is in a [place] J collar and is sitting in the bed in NAD. Eyes: No Scleral Icterus, PERRLA Ears/Nose/Mouth/Throat: NL Teeth, Lips, Gums, Clear Oropharnyx, Mucous Membranes Moist Neck: NL Appearance and Movements; NL JVP, Trachea Midline, - - [place] J Collar in Place. Respiratory: Symmetrical Chest Expansion and Respiratory Effort, Clear to Auscultation Cardiovascular: NL Sounds; No Murmurs; No JVD, RRR, - - 2+ B/L LE edema. Unchanged. Abdominal: NL Sounds; No Tenderness; No Distention, No Hepatosplenomegaly Lymphatic: No Cervical Adenopathy Extremities: No Clubbing, Cyanosis Skin: No Rash or Ulcers, No Nodules or Sclerosis Neurological: - - Right hemiplegia, Alert, but forgetful. Result Diagrams: 02/27/19 06:36 02/27/19 06:36 Assess/Plan/Problems-Billing Assessment: Patient is a 73yo male with a PMH for CVA, HTN, Afib, here with weakness, LE swelling, and chest pain who has been ruled out for [place] but has evidence of liver dysfunction. - Patient Problems (1) Chest pain Current Visit: Yes Status: Acute Code(s): R07.9 - CHEST PAIN, UNSPECIFIED SNOMED Code(s): 28019303 Comment: - Unclear time course due to patient being poor historian. - Echo Normal, Stress poor quality study, discussed with interventional cardiology and results are generally uninterpretable and non-diagnostic. - Negative Troponins, no additional workup at this time. (2) Leg edema Current Visit: Yes Status: Acute Code(s): R60.0 - LOCALIZED EDEMA SNOMED Code(s): 110004764 Comment: - Unclear cause, acute onset. - LE dopplers pending - Was on Eliquis, Blood Clot unlikely - No signs of RV strain - Unable to diurese due to BP - Possibly due to liver fibrosis. (3) Prolonged INR Current Visit: Yes Status: Acute Code(s): R79.1 - ABNORMAL COAGULATION PROFILE SNOMED Code(s): 133670168 Comment: - INR to 3.5 while on Eliquis, down to 2.3 after vitamin K challenge and 3 half- lives off eliquis. - Concern for synthetic liver dysfunction - FIB 4 score indicating likely advanced fibrosis, likely due to MERRILL or drug effect, was on many unknown lsychiatric medications when youget. - Associated with low platelets and intermittent increases in LFTS. - ? If statin heptotoxicity contributed give time course compared to starting statin, stop statin. - Prealbumin low, albumin now low - Hepatomegaly on US. - Discussed with GI, Autoimmune hepatitis and celiac panel pending, MRCP taken to assess more fully not-visualized CBD on US. - Outpatient F/U with GI. (4) Atrial fibrillation Current Visit: Yes Status: Acute Code(s): I48.91 - UNSPECIFIED ATRIAL FIBRILLATION SNOMED Code(s): 88190860 Comment: - Paroxysmal, Eliquis on Hold - Continue Metoprolol at decreased dose. (5) Hematochezia Current Visit: Yes Status: Acute Code(s): K92.1 - MELENA SNOMED Code(s): 229303914 Comment: - Small amount of BRBPR over night on 02/25, no recurrence. - H/H Stable, resume Eliquis. (6) Depression Current Visit: No Status: Acute Code(s): F32.9 - MAJOR DEPRESSIVE DISORDER, SINGLE EPISODE, UNSPECIFIED SNOMED Code(s): 40566431 Comment: - Continue escitalopram and mirtazapine - Decrease Lexapro, has previously had poor reaction to high doses. (20mg is maximum recommended dose) (7) History of CVA with residual deficit Current Visit: No Status: Acute Code(s): I69.30 - UNSPECIFIED SEQUELAE OF CEREBRAL INFARCTION SNOMED Code(s): 788630998 Comment: - Residual right hemipalegia and dysarthria; deficits at baseline - Resume Eliquis, Stop Statin - Likely embolic. (8) Hypertension Current Visit: No Status: Acute Code(s): I10 - ESSENTIAL (PRIMARY) HYPERTENSION SNOMED Code(s): 42170628 Comment: - [place] Hypotensive - Decrease Metoprolol dose. (9) Anemia Current Visit: Yes Status: Acute Code(s): D64.9 - ANEMIA, UNSPECIFIED SNOMED Code(s): 408423365 Comment: - Iron panel consistent with AOCD - CRP elevated, trend. - Unclear source of inflammation. ? Related to liver disease or autoimmune process. (10) DVT prophylaxis Current Visit: No Status: Acute Code(s): FDW1833 - SNOMED Code(s): 492646443 Comment: - Jasmyn (11) Full code status Current Visit: No Status: Acute Code(s): Z78.9 - OTHER SPECIFIED HEALTH STATUS SNOMED Code(s): 121792569 Status and Disposition: Inpatient, D/C to [place] on Friday.
[2019-02-27] MEDS: Mirtazapine TAB* 15 MG PO SCH (20:58)
[2019-02-28 06:18] LABS: ABS Eosinophils 0.2 10^3/ul (0-0.6); ABS Lymphocytes 0.8 10^3/ul (1.0-4.8); ABS Monocytes 0.8 10^3/ul (0-0.8); ABS Neutrophils 6.5 10^3/ul (1.5-7.7); Eosinophil % 2.1 %; Hematocrit 34 % (42-52); Lymphocyte % 9.3 %; Mean Corpuscular HGB Conc 32 g/dL (31-36); Mean Corpuscular Hemoglobin 28 pg (27-31); Mean Corpuscular Volume 87 fL (80-94); Mean Platelet Volume 8.4 fL (7.4-10.4); Nucleated Red Blood Cells % 0.1; Platelet Count 97 10^3/uL (150-450); Red Blood Count 3.91 10^6 /uL (4.18-5.48); Red Cell Distribution Width 14 % (10-15); White Blood Count 8.3 10^3/uL (3.5-10.8)
[2019-02-28 06:35] LABS: Albumin 2.9 g/dL (3.2-5.2); BUN/Creatinine Ratio 17.6 (8-20); Calcium 8.3 mg/dL (8.6-10.3); EGFR African American 106.9 (>60); EGFR Non-African American 88.4 (>60); Total Bilirubin 1.8 mg/dL (0.2-1.0); Total Protein 5.9 g/dL (6.4-8.9)
[2019-02-28 07:22] LABS: Potassium 4.1 mmol/L (3.5-5.0)
[2019-02-28] MEDS: Metoprolol Succinate XL TAB* 25 MG PO SCH (09:26)
[2019-02-28] MEDS: Baclofen TAB* 10 MG PO SCH ×3 (09:26→20:21)
[2019-02-28] MEDS: Vitamin E CAP* 400 UNIT PO SCH (09:27)
[2019-02-28] MEDS: Methylphenidate TAB* 5 MG PO SCH (09:27)
[2019-02-28] MEDS: Apixaban* 5 MG TAB PO SCH ×2 (09:27→20:21)
[2019-02-28] MEDS: CMCS: Alfuzosin ER (NF) 10 MG TAB.ER PO SCH (09:27)
[2019-02-28] MEDS: Pantoprazole TAB * 40 MG TAB PO SCH (09:27)
[2019-02-28] MEDS: Polyethylene Glycol 3350* 17 GM PACKET PO SCH (09:28)
[2019-02-28] MEDS: Escitalopram * 20 MG TABLET PO SCH (09:28)
[2019-02-28] MEDS: Acetaminophen TAB* 325 MG PO PRN ×3 (10:22→19:14)
--- NOTE | 2019-02-28 10:50 | PN ---
Subjective Date of Service: 02/28/19 Interval History: Patient this AM is more lethargic and difficult to communicate with than previously. Patient reported RUQ and RLQ abdominal pain to nursing, but is equivocal about this during examination. Patient denies CP, SOB, palpitations, dizziness, N/V, dysuria, or neck pain. Family History: Unchanged from Admission Social History: Unchanged from Admission Past Medical History: Unchanged from Admission Objective Active Medications: Acetaminophen (Tylenol Tab*) 650 mg PO Q4H PRN PRN Reason: MILD PAIN or TEMP > 100.4 Last Admin: 02/28/19 10:22 Dose: 650 mg Al Hydrox/Mg Hydrox/Simethicone (Maalox Plus*) 30 ml PO Q6H PRN PRN Reason: INDIGESTION Alfuzosin HCl (Uroxatral (Nf)) 10 mg PO DAILY [facility] Last Admin: 02/28/19 09:27 Dose: 10 mg Apixaban (Eliquis*) 5 mg PO BID [facility] Last Admin: 02/28/19 09:27 Dose: 5 mg Baclofen (Lioresal Tab*) 5 mg PO TID [facility] Last Admin: 02/28/19 09:26 Dose: 5 mg Escitalopram Oxalate (Lexapro *) 20 mg PO QAM [facility] Last Admin: 02/28/19 09:28 Dose: 20 mg Methylphenidate HCl (Ritalin Tab*) 5 mg PO DAILY [facility] Last Admin: 02/28/19 09:27 Dose: 5 mg Metoprolol Succinate (Toprol Xl Tab*) 12.5 mg PO DAILY [facility] Last Admin: 02/28/19 09:26 Dose: 12.5 mg Mirtazapine (Remeron Tab*) 30 mg PO BEDTIME [facility] Last Admin: 02/27/19 20:58 Dose: 30 mg Ondansetron HCl (Zofran Inj*) 4 mg IV Q6H PRN PRN Reason: NAUSEA Last Admin: 02/26/19 19:33 Dose: 4 mg Pantoprazole Sodium (Protonix Tab*) 40 mg PO DAILY [facility] Last Admin: 02/28/19 09:27 Dose: 40 mg Polyethylene Glycol/Electrolytes (Miralax*) 17 gm PO DAILY [facility] Last Admin: 02/28/19 09:28 Dose: 17 gm Vitamin E (Vitamin E Cap*) 400 unit PO DAILY [facility] Last Admin: 02/28/19 09:27 Dose: 400 unit Vital Signs - 8 hr 02/28/19 02/28/19 02/28/19 03:15 07:15 08:00 Temperature 98.9 F 98 F Pulse Rate 100 102 Respiratory 22 18 18 Rate Blood Pressure 122/85 111/83 (mmHg) O2 Sat by Pulse 94 94 Oximetry Oxygen Devices in Use Now: None Appearance: Patient is a 73yo male who appears stated age and is in a [place] J collar and is sitting in the bed in NAD. Eyes: No Scleral Icterus, PERRLA Ears/Nose/Mouth/Throat: NL Teeth, Lips, Gums, Clear Oropharnyx, Mucous Membranes Moist Neck: NL Appearance and Movements; NL JVP, Trachea Midline Respiratory: Symmetrical Chest Expansion and Respiratory Effort, - - Slight Inspiratory Rales in B/L Lower lobes. Improve with deep inspiration. Cardiovascular: NL Sounds; No Murmurs; No JVD, RRR, No Edema Abdominal: NL Sounds; No Tenderness; No Distention, No Hepatosplenomegaly Lymphatic: No Cervical Adenopathy Extremities: No Edema, No Clubbing, Cyanosis Skin: No Rash or Ulcers, No Nodules or Sclerosis Neurological: - - Alert, oriented to self, Right Hemiparesis. Result Diagrams: 02/28/19 06:05 02/28/19 05:48 Microbiology and Other Data: Microbiology 02/26/19 22:34 Urine Culture - Final Urine No Growth (<1,000 CFU/mL) Assess/Plan/Problems-Billing Assessment: Patient is a 73yo male with a PMH for CVA, HTN, Afib, here with weakness, LE swelling, and chest pain who has been ruled out for [place] but has evidence of liver dysfunction. - Patient Problems (1) Prolonged INR Current Visit: Yes Status: Acute Code(s): R79.1 - ABNORMAL COAGULATION PROFILE SNOMED Code(s): 250313057 Comment: - INR to 3.5 while on Eliquis, down to 2.3 after vitamin K challenge and 3 half- lives off eliquis. - Concern for synthetic liver dysfunction - FIB 4 score indicating likely advanced fibrosis, likely due to MERRILL or drug effect, was on many unknown lsychiatric medications when youget. - Associated with low platelets and intermittent increases in LFTS. - ? If statin heptotoxicity contributed give time course compared to starting statin, stop statin. - Prealbumin low, albumin now low - Hepatomegaly on US. - Discussed with GI, Autoimmune hepatitis and celiac panel pending, MRCP limited , but shows no CBD pathology or suspicious liver lesions. - Outpatient F/U with GI. (2) Chest pain Current Visit: Yes Status: Acute Code(s): R07.9 - CHEST PAIN, UNSPECIFIED SNOMED Code(s): 39483654 Comment: - Unclear time course due to patient being poor historian. - Echo Normal, Stress poor quality study, discussed with interventional cardiology and results are generally uninterpretable and non-diagnostic. - Negative Troponins, no additional workup at this time. (3) Liver fibrosis Current Visit: Yes Status: Acute Code(s): K74.0 - HEPATIC FIBROSIS SNOMED Code(s): 49116667 Comment: - See above discussion - Unlcear cause, most likely MERRILL - Follow up outpatient GI (4) Thrombocytopenia Current Visit: Yes Status: Acute Code(s): D69.6 - THROMBOCYTOPENIA, UNSPECIFIED SNOMED Code(s): 988957792 Comment: - Spleen bordeline enlarged on MRCP. - Likely cause of thrombocytopenia, now stable. - No signs of bleeding, continue eliquis. (5) Leg edema Current Visit: Yes Status: Acute Code(s): R60.0 - LOCALIZED EDEMA SNOMED Code(s): 810428174 Comment: - Unclear cause, acute onset. - LE dopplers pending - Was on Eliquis, Blood Clot unlikely - No signs of RV strain - Unable to diurese due to BP - Possibly due to liver fibrosis. - Treat Symptomatically with Compression Stockings. (6) Atrial fibrillation Current Visit: Yes Status: Acute Code(s): I48.91 - UNSPECIFIED ATRIAL FIBRILLATION SNOMED Code(s): 17500655 Comment: - Paroxysmal, Eliquis on Hold - Continue Metoprolol at decreased dose. (7) Hematochezia Current Visit: Yes Status: Acute Code(s): K92.1 - MELENA SNOMED Code(s): 036471008 Comment: - Small amount of BRBPR over night on 02/25, no recurrence. - H/H Stable, resume Eliquis. (8) Depression Current Visit: No Status: Acute Code(s): F32.9 - MAJOR DEPRESSIVE DISORDER, SINGLE EPISODE, UNSPECIFIED SNOMED Code(s): 40931024 Comment: - Continue escitalopram and mirtazapine - Decrease Lexapro, has previously had poor reaction to high doses. (20mg is maximum recommended dose) (9) History of CVA with residual deficit Current Visit: No Status: Acute Code(s): I69.30 - UNSPECIFIED SEQUELAE OF CEREBRAL INFARCTION SNOMED Code(s): 814063621 Comment: - Residual right hemipalegia and dysarthria; deficits at baseline - Resume Eliquis, Stop Statin - Likely embolic. - Mental status worse today than previously, noted previously to have been worse within the hospital - Check ammonia due to new liver pathology. (10) Hypertension Current Visit: No Status: Acute Code(s): I10 - ESSENTIAL (PRIMARY) HYPERTENSION SNOMED Code(s): 08951221 Comment: - [place] Hypotensive - Decrease Metoprolol dose. (11) Anemia Current Visit: Yes Status: Acute Code(s): D64.9 - ANEMIA, UNSPECIFIED SNOMED Code(s): 422727341 Comment: - Iron panel consistent with AOCD - CRP elevated, trend. - Unclear source of inflammation. ? Related to liver disease or autoimmune process. (12) DVT prophylaxis Current Visit: No Status: Acute Code(s): NDR5353 - SNOMED Code(s): 818608334 Comment: - Jasmyn (13) Full code status Current Visit: No Status: Acute Code(s): Z78.9 - OTHER SPECIFIED HEALTH STATUS SNOMED Code(s): 032104744 Status and Disposition: Inpatient, D/C to [place] on Friday.
[2019-02-28] MEDS: Mirtazapine TAB* 15 MG PO SCH (20:21)
--- NOTE | 2019-03-01 02:48 | DS ---
PLEASE NOTE BLANKS DUE TO AUDIO DISTORTION CC: Dr. Henry Patrick; Dr. Robert Matute; Dr. Luis Felipe Naranjo * DISCHARGE SUMMARY: DATE OF ADMISSION: 02/25/19 ANTICIPATED DATE OF DISCHARGE: 03/01/19 PRIMARY CARE PROVIDER: Dr. Henry Patrick. MY ATTENDING WHILE IN THE HOSPITAL: Dr. Jose Adan.* (DICTATED BY TERE SAUCEDA) GASTROENTEROLOGY: Dr. Robert Matute. NEUROSURGERY: Dr. Luis Felipe Naranjo. PRIMARY DISCHARGE DIAGNOSES: 1. Thrombocytopenia. 2. Prolonged INR. 3. 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 4. Chest pain, negative stress test, normal echocardiogram. 5. Anemia of chronic disease. SECONDARY DISCHARGE DIAGNOSES: 1. History of paroxysmal atrial fibrillation. 2. History of cerebrovascular accident with residual hemiparesis. 3. History of severe depression. 4. Tardive dyskinesia. 5. History of spinal fracture. 6. Hypertension. 7. Benign prostatic hypertrophy. 8. Headache. 9. Gastroesophageal reflux disease. STUDIES DONE WHILE IN THE HOSPITAL: Chest x-ray from 02/25/19, read as no evidence of active cardiopulmonary disease. Electrocardiogram from 02/25/19, read as normal sinus rhythm, no ST segment elevation of depression, T-wave flattening in lead V6, low amplitude, rate of __ ____. Repeat EKG from 02/26/19, shows no significant changes compared to previous exam , low amplitude is new and no significant changes. Low amplitude is new. T- wave flattening is new. No significant changes. Gallbladder ultrasound from 02/25/19, read as contracted gallbladder with no gallstones, otherwise negative for right upper quadrant sonogram. Transthoracic echocardiogram read as left ventricular systolic function is at lower limits of normal, estimated ejection fraction is 50% to 55%, left atrium is mildly dilated, mitral valve with trace regurgitation, tricuspid valve with trace regurgitation, aortic root is mildly dilated, ascending aorta is mildly dilated, a small partially loculated pericardial effusion identified along the right ventricular free wall. There is no evidence of hemodynamic compromise. No obvious hemodynamic compromise. No previous echocardiogram available. This study was technically limited due to restricted patient mobility. Brain CT from 02/25/19, read as no change from 11/11/18, mild bilateral ischemic change, there is old inferior bilateral ethmoid atrophy, left maxillary, sphenoid, and ethmoid sinus disease. Nuclear medicine scan from 02/26/19, read as low range estimated left ventricular ejection fraction, LATED suggesting distal small vessel disease, suggesting a decreased perfusion in the mid lateral and inferior wall segments at stress without corresponding abnormality at rest, concerning for potential ischemia, however, this finding given the poor quality of study. Further discussion of this study with Cardiology revealed that a very few of the images could be accurately interpreted. Cholangiopancreatography MRI read as image quality failure by respiratory motion artifact. There are no definite gallstones, hepatic pathway or pathologic biliary obstruction. Liver is mildly enlarged. No focal lesions, specific liver lesions. No intra or extrahepatic duct distention. Pancreas is within normal limits. Pancreatic duct not enlarged. No acid is seen. kidneys are normal in size. Spleen to this office interpretation slightly large at 12 cm in large dimension on x-ray. There is no radiographically apparent acute abnormality. Venous Doppler study from 02/28/19, read as grossly normal, no large popliteal cyst was identified. No sonographic evidence of deep vein thrombosis. MEDICATIONS AT DISCHARGE: 1. Alfuzosin 10 mg p.o. daily. 2. Calcium carbonate 500 mg p.o. q.4 hours as needed. 3. Magnesium hydroxide 30 mL q.24 hours as needed. 4. Sodium phosphate enema p.r. daily as needed. 5. MiraLAX 17 g p.o. daily. 6. Escitalopram 20 mg p.o. daily. 7. Tylenol 650 mg p.o. q.4 hours as needed. 8. Methylphenidate 5 mg p.o. daily. 9. Mirtazapine 30 mg p.o. daily. 10. Glycerin suppository 1 suppository q.24 hours as needed. 11. Pantoprazole 20 mg p.o. daily. 12. Calcium carbonate 500 mg p.o. q.6 hours as needed. 13. Dextran 1 drop both eyes daily as needed. 14. Metoprolol succinate 50 mg p.o. daily. 15. Apixaban 5 mg p.o. b.i.d. 16. Baclofen 5 mg p.o. t.i.d. 17. Vitamin E 400 mg p.o. daily. New medication at discharge: 1. Vitamin E. 2. Lexapro 20 mg p.o. daily. Medications discontinued at discharge: 1. Lexapro 40 mg p.o. daily. 2. Lipitor 40 mg p.o. at bedtime. HOSPITAL COURSE: This is a brief summary of the patient's presentation. For more details, please see the history and physical from Diana Corbett NP, on 02/25/19. In brief, the patient is a 73-year-old male with past medical history significant for the above, who presents to the emergency department with reported complaints of chest pain, but not complained of severe chest pain while in the emergency department, pain more diffusely to his upper abdomen in epigastric region, lasting several seconds at a time. The patient at the group home also had increasing weakness and worsening in his mental status for approximately a week with no obvious cause. The patient was admitted to the hospital. The patient's troponins were negative. The patient's EKGs were relatively non-ischemic, showed no discrete ischemia. The patient had echocardiogram as above showing no left ventricular wall motion abnormalities, no significant valvular dysfunction, no pulmonary hypertension. The patient had a nuclear medicine stress test as above and not provoked any chest pain and otherwise nondiagnostic as above. The patient's lab work on admission showed hemoglobin decreased below his baseline, platelet count significantly below his baseline at 96. INR elevated at 3.1, which increased to 3.53 on the 2nd hospital day 2, elevated bilirubin and alkaline phosphatase with an elevated GGT, and elevated cholesterol of 15. The patient has a slightly elevated BNP at 163 with no previous to compare. The patient's blood pressure on admission was low and his metoprolol was decreased. The patient is a very poor historian and there was some concern about gallbladder pathology, and MRCP and gallbladder ultrasound were obtained as above without any definitive diagnosis of gallbladder pathology. The patient had a enlarged liver and no other signs of liver pathology. There was concern for liver fibrosis. The patient's FIB-4 score was calculated on admission indicating likely advanced S3 or S4 fibrosis. The patient had one episode of slight hematochezia and his Eliquis was held. At that time which also allowed for a vitamin K challenge and a reassessment of his INR, which showed that it decreased only to 2.32 and when other anticoagulation was removed, the patient had a negative viral hepatitis panel. The patient had autoimmune hepatitis panel sent, which is pending at this time. The patient's case was discussed with Dr. Robert Matute of Gastroenterology, who did not have any additional workup to add while the patient was inpatient, but stated the patient would need to have a follow up with middle school director as outpatient. There was a trend noted in the patient's liver function studies, which showed that his LFTs may have increased after his statin and given that his LDL cholesterol of 15 and is no longer believed to have a thrombolic stroke, his statin was discontinued. The patient had an elevated CRP of unclear etiology. The patient had a negative chest x-ray, negative urinalysis, no focal skin lesions. The patient also had iron panel consistent with anemia of chronic disease. This was most likely attributable to his liver disease given lack of other focal findings. The patient was started on vitamin E, as most likely etiology of liver fibrosis would be alcoholic fatty liver disease/nonalcoholic steatohepatitis. The patient did not have evidence of cirrhosis, but did have advanced MELD score. The patient's albumin was decreased throughout his hospitalization and had markedly low prealbumin at 7, though the patient has been eating well. Due to this, a celiac panel was also sent. The patient had abdominal pain with movement throughout his hospitalization. He had multiple images of his abdomen including MRCP and an abdomen x-ray showed nothing, this was most likely attributable to his compression fracture in his thoracic spine sustained previously though this is not, given that there are no focal abnormalities to be found. The patient's mental acuity decreased while he was in the hospital, which is consistent with the patient's previous pattern. The patient however did have an ammonia level drawn, which was fairly elevated at 57 and given no other associated signs of HE and no obvious cirrhosis, the patient was not treated with lactulose therapy at this time. The patient was stable and amenable for discharge with presumed discharge date 03/01/19. The probability of hospital delirium causing the patient's worsening mental status was discussed with the family and they were agreement with the discharge for the patient back to [place] on 03/01/19. DISCHARGE PLAN BY PROBLEM: 1. Likely liver fibrosis causing thrombocytopenia, elevated prolonged INR, elevated bilirubin, elevated alkaline phosphatase, and low albumin. This will be followed up with outpatient middle school director with Dr. Robert Matute, with whom the case has been discussed. The patient did not likely have hepatic encephalopathy. The patient's lower extremity edema and hepatomegaly are likely attributable to this, as it might be his lack of energy and anemia of chronic disease, as there are no other obvious causes at this time for his elevated CRP, is still moderate for signs of other inflammatory disorders though infection seems unlikely at this point. 2. Vascular dementia related to cerebrovascular accident. The patient should have full supportive care and frequent orientation via his family and staff at [facility]. The patient should follow up with his neurologist if available for ongoing cognitive testing. 3. Atrial fibrillation, history of cerebrovascular accident. The patient's cerebrovascular accident is likely embolic given his paroxysmal atrial fibrillation found on implantable loop recorder. The patient will be continued on his Eliquis at this time. The patient should follow up with laboratory machinist. The patient did not enter atrial fibrillation while in the hospital; however, his metoprolol dose was decreased given his borderline hypotension on presentation, which may have been contributing to his weakness. 4. Depression. The patient's escitalopram has been previously been decreased from 40 to 20 mg as the increase is above the recommended daily dose, and the patient is also on medication called Remeron. The patient should be monitored closely for signs of dysthymia and additional medications should be added on such as bupropion for adjunctive antidepressant effect. 5. Spinal fracture. The patient could be follow up with flexion and extension x- rays of his C-spine, possible removal of his [place] J-collar as scheduled. DISPOSITION: [facility]. DIET: Heart-healthy diet, caffeine okay. CONDITION: Stable. TIME SPENT: Approximately, 75 minutes was spent on the discharge of this patient, 30 of which was spent [id number] with the patient obtaining history and physical and discussing the treatment plan. TERE SAUCEDA [id number]/CPS #: [id number] MTDD
[2019-03-01 05:06] LABS: ABS Eosinophils 0.2 10^3/ul (0-0.6); ABS Lymphocytes 0.9 10^3/ul (1.0-4.8); ABS Monocytes 0.8 10^3/ul (0-0.8); ABS Neutrophils 6.6 10^3/ul (1.5-7.7); Eosinophil % 2.1 %; Hematocrit 32 % (42-52); Hemoglobin 10.9 g/dL (14.0-18.0); Lymphocyte % 10.2 %; Mean Corpuscular HGB Conc 34 g/dL (31-36); Mean Corpuscular Hemoglobin 29 pg (27-31); Mean Corpuscular Volume 86 fL (80-94); Mean Platelet Volume 8.4 fL (7.4-10.4); Nucleated Red Blood Cells % 0.1; Platelet Count 105 10^3/uL (150-450); Red Blood Count 3.76 10^6 /uL (4.18-5.48); Red Cell Distribution Width 15 % (10-15); White Blood Count 8.5 10^3/uL (3.5-10.8)
[2019-03-01 05:19] LABS: Albumin/Globulin Ratio 0.9 (1-3); BUN/Creatinine Ratio 18.4 (8-20); C Reactive Protein 119.67 mg/L (<8.01); Calcium 8.7 mg/dL (8.6-10.3); EGFR African American 90.7 (>60); Globulin 3.3 g/dL (2-4); Magnesium 1.9 mg/dL (1.9-2.7); Potassium 4.2 mmol/L (3.5-5.0); Total Bilirubin 1.6 mg/dL (0.2-1.0); Total Protein 6.3 g/dL (6.4-8.9)
[2019-03-01 07:49] VITALS: BP 104/56
[2019-03-01] MEDS: Pantoprazole TAB * 40 MG TAB PO SCH (07:50)
[2019-03-01] MEDS: Baclofen TAB* 10 MG PO SCH (07:51)
[2019-03-01] MEDS: Polyethylene Glycol 3350* 17 GM PACKET PO SCH (07:51)
[2019-03-01] MEDS: CMCS: Alfuzosin ER (NF) 10 MG TAB.ER PO SCH (07:51)
[2019-03-01] MEDS: Escitalopram * 20 MG TABLET PO SCH (07:51)
[2019-03-01] MEDS: Apixaban* 5 MG TAB PO SCH (07:51)
[2019-03-01] MEDS: Methylphenidate TAB* 5 MG PO SCH (07:51)
[2019-03-01] MEDS: Vitamin E CAP* 400 UNIT PO SCH (07:51)
[2019-03-01] MEDS: Ondansetron INJ* 2 MG/ML VIAL IV PRN (08:32)
[2019-03-01] MEDS ORDERED: Metoprolol Succinate XL TAB* 25 MG PO SCH (09:00)
[2019-03-02 21:32] LABS: Liver/Kidney Microsomes Ab <5.0 U
[2019-03-03 22:23] LABS: Mitochondria M2 Antibody <0.1 U
== END 2019-03-01 11:42 | DRG 813 ==
LOC: ED 13:29 → MEDTELE 18:51 → OBSVTOIN 02-26 18:00
PROVIDERS: ADMIT Hospitalist; ATTEND Internal Medicine
DX: D69.6 Thrombocytopenia, unspecified (principal); K92.1 Melena; 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 following cerebral infarction affecting right dominant side; R79.1 Abnormal coagulation profile; R07.9 Chest pain, unspecified; I48.0 Paroxysmal atrial fibrillation; G24.01 Drug induced subacute dyskinesia; I10 Essential (primary) hypertension; N40.0 Benign prostatic hyperplasia without lower urinary tract symptoms; K21.9 Gastro-esophageal reflux disease without esophagitis; K74.0 Hepatic fibrosis; D63.8 Anemia in other chronic diseases classified elsewhere; F01.50 Vascular dementia, unspecified severity, without behavioral disturbance, psychotic disturbance, mood disturbance, and anxiety; F32.9 Major depressive disorder, single episode, unspecified; R60.0 Localized edema; R10.13 Epigastric pain; S12.000D Unspecified displaced fracture of first cervical vertebra, subsequent encounter for fracture with routine healing; S12.100D Unspecified displaced fracture of second cervical vertebra, subsequent encounter for fracture with routine healing; W19.XXXD Unspecified fall, subsequent encounter; Z79.01 Long term (current) use of anticoagulants; Z79.1 Long term (current) use of non-steroidal anti-inflammatories (NSAID); Z79.899 Other long term (current) drug therapy; Z82.49 Family history of ischemic heart disease and other diseases of the circulatory system
CPT/HCPCS: 36415; 70450; 71045; 74018; 74181; 76376; 76705; 78452; 80048; 80053; 80061; 80074; 80076; 81003; 81015; 82140; 82150; 82607; 82728; 82746; 82977; 83516; 83540; 83550; 83690; 83735; 83880; 84134; 84484; 85025; 85027; 85060; 85610; 85652; 86038; 86140; 86255; 86256; 86376; 87086; 93005; 93017; 93306; 93970; 99285; A9270-GY; A9502; J0280; J2405; J2785

== ENCOUNTER 2019-03-14 01:04 | Emergency (ER) | payer MEDICARE, BC, OTHER ==
--- NOTE | 2019-03-14 01:21 | ED ---
HPI Cardiac - HPI Summary HPI Summary: Patient is a 73 y/o M presenting to [facility] via EMS from [facility] with complaints of SOB and BLE edema. He states that deep breaths produce chest pain. EMS notes that the patient was 97-98% o2 sat on RA. PMHx of afib, HTN, CVA is noted. Patient has known cervical fracture and arrives with hard cervical collar in place. On triage, pain is rated 8/10. Home medications and allergies are reviewed. - History of Current Complaint Stated Complaint: LEG PAIN PER EMS Time Seen by Provider: 03/14/19 01:08 Hx Obtained From: Patient Onset/Duration: Still Present Timing: Constant Current Severity: Severe Pain Intensity: 8 Pain Scale Used: 0-10 Numeric Aggravating Factor(s): Deep Breaths Alleviating Factor(s): Nothing Associated Signs and Symptoms: Positive: Chest Pain - with deep breaths, Shortness of Breath, Swelling - Additional Pertinent History Primary Care Physician: LEOBARDO - Allergy/Home Medications Allergies/Adverse Reactions: Allergies Allergy/AdvReac Type Severity Reaction Status Date / Time No Known Allergies Allergy Verified 03/14/19 01:12 PMH/Surg Hx/FS Hx/Imm Hx Endocrine/Hematology History: Denies: Hx Anticoagulant Therapy, Hx Diabetes, Hx Thyroid Disease Cardiovascular History: Reports: Hx Auto Implanted Cardiovert Defib, Hx Hypertension Denies: Hx Congestive Heart Failure, Hx Pacemaker/ICD Respiratory History: Denies: Hx Asthma, Hx Chronic Obstructive Pulmonary Disease (COPD) GI History: Reports: Hx Gastroesophageal Reflux Disease Denies: Hx Ulcer History: Reports: Hx Benign Prostatic Hyperplasia, Other Problems/ Disorders - enlarged prostrate Denies: Hx Renal Disease Musculoskeletal History: Reports: Hx Osteoporosis Denies: Hx Rheumatoid Arthritis Sensory History: Reports: Hx Contacts or Glasses Denies: Hx Hearing Aid Opthamlomology History: Reports: Hx Contacts or Glasses Neurological History: Reports: Hx CVA - 09/18/17, Hx Dementia, Other Neuro Impairments/Disorders - Hx COMPRESSION Fx'S 2009 Psychiatric History: Reports: Hx Depression Denies: Hx Eating Disorder, Hx Panic Disorder, Hx of Violent Episodes Against Others - Surgical History Surgery Procedure, Year, and Place: [employer] REVEAL LINQ LOOP RECORDER IMPLANTED 08/2018, TOE AMPUTATION, HERNIA REPAIR, TONSILECTOMY Hx Anesthesia Reactions: No Infectious Disease History: No Infectious Disease History: Reports: Hx Shingles Denies: Hx Clostridium Difficile, Hx Hepatitis, Hx Human Immunodeficiency Virus (HIV), Hx of Known/Suspected MRSA, Hx Tuberculosis, Hx Known/Suspected VRE , Hx Known/Suspected VRSA, History Other Infectious Disease, Traveled Outside the [place] in Last 30 Days - Family History Known Family History: Negative: Renal Disease - Social History Alcohol Use: Daily Alcohol Amount: 1 beer per day Hx Substance Use: No Substance Use Type: Reports: None Hx Tobacco Use: No Smoking Status (MU): Never Smoked Tobacco Have You Smoked in the Last Year: No Review of Systems Positive: Chest Pain Positive: Shortness Of Breath Positive: Edema All Other Systems Reviewed And Are Negative: Yes Physical Exam - Summary Physical Exam Summary: Appearance: Chronically ill-appearing, Well-nourished, Appears older than stated age, lying in bed with hard cervical collar in place Skin: Warm, dry, no obvious rash Eyes: sclera anicteric, no conjunctival pallor ENT: mucous membranes moist, pharynx appears normal Neck: Supple, nontender Respiratory: Clear to auscultation, no signs of respiratory distress Cardiovascular: Normal S1, S2. No murmurs. Normal distal pulses in tibial and radial bilaterally. Abdomen: Soft, nontender, normal active bowel sounds present Musculoskeletal: 2+ pitting BLE edema, Strength/ROM Intact Neurological: A&Ox3, awake and alert, mentation is normal, speech is fluent and appropriate Psychiatric: affect is normal, does not appear anxious or depressed Triage Information Reviewed: Yes Vital Signs On Initial Exam: Initial Vitals Temp Pulse Resp BP Pulse Ox 97.4 F 85 24 106/78 96 03/14/19 01:08 03/14/19 01:08 03/14/19 01:08 03/14/19 01:08 03/14/19 01:08 Vital Signs Reviewed: Yes Procedures - Sedation Patient Received Moderate/Deep Sedation with Procedure: No Diagnostics - Vital Signs Vital Signs Temp Pulse Resp BP Pulse Ox 03/14/19 01:08 97.4 F 85 24 106/78 96 - Laboratory Result Diagrams: 03/14/19 02:01 03/14/19 02:01 Lab Statement: Any lab studies that have been ordered have been reviewed, and results considered in the medical decision making process. - Radiology CXR Radiology Interpretation Completed By: ED Physician Summary of Radiographic Findings: Small right pleural effusion noted, there is a slight increase in interstitial markings. No pulmonary edema noted. Pending official report. - EKG 0112 Cardiac Rate: NL - rate of 83 BPM EKG Rhythm: Sinus Rhythm Summary of EKG Findings: This EKG showed NSR at 83 BPM, P waves, QRS complex, and T waves are within normal limits, T waves and intervals are normal, no ischemic changes, no STEMI. This is a normal EKG. This EKG was reviewed and interpreted by ED physician. Disposition - Course Course Of Treatment: Patient is a 73 y/o M presenting to [facility] via EMS from [facility] with complaints of SOB and BLE edema. He states that deep breaths produce chest pain. EMS notes that the patient was 97-98% o2 sat on RA. PMHx of afib, HTN, CVA is noted. Patient has known cervical fracture and arrives with hard cervical collar in place. On physical exam, patient is noted to be chronically-ill appearing, appears older than stated age. There is no sign of respiratory distress. 2+ pitting BLE edema is noted. CXR showed small right pleural effusion noted, there is a slight increase in interstitial markings. No pulmonary edema noted. This EKG showed NSR at 83 BPM, P waves, QRS complex, and T waves are within normal limits, T waves and intervals are normal , no ischemic changes, no STEMI. Bloodwork was obtained. Abnormal values include RBC 4.03, Hgb 11.1, Hct 35, RDW 16, Plt count 69, carbon dioxide 19, total bilirubin 1.9, alk phos 298, BNP 278, total protein 6.3, albumin 2.9, albumin/globulin 0.9. Patient was discharged to home. - Diagnoses Provider Diagnoses: Peripheral edema Discharge ED - Sign-Out/Discharge Documenting (check all that apply): Patient Departure - discharge - Discharge Plan Condition: Good Disposition: HOME Patient Education Materials: Leg Edema (ED) Referrals: Henry Patrick MD [Primary Care Provider] - Additional Instructions: Mr Chamorro's evaluation here tonight did not show any evidence of CHF. His CXR did show a small pleural effusion on the right. On review of the records of his recent stay here, the edema was documented and was felt to be due to a combination of poor nutrition and chronic liver disease. Testing on his heart showed low normal systolic function. He has been resting comfortably with normal O2 sats on room air. He does not require any further intervention at this time. - Attestation Statements Document Initiated by Scribe: Yes Documenting Scribe: CTAALINO TORRES Provider For Whom Lev is Documenting (Include Credential): ERIKA MCNEAL MD Scribe Attestation: I, CATALINO TORRES, scribed for ERIKA MCNEAL MD on 03/14/19 at 0330. Status of Scribe Document: Ready
[2019-03-14 02:22] LABS: Albumin 2.9 g/dL (3.2-5.2); Calcium 8.7 mg/dL (8.6-10.3); Total Bilirubin 1.9 mg/dL (0.2-1.0)
[2019-03-14 02:28] LABS: Albumin/Globulin Ratio 0.9 (1-3); EGFR African American 123.5 (>60); EGFR Non-African American 102.1 (>60); Globulin 3.4 g/dL (2-4); Total Protein 6.3 g/dL (6.4-8.9)
[2019-03-14 02:30] LABS: ABS Eosinophils 0.2 10^3/ul (0-0.6); ABS Lymphocytes 1.1 10^3/ul (1.0-4.8); ABS Monocytes 0.6 10^3/ul (0-0.8); ABS Neutrophils 4.5 10^3/ul (1.5-7.7); Eosinophil % 2.7 %; Hematocrit 35 % (42-52); Hemoglobin 11.1 g/dL (14.0-18.0); Lymphocyte % 17.4 %; Mean Corpuscular HGB Conc 32 g/dL (31-36); Mean Corpuscular Hemoglobin 28 pg (27-31); Mean Corpuscular Volume 87 fL (80-94); Nucleated Red Blood Cells % 0.1; Red Blood Count 4.03 10^6 /uL (4.18-5.48); Red Cell Distribution Width 16 % (10-15); White Blood Count 6.5 10^3/uL (3.5-10.8)
[2019-03-14 02:51] LABS: Burr Cells 2+; Large Platelets Present; Mean Platelet Volume 8.8 fL (7.4-10.4); Platelet Count 69 10^3/uL (150-450); Polychromasia 1+
[2019-03-14 03:10] LABS: Troponin I 0.01 ng/mL (<0.03)
[2019-03-14 04:27] VITALS: BP 102/70
--- OUTSIDE RECORDS SUMMARY | 2019-03-16 15:53 | XMS REPORT | Continuity of Care Document ---
:1945 External Reference #:[id number] Author Name Reuben Burgess DO FAC (transmitted by agent of provider Cristina Wren) Address [address] [place] [address] Care Team Providers Name Role Phone Keke Chapman MD - Internal Medicine Care Team Information Transport Analyst Problems Active Problems Provider Date Mild cognitive [...] Auguste M.D. Onset: 09/18/2017 Note: 05/18/18 - Rec.Release-[facility] - reviewed - 09/18/17 MCA embolectomy after [...] Medications SIG Qnty Indications Ordering Date Provider Eliquis 1 by mouth twice a 60tabs Reuben [...] needed Kimberly Auguste, 06/05/2018 M.D. 1200mg/15ML Suspension Metoprolol Succinate 1 by mouth [...] every 90tabs Unknown 20mg day Tablets DR Modesta 1 tab by mouth Unknown 500mg Chewtabs [...] Information Available Procedures Date Code Description Status 01/28/2019 60115 Implantable Cardio System Loop Recorder Sys Remota Data Completed Acquistio 01/28/2019 92334 Interrogation Dev Loop Recorder Incl Physician Completed Analysis,Rev,Repor 01/14/2019 58073 EKG Tracing & Interpretation Completed 12/28/2018 15536 Implantable Cardio System Loop Recorder Sys Remota Data Completed Acquistio 12/28/2018 38529 Interrogation Dev Loop Recorder Incl Physician Completed Analysis,Rev,Repor 11/27/2018 18524 Implantable Cardio System Loop Recorder Sys Remota Data Completed Acquistio 11/27/2018 87739 Interrogation Dev Loop Recorder Incl Physician Completed Analysis,Rev,Repor 10/27/2018 36290 Implantable Cardio System Loop Recorder Sys Remota Data Completed Acquistio 10/27/2018 81671 Interrogation Dev Loop Recorder Incl Physician Completed Analysis,Rev,Repor 09/27/2018 94226 Implantable Cardio System Loop Recorder Sys Remota Data Completed Acquistio 09/27/2018 24543 Interrogation Dev Loop Recorder Incl Physician Completed Analysis,Rev,Repor Medical Devices Description No Information Available Encounters Type Date Location Provider Dx Diagnosis Office Visit 01/14/2019 [facility] Reuben Burgess, I48.0 Paroxysmal atrial 2:00p [facility] DO FACC fibrillation I63.9 Cerebral [...] w routn heal Office Visit 12/18/2018 2:30p [facility] Kimberly Auguste, S12.090A Oth disp fx of [facility] Giselle first cervical vertebra, init for clos fx 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 R25.2 Cramp and spasm Office Visit 12/09/2018 [facility] Dede Apodaca, S12.100D Unsp disp fx 9:30a [facility] TERE of 2nd cervcal vert, subs for fx w routn heal Office Visit 11/04/2018 Neurosurgery Dede Apodaca, S22.028D Oth fx second 2:00p [facility] PA thor vertebra, subs for fx w routn heal Office Visit 10/24/2018 Neurosurgery Vassilios S12.090A Oth disp fx of 7:00a [facility] Naranjo MD first cervical vertebra, init for clos fx S22.028A Oth fracture of second thoracic vertebra, init for clos fx Office Visit 10/24/2018 11:12a [facility] Frederick Sifuentes, S12.000A Unsp disp fx of Assoc,pc MD first cervical Hospitalists vertebra, init for clos fx S12.100A Unsp disp fx of second cervical vertebra, init for clos fx Office Visit 10/23/2018 Neurosurgery Vassilios S12.090A Oth disp fx of 7:00a [facility] Naranjo MD first cervical vertebra, init for clos fx S22.028A Oth fracture of second thoracic vertebra, init for clos fx Office Visit 10/23/2018 11:12a [facility] Nadia S12.000A Unsp disp fx of jassi Harmon DO first cervical Hospitalists vertebra, init for clos fx S12.100A Unsp disp fx of second cervical vertebra, init for clos fx Office Visit 09/11/2018 3:30p [facility] Kimberly Kalyani, I69.353 Hemiplga [facility] Desai following cerebral infrc aff right nondom side M54.2 Cervicalgia M54.5 Low back pain Assessments Date Code Description Provider 01/28/2019 Z86.73 Personal history of transient ischemic Reuben Burgess, DO FACC attack (TIA), and cer 01/28/2019 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 and Reuben Burgess, DO FACC grafts 01/27/2019 S12.090D Other displaced fracture of first [...] 01/01/2019 S22.028D Other fracture of second thoracic Vassilnicole Naranjo, MD vertebra, subsequent encounter for fracture with routine healing 01/01/2019 S12.100D Unspecified displaced fracture of second Luis Felipe Naranjo MD cervical vertebra, subsequent encounter for fracture with routine healing 12/28/2018 Z86.73 Personal history of transient ischemic Reuben Burgess, DO FACC attack (TIA), and cer 12/28/2018 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 and Reuben S. Burgess, DO FACC grafts 12/18/2018 S12.090A Other displaced fracture of first [...] Z86.73 Personal history of transient ischemic Reuben S. Burgess, DO FACC attack (TIA), and cer 11/27/2018 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 and Reuben S. Burgess, DO FACC grafts 11/04/2018 S22.028D Other fracture of second thoracic Dede Apodaca, PA vertebra, subsequent encounter for fracture with routine healing 10/27/2018 Z86.73 Personal history of transient ischemic Reuben S. Burgess, DO FACC attack (TIA), and cer 10/27/2018 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 and Reuben S. Burgess, DO FACC grafts 10/24/2018 S12.090A Other displaced fracture of first Luis Felipe Naranjo MD cervical vertebra, initial encounter for closed fracture 10/24/2018 S12.000A Unspecified displaced fracture of first Frederick Sifuentes MD cervical vertebra, initial encounter for closed fracture 10/24/2018 S22.028A Other fracture of second thoracic Juan Jhernan Naranjo MD vertebra, initial encounter for closed [...] 10/23/2018 S22.028A Other fracture of second thoracic Juan Jhernan Naranjo MD vertebra, initial encounter for closed fracture 10/23/2018 S12.100A Unspecified displaced fracture of second Nadia Covarrubias , DO cervical vertebra, initial encounter for closed fracture 09/27/2018 Z86.73 Personal history of transient ischemic Reuben Burgess, DO FACC attack (TIA), and cer 09/27/2018 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 and Reuben Burgess DO FACC grafts 09/11/2018 I69.353 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 09/11/2018 M54.5 Low back pain Kimberly Auguste M.D. Plan of Treatment Future Appointment(s):04/08/2019 2:30 pm - Luis Felipe Naranjo MD at [facility]04/16/2019 10:30 am - Kimberly Auguste M.D. at [facility]03/15/2019 2:20 pm - Reuben Burgess DO FACC at [facility]01/27/2019 - Luis Felipe Naranjo MDS12.090D Oth disp fx of first cervcal vert, subs for fx w routn healFollow up:RV in 1 clcxdW86.028D Oth fx second thor vertebra, subs for fx w routn healS12.100D Unsp disp fx of 2nd cervcal vert, subs for fx w routn heal Functional Status Description No Information Available Mental Status Description No Information Available Referrals Description No Information Available
== END 2019-03-14 03:30 | disposition home or self-care (01) ==
LOC: ED 01:04
DX: R60.0 Localized edema (principal); R06.02 Shortness of breath; R07.89 Other chest pain; J90 Pleural effusion, not elsewhere classified; I10 Essential (primary) hypertension; F03.90 Unspecified dementia, unspecified severity, without behavioral disturbance, psychotic disturbance, mood disturbance, and anxiety; Z95.810 Presence of automatic (implantable) cardiac defibrillator; Z89.429 Acquired absence of other toe(s), unspecified side; Z86.73 Personal history of transient ischemic attack (TIA), and cerebral infarction without residual deficits
CPT/HCPCS: 36415; 71046; 80053; 83605; 83880; 84484; 85025; 93005; 99283

== ENCOUNTER 2019-04-01 13:25 | Emergency (ER) | payer MEDICARE, BC ==
--- NOTE | 2019-04-01 13:37 | ED ---
GI/ HPI - HPI Summary HPI Summary: This patient is a 73 year old male with a Hx of CVA brought in by EMS presenting to [facility] with a respiratory complaint. The patient states he feels weak, dizziness, and SOB. He states his appetite has been normal. He reports pedal edema. He states he has been urinating normally and having normal BMs. Pt denies any fever, chills, erythema of eyes, sore throat, CP, cough, abdominal pain, N/V, dysuria, hematuria, myalgia, or rash. is unaware of any specific symptoms of why he was sent in and deferred to the long term staff. - History of Current Complaint Time Seen by Provider: 04/01/19 13:28 Stated Complaint: POSS RENAL FAILURE PER EMS Hx Obtained From: Patient, EMS Onset/Duration: Started Hours Ago Associated Signs and Symptoms: Positive: Dizziness, Weakness - Additional Pertinent History Primary Care Physician: LEOBARDO - Allergy/Home Medications Allergies/Adverse Reactions: Allergies Allergy/AdvReac Type Severity Reaction Status Date / Time No Known Allergies Allergy Verified 04/01/19 13:47 Home Medications: Home Medications Escitalopram * [Lexapro *] 40 mg PO QAM 04/01/19 [History Confirmed 04/01/19] Sodium Phosphate ADULT ENEMA* [Fleet Enema*] 1 bottle TX DAILY PRN 04/01/19 [ History Confirmed 04/01/19] Spironolactone TAB* [Aldactone TAB*] 25 mg PO DAILY 04/01/19 [History Confirmed 04/01/19] Torsemide TAB* [Demadex*] 20 mg PO DAILY 04/01/19 [History Confirmed 04/01/19] Zinc Oxide [Desitin] 1 applic TOPICAL TID 04/01/19 [History Confirmed 04/01/19] PMH/Surg Hx/FS Hx/Imm Hx Endocrine/Hematology History: Denies: Hx Anticoagulant Therapy, Hx Diabetes, Hx Thyroid Disease Cardiovascular History: Reports: Hx Auto Implanted Cardiovert Defib, Hx Hypertension Denies: Hx Congestive Heart Failure, Hx Pacemaker/ICD Respiratory History: Denies: Hx Asthma, Hx Chronic Obstructive Pulmonary Disease (COPD) GI History: Reports: Hx Gastroesophageal Reflux Disease Denies: Hx Ulcer History: Reports: Hx Benign Prostatic Hyperplasia, Other Problems/ Disorders - enlarged prostrate Denies: Hx Renal Disease Musculoskeletal History: Reports: Hx Osteoporosis Denies: Hx Rheumatoid Arthritis, Hx Scoliosis Sensory History: Reports: Hx Contacts or Glasses Denies: Hx Hearing Aid Opthamlomology History: Reports: Hx Contacts or Glasses Neurological History: Reports: Hx CVA - 09/18/17, Hx Dementia, Other Neuro Impairments/Disorders - Hx COMPRESSION Fx'S 2009 Denies: Hx Headaches Psychiatric History: Reports: Hx Depression Denies: Hx Eating Disorder, Hx Panic Disorder, Hx of Violent Episodes Against Others - Surgical History Surgery Procedure, Year, and Place: [place] LINQ LOOP RECORDER IMPLANTED 08/2018, TOE AMPUTATION, HERNIA REPAIR, TONSILECTOMY Hx Anesthesia Reactions: No Infectious Disease History: Reports: Hx Shingles Denies: Hx Clostridium Difficile, Hx Hepatitis, Hx Human Immunodeficiency Virus (HIV), Hx of Known/Suspected MRSA, Hx Tuberculosis, Hx Known/Suspected VRE , Hx Known/Suspected VRSA, History Other Infectious Disease - Family History Known Family History: Negative: Renal Disease - Social History Alcohol Use: Daily Alcohol Amount: 1 beer per day Hx Substance Use: No Substance Use Type: Reports: None Hx Tobacco Use: No Smoking Status (MU): Never Smoked Tobacco Have You Smoked in the Last Year: No Review of Systems Negative: Fever, Chills Negative: Erythema Negative: Sore Throat Negative: Chest Pain Positive: Shortness Of Breath. Negative: Cough Negative: Abdominal Pain, Vomiting, Nausea Negative: dysuria, hematuria Positive: Edema. Negative: Myalgia Negative: Rash Neurological: Other - Dizziness Positive: Weakness All Other Systems Reviewed And Are Negative: No Physical Exam - Summary Physical Exam Summary: Constitutional: Well-developed, Well-nourished, Alert. (-) Distressed Skin: Warm, Dry HENT: Normocephalic; Atraumatic Eyes: Conjunctiva normal Neck: Musculoskeletal ROM normal neck. (-) JVD, (-) Stridor, (-) Tracheal deviation Cardio: Rhythm regular, rate normal, Heart sounds normal; Intact distal pulses; Radial pulses are 2+ and symmetric. (-) Murmur Pulmonary/Chest wall: Effort normal. (-) Respiratory distress, (-) Wheezes, Crackles in the left lower lung base. Abd: Soft, (-) tenderness, (-) Distension, (-) Guarding, (-) Rebound Musculoskeletal: (-) Edema Lymph: (-) Cervical adenopathy Neuro: Alert, Oriented x3 Psych: Mood and affect Normal Triage Information Reviewed: Yes Vital Signs On Initial Exam: Temp Pulse Resp BP Pulse Ox 99.5 F 90 16 95/60 98 04/01/19 13:40 04/01/19 14:00 04/01/19 13:40 04/01/19 13:40 04/01/19 14:00 Vital Signs Reviewed: Yes Procedures - Sedation Patient Received Moderate/Deep Sedation with Procedure: No Diagnostics - Laboratory Lab Statement: Any lab studies that have been ordered have been reviewed, and results considered in the medical decision making process. - Radiology CXR Radiology Interpretation Completed By: Radiologist Summary of Radiographic Findings: Pulmonary interstitial edema. ED Provider has reviewed this report. - EKG 1359 Cardiac Rate: NL - 91 BPM EKG Rhythm: Sinus Rhythm Summary of EKG Findings: TWI in V1-V3. T wave flattening in V4-V6. No STEMI. ED Physician has reviewed and interpreted this EKG. GIGU Course/Dx - Course Course Of Treatment: This patient is a 73 year old male with a Hx of CVA brought in by EMS presenting to [facility] with a respiratory complaint. The patient states he feels weak, dizziness, and SOB. Physical exam reveals crackles in the left lower lung base. CXR reveals Pulmonary interstitial edema. Labs reveal RBC 3.91 L, Hgb 10.6 L, Hct 33 L, RDW 18 H, Plt Count 139 L, INR 2.40 H, APTT 45.4 H , Potassium 3.3 L, BUN 31 H, Bun/Creatinine Ratio 32.0 H, Glucose 111H, Total bilirubin 2.30 H, AST 43 H, Alkaline Phosphatase 351 H, Troponin 1 0.03 H, BNP 160 H, Albumin 3.1L and Albumin/Globulin Ratio 0.8 L. Hospitalist team saw the patient and recommended decreasing Lexapril to 20 mg, decreasing furasimide to 10 mg a day. They note he restarted aldactone yesterday. State that his CHF is at baseline and he is diaresing well. Plan for discharge was discussed with the patient and he was agreeable with this plan. - Diagnoses Provider Diagnoses: CHF (congestive heart failure) Discharge ED - Sign-Out/Discharge Documenting (check all that apply): Patient Departure - Discharge - Discharge Plan Disposition: HOME Patient Education Materials: Heart Failure (ED) Referrals: Henry Patrick MD [Primary Care Provider] - Additional Instructions: Return to ED with new or worsening symptoms. - Attestation Statements Document Initiated by Scribe: Yes Documenting Scribe: Michele Barraza Provider For Whom Scribe is Documenting (Include Credential): Ariel Allen MD Scribe Attestation: IMichele, scribed for Ariel Allen MD on 04/01/19 at 1657. Status of Scribe Document: Ready
--- OUTSIDE RECORDS SUMMARY | 2019-04-01 13:39 | XMS REPORT | Continuity of Care Document ---
:1945 External Reference #:[id number] Author Name Reuben Burgess DO FACC (transmitted by agent of provider Pricila Tao) Address [address] [place] [address] Care Team Providers Name Role Phone Keke Chapman MD - Internal Medicine Care Team Information Porter Luggage Problems Active Problems Provider Date Mild cognitive disorder Kimberly Auguste M.D. Onset: 08/09/2015 Note: MoCA 07/28: , 06/28: Tardive dyskinesia Kimberly Auguste M.D. Onset: 08/09/2015 Note: attributed to previous antipsychotic medication Cervical disc disorder Kimberyl Auguste M.D. Onset: 02/20/2017 Note: impingement C4-5, with no intrinsic cord signal change (MRI 2010) H/O: depression Kimberly Auguste M.D. Onset: 02/20/2017 Note: requiring ECT H/O: anxiety state Kimberly Auguste M.D. Onset: 02/20/2017 Magnetic resonance imaging of brain abnormal Kimberly uAguste M.D. Onset: 02/20 Note: Periventricular and subcortical SVID (and questioned frontal lobe atrophy in direct review) - Document: 10/12/12 - MRI Brain W/O Ischemic stroke Kimberly Auguste M.D. Onset: 09/18/2017 Note: 05/18/18 - Rec.Release-[facility] - reviewed - 09/18/17 MCA embolectomy [...] Unknown Never Smoked Cigarettes Smoking Status Reviewed: 03/30/19 Never Smoked Cigarettes ETOH Use Drinks 1 Alcoholic Beverage Per Day Tobacco Use Start: Unknown Patient has never smoked Recreational Drug Use Denies Drug Use Exercise Type/Frequency Exercises regularly Allergies, Adverse Reactions, Alerts Active Allergies Reaction Severity Comments Date Milk 11/14/2017 Tomato Allergenic Extract 11/14/2017 Inactive Allergies NKDA 10/07/2012 Medications Active Medications SIG Qnty Indications Ordering Date Provider Spironolactone 1 by mouth every 30tabs E87.70 Reuben S. 03/30/2019 25mg day Burgess, DO FACC Tablets Torsemide 03/23/19 3 tabs x 30tabs Reuben S. 03/24/2019 20mg Tablets 1 dose then 1 by Burgess, DO FACC mouth every day Eliquis 1 by mouth twice a 60tabs Reuben S. 01/07/2019 5mg Tablets day Burgess, DO FACC MJ Collar At all time S12.090A Vassilios 01/01/2019 MD Marcella Milk Of Magnesia 30 mL as needed Kimberly Auguste, 06/05/2018 Giselle 1200mg/15ML Suspension Baclofen one tablet by mouth R25.2 Unknown 5mg Tablets three times a day Metoprolol Succinate 1 by mouth every Unknown [...] 500mg Chewtabs every six as needed, indigestion Methylphenidate HCL 1 tablet by mouth Unknown 5mg once a day Tablets Alfuzosin HCL ER 1 po q day am Unknown 10mg Tablets ER 24HR History Medications Metoprolol Succinate 1 by mouth Reuben Burgess, 01/12/2019 - Unknown ER every day DO FACC 25mg Tablets ER 24HR Baclofen take 1/2 by 90tabs R25.2 Kimberly Auguste, 12/18/2018 - 10mg Tablets mouth three M.D. 03/23/2019 times a day x 2 weeks then 1 by mouth three times a day Medications Administered in Office Medication SIG Qnty Indications Ordering Provider Date Depomedrol 40MG JOSE LUIS Edmondson 11/19/2017 Injection Depomedrol 80MG Kimberly Liao M.D. 03/25/2013 Injection Immunizations Description No Information Available Vital Signs Date Vital Result Comment 03/30/2019 4:00pm Heart Rate 82 /min BP Systolic Sitting 94 mmHg Lue reg cuff BP Diastolic Sitting 70 mmHg Lue reg cuff 03/23/2019 1:45pm Height 68 inches 5'8" Heart Rate 82 /min BP Systolic Sitting 130 mmHg Lue reg cuff BP Diastolic Sitting 100 mmHg Lue reg cuff Respiratory Rate 28 /min Ejection Fraction 50-55% 02/26/2019 ECHO Results Description No Information Available Procedures Date Code Description Status 02/28/2019 20809 Implantable Cardio System Loop Recorder Sys Remota Data Completed Acquistio 02/28/2019 54044 Interrogation Dev Loop Recorder Incl Physician Completed Analysis,Rev,Repor 02/26/2019 29554 ECHO Transthorasic Realtime 2D W Doppler & Color Flow Hosp Completed 02/26/2019 44580 Treadmill Interp/Report Only Completed 02/26/2019 74852 Stress Test Supervsn W/Out I/R Completed 01/28/2019 70270 Implantable Cardio System Loop Recorder Sys Remota Data Completed Acquistio 01/28/2019 80720 Interrogation Dev Loop Recorder Incl Physician Completed Analysis,Rev,Repor 01/14/2019 56771 EKG Tracing & Interpretation Completed 12/28/2018 77052 Implantable Cardio System Loop Recorder Sys Remota Data Completed Acquistio 12/28/2018 46241 Interrogation Dev Loop Recorder Incl Physician Completed Analysis,Rev,Repor 11/27/2018 62545 Implantable Cardio System Loop Recorder Sys Remota Data Completed Acquistio 11/27/2018 19992 Interrogation Dev Loop Recorder Incl Physician Completed Analysis,Rev,Repor 10/27/2018 60707 Implantable Cardio System Loop Recorder Sys Remota Data Completed Acquistio 10/27/2018 73749 Interrogation Dev Loop Recorder Incl Physician Completed Analysis,Rev,Repor Medical Devices Description No Information Available Encounters Type Date Location Provider Dx Diagnosis Office Visit 03/23/2019 [facility] Reuben Burgess, E87.70 Fluid overload, 1:20p Of [employer] Solderer DO FACC unspecified I48.0 Paroxysmal atrial fibrillation I69.351 Hemiplga following cerebral infrc aff right dominant side K74.0 Hepatic fibrosis D69.6 Thrombocytopenia, unspecified Office Visit 03/01/2019 [facility] [place] D69.6 Thrombocytopenia, 10:26a jassi Harmon PA unspecified Hospitalists R79.1 Abnormal coagulation profile R07.9 Chest pain, unspecified D63.8 Anemia in other chronic diseases classified elsewhere R79.89 Other specified abnormal findings of blood chemistry Office Visit 02/28/2019 [facility] [place] D69.6 Thrombocytopenia, 10:25a jassi Harmon PA unspecified Hospitalists R79.1 Abnormal coagulation profile D64.9 Anemia, unspecified R07.9 Chest pain, unspecified R79.89 Other specified abnormal findings of blood chemistry R60.0 Localized edema I69.351 Hemiplga following cerebral infrc aff right dominant side Office Visit 02/27/2019 10:24a [facility] [place] R60.0 Localized edema Assoc,jassi Street PA Hospitalists R79.1 Abnormal coagulation profile D64.9 Anemia, unspecified I69.351 Hemiplga following cerebral infrc aff right dominant side I48.0 Paroxysmal atrial fibrillation I10 Essential (primary) hypertension Office Visit 02/26/2019 10:23a [facility] [place] R07.9 Chest pain, Assoc,pc T[address] unspecified Hospitalists R60.0 Localized edema R79.1 Abnormal coagulation profile K92.1 Melena I69.351 Hemiplga following cerebral infrc aff right dominant side I48.0 Paroxysmal atrial fibrillation I10 Essential (primary) hypertension D64.9 Anemia, unspecified Office Visit 02/25/2019 [facility] Diana R07.9 Chest pain, 10:23a Assoc,jassi Corbett NP unspecified Hospitalists R10.13 Epigastric pain D69.6 Thrombocytopenia, unspecified R60.0 Localized edema Office Visit 01/27/2019 [facility] Vassilios S12.090D Oth disp fx 11:00a Services Of Krupa Naranjo MD of first cervcal vert, subs for fx w routn heal S22.028D Oth fx second thor vertebra, subs for fx w routn heal S12.100D Unsp disp fx of 2nd cervcal vert, subs for fx w routn heal Office Visit 01/14/2019 2:00p [facility] Reuben S. I48.0 Paroxysmal atrial Of [facility] Burgess, DO fibrillation FACC I63.9 Cerebral infarction, unspecified Office Visit 01/01/2019 [...] w routn heal Office Visit 12/18/2018 2:30p [facility] Kimberly Auguste, S12.090A Oth disp fx of Services Of Krupa Desai first cervical vertebra, init for clos fx 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 R25.2 Cramp and spasm Office Visit 12/09/2018 Neurosurgery Dede Apodaca, S12.100D Unsp disp fx 9:30a [facility] PA of 2nd cervcal vert, subs [...] for clos fx Office Visit 10/24/2018 11:12a [facility] Frederick Bentleyd, S12.000A Unsp disp fx of jassi Harmon [...] for clos fx Office Visit 10/23/2018 11:12a [facility] Nadia S12.000A Unsp disp fx of jassi Harmon, DO first cervical Hospitalists vertebra, init for clos fx S12.100A Unsp disp fx of second cervical vertebra, init for clos fx Assessments Date Code Description Provider 03/30/2019 E87.70 Fluid overload, unspecified Reuben Burgess, DO FACC 03/30/2019 I48.0 Paroxysmal atrial fibrillation Reuben Burgess, DO FACC 03/30/2019 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, DO FACC following cerebral infarction affecting right dominant side 03/23/2019 E87.70 Fluid overload, unspecified Reuben Burgess, DO FACC 03/23/2019 I48.0 Paroxysmal atrial fibrillation Reuben Burgess, DO FACC 03/23/2019 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, DO FACC following cerebral infarction affecting right dominant side 03/23/2019 K74.0 Hepatic fibrosis Reuben Burgess, DO FACC 03/23/2019 D69.6 Thrombocytopenia, unspecified Reuben Burgess, DO [facility] 03/01/2019 D69.6 Thrombocytopenia, unspecified TERE Giles 03/01/2019 R79.1 Abnormal coagulation profile TERE Giles 03/01/2019 R07.9 Chest pain, unspecified TERE Giles 03/01/2019 D63.8 Anemia in other chronic diseases TERE Giles classified elsewhere 03/01/2019 R79.89 Other specified abnormal findings TERE Giles of blood chemistry 02/28/2019 Z86.73 Personal history of transient Reuben Burgess, DO [facility] ischemic attack (TIA), and cer 02/28/2019 D69.6 Thrombocytopenia, unspecified TERE Giles 02/28/2019 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 Reuben Burgess, DO [facility] and grafts 02/28/2019 R79.1 Abnormal coagulation profile TERE Giles 02/28/2019 D64.9 Anemia, unspecified TERE Giles 02/28/2019 R07.9 Chest pain, unspecified TERE Giles 02/28/2019 R79.89 Other specified abnormal findings TERE Giles of blood chemistry 02/28/2019 R60.0 Localized edema TERE Giles 02/28/2019 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 TERE Giles following cerebral infarction affecting right dominant side 02/27/2019 R60.0 Localized edema TERE Giles 02/27/2019 R79.1 Abnormal coagulation profile TERE Giles 02/27/2019 D64.9 Anemia, unspecified TERE Giles 02/27/2019 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 TERE Giles following cerebral infarction affecting right dominant side 02/26/2019 I48.0 Paroxysmal atrial fibrillation TERE Giles 02/26/2019 I10 Essential (primary) hypertension TERE Giles 02/26/2019 D64.9 Anemia, unspecified TERE Giles 02/25/2019 R07.9 Chest pain, unspecified Diana [place], [employer] 02/25/2019 R10.13 Epigastric pain Diana [place], [employer] 02/25/2019 D69.6 Thrombocytopenia, unspecified Diana [place], [employer] 02/25/2019 R60.0 Localized edema Diana Chelle, [employer] 01/28/2019 Z86.73 Personal history of transient Reuben Burgess DO [facility] ischemic attack (TIA), and cer 01/28/2019 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 Reuben Burgess, DO FAC and grafts 01/27/2019 S12.090D Other displaced fracture of first Luis Felipe Naranjo MD cervical vertebra, subsequent encounter for fracture with routine healing 01/27/2019 S22.028D Other fracture of second thoracic Luis Felipe Naranjo MD vertebra, subsequent encounter for fracture with routine healing 01/27/2019 S12.100D Unspecified displaced fracture of Luis Felipe Naranjo MD second cervical vertebra, subsequent encounter for fracture with routine healing 01/14/2019 I48.0 Paroxysmal atrial fibrillation Reuben Burgess DO FACC 01/14/2019 I63.9 Cerebral infarction, unspecified Reuben Burgess DO FACC 01/01/2019 S12.090D Other displaced fracture of first Luis Felipe Naranjo MD cervical vertebra, subsequent encounter for fracture with routine healing 01/01/2019 I69.353 Hemiplegia and hemiparesis Luis Felipe Naranjo MD following cerebral infarction aff 01/01/2019 S22.028D Other fracture of second thoracic Luis Felipe Naranjo MD vertebra, subsequent encounter for fracture with routine healing 01/01/2019 S12.100D Unspecified displaced fracture of Luis Felipe Naranjo MD second cervical vertebra, subsequent encounter for fracture with routine healing 12/28/2018 Z86.73 Personal history of transient Reuben S. Burgess, DO FACC ischemic attack (TIA), and cer 12/28/2018 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 Reuben S. Burgess, DO FACC and grafts 12/18/2018 S12.090A Other displaced fracture of first Kimberly Auguste M.D. 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 following cerebral infarction aff 12/18/2018 R25.2 Cramp and spasm Kimberly Auguste M.D. 12/09/2018 S12.100D Unspecified displaced fracture of Dede Apodaca, TERE second cervical vertebra, subsequent encounter for fracture with routine healing 11/27/2018 Z86.73 Personal history of transient Reuben S. 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 Burgess, DO FACC and grafts 11/04/2018 S22.028D Other fracture of second thoracic Dede Apodaca, PA vertebra, subsequent encounter for fracture with routine healing 10/27/2018 Z86.73 Personal history of transient Reuben S. Burgess, DO FACC ischemic attack (TIA), and cer 10/27/2018 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 Reuben S. Burgess, DO FACC and grafts 10/24/2018 S12.090A Other displaced fracture of first Luis Felipe Naranjo MD cervical vertebra, initial encounter for closed fracture 10/24/2018 S12.000A Unspecified displaced fracture of Frederick Sifuentes MD first cervical vertebra, initial encounter for closed fracture 10/24/2018 S22.028A Other fracture of second thoracic Luis Felipe Naranjo MD vertebra, initial encounter for closed fracture 10/24/2018 S12.100A Unspecified displaced fracture of Frederick Sifuentes MD second cervical vertebra, initial encounter for closed fracture 10/23/2018 S12.090A Other displaced fracture of first Luis Felipe Naranjo MD cervical vertebra, initial encounter for closed fracture 10/23/2018 S12.000A Unspecified displaced fracture of Nadia Covarrubias, DO first cervical vertebra, initial encounter for closed fracture 10/23/2018 S22.028A Other fracture of second thoracic Vassilnicole Naranjo MD vertebra, initial encounter for closed fracture 10/23/2018 S12.100A Unspecified displaced fracture of Nadia Covarrubias, DO second cervical vertebra, initial encounter for closed fracture Plan of Treatment Future Appointment(s):04/15/2019 2:40 pm - Reuben Burgess DO FACC at [facility]04/08/2019 2:30 pm - Luis Felipe Naranjo MD at [facility]04/16/2019 10:30 am - Kimberly Auguste M.D. at [facility]03/30/2019 - Reuben Burgess, DO FACCE87.70 Fluid overload, unspecifiedNew Medication:Spironolactone 25 mg - 1 by mouth every dayFollow up:f /u 2 wwllhM21.0 Paroxysmal atrial iardjpcvjpgbZ64.351 Hemiplegia and hemiparesis following cerebral infarction affecting right dominant side Functional Status Description No Information Available Mental Status Description No Information Available Referrals Description No Information Available
--- OUTSIDE RECORDS SUMMARY | 2019-04-01 13:39 | XMS REPORT | Continuity of Care Document ---
:1945 External Reference #:[id number] Author Name Reuben Burgess DO FACC (transmitted by agent of provider Pricila Toa) Address [address] [place] [address] Care Team Providers Name Role Phone Keke Chapman MD - Internal Medicine Care Team Information Superintendent Overhead Distribution [phone] Problems Active Problems Provider Date Mild cognitive [...] Auguste M.D. Onset: 09/18/2017 Note: 05/18/18 - Rec.Release-[facility] - reviewed - 09/18/17 MCA embolectomy after [...] Unknown Never Smoked Cigarettes Smoking Status Reviewed: 03/23/19 Never Smoked Cigarettes ETOH Use Drinks 1 [...] Available Vital Signs Date Vital Result Comment 03/23/2019 1:45pm Height 68 inches 5'8" Heart Rate 82 /min BP Systolic Sitting 130 mmHg Lue reg cuff BP Diastolic Sitting 100 mmHg Lue reg cuff Respiratory Rate 28 /min Ejection Fraction 50-55% 02/26/2019 ECHO 01/27/2019 11:02am Heart Rate 81 /min Respiratory Rate 16 /min Pain Level 8 Results Description No Information Available Procedures Date Code Description Status 02/26/2019 44223 ECHO Transthorasic Realtime 2D W Doppler & Color Flow Hosp Completed 02/26/2019 77406 Treadmill Interp/Report Only Completed 02/26/2019 08839 Stress Test Supervsn W/Out I/R Completed 01/28/2019 26333 Implantable Cardio System Loop Recorder Sys Remota Data Completed [facility] 01/28/2019 00187 Interrogation Dev Loop Recorder Incl Physician Completed Analysis,Rev,Repor 01/14/2019 08528 EKG Tracing & Interpretation Completed 12/28/2018 82244 Implantable Cardio System Loop Recorder Sys Remota Data Completed [facility] 12/28/2018 73242 Interrogation Dev Loop Recorder Incl Physician Completed Analysis,Rev,Repor 11/27/2018 30498 Implantable Cardio System Loop Recorder Sys Remota Data Completed Acquistio 11/27/2018 62124 Interrogation Dev Loop Recorder Incl Physician Completed Analysis,Rev,Repor 10/27/2018 17166 Implantable Cardio System Loop Recorder Sys Remota Data Completed Acquistio 10/27/2018 71080 Interrogation Dev Loop Recorder Incl Physician Completed Analysis,Rev,Repor 09/27/2018 56606 Implantable Cardio System Loop Recorder Sys Remota Data Completed [facility] 09/27/2018 71443 Interrogation Dev Loop Recorder Incl Physician Completed Analysis,Rev,Repor Medical Devices Description No Information Available Encounters Type Date Location Provider Dx Diagnosis Office Visit 03/01/2019 [facility] [address], D69.6 Thrombocytopenia, 10:26a Assjassi saunders unspecified Hospitalists R79.1 Abnormal coagulation profile R07.9 Chest pain, unspecified D63.8 Anemia in other chronic diseases classified elsewhere R79.89 Other specified abnormal findings of blood chemistry Office Visit 02/28/2019 [facility] [place] D69.6 Thrombocytopenia, 10:25a Assjassi saunders PA unspecified Hospitalists R79.1 Abnormal coagulation profile D64.9 Anemia, unspecified R07.9 Chest pain, unspecified R79.89 Other specified abnormal findings of blood chemistry R60.0 Localized edema I69.351 Hemiplga following cerebral infrc aff right dominant side Office Visit 02/27/2019 10:24a [facility] [place] R60.0 Localized edema Assjassi saunders PA Hospitalists R79.1 Abnormal coagulation profile D64.9 Anemia, unspecified I69.351 Hemiplga following cerebral infrc aff right dominant side I48.0 Paroxysmal atrial fibrillation I10 Essential (primary) hypertension Office Visit 02/26/2019 10:23a [facility] [place] R07.9 Chest pain, Assoc,jassi Street PA unspecified Hospitalists R60.0 Localized edema R79.1 Abnormal coagulation profile K92.1 Melena I69.351 Hemiplga following cerebral infrc aff right dominant side I48.0 Paroxysmal atrial fibrillation I10 Essential (primary) hypertension D64.9 Anemia, unspecified Office Visit 02/25/2019 [facility] Diana R07.9 Chest pain, 10:23a Assoc,jassi Corbett, ANALYTICS MANAGER unspecified Hospitalists R10.13 Epigastric pain D69.6 Thrombocytopenia, [...] w routn heal Office Visit 01/14/2019 2:00p [facility] Reuben S. I48.0 Paroxysmal atrial Of [facility] Aditya, DO fibrillation FACC I63.9 Cerebral infarction, unspecified [...] w routn heal Office Visit 12/18/2018 2:30p [facility] Kimberly Auguste, S12.090A Oth disp fx of Services Of Krupa Desai first cervical vertebra, init for clos fx 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 R25.2 Cramp and spasm Office Visit 12/09/2018 Neurosurgery Dede Apodaca, S12.100D Unsp disp fx 9:30a [facility] TERE of 2nd cervcal vert, subs for fx w routn heal Office Visit 11/04/2018 Neurosurgery Dede Apodaca, S22.028D Oth fx second 2:00p [facility] PA thor vertebra, subs for fx w routn heal Office Visit 10/24/2018 Neurosurgery Vassilios S12.090A Oth disp fx of 7:00a [facility] Krupa Naranjo MD first cervical vertebra, init for clos fx S22.028A Oth fracture of second thoracic vertebra, init for clos fx Office Visit 10/24/2018 11:12a [facility] Frederick Sifuentes, S12.000A Unsp disp fx of Assjassi saunders MD first cervical Hospitalists vertebra, init for clos fx S12.100A Unsp disp fx of second cervical vertebra, init for clos fx Office Visit 10/23/2018 [facility] Vassilios S12.090A Oth disp fx of 7:00a [facility] Naranjo MD first cervical vertebra, init for clos fx S22.028A Oth fracture of second thoracic vertebra, init for clos fx Office Visit 10/23/2018 11:12a [facility] Nadia S12.000A Unsp disp fx of Assocjassi DO first cervical Hospitalists vertebra, init for clos fx S12.100A Unsp disp fx of second cervical vertebra, init for clos fx Assessments Date Code Description Provider 03/23/2019 E87.70 Fluid overload, unspecified Reuben Burgess, DO FAC 03/23/2019 I48.0 Paroxysmal atrial fibrillation Reuben Burgess, DO FACC 03/23/2019 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, 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 03/23/2019 K74.0 Hepatic fibrosis Reuben Burgess, DO FACC 03/01/2019 D69.6 Thrombocytopenia, unspecified TERE Giles 03/01/2019 R79.1 Abnormal coagulation profile TERE Giles 03/01/2019 R07.9 Chest pain, unspecified TERE Giles 03/01/2019 D63.8 Anemia in other chronic diseases TERE Giles classified elsewhere 03/01/2019 R79.89 Other specified abnormal findings TERE Giles of blood chemistry 02/28/2019 D69.6 Thrombocytopenia, unspecified TERE Giles 02/28/2019 R79.1 Abnormal coagulation profile TERE Giles [...] R07.9 Chest pain, unspecified Florinda Thorpe MD, [facility], [facility] 02/26/2019 R07.9 Chest pain, unspecified TERE Giles [...] hypertension TERE Giles 02/26/2019 D64.9 Anemia, unspecified [address] [place] 02/25/2019 R07.9 Chest pain, unspecified Diana Ames, ANALYTICS MANAGER 02/25/2019 R10.13 Epigastric pain Diana Chelle, ANALYTICS MANAGER 02/25/2019 D69.6 Thrombocytopenia, unspecified Diana Ames, ANALYTICS MANAGER 02/25/2019 R60.0 Localized edema Diana Chelle, ANALYTICS MANAGER 01/28/2019 Z86.73 Personal history of transient Reuben Burgess, DO [facility] ischemic attack (TIA), and cer 01/28/2019 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 Reuben Burgess, DO FAC and grafts 01/27/2019 S12.090D Other displaced fracture of first Vassilios MD Marcella cervical vertebra, subsequent encounter for fracture with routine healing 01/27/2019 S22.028D Other fracture of second thoracic Luis Felipe Naranjo MD vertebra, subsequent encounter for fracture with routine healing 01/27/2019 S12.100D Unspecified displaced fracture of Luis Felipe Naranjo MD second cervical vertebra, subsequent encounter for fracture with routine healing 01/14/2019 I48.0 Paroxysmal atrial fibrillation Reuben Burgess, DO FACC 01/14/2019 I63.9 Cerebral infarction, unspecified Reuben Burgess, DO FACC 01/01/2019 S12.090D Other displaced fracture [...] 12/28/2018 Z86.73 Personal history of transient Reuben Burgess, DO FACC ischemic attack (TIA), and cer 12/28/2018 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 following cerebral infarction aff 12/18/2018 R25.2 Cramp and spasm Kimberly Auguste M.D. 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 Reuben Gumaro Burgess, DO FACC and grafts 11/04/2018 S22.028D Other fracture of second thoracic TERE Nickerson vertebra, subsequent encounter for fracture with routine healing 10/27/2018 Z86.73 Personal history of transient Reuben Burgess, DO FACC ischemic attack (TIA), and cer 10/27/2018 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 Reuben Burgess, DO FACC and grafts 10/24/2018 S12.090A Other displaced fracture of first Luis Felipe Naranjo MD cervical vertebra, initial encounter for closed fracture 10/24/2018 S12.000A Unspecified displaced fracture of Frederick Sifuentes MD first cervical vertebra, initial encounter for closed fracture 10/24/2018 S22.028A Other fracture of second thoracic Vassilnicole Naranjo MD vertebra, initial encounter for closed fracture 10/24/2018 S12.100A Unspecified displaced fracture of Frederick Sifuentes MD second cervical vertebra, initial encounter for closed fracture 10/23/2018 S12.090A Other displaced fracture of first Luis Felipe Naranjo MD cervical vertebra, initial encounter for closed fracture 10/23/2018 S12.000A Unspecified displaced fracture of Nadia Covarrubias, first cervical vertebra, initial encounter for closed fracture 10/23/2018 S22.028A Other fracture of second thoracic Vassilnicole Naranjo MD vertebra, initial encounter for closed fracture 10/23/2018 S12.100A Unspecified displaced fracture of Nadiaibeth Covarrubias, second cervical vertebra, initial encounter for closed fracture 09/27/2018 Z86.73 Personal history of transient Reuben Burgess, DO FACC ischemic attack (TIA), and cer 09/27/2018 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 at [facility]03/23/2019 - Reuben Burgess DO FACCE87.70 Fluid overload, unspecifiedFollow up:f/u 1 weeks with BMP szhfiP86.0 Paroxysmal atrial [id number] Hemiplegia and hemiparesis following cerebral infarction affecting right dominant sideK74.0 Hepatic fibrosis Functional Status Description No Information Available Mental Status Description No Information Available Referrals Description No Information Available
--- OUTSIDE RECORDS SUMMARY | 2019-04-01 13:39 | XMS REPORT | Continuity of Care Document ---
:1945 External Reference #:[id number] Author Name Reuben Burgess DO FAC (transmitted by agent of provider Cristina Wren) Address [address] [place] [address] Care Team Providers Name Role Phone Keke Chapman MD - Internal Medicine Care Team Information Radiation Therapy Technologist Problems Active Problems Provider Date Mild cognitive [...] Auguste M.D. Onset: 09/18/2017 Note: 05/18/18 - Rec.Release-[facility] - reviewed - 09/18/17 MCA embolectomy [...] Available Procedures Date Code Description Status 02/26/2019 26922 ECHO Transthorasic Realtime 2D W Doppler & Color Flow Hosp Completed 02/26/2019 74218 Treadmill Interp/Report Only Completed 02/26/2019 95559 Stress Test Supervsn W/Out I/R Completed 01/28/2019 70673 Implantable Cardio System Loop Recorder Sys Remota Data Completed [facility] 01/28/2019 16340 Interrogation Dev Loop Recorder Incl Physician Completed Analysis,Rev,Repor 01/14/2019 20394 EKG Tracing & Interpretation Completed 12/28/2018 00252 Implantable Cardio System Loop Recorder Sys Remota Data Completed [facility] 12/28/2018 47754 Interrogation Dev Loop Recorder Incl Physician Completed Analysis,Rev,Repor 11/27/2018 02663 Implantable Cardio System Loop Recorder Sys Remota Data Completed [facility] 11/27/2018 82697 Interrogation Dev Loop Recorder Incl Physician Completed Analysis,Rev,Repor 10/27/2018 11670 Implantable Cardio System Loop Recorder Sys Remota Data Completed [facility] 10/27/2018 49317 Interrogation Dev Loop Recorder Incl Physician Completed Analysis,Rev,Repor 09/27/2018 48958 Implantable Cardio System Loop Recorder Sys Remota Data Completed [facility] 09/27/2018 00792 Interrogation Dev Loop Recorder Incl Physician Completed Analysis,Rev,Repor Medical Devices Description No Information Available Encounters Type Date Location Provider Dx Diagnosis Office Visit 03/01/2019 [facility] [address], D69.6 Thrombocytopenia, 10:26a Assjassi saunders unspecified Hospitalists R79.1 Abnormal coagulation profile R07.9 Chest pain, unspecified D63.8 Anemia in other chronic diseases classified elsewhere R79.89 Other specified abnormal findings of blood chemistry Office Visit 02/28/2019 [facility] [place] D69.6 Thrombocytopenia, 10:25a jassi Harmon PA unspecified Hospitalists R79.1 Abnormal coagulation profile D64.9 Anemia, unspecified R07.9 Chest pain, unspecified R79.89 Other specified abnormal findings of blood chemistry R60.0 Localized edema I69.351 Hemiplga following cerebral infrc aff right dominant side Office Visit 02/27/2019 10:24a [facility] [place] R60.0 Localized edema Assjassi saunders PA Hospitalists R79.1 Abnormal coagulation profile D64.9 Anemia, unspecified I69.351 Hemiplga following cerebral infrc aff right dominant side I48.0 Paroxysmal atrial fibrillation I10 Essential (primary) hypertension Office Visit 02/26/2019 10:23a [facility] [place] R07.9 Chest pain, Assocjassi PA unspecified Hospitalists R60.0 Localized edema R79.1 Abnormal coagulation profile K92.1 Melena I69.351 Hemiplga following cerebral infrc aff right dominant side I48.0 Paroxysmal atrial fibrillation I10 Essential (primary) hypertension D64.9 Anemia, unspecified Office Visit 02/25/2019 [facility] Diana R07.9 Chest pain, 10:23a Assoc,jassi Corbett, MANAGER [employer] unspecified Hospitalists R10.13 Epigastric pain D69.6 Thrombocytopenia, [...] w routn heal Office Visit 01/14/2019 2:00p [facility] Reuben S. I48.0 Paroxysmal atrial Of [facility] Aditya, DO fibrillation FACC I63.9 Cerebral [...] w routn heal Office Visit 12/18/2018 2:30p [facility] Kimberly Auguste, S12.090A Oth disp fx of [facility] Giselle first cervical vertebra, init for clos fx 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 R25.2 Cramp and spasm Office Visit 12/09/2018 Neurosurgery Dede Apodaca, S12.100D Unsp disp fx 9:30a [facility] TERE of 2nd cervcal vert, subs for fx w routn heal Office Visit 11/04/2018 Neurosurgery Dede Apodaca, S22.028D Oth fx second 2:00p [facility] PA thor vertebra, subs for fx w routn heal Office Visit 10/24/2018 [facility] Vassilios S12.090A Oth disp fx of 7:00a Services Of Krupa Naranjo MD first cervical vertebra, init for clos fx S22.028A Oth fracture of second thoracic vertebra, init for clos fx Office Visit 10/24/2018 11:12a [facility] Frederick Sifuentes, S12.000A Unsp disp fx [...] for clos fx Office Visit 10/23/2018 11:12a [facility] Nadia S12.000A Unsp disp fx of Assjassi saunders DO first cervical Hospitalists vertebra, init for clos fx S12.100A Unsp disp fx of second cervical vertebra, init for clos fx Assessments Date Code Description Provider 03/01/2019 D69.6 Thrombocytopenia, unspecified TERE Giles 03/01/2019 [...] R07.9 Chest pain, unspecified Florinda Thorpe MD, [facility], [facility] 02/26/2019 R07.9 Chest pain, unspecified [...] Giles 02/25/2019 R07.9 Chest pain, unspecified Diana Hampton, MANAGER [employer] 02/25/2019 R10.13 Epigastric pain Diana Chelle, MANAGER [employer] 02/25/2019 D69.6 Thrombocytopenia, unspecified Diana Chelle, MANAGER [employer] 02/25/2019 R60.0 Localized edema Diana Hampton, MANAGER [employer] 01/28/2019 Z86.73 Personal history of transient Reuben Burgess DO [facility] ischemic attack (TIA), and cer 01/28/2019 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 Reuben Burgess, [facility] and grafts 01/27/2019 S12.090D Other displaced fracture of first Luis Felipe Naranjo MD cervical vertebra, subsequent encounter for fracture with routine healing 01/27/2019 S22.028D Other fracture of second thoracic Vashernan Naranjo MD vertebra, subsequent encounter for fracture with routine healing 01/27/2019 S12.100D Unspecified displaced fracture of Luis Felipe Naranjo MD second cervical vertebra, subsequent encounter for fracture with routine healing 01/14/2019 I48.0 Paroxysmal atrial fibrillation Reuben Burgess DO [facility] 01/14/2019 I63.9 Cerebral infarction, unspecified Reuben S. Burgess, DO FACC 01/01/2019 S12.090D Other displaced [...] M.D. 12/09/2018 S12.100D Unspecified displaced fracture of Robertkamla Apodaca, TERE second cervical vertebra, subsequent encounter for fracture with routine healing 11/27/2018 Z86.73 Personal history of transient Reuben S. 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 Burgess, DO FACC and grafts 11/04/2018 S22.028D Other fracture of second thoracic Dede Poway, PA vertebra, subsequent encounter for fracture with [...] 10/23/2018 S12.000A Unspecified displaced fracture of Nadia Marci, DO first cervical vertebra, initial encounter for closed fracture 10/23/2018 S22.028A Other fracture of second thoracic Luis Felipe Naranjo MD vertebra, initial encounter for closed fracture 10/23/2018 S12.100A Unspecified displaced fracture of Nadiaekta Covarrubias, DO second cervical vertebra, initial encounter for closed fracture 09/27/2018 Z86.73 Personal history of transient Reuben Burgess DO FACC ischemic attack (TIA), and cer 09/27/2018 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 at [facility]01/27/2019 - ORIANA Zuniga12.090D Oth disp fx of first cervcal vert, subs for fx w routn healFollow up:RV in 1 dyjdlN47.028D Oth fx second thor vertebra, subs for fx w routn healS12.100D Unsp disp fx of 2nd cervcal vert, subs for fx w routn heal Functional Status Description No Information Available Mental Status Description No Information Available Referrals Description No Information Available
[2019-04-01 14:15] LABS: ABS Eosinophils 0.2 10^3/ul (0-0.6); ABS Monocytes 0.7 10^3/ul (0-0.8); ABS Neutrophils 5.7 10^3/ul (1.5-7.7); Eosinophil % 2.2 %; Hematocrit 33 % (42-52); Hemoglobin 10.6 g/dL (14.0-18.0); Lymphocyte % 13.1 %; Mean Corpuscular HGB Conc 33 g/dL (31-36); Mean Corpuscular Hemoglobin 27 pg (27-31); Mean Corpuscular Volume 83 fL (80-94); Mean Platelet Volume 8.4 fL (7.4-10.4); Platelet Count 139 10^3/uL (150-450); Red Blood Count 3.91 10^6 /uL (4.18-5.48); Red Cell Distribution Width 18 % (10-15); White Blood Count 7.6 10^3/uL (3.5-10.8)
[2019-04-01 14:33] LABS: Activated Partial Thrombo Time 45.4 seconds (26.0-38.0); Albumin 3.1 g/dL (3.2-5.2); Albumin/Globulin Ratio 0.8 (1-3); Calcium 9.2 mg/dL (8.6-10.3); EGFR African American 91.8 (>60); EGFR Non-African American 75.9 (>60); Globulin 3.7 g/dL (2-4); INR 2.4 (0.82-1.09); Potassium 3.3 mmol/L (3.5-5.0); Total Bilirubin 2.3 mg/dL (0.2-1.0); Total Protein 6.8 g/dL (6.4-8.9)
[2019-04-01 14:36] LABS: Troponin I 0.03 ng/mL (<0.03)
[2019-04-01] MEDS: Potassium Chlor TAB* 20 MEQ TAB.ER PO ONE (19:00)
[2019-04-01 19:48] VITALS: BP 0/0
== END 2019-04-01 19:47 | disposition home or self-care (01) ==
LOC: ED 13:25
DX: I11.0 Hypertensive heart disease with heart failure (principal); I50.9 Heart failure, unspecified; Z95.810 Presence of automatic (implantable) cardiac defibrillator; K21.9 Gastro-esophageal reflux disease without esophagitis; N40.0 Benign prostatic hyperplasia without lower urinary tract symptoms; F32.9 Major depressive disorder, single episode, unspecified; F03.90 Unspecified dementia, unspecified severity, without behavioral disturbance, psychotic disturbance, mood disturbance, and anxiety; Z86.73 Personal history of transient ischemic attack (TIA), and cerebral infarction without residual deficits; Z89.429 Acquired absence of other toe(s), unspecified side; Z79.899 Other long term (current) drug therapy
CPT/HCPCS: 36415; 71045; 80053; 83605; 83880; 84484; 85025; 85610; 85730; 87040; 93005; 99284; A9270-GY

== ENCOUNTER 2019-04-19 21:27 | Emergency (ER) | payer MEDICARE, BC ==
--- NOTE | 2019-04-19 21:36 | ED ---
Adult Trauma - HPI Summary HPI Summary: This patient is a 73 year old male brought in by EMS from [facility] presenting to [facility] with a chief complaint of injuries after a fall. The patient states he fell out of bed and reports pain in his right buttocks and hip, while EMS states he told them it was the left side.. The patient has a right sided facial deficit at baseline from Hx of CVA. He does not report pain anywhere else. - History of Current Complaint Stated Complaint: FALL PER EMS Time Seen by Provider: 04/19/19 21:30 Hx Obtained From: Patient Mechanism of Injury: Fall Loss of Consciousness: no loss of consciousness Onset/Duration: Started Hours Ago - Additional Pertinent History Primary Care Physician: LEOBARDO - Allergy/Home Medications Allergies/Adverse Reactions: Allergies Allergy/AdvReac Type Severity Reaction Status Date / Time No Known Allergies Allergy Verified 04/01/19 13:47 PMH/Surg Hx/FS Hx/Imm Hx Endocrine/Hematology History: Denies: Hx Anticoagulant Therapy, Hx Diabetes, Hx Thyroid Disease Cardiovascular History: Reports: Hx Auto Implanted Cardiovert Defib, Hx Hypertension Denies: Hx Congestive Heart Failure, Hx Pacemaker/ICD Respiratory History: Denies: Hx Asthma, Hx Chronic Obstructive Pulmonary Disease (COPD) GI History: Reports: Hx Gastroesophageal Reflux Disease Denies: Hx Ulcer History: Reports: Hx Benign Prostatic Hyperplasia, Other Problems/ Disorders - enlarged prostrate Denies: Hx Renal Disease Musculoskeletal History: Reports: Hx Osteoporosis Denies: Hx Rheumatoid Arthritis, Hx Scoliosis Sensory History: Reports: Hx Contacts or Glasses Denies: Hx Hearing Aid Opthamlomology History: Reports: Hx Contacts or Glasses Neurological History: Reports: Hx CVA - 09/18/17, Hx Dementia, Other Neuro Impairments/Disorders - Hx COMPRESSION Fx'S 2009 Denies: Hx Headaches Psychiatric History: Reports: Hx Depression Denies: Hx Eating Disorder, Hx Panic Disorder, Hx of Violent Episodes Against Others - Surgical History Surgery Procedure, Year, and Place: [employer] REVEAL LINQ LOOP RECORDER IMPLANTED 08/2018, TOE AMPUTATION, HERNIA REPAIR, TONSILECTOMY Hx Anesthesia Reactions: No Infectious Disease History: Reports: Hx Shingles Denies: Hx Clostridium Difficile, Hx Hepatitis, Hx Human Immunodeficiency Virus (HIV), Hx of Known/Suspected MRSA, Hx Tuberculosis, Hx Known/Suspected VRE , Hx Known/Suspected VRSA, History Other Infectious Disease - Family History Known Family History: Negative: Renal Disease - Social History Alcohol Use: Daily Alcohol Amount: 1 beer per day Hx Substance Use: No Substance Use Type: Reports: None Hx Tobacco Use: No Smoking Status (MU): Never Smoked Tobacco Have You Smoked in the Last Year: No Review of Systems Negative: Fever Positive: Other - Left hip/buttocks pain All Other Systems Reviewed And Are Negative: Yes Physical Exam - Summary Physical Exam Summary: Appearance: Elderly confused man lying on the stretcher in no acute distress. Does not appear to be overtly in pain. Skin: Warm, dry, no obvious rash Eyes: sclera anicteric, no conjunctival pallor ENT: mucous membranes moist, pharynx appears normal Neck: Supple, nontender Respiratory: Clear to auscultation, no signs of respiratory distress Cardiovascular: Normal S1, S2. No murmurs. Normal distal pulses in tibial and radial bilaterally. Abdomen: Soft, nontender, normal active bowel sounds present Musculoskeletal: Normal, Strength/ROM Intact. No tenderness over either hip. No significant pain when I range his hips in flexion or rotation. No deformity on either leg. 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 Cushioning devices attached to both feet. No swelling in the lower extremities. Neurological: A&Ox3, awake and alert, mentation is normal, speech is fluent and appropriate Psychiatric: affect is normal, does not appear anxious or depressed Triage Information Reviewed: Yes Vital Signs On Initial Exam: Temp Pulse Resp BP Pulse Ox 99.4 F 92 16 92/58 90 04/19/19 21:40 04/19/19 21:40 04/19/19 21:40 04/19/19 21:40 04/19/19 21:40 Vital Signs Reviewed: Yes Procedures - Sedation Patient Received Moderate/Deep Sedation with Procedure: No Diagnostics - Laboratory Lab Statement: Any lab studies that have been ordered have been reviewed, and results considered in the medical decision making process. - Radiology Hip XR Radiology Interpretation Completed By: ED Physician Summary of Radiographic Findings: No fractures. Pending offical radiologist report. Pelvic XR Summary of Radiographic Findings: No fractures. Pending official radiologist report. Adult Trauma Course/Dx - Course Course Of Treatment: This patient is a 73 year old male brought in by EMS from [facility] presenting to [facility] with a chief complaint of injuries after a fall. Physical exam is unremarkable for traumatic injury. Hip and Pelvis XRs were unremarkable. Plan for discharge was discussed with the patient and he was agreeable with this plan. - Diagnoses Provider Diagnoses: Fall Discharge ED - Sign-Out/Discharge Documenting (check all that apply): Patient Departure - Discharge - Discharge Plan Condition: Good Disposition: HOME Patient Education Materials: Fall Prevention for Older Adults (ED) Referrals: Henry Patrick MD [Primary Care Provider] - If Needed - Billing Disposition and Condition Condition: GOOD Disposition: Home - Attestation Statements Document Initiated by Lev: Yes Documenting Scribe: Michele Barraza Provider For Whom Lev is Documenting (Include Credential): Reece Giang MD Scribe Attestation: Michele Reese scribed for Reece Giang MD on 04/20/19 at 0529. Scribe Documentation Reviewed: Yes Provider Attestation: The documentation as recorded by the Michele solo accurately reflects the service I personally performed and the decisions made by me, Reece Giang MD Status of Scribe Document: Viewed
--- OUTSIDE RECORDS SUMMARY | 2019-04-19 21:41 | XMS REPORT | Continuity of Care Document ---
:1945 External Reference #:[id number] Author Name Reuben Burgess DO FAC (transmitted by agent of provider Cristina Wren) Address [address] [place] [address] Care Team Providers Name Role Phone Keke Chapman MD - Internal Medicine Care Team Information Certified Ethical Hacker [phone] Problems Active Problems Provider Date Mild cognitive [...] Diastolic Sitting 70 mmHg Lue reg cuff BP Systolic Recheck 118 mmHg Lue regular cuff BP Diastolic Recheck 84 mmHg Lue regular cuff O2 % BldC Oximetry 94 % 03/23/2019 1:45pm Height 68 inches 5'8" Heart Rate 82 /min BP Systolic Sitting 130 mmHg Lue reg cuff BP Diastolic Sitting 100 mmHg Lue reg cuff Respiratory Rate 28 /min Ejection Fraction 50-55% 02/26/2019 ECHO Results Description No Information Available Procedures Date Code Description Status 02/28/2019 36532 Implantable Cardio System Loop Recorder Sys Remota Data Completed Acquistio 02/28/2019 63338 Interrogation Dev Loop Recorder Incl Physician Completed Analysis,Rev,Repor 02/26/2019 42648 ECHO Transthorasic Realtime 2D W Doppler & Color Flow Hosp Completed 02/26/2019 54505 Treadmill Interp/Report Only Completed 02/26/2019 23206 Stress Test Supervsn W/Out I/R Completed 01/28/2019 56452 Implantable Cardio System Loop Recorder Sys Remota Data Completed Acquistio 01/28/2019 40969 Interrogation Dev Loop Recorder Incl Physician Completed Analysis,Rev,Repor 01/14/2019 35399 EKG Tracing & Interpretation Completed 12/28/2018 71858 Implantable Cardio System Loop Recorder Sys Remota Data Completed Acquistio 12/28/2018 44456 Interrogation Dev Loop Recorder Incl Physician Completed Analysis,Rev,Repor 11/27/2018 99756 Implantable Cardio System Loop Recorder Sys Remota Data Completed Acquistio 11/27/2018 74340 Interrogation Dev Loop Recorder Incl Physician Completed Analysis,Rev,Repor 10/27/2018 43192 Implantable Cardio System Loop Recorder Sys Remota Data Completed Acquistio 10/27/2018 56329 Interrogation Dev Loop Recorder Incl Physician Completed Analysis,Rev,Repor Medical Devices Description No Information Available Encounters Type Date Location Provider Dx Diagnosis Office Visit 03/30/2019 [facility] Reuben Burgess, E87.70 Fluid overload, 4:20p Of [facility] DO FACC unspecified I48.0 Paroxysmal atrial fibrillation I69.351 Hemiplga following cerebral infrc aff right dominant side K74.0 Hepatic fibrosis Office Visit 03/23/2019 1:20p [facility] Reuben Naik E87.70 Fluid overload, Of Krupa Burgess, DO unspecified FACC I48.0 Paroxysmal atrial fibrillation I69.351 Hemiplga following cerebral infrc aff right dominant side K74.0 Hepatic fibrosis D69.6 Thrombocytopenia, unspecified Office Visit 03/01/2019 [place] Allyssa Franco D69.6 Thrombocytopenia, 10:26a jassi Harmon [place] unspecified Hospitalists R79.1 Abnormal coagulation profile R07.9 Chest pain, unspecified D63.8 Anemia in other chronic diseases classified elsewhere R79.89 Other specified abnormal findings of blood chemistry Office Visit 02/28/2019 [place] Allyssa Franco D69.6 Thrombocytopenia, 10:25a [facility] [place], [place] unspecified Hospitalists R79.1 Abnormal coagulation profile D64.9 Anemia, unspecified R07.9 Chest pain, unspecified R79.89 Other specified abnormal findings of blood chemistry R60.0 Localized edema I69.351 Hemiplga following cerebral infrc aff right dominant side Office Visit 02/27/2019 10:24a [facility] Salvador R60.0 Localized edema Assoc,jassi [address], TERE Hospitalists R79.1 Abnormal coagulation profile D64.9 Anemia, unspecified I69.351 Hemiplga following cerebral infrc aff right dominant side I48.0 Paroxysmal atrial fibrillation I10 Essential (primary) hypertension Office Visit 02/26/2019 10:23a [facility] [place] R07.9 Chest pain, Assoc[facility] [place], [place] unspecified Hospitalists R60.0 Localized edema R79.1 Abnormal coagulation profile K92.1 Melena I69.351 Hemiplga following cerebral infrc aff right dominant side I48.0 Paroxysmal atrial fibrillation I10 Essential (primary) hypertension D64.9 Anemia, unspecified Office Visit 02/25/2019 [facility] Diana R07.9 Chest pain, 10:23a Assoc,jassi [place] [...] w routn heal Office Visit 01/14/2019 2:00p [facility] Reuben S. I48.0 Paroxysmal atrial [facility] Aditya, DO fibrillation FACC I63.9 Cerebral [...] w routn heal Office Visit 12/18/2018 2:30p [place] [facility] Kimberly Kalyani, S12.090A Oth disp fx of [facility] Giselle first cervical vertebra, init for clos fx 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 R25.2 Cramp and spasm Office Visit 12/09/2018 Neuro[facility] Dede Apodaca, S12.100D Unsp disp fx 9:30a [facility] PA of 2nd cervcal vert, subs for fx w routn heal Office Visit 11/04/2018 Neurosurgery Dede Apodaca, S22.028D Oth fx second 2:00p [facility] TERE thor vertebra, subs for fx w routn heal Office Visit 10/24/2018 Neurosurgery Vassilios S12.090A Oth disp fx of 7:00a [facility] MD Marcella first cervical vertebra, init for clos fx S22.028A Oth fracture of second thoracic vertebra, init for clos fx Office Visit 10/24/2018 11:12a [place] [facility] Frederick Sifuentes, S12.000A Unsp disp fx of jassi Harmon MD first cervical Hospitalists vertebra, init for clos fx S12.100A Unsp disp fx of second cervical vertebra, init for clos fx Office Visit 10/23/2018 Neurosurgery Vassilios S12.090A Oth disp fx of 7:00a [facility] MD Marcella first cervical vertebra, init for clos fx S22.028A Oth fracture of second thoracic vertebra, init for clos fx Office Visit 10/23/2018 11:12a [facility] Nadia S12.000A Unsp disp fx of jassi [...] following cerebral infarction affecting right dominant side 03/30/2019 K74.0 Hepatic fibrosis Reubenibeth Burgess, DO [facility] 03/23/2019 E87.70 Fluid overload, unspecified Reubenibeth Burgess, DO [facility] 03/23/2019 I48.0 Paroxysmal atrial fibrillation Reubenibeth Burgess, DO [facility] 03/23/2019 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 Reubenibeth Burgess [facility] following cerebral infarction affecting right dominant side 03/23/2019 K74.0 Hepatic fibrosis Reubenibeth Burgess, DO [facility] 03/23/2019 D69.6 Thrombocytopenia, unspecified Reubenibeth Burgess, DO [facility] 03/01/2019 D69.6 Thrombocytopenia, unspecified [facility] [place] 03/01/2019 R79.1 Abnormal coagulation profile [facility] [place] 03/01/2019 R07.9 Chest pain, unspecified [facility] [place] 03/01/2019 D63.8 Anemia in other chronic diseases T[facility] [place] classified elsewhere 03/01/2019 R79.89 Other specified abnormal findings TERE [place] of blood chemistry 02/28/2019 Z86.73 Personal history of transient Reubenibeth Burgess [facility] ischemic attack (TIA), and cer 02/28/2019 D69.6 Thrombocytopenia, unspecified TERE [place] 02/28/2019 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 Reuben SZara Burgess, [facility] and grafts 02/28/2019 R79.1 Abnormal coagulation profile [...] R07.9 Chest pain, unspecified Florinda Thorpe MD, [facility], FSCAI 02/26/2019 R07.9 Chest pain, unspecified TERE [...] [place] 02/25/2019 R07.9 Chest pain, unspecified Diana [place], PRODUCT SAFETY TECHNICAL ASSISTANT 02/25/2019 R10.13 Epigastric pain Diana [place], PRODUCT SAFETY TECHNICAL ASSISTANT 02/25/2019 D69.6 Thrombocytopenia, unspecified Diana Chelle, PRODUCT SAFETY TECHNICAL ASSISTANT 02/25/2019 R60.0 Localized edema Diana Chelle, PRODUCT SAFETY TECHNICAL ASSISTANT 01/28/2019 Z86.73 Personal history of transient Reuben Burgess DO [facility] ischemic attack (TIA), and cer 01/28/2019 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 Reuben Burgess, DO [facility] and grafts 01/27/2019 S12.090D Other displaced fracture [...] I48.0 Paroxysmal atrial fibrillation Reuben Burgess DO [facility] 01/14/2019 I63.9 Cerebral infarction, unspecified Reuben S. [...] S22.028D Other fracture of second thoracic [place] vertebra, subsequent encounter for fracture with [...] for closed fracture Plan of Treatment Future Appointment(s):04/16/2019 10:30 am - Kimberly Auguste M.D. at [facility]03/30/2019 - Reuben Burgess, DO FACCE87.70 Fluid overload, unspecifiedNew Medication:Spironolactone 25 mg - 1 by mouth every dayFollow up:f/u 2 sidqkO32.0 Paroxysmal atrial ucbtptqletecS82.351 Hemiplegia and hemiparesis following cerebral infarction affecting right dominant sideK74.0 Hepatic fibrosis Functional Status Description No Information Available Mental Status Description No Information Available Referrals Description No Information Available
[2019-04-20 01:13] VITALS: BP 105/72
== END 2019-04-20 01:11 | disposition home or self-care (01) ==
LOC: ED 21:27
DX: M25.552 Pain in left hip (principal); Z91.81 History of falling; N40.0 Benign prostatic hyperplasia without lower urinary tract symptoms; Z86.73 Personal history of transient ischemic attack (TIA), and cerebral infarction without residual deficits; Z95.810 Presence of automatic (implantable) cardiac defibrillator; I10 Essential (primary) hypertension
CPT/HCPCS: 73523; 99284

== ENCOUNTER 2019-04-26 06:02 | Emergency (ER) | payer MEDICARE, BC ==
--- NOTE | 2019-04-26 06:21 | ED ---
Adult Trauma - HPI Summary HPI Summary: Pt. is a 73 y.o male who presents to the ER for evaluation after a fall. Pt. resides at [facility]. Hx of CVA with right sided weakness. Pt. is unsure what happened this morning. Staff reportedly found him in between bed and night stand. Pt. does not recall incident. Pt. reportedly falls out of bed frequently. Pt. has no complaints other than left foot pain. Pt. denies h/a, cp , sob, abd. pain. Sxs are moderate in severity. Hx of cervical fx and wears c collar at home. - History of Current Complaint Stated Complaint: FALL PER EMS Time Seen by Provider: 04/26/19 06:07 Hx Obtained From: Patient Pain Intensity: 0 - Additional Pertinent History Primary Care Physician: LEOBARDO - Allergy/Home Medications Allergies/Adverse Reactions: Allergies Allergy/AdvReac Type Severity Reaction Status Date / Time No Known Allergies Allergy Verified 04/01/19 13:47 Home Medications: Home Medications Calcium Carbonate CHEW TAB* [Tums*] 500 mg PO Q6H PRN 04/26/19 [History Confirmed 04/26/19] Escitalopram * [Lexapro *] 10 mg PO QAM 04/26/19 [History Confirmed 04/26/19] PMH/Surg Hx/FS Hx/Imm Hx Previously Healthy: Yes Endocrine/Hematology History: Denies: Hx Anticoagulant Therapy, Hx Diabetes, Hx Thyroid Disease Cardiovascular History: Reports: Hx Auto Implanted Cardiovert Defib, Hx Hypertension Denies: Hx Congestive Heart Failure, Hx Pacemaker/ICD Respiratory History: Denies: Hx Asthma, Hx Chronic Obstructive Pulmonary Disease (COPD) GI History: Reports: Hx Gastroesophageal Reflux Disease Denies: Hx Ulcer History: Reports: Hx Benign Prostatic Hyperplasia, Other Problems/ Disorders - enlarged prostrate Denies: Hx Renal Disease Musculoskeletal History: Reports: Hx Osteoporosis Denies: Hx Rheumatoid Arthritis, Hx Scoliosis Sensory History: Reports: Hx Contacts or Glasses Denies: Hx Hearing Aid Opthamlomology History: Reports: Hx Contacts or Glasses Neurological History: Reports: Hx CVA - 09/18/17, Hx Dementia, Other Neuro Impairments/Disorders - Hx COMPRESSION Fx'S 2009 Denies: Hx Headaches Psychiatric History: Reports: Hx Depression Denies: Hx Eating Disorder, Hx Panic Disorder, Hx of Violent Episodes Against Others - Surgical History Surgery Procedure, Year, and Place: [employer] REVEAL LINQ LOOP RECORDER IMPLANTED 08/2018, TOE AMPUTATION, HERNIA REPAIR, TONSILECTOMY Hx Anesthesia Reactions: No Infectious Disease History: No Infectious Disease History: Reports: Hx Shingles Denies: Hx Clostridium Difficile, Hx Hepatitis, Hx Human Immunodeficiency Virus (HIV), Hx of Known/Suspected MRSA, Hx Tuberculosis, Hx Known/Suspected VRE , Hx Known/Suspected VRSA, History Other Infectious Disease, Traveled Outside the [place] in Last 30 Days - Family History Known Family History: Positive: Non-Contributory Negative: Renal Disease - Social History Occupation: Retired Lives: [facility] Alcohol Use: Daily Alcohol Amount: 1 beer per day Hx Substance Use: No Substance Use Type: Reports: None Hx Tobacco Use: No Smoking Status (MU): Never Smoked Tobacco Have You Smoked in the Last Year: No Review of Systems Constitutional: Negative Negative: Fever Cardiovascular: Negative Negative: Palpitations, Chest Pain Respiratory: Negative Negative: Shortness Of Breath, Cough Gastrointestinal: Negative Negative: Abdominal Pain, Vomiting, Diarrhea Positive: Other - left foot pain Positive: Weakness - chronic right sided weakness. Negative: Headache, Paresthesia, Numbness All Other Systems Reviewed And Are Negative: Yes Physical Exam Triage Information Reviewed: Yes Vital Signs On Initial Exam: Initial Vitals Temp Pulse Resp BP Pulse Ox 98.1 F 89 20 119/79 98 04/26/19 06:08 04/26/19 06:08 04/26/19 06:08 04/26/19 06:08 04/26/19 06:08 Vital Signs Reviewed: Yes Appearance: Positive: Well-Appearing - Pt. lying in bed, wearing c collar. Alert and oriented x 2. Follows commands. Skin: Positive: Warm, Dry Head/Face: Positive: Normal Head/Face Inspection Eyes: Positive: Normal, EOMI, DOLORES Neck: Positive: Supple Respiratory/Lung Sounds: Positive: Clear to Auscultation, Breath Sounds Present Cardiovascular: Positive: Normal, RRR Abdomen Description: Positive: Nontender, Soft Musculoskeletal: Positive: Other - Chronic weakness to right side. Mild pain to left foot. Mild pain to left pelvis. Neurological: Positive: Normal, CN Intact II-III Psychiatric: Positive: Affect/Mood Appropriate Procedures - Sedation Patient Received Moderate/Deep Sedation with Procedure: No Diagnostics - Vital Signs Vital Signs Temp Pulse Resp BP Pulse Ox 04/26/19 06:08 98.1 F 89 20 119/79 98 - Laboratory Result Diagrams: 04/26/19 07:00 04/26/19 07:00 Lab Statement: Any lab studies that have been ordered have been reviewed, and results considered in the medical decision making process. Adult Trauma Course/Dx - Course Course Of Treatment: Pt. presenting after falling from bed, unwitnessed. Pt. at baseline mental status per . Pt.'s only complaint it left foot pain. On Eliquis. Basic work up and imaging ordered. ECG done at 91bpm, normal axis, twave abnormalities, borderline prolonged QT, similar to prior tracing. Labs are at pt.'s baseline. Imaging negative for acute findings per radiology. Results discussed with pt.'s . She is comfortable with dc back to skilled nursing. Will f.u with PCP and return to er if sxs change or worsen. - Diagnoses Differential Diagnosis/HQI/PQRI: Positive: Contusion(s), Fracture, Hematoma(s) Provider Diagnoses: Fall Discharge ED - Sign-Out/Discharge Documenting (check all that apply): Patient Departure - Discharge Plan Condition: Good Disposition: HOME Patient Education Materials: Fall Prevention (ED) Referrals: Henry Patrick MD [Primary Care Provider] - Additional Instructions: Follow up with PCP in 2-3 days for recheck Return to ER if symptoms change or worsen - Billing Disposition and Condition Condition: GOOD Disposition: Home - Attestation Statements Provider Attestation: I was available for consultation for this patient. I did not evaluate the patient or participate in any medical decision making or disposition decisions unless I am specifically named in the chart as having consulted on the patient. If I have consulted on the patient, please see my own ED note on the patient encounter. Susan Huff MD
[2019-04-26 07:16] LABS: ABS Eosinophils 0.2 10^3/ul (0-0.6); ABS Lymphocytes 0.9 10^3/ul (1.0-4.8); ABS Monocytes 0.7 10^3/ul (0-0.8); ABS Neutrophils 5.5 10^3/ul (1.5-7.7); Eosinophil % 2.7 %; Hematocrit 33 % (42-52); Hemoglobin 10.8 g/dL (14.0-18.0); Lymphocyte % 12.6 %; Mean Corpuscular HGB Conc 33 g/dL (31-36); Mean Corpuscular Hemoglobin 27 pg (27-31); Mean Corpuscular Volume 83 fL (80-94); Mean Platelet Volume 8.4 fL (7.4-10.4); Platelet Count 72 10^3/uL (150-450); Red Blood Count 3.96 10^6 /uL (4.18-5.48); Red Cell Distribution Width 21 % (10-15); White Blood Count 7.4 10^3/uL (3.5-10.8)
[2019-04-26 07:29] LABS: Albumin 3.2 g/dL (3.2-5.2); Albumin/Globulin Ratio 0.9 (1-3); BUN/Creatinine Ratio 21.4 (8-20); Calcium 9.2 mg/dL (8.6-10.3); EGFR African American 108.4 (>60); EGFR Non-African American 89.6 (>60); Globulin 3.7 g/dL (2-4); Total Bilirubin 1.5 mg/dL (0.2-1.0); Total Protein 6.9 g/dL (6.4-8.9)
[2019-04-26 07:31] LABS: Troponin I 0.02 ng/mL (<0.03)
[2019-04-26 11:05] VITALS: BP 126/85
== END 2019-04-26 09:15 | disposition home or self-care (01) ==
LOC: ED 06:02
DX: Z91.81 History of falling (principal); M79.672 Pain in left foot; I10 Essential (primary) hypertension; R53.1 Weakness; Z95.810 Presence of automatic (implantable) cardiac defibrillator; N40.0 Benign prostatic hyperplasia without lower urinary tract symptoms; Z86.73 Personal history of transient ischemic attack (TIA), and cerebral infarction without residual deficits
CPT/HCPCS: 36415; 70450; 71045; 72125; 72170; 80053; 84484; 85025; 93005; 99283

== ENCOUNTER 2020-11-16 02:19 | Inpatient (IN) ==
[2020-11-16] MEDS ORDERED: Lactated Ringers 1000 ml BAG 1,000 ML IV ONE ×2 (02:26→06:25)
[2020-11-16] MEDS ORDERED: NS 0.9% 1000 ml BAG 1,000 ML IV ONE (02:26)
[2020-11-16] MEDS ORDERED: Cefepime 2 GM in NS 0.9% 50 ML 50 ML IVPB ONE (03:09)
[2020-11-16] MEDS ORDERED: Levofloxacin 750 MG IVPREMIX 750 MG/150 ML BAG IVPB ONE (03:09)
[2020-11-16] MEDS ORDERED: Cefepime 2 GM IV - ED ONCE IV ONE (04:00)
[2020-11-16 04:07] LABS: Hematocrit 40 % (42-52); Hemoglobin 12.9 g/dL (14.0-18.0); Mean Corpuscular HGB Conc 33 g/dL (31-36); Mean Corpuscular Hemoglobin 31 pg (27-31); Mean Corpuscular Volume 95 fL (80-94); Mean Platelet Volume 7.4 fL (7.4-10.4); Platelet Count 256 10^3/uL (150-450); Red Blood Count 4.18 10^6 /uL (4.18-5.48); Red Cell Distribution Width 14 % (10-15); White Blood Count 9.3 10^3/uL (3.5-10.8)
[2020-11-16 04:16] LABS: Activated Partial Thrombo Time 41.8 seconds (26.0-38.0); Albumin 3.6 g/dL (3.2-5.2); Albumin/Globulin Ratio 1.1 (1-3); C Reactive Protein 85.01 mg/L (<8.01); Calcium 8.7 mg/dL (8.6-10.3); EGFR African American 52.1 (>60); EGFR Non-African American 43.1 (>60); Globulin 3.4 g/dL (2-4); INR 2.49 (0.86-1.15); Potassium 3.7 mmol/L (3.5-5.0); Total Bilirubin 2.5 mg/dL (0.2-1.0)
[2020-11-16 04:19] LABS: Troponin I 0.01 ng/mL (<0.03)
[2020-11-16 05:35] LABS: RBC Morphology Normal (Normal)
[2020-11-16 05:38] LABS: ABS Lymphocytes 0.3 10^3/ul (1.0-4.8); ABS Monocytes 0.6 10^3/ul (0-0.8); ABS Neutrophils 8.3 10^3/ul (1.5-7.7); Eosinophil % 0.1 %; Lymphocyte % 3.1 %
[2020-11-16] MEDS ORDERED: Lactated Ringers 1000 ml BAG 1,000 ML IV SCH (06:00)
[2020-11-16] MEDS ORDERED: Piperacillin/Tazobac ADVAN 3.375 GM in NS 0.9% 100 ml BAG 100 ML IV ONE (06:26)
[2020-11-16 06:43] LABS: Venous Bicarbonate HCO3 26.1 mmol/L (24-28)
[2020-11-16 06:46] LABS: Urine Appearance Cloudy; Urine Bilirubin Negative (Negative); Urine Blood 2+ (Negative); Urine Color Amber; Urine Glucose Negative (Negative); Urine Ketones Negative (Negative); Urine Nitrite Positive (Negative); Urine Protein Negative (Negative); Urine Specific Gravity 1.021 (1.002-1.030); Urine Urobilinogen Negative (Negative)
[2020-11-16 06:57] LABS: Urine Bacteria 1+ (Absent); Urine Red Blood Cell 3+(>10/hpf) (Absent); Urine White Blood Cell 3+(>20/hpf) (Absent)
[2020-11-16] MEDS ORDERED: Zosyn per Pharmacy NOTE FOLLOW UP SCH (07:00)
[2020-11-16] MEDS: ZOSYN 3.375 GM Q8H per EXTENDED INFUSION IV SCH ×2 (11:49→19:56)
[2020-11-16] MEDS ORDERED: Norepinephrine 16MCG/ML IVPRE 4,000 MCG/250 ML BAG IV SCH (13:00)
[2020-11-16] MEDS ORDERED: Hydrocortisone INJ 250 MG VIAL IV ONE (13:30)
[2020-11-16] MEDS: ALFUZOSIN 10 MG PO SCH (18:20)
[2020-11-16] MEDS: Hydrocortisone INJ 100 MG/2ML 2 ML VIAL IV SCH (18:20)
[2020-11-17] MEDS: ZOSYN 3.375 GM Q8H per EXTENDED INFUSION IV SCH ×3 (01:51→18:32)
[2020-11-17] MEDS: Hydrocortisone INJ 100 MG/2ML 2 ML VIAL IV SCH (04:00)
[2020-11-17 04:22] LABS: ABS Lymphocytes 0.5 10^3/ul (1.0-4.8); ABS Monocytes 0.5 10^3/ul (0-0.8); ABS Neutrophils 8.1 10^3/ul (1.5-7.7); Hematocrit 31 % (42-52); Hemoglobin 10.5 g/dL (14.0-18.0); Lymphocyte % 5.1 %; Mean Corpuscular HGB Conc 33 g/dL (31-36); Mean Corpuscular Hemoglobin 32 pg (27-31); Mean Corpuscular Volume 94 fL (80-94); Mean Platelet Volume 7.6 fL (7.4-10.4); Platelet Count 165 10^3/uL (150-450); Red Blood Count 3.33 10^6 /uL (4.18-5.48); Red Cell Distribution Width 14 % (10-15); White Blood Count 9.1 10^3/uL (3.5-10.8)
[2020-11-17 04:26] LABS: INR 3.72 (0.86-1.15)
[2020-11-17 04:31] LABS: Albumin 3.3 g/dL (3.2-5.2); Magnesium 2.7 mg/dL (1.9-2.7); Potassium 3.6 mmol/L (3.5-5.0); Total Bilirubin 2.6 mg/dL (0.2-1.0)
[2020-11-17 04:37] LABS: Albumin/Globulin Ratio 1.3 (1-3); EGFR African American 64.2 (>60); Globulin 2.6 g/dL (2-4); Phosphorus 2.5 mg/dL (2.5-5.0); Total Protein 5.9 g/dL (6.4-8.9)
[2020-11-17] MEDS: ALFUZOSIN 10 MG PO SCH (09:12)
[2020-11-17] MEDS ORDERED: Lactated Ringers 1000 ml BAG 1,000 ML IV SCH (09:47)
[2020-11-18] MEDS: ZOSYN 3.375 GM Q8H per EXTENDED INFUSION IV SCH ×4 (03:18→20:18)
[2020-11-18 04:59] LABS: Hematocrit 33 % (42-52); Mean Corpuscular HGB Conc 34 g/dL (31-36); Mean Corpuscular Hemoglobin 32 pg (27-31); Mean Corpuscular Volume 94 fL (80-94); Mean Platelet Volume 7.7 fL (7.4-10.4); Platelet Count 185 10^3/uL (150-450); Red Cell Distribution Width 14 % (10-15); White Blood Count 9.7 10^3/uL (3.5-10.8)
[2020-11-18 05:04] LABS: INR 3.13 (0.86-1.15)
[2020-11-18 05:31] LABS: Calcium 8.1 mg/dL (8.6-10.3); Potassium 3.4 mmol/L (3.5-5.0)
[2020-11-18 05:36] LABS: EGFR African American 78.4 (>60); EGFR Non-African American 64.8 (>60)
[2020-11-18 08:17] LABS: Magnesium 2.5 mg/dL (1.9-2.7)
[2020-11-18 08:22] LABS: Phosphorus 2.1 mg/dL (2.5-5.0)
[2020-11-18] MEDS: ALFUZOSIN 10 MG PO SCH (10:04)
[2020-11-18] MEDS: KCL 20 MEQ/100 ML IVPREMIX 20 MEQ/100 ML BAG IV SCH ×3 (10:05→16:37)
[2020-11-19] MEDS: ZOSYN 3.375 GM Q8H per EXTENDED INFUSION IV SCH (04:41)
[2020-11-19] MEDS ORDERED: Potassium Chloride LIQUID 20 MEQ/15 ML LIQUID PO ONE (07:14)
[2020-11-19] MEDS: ALFUZOSIN 10 MG PO SCH (10:03)
[2020-11-19] MEDS ORDERED: cefTRIAXone 1 gm/50 mL NS BAG 1 GM/50 ML BAG IVPB SCH (13:00)
[2020-11-20 05:38] LABS: ABS Eosinophils 0.2 10^3/ul (0-0.6); ABS Lymphocytes 1.8 10^3/ul (1.0-4.8); ABS Monocytes 0.9 10^3/ul (0-0.8); ABS Neutrophils 9.2 10^3/ul (1.5-7.7); Eosinophil % 1.3 %; Hematocrit 36 % (42-52); Hemoglobin 12.4 g/dL (14.0-18.0); Lymphocyte % 14.7 %; Mean Corpuscular HGB Conc 34 g/dL (31-36); Mean Corpuscular Hemoglobin 32 pg (27-31); Mean Corpuscular Volume 93 fL (80-94); Mean Platelet Volume 7.8 fL (7.4-10.4); Nucleated Red Blood Cells % 0.2; Platelet Count 200 10^3/uL (150-450); Red Blood Count 3.91 10^6 /uL (4.18-5.48); Red Cell Distribution Width 14 % (10-15); White Blood Count 12.1 10^3/uL (3.5-10.8)
[2020-11-20 06:01] LABS: Calcium 8.8 mg/dL (8.6-10.3); EGFR African American 96.1 (>60); EGFR Non-African American 79.4 (>60); Magnesium 1.8 mg/dL (1.9-2.7); Potassium 3.8 mmol/L (3.5-5.0)
[2020-11-20] MEDS: ALFUZOSIN 10 MG PO SCH (10:07)
[2020-11-20 11:55] VITALS: BP 135/83
== END 2020-11-20 11:50 | DRG 871 ==
LOC: ICU 02:19 → ED 02:19 → OBSVTOIN 06:59 → ICU 10:23 → MEDTELE 11-18 11:33
PROVIDERS: ADMIT Internal Medicine; ATTEND Hospitalist